=== PATIENT | female | born 1955 | race Caucasian/White ===

== ENCOUNTER → 2019-05-03 09:37 | Outpatient (CLI) | payer MEDICARE, OTHER, SELFPAY ==
[2019-05-02 09:56] VITALS: BMI 54.6
[2019-05-03 12:46] LABS: Absolute Lymphocyte Count 1.54 X10^3/uL (0.83-4.51); Absolute Neutrophil Count 3.5 X10^3/uL (2.0-7.7); Basophil# 0.07 X10^3/uL; Basophil% 1.2 % (0-1); Hematocrit 39.4 % (37-47); Hemoglobin 11.9 g/dL (12.0-15.0); Lymphocyte # 1.54 X10^3/ul (4.0); Lymphocyte % 25.8 % (19-41); Mean Corp Hgb Conc 30.2 g/dL (32-36); Mean Corpuscular Hgb 25.4 pg (27.0-32.0); Mean Platelet Vol. 11.8 fl (6.2-12.0); Monocyte# 0.52 X10^3/uL; Monocyte% 8.7 % (0-10); NRBC Flagged by Analyzer 0 % (0-5); Neutrophil # 3.53 X10^3/uL (2.7-7.7); Neutrophil % 59.1 % (47-70); Platelet Count 284 K/mm3 (150-450); RBC Distribution Width CV 16.2 % (11.6-14.6); RBC Distribution Width SD 49.1 fl (35.1-43.9); Red Blood Count 4.69 M/mm3 (4.2-5.4)
[2019-05-03 13:03] LABS: Vitamin B12 1932 pg/mL (211-911)
[2019-05-03 13:10] LABS: ALB/GLOB Ratio 0.8 RATIO (0.9-2.4); AST(SGOT) 12 U/L (15-37); Alanine Aminotransfer ALT/SGPT 21 U/L (13-56); Albumin, Serum 3.3 g/dL (3.2-5.0); Alkaline Phosphatase 153 U/L (45-117); Anion Gap 6 (5-15); BUN 9 mg/dL (7-18); BUN/Creat Ratio 14.2 RATIO (10-20); Calcium,Total 8.8 mg/dL (8.5-10.1); Chloride 107 mmol/L (98-107); Cholesterol 229 mg/dL (200); Creatinine, Serum 0.63 mg/dL (0.55-1.02); EST Glomerular Filtration Rate 100 mL/min (>60); Est Glom Filt Rate - Afr Amer 121 mL/min (>60); Glucose 90 mg/dL (74-106); High Density Lipoprotein 71 mg/dL; Potassium 3.8 mmol/L (3.5-5.1); Protein, Total 7.3 g/dL (6.4-8.2); Sodium Level 139 mmol/L (136-145); Thyroid Stim Hormone (TSH) 2.55 uIU/mL (0.358-3.74); Triglycerides 81 mg/dL; Very Low Density Lipoprotein 16 mg/dL (5-40)
== END ==
PROVIDERS: Family Provider Internal Medicine; PCP Internal Medicine; Visit Provider Internal Medicine
DX: I10 Essential (primary) hypertension (principal); E53.8 Deficiency of other specified B group vitamins
CPT/HCPCS: 36415; 80053; 80061; 82607; 84443; 85025

== ENCOUNTER → 2019-05-10 08:58 | Outpatient (CLI) | payer MEDICARE, OTHER, SELFPAY ==
[2019-05-02 09:56] VITALS: BMI 54.6
--- NOTE | 2019-05-10 09:00 | US_ITS ---
STUDY: ULTRASOUND BREAST - RIGHT REASON FOR EXAM: Female, 63 years old. Asymmetric density TECHNIQUE: Axial and longitudinal images of the RIGHT breast were performed with a high resolution ultrasound transducer. COMPARISON: None. FINDINGS: RIGHT Breast: Sonographic evaluation of the upper outer quadrant of left breast, in the area of concern shows only normal dense fibroglandular tissue. There is no suspicious solid or cystic mass, architectural distortion or shadowing calcification. US/Breast Limited Unilateral IMPRESSION: No suspicious sonographic findings ASSESSMENT CATEGORY: BIRADS Category 1: Negative. A letter regarding these results will be sent to the patient by the facility within 30 days. Electronically Signed: Be Philippe MD at 11:00 EDT , Service support ,
--- NOTE | 2019-05-10 09:11 | BI_ITS ---
MAMMOGRAPHY - UNILATERAL DIAGNOSTIC: RIGHT BREAST REASON FOR EXAM: Female, 63 years old. Right breast asymmetry, six-month follow-up PERTINENT HISTORY: Non-contributory. TECHNIQUE: Digital examination. Mediolateral oblique (MLO) and craniocaudad (CC) views of the breast were obtained, along with 3-D tomograms. CAD: CAD was performed on this study. COMPARISON: Outside film from 10/27/2018 FINDINGS: Breast Composition: There are scattered areas of fibroglandular density. There is a popcorn like calcification in the lateral superior right breast and a well-defined likely lymph node in the central inner right breast. No focal asymmetry or mass lesion noted. However, further evaluation with ultrasound is recommended for further evaluation and to compare with previous ultrasound. BI/DIAG MAMM W/CAD, UNILAT IMPRESSION: Further ultrasonographic evaluation recommended, as described above. Recall Side: Right Breast ASSESSMENT CATEGORY: BIRADS Category 0: Incomplete. Need additional imaging evaluation. A letter regarding these results will be sent to the patient by the facility within 30 days. FOLLOW-UP RECOMMENDATION: Ultrasound recommended. (I) Approximately 10% of breast cancers are not detected by mammography. A normal mammogram should not delay biopsy of a clinically suspicious abnormality. Electronically Signed: Be Philippe MD at 9:58 EDT , Service support ,
== END ==
PROVIDERS: Family Provider Internal Medicine; PCP Internal Medicine; Referring Provider Internal Medicine; Visit Provider Internal Medicine
DX: R92.8 Other abnormal and inconclusive findings on diagnostic imaging of breast (principal)
CPT/HCPCS: 76642; 77061; 77065; G0279

== ENCOUNTER → 2019-06-05 07:43 | Outpatient (CLI) | payer MEDICARE, OTHER, SELFPAY ==
[2019-05-26 11:13] VITALS: BMI 56.4
--- NOTE | 2019-06-05 07:49 | CT_ITS ---
STUDY: CTA CHEST REASON FOR EXAM: Female, 63 years old. Thoracic aortic aneurysm RADIATION DOSAGE (If Supplied By Facility): CTDIvol = ( 18.58 ) mGy, DLP = ( 680.37 ) mGycm TECHNIQUE: The examination was performed with the intravenous administration of 100mL IV Isovue 370. Post-processing of the angiographic images was performed, with multiplanar reformation and 3D reconstruction. Individualized dose optimization techniques were used for this CT. COMPARISON: None. FINDINGS: Normal enhancement of the main pulmonary artery and right and left pulmonary arteries. Normal enhancement of the bilateral peripheral pulmonary arteries. There is no demonstrated pulmonary embolism. Normal thoracic aorta and visualized great vessels. There is no demonstrated aortic dissection. Normal heart and pericardium. Small hiatal hernia. Normal mediastinum. Normal hilar regions. Normal visualized trachea and bronchi. The lungs are well expanded. Normal pulmonary parenchyma. Normal pleura. Normal chest wall structures. Normal osseous structures. Normal visualized upper abdomen. CT/CTA Chest W/WO Contrast IMPRESSION: Normal CTA chest examination, without a demonstrated pulmonary embolism or arterial dissection. No thoracic aortic aneurysm or significant stenosis of the great vessels. Electronically Signed: Seth Aquino MD at 9:09 EDT Tel , Service support ,
--- NOTE | 2019-06-05 08:22 | ECHOCS_ITS ---
Reason For Study: Murmur Procedure This was a 2D Doppler, Color Flow transthoracic echocardiogram. The study was technically difficult. Contrast injection was performed. Exam performed in department. Left Ventricle Normal LV size. Left ventricular systolic function is normal. The estimated ejection fraction is 65 %. No evidence for diastolic dysfunction. No regional wall motion abnormalities noted. Right Ventricle Normal RV size. Normal systolic function. Atria The left atrium is moderately enlarged. Normal right atrium. No doppler evidence for ASD. Mitral Valve There is no mitral annular calcification. Normal mitral valve. Mild (1+) mitral valve insufficiency. Tricuspid Valve Normal tricuspid valve. Mild tricuspid valve insufficiency. Right ventricular systolic pressure estimated to be 31 mmHg. Aortic Valve Trisinus/trileaflet aortic valve. Mild focal aortic valve calcification. Pulmonic Valve The pulmonic valve is not well visualized. Great Vessels Borderline to mildly enlarged ascending aorta. Pericardium/Pleural No pericardial effusion. Medication Diluted definity 2ml given slow IV push to enhance endocardial definition. MMode/2D Measurements & Calculations LVIDd: 5.8 cm IVSd: 1.1 cm Ao root diam: 3.6 cm LVIDs: 3.8 cm LVPWd: 1.1 cm RVDd: 3.7 cm FS: 34.3 % LAV(MOD-bp): 62.7 ml LVAd ap4: 33.6 cm2 SV(MOD-sp4): 75.8 ml LAV(MOD-bp) Indexed: 29.1 ml/m2 EDV(MOD-sp4): 120.1 ml LAV(MOD-sp2): 50.6 ml EDV(sp4-el): 122.8 ml LAV(MOD-sp4): 71.4 ml LVAs ap4: 18.6 cm2 ESV(MOD-sp4): 44.3 ml ESV(sp4-el): 45.5 ml EF(MOD-sp4): 63.1 % EF(sp4-el): 63.0 % SV(sp4-el): 77.3 ml LA A4 area: 22.7 cm2 LA dimension(2D): 4.5 cm RA A4 area: 13.7 cm2 Doppler Measurements & Calculations MV E max paramjit: 94.4 cm/sec Lat Peak E' Paramjit: 10.2 cm/sec Med Peak E' Paramjit: 7.0 cm/sec MV A max paramjit: 80.0 cm/sec E/E' lat: 9.3 E/E' med: 13.5 MV E/A: 1.2 Ao V2 max: 158.5 cm/sec LV V1 max: 112.5 cm/sec PA V2 max: 119.4 cm/sec Ao max P.1 mmHg LV V1 max P.1 mmHg Ao V2 mean: 121.5 cm/sec Ao mean P.3 mmHg Ao V2 VTI: 37.1 cm TR max paramjit: 266.3 cm/sec TR max P.4 mmHg Interpretation Summary The study was technically difficult. Contrast injection was performed. Left ventricular systolic function is normal. The estimated ejection fraction is 65 %. The left atrium is moderately enlarged. Mild (1+) mitral valve insufficiency. Mild tricuspid valve insufficiency. Mild focal aortic valve calcification. Borderline to mildly enlarged ascending aorta. Right ventricular systolic pressure estimated to be 31 mmHg. No evidence for diastolic dysfunction. Ordering Physician: Osiel Camp Referring Physician: Jennifer Vu Performed By: Flora Kellogg, KATYACS, RVT
== END ==
PROVIDERS: Family Provider Internal Medicine; PCP Internal Medicine; Referring Provider Internal Medicine Cardiovascular Disease; Visit Provider Internal Medicine Cardiovascular Disease
DX: I71.2 Thoracic aortic aneurysm, without rupture (principal); I34.0 Nonrheumatic mitral (valve) insufficiency; I10 Essential (primary) hypertension; E78.5 Hyperlipidemia, unspecified
CPT/HCPCS: 71275; 93306; Q9957; Q9967; A4216; C8929

== ENCOUNTER → 2019-06-14 20:15 | Outpatient (CLI) | payer MEDICARE, OTHER, SELFPAY ==
[2019-05-02 09:56] VITALS: BMI 54.6
== END ==
PROVIDERS: Family Provider Internal Medicine; PCP Internal Medicine; Referring Provider Internal Medicine; Visit Provider Internal Medicine
DX: G47.33 Obstructive sleep apnea (adult) (pediatric) (principal)
CPT/HCPCS: 95811

== ENCOUNTER → 2019-12-05 14:01 | Outpatient (CLI) | payer MEDICARE, OTHER, SELFPAY ==
[2019-12-05 13:23] VITALS: BMI 52.7
[2019-12-05 15:11] LABS: Absolute Lymphocyte Count 2.31 X10^3/uL (0.83-4.51); Absolute Neutrophil Count 4.2 X10^3/uL (2.0-7.7); Basophil# 0.07 X10^3/uL; Eosinophil# 0.21 X10^3/uL; Eosinophils% 2.9 % (0-5); Hemoglobin 12.9 g/dL (12.0-15.0); Lymphocyte # 2.31 X10^3/ul (4.0); Lymphocyte % 31.8 % (19-41); Mean Corp Hgb Conc 30.7 g/dL (32-36); Mean Corpuscular Hgb 26.2 pg (27.0-32.0); Mean Corpuscular Volume 85.4 fL (81-99); Mean Platelet Vol. 10.8 fl (6.2-12.0); Monocyte# 0.52 X10^3/uL; Monocyte% 7.2 % (0-10); NRBC Flagged by Analyzer 0 % (0-5); Neutrophil # 4.15 X10^3/uL (2.7-7.7); Platelet Count 300 K/mm3 (150-450); RBC Distribution Width CV 16.4 % (11.6-14.6); RBC Distribution Width SD 50.3 fl (35.1-43.9); Red Blood Count 4.92 M/mm3 (4.2-5.4); White Blood Count 7.3 K/mm3 (4.4-11.0)
[2019-12-05 15:33] LABS: Thyroid Stim Hormone (TSH) 1.75 uIU/mL (0.358-3.74)
[2019-12-05 15:42] LABS: Vitamin B12 467 pg/mL (211-911); Vitamin D,25 Hydroxy 24.2 ng/mL (29.95-100.01)
== END ==
PROVIDERS: PCP Internal Medicine; Referring Provider Internal Medicine; Visit Provider Internal Medicine
DX: E03.9 Hypothyroidism, unspecified (principal); E53.8 Deficiency of other specified B group vitamins; E55.9 Vitamin D deficiency, unspecified
CPT/HCPCS: 36415; 82306; 82607; 84443; 85025

== ENCOUNTER → 2020-04-16 10:46 | Outpatient (CLI) | payer MEDICARE, OTHER, SELFPAY ==
[2020-04-16 10:29] VITALS: BMI 35.2
[2020-04-16 12:12] LABS: Hematocrit 42.9 % (37-47); Hemoglobin 12.9 g/dL (12.0-15.0); Mean Corp Hgb Conc 30.1 g/dL (32-36); Mean Corpuscular Hgb 26.5 pg (27.0-32.0); Mean Corpuscular Volume 88.1 fL (81-99); Mean Platelet Vol. 11.5 fl (6.2-12.0); Platelet Count 315 K/mm3 (150-450); RBC Distribution Width CV 14.8 % (11.6-14.6); RBC Distribution Width SD 46.8 fl (35.1-43.9); Red Blood Count 4.87 M/mm3 (4.2-5.4); White Blood Count 8.4 K/mm3 (4.4-11.0)
[2020-04-16 12:39] LABS: Cholesterol 231 mg/dL (200); High Density Lipoprotein 62 mg/dL; Triglycerides 135 mg/dL; Very Low Density Lipoprotein 27 mg/dL (5-40)
[2020-04-16 12:42] LABS: ALB/GLOB Ratio 0.8 RATIO (0.9-2.4); AST(SGOT) 10 U/L (15-37); Alanine Aminotransfer ALT/SGPT 25 U/L (13-56); Albumin, Serum 3.3 g/dL (3.2-5.0); Alkaline Phosphatase 173 U/L (45-117); Anion Gap 6 (5-15); BUN 16 mg/dL (7-18); BUN/Creat Ratio 25.6 RATIO (10-20); Calcium,Total 8.8 mg/dL (8.5-10.1); Chloride 108 mmol/L (98-107); Creatinine, Serum 0.63 mg/dL (0.55-1.02); EST Glomerular Filtration Rate 101 mL/min (>60); Est Glom Filt Rate - Afr Amer 123 mL/min (>60); Globulin 4.4 g/dL (2.2-4.2); Glucose 99 mg/dL (74-106); Potassium 4.2 mmol/L (3.5-5.1); Protein, Total 7.7 g/dL (6.4-8.2); Sodium Level 140 mmol/L (136-145); Thyroid Stim Hormone (TSH) 2.84 uIU/mL (0.358-3.74)
[2020-04-16 13:26] LABS: Vitamin B12 386 pg/mL (211-911); Vitamin D,25 Hydroxy 31.8 ng/mL
== END ==
PROVIDERS: Internal Medicine Cardiovascular Disease; PCP Internal Medicine; Referring Provider Nurse Practitioner Family; Visit Provider Nurse Practitioner Family
DX: E66.9 Obesity, unspecified (principal); E55.9 Vitamin D deficiency, unspecified; E53.8 Deficiency of other specified B group vitamins; E78.00 Pure hypercholesterolemia, unspecified; I34.0 Nonrheumatic mitral (valve) insufficiency; E78.5 Hyperlipidemia, unspecified; I10 Essential (primary) hypertension; I71.2 Thoracic aortic aneurysm, without rupture; E03.9 Hypothyroidism, unspecified
CPT/HCPCS: 36415; 80053; 80061; 82306; 82607; 84443; 85027

== ENCOUNTER → 2020-05-17 09:19 | Outpatient (CLI) | payer MEDICARE, OTHER, SELFPAY ==
[2020-05-17 08:16] VITALS: BMI 35.2
[2020-05-17 10:14] LABS: Mucous, Urine 0 SEEN /hpf (<or=2+); Red Blood Cells-Urine 0 SEEN /hpf (0-5); White Blood Cells 0 SEEN /hpf (0-5)
[2020-05-17 12:33] LABS: Color, Urine Yellow (Yellow); Glucose, Dipstick Normal (Normal); Ketone-Dipstick Negative (Negative); Leukocyte Esterase-Dipstick Negative /ul (Negative); Nitrite-Dipstick Negative (Negative); Occult Blood-Urine Negative /ul (Negative); Protein-Dipstick Negative (Negative); Specific Gravity, Urine 1.015 (1.002-1.030); Urine Bilirubin Dipstick Negative (Negative); Urine Clarity Clear (Clear); Urine Urobilinogen Normal (Normal)
[2020-05-17 12:44] LABS: Squamous Epithelial Cells - UA 5-10 SEEN /hpf (5-10)
[2020-05-17 12:45] LABS: Bacteria RARE /hpf (None Seen)
== END ==
LOC: BIMLAB 09:20 → LABSPEC 09:21
PROVIDERS: PCP Internal Medicine; Referring Provider Nurse Practitioner Family; Visit Provider Nurse Practitioner Family
DX: N39.0 Urinary tract infection, site not specified (principal)
CPT/HCPCS: 81001; 87086; 87088

== ENCOUNTER → 2020-06-11 14:22 | Outpatient (CLI) | payer MEDICARE, OTHER, SELFPAY ==
[2020-06-11 13:36] VITALS: BMI 35.2
[2020-06-11 17:38] LABS: Absolute Lymphocyte Count 2.15 X10^3/uL (0.83-4.51); Absolute Neutrophil Count 4.5 X10^3/uL (2.0-7.7); Basophil# 0.06 X10^3/uL; Basophil% 0.8 % (0-1); Eosinophil# 0.28 X10^3/uL; Eosinophils% 3.7 % (0-5); Hematocrit 43.3 % (37-47); Hemoglobin 12.9 g/dL (12.0-15.0); Lymphocyte # 2.15 X10^3/ul (4.0); Lymphocyte % 28.4 % (19-41); Mean Corp Hgb Conc 29.8 g/dL (32-36); Mean Corpuscular Hgb 26.1 pg (27.0-32.0); Mean Corpuscular Volume 87.5 fL (81-99); Mean Platelet Vol. 11.7 fl (6.2-12.0); Monocyte# 0.58 X10^3/uL; Monocyte% 7.7 % (0-10); NRBC Flagged by Analyzer 0 % (0-5); Neutrophil # 4.48 X10^3/uL (2.7-7.7); Neutrophil % 59.1 % (47-70); Platelet Count 314 K/mm3 (150-450); RBC Distribution Width SD 53.4 fl (35.1-43.9); Red Blood Count 4.95 M/mm3 (4.2-5.4); White Blood Count 7.6 K/mm3 (4.4-11.0)
== END ==
PROVIDERS: PCP Internal Medicine; Referring Provider Internal Medicine; Visit Provider Internal Medicine
DX: E53.8 Deficiency of other specified B group vitamins (principal)
CPT/HCPCS: 36415; 85025

== ENCOUNTER → 2020-11-18 15:27 | Outpatient (CLI) | payer MEDICARE, OTHER, SELFPAY ==
[2020-11-18 17:42] LABS: Absolute Lymphocyte Count 1.79 X10^3/uL (0.83-4.51); Absolute Neutrophil Count 5.6 X10^3/uL (2.0-7.7); Basophil# 0.04 X10^3/uL; Basophil% 0.5 % (0-1); Eosinophil# 0.19 X10^3/uL; Eosinophils% 2.3 % (0-5); Hematocrit 39.7 % (37-47); Hemoglobin 13.2 g/dL (12.0-15.0); Lymphocyte # 1.79 X10^3/ul (4.0); Lymphocyte % 21.9 % (19-41); Mean Corp Hgb Conc 33.2 g/dL (32-36); Mean Corpuscular Hgb 29.7 pg (27.0-32.0); Mean Corpuscular Volume 89.2 fL (81-99); Mean Platelet Vol. 12.1 fl (6.2-12.0); Monocyte# 0.57 X10^3/uL; NRBC Flagged by Analyzer 0 % (0-5); Neutrophil # 5.57 X10^3/uL (2.7-7.7); Neutrophil % 68.1 % (47-70); Platelet Count 247 K/mm3 (150-450); RBC Distribution Width CV 17.9 % (11.6-14.6); RBC Distribution Width SD 50.4 fl (35.1-43.9); Red Blood Count 4.45 M/mm3 (4.2-5.4); White Blood Count 8.2 K/mm3 (4.4-11.0)
[2020-11-18 18:07] LABS: ALB/GLOB Ratio 0.8 RATIO (0.9-2.4); AST(SGOT) 13 U/L (15-37); Alanine Aminotransfer ALT/SGPT 23 U/L (13-56); Albumin, Serum 3.4 g/dL (3.2-5.0); Alkaline Phosphatase 148 U/L (45-117); Anion Gap 9 (5-15); BUN 18 mg/dL (7-18); BUN/Creat Ratio 23.3 RATIO (10-20); Calcium,Total 9.3 mg/dL (8.5-10.1); Chloride 105 mmol/L (98-107); Creatinine, Serum 0.77 mg/dL (0.55-1.02); EST Glomerular Filtration Rate 79 mL/min (>60); Est Glom Filt Rate - Afr Amer 96 mL/min (>60); Globulin 4.2 g/dL (2.2-4.2); Glucose 100 mg/dL (74-106); Potassium 3.9 mmol/L (3.5-5.1); Protein, Total 7.6 g/dL (6.4-8.2); Sodium Level 140 mmol/L (136-145)
[2020-11-18 18:16] LABS: Vitamin D,25 Hydroxy 65.8 ng/mL
[2020-11-18 18:20] LABS: Vitamin B12 > 2000 pg/mL (211-911)
== END ==
PROVIDERS: PCP Internal Medicine; Visit Provider Internal Medicine
DX: E53.8 Deficiency of other specified B group vitamins (principal); I10 Essential (primary) hypertension; K91.2 Postsurgical malabsorption, not elsewhere classified
CPT/HCPCS: 36415; 80053; 82306; 82607; 85025

== ENCOUNTER → 2021-08-27 09:48 | Outpatient (CLI) | payer MEDICARE, OTHER, SELFPAY ==
--- NOTE | 2021-08-27 10:00 | RAD_ITS ---
STUDY: X-RAY - PELVIS AND LEFT HIP REASON FOR EXAM: Left hip pain. TECHNIQUE: 2 views of the pelvis and hip. COMPARISON: None. FINDINGS: Normal visualized soft tissue structures. Normal bilateral iliac wings, sacroiliac joints and visualized sacrum. Normal bilateral superior and inferior pubic rami. There are mild degenerative changes of the pubic symphysis. Normal bilateral ischial tuberosities. Normal visualized femoral head. Normal acetabulum. There are small marginal osteophytes and moderate joint space narrowing of the hip joint. RAD/HIP, UNI W/ Pelvis 2-3 Views IMPRESSION: Left hip arthrosis. Electronically Signed: Edwin Ortega MD at 10:39 EST Tel , Service support ,
[2021-08-27 12:20] LABS: Absolute Lymphocyte Count 2.06 X10^3/uL (0.83-4.51); Absolute Neutrophil Count 3.6 X10^3/uL (2.0-7.7); Basophil# 0.06 X10^3/uL; Basophil% 0.9 % (0-1); Eosinophil# 0.23 X10^3/uL; Eosinophils% 3.5 % (0-5); Hematocrit 40.2 % (37-47); Hemoglobin 12.8 g/dL (12.0-15.0); Lymphocyte # 2.06 X10^3/ul (0.83-4.51); Lymphocyte % 31.8 % (19-41); Mean Corp Hgb Conc 31.8 g/dL (32-36); Mean Corpuscular Hgb 28.1 pg (27.0-32.0); Mean Corpuscular Volume 88.4 fL (81-99); Mean Platelet Vol. 11.4 fl (6.2-12.0); Monocyte# 0.49 X10^3/uL; Monocyte% 7.6 % (0-10); NRBC Flagged by Analyzer 0 % (0-5); Neutrophil # 3.62 X10^3/uL (2.7-7.7); Neutrophil % 55.9 % (47-70); Platelet Count 263 K/mm3 (150-450); RBC Distribution Width CV 15.7 % (11.6-14.6); Red Blood Count 4.55 M/mm3 (4.2-5.4); White Blood Count 6.5 K/mm3 (4.4-11.0)
[2021-08-27 13:13] LABS: ALB/GLOB Ratio 0.8 RATIO (0.9-2.4); AST(SGOT) 18 U/L (15-37); Alanine Aminotransfer ALT/SGPT 23 U/L (13-56); Albumin, Serum 3.3 g/dL (3.2-5.0); Alkaline Phosphatase 150 U/L (45-117); Anion Gap 8 (5-15); BUN 12 mg/dL (7-18); BUN/Creat Ratio 22.4 RATIO (10-20); Calcium,Total 9.2 mg/dL (8.5-10.1); Chloride 106 mmol/L (98-107); Cholesterol 207 mg/dL (200); Creatinine, Serum 0.54 mg/dL (0.55-1.02); EST Glomerular Filtration Rate 121 mL/min (>60); Est Glom Filt Rate - Afr Amer 147 mL/min (>60); Globulin 4.1 g/dL (2.2-4.2); Glucose 88 mg/dL (74-106); High Density Lipoprotein 58 mg/dL; Potassium 3.9 mmol/L (3.5-5.1); Protein, Total 7.4 g/dL (6.4-8.2); Sodium Level 140 mmol/L (136-145); Triglycerides 94 mg/dL; Very Low Density Lipoprotein 19 mg/dL (5-40)
== END ==
PROVIDERS: PCP Internal Medicine; Visit Provider Internal Medicine
DX: I10 Essential (primary) hypertension (principal); M25.552 Pain in left hip
CPT/HCPCS: 36415; 73502; 80053; 80061; 85025

== ENCOUNTER 2021-10-23 10:30 | Outpatient (RCR) | payer MEDICARE, OTHER, SELFPAY ==
--- NOTE | 2021-09-23 12:37 | HP.PTEVAL ---
Patient's Visit Information KAROLYN MOREL is a 65 year old F referred to Physical Therapy by Dr. Jennifer Vu MD with a diagnosis of Left Hip Pain. Date of Evaluation: 09/23/21 Physical Therapist: Shila Ashraf DPT - Visit Plan Frequency: 2x /Week Duration: 4 Weeks Plan: Focus on LE and core strength/stabilization and functional mobility. HEP Given IE: Std Marching, HR/TR, hip abd, hip extn - Subjective Patient reports that her left hip is really bothering her for about a year. When she broke her right ankle she walked funny for a year and it wore the left hip out. She has had x-rays which showed moderate OA. The hip was giving out on her so she is using a walker and now it doesn't do that. Worst: 06/27 Agg: movement Eases: heat, rest Best: 01/25. She does not want to have her hip replaced- and wants to stay as I as possible. Pain is located on the greater troch and radiates to the thigh. Feels that the knee is not correct either after the knee replacement. Describes the pain as achy and does not want to more- stiffness. Sleep: disturbed- keeps her from sleeping but does not wake her up. Work: not currently working- more sedentary- but does perform all ADL's, grocery shopping and cleaning. No loss or change in bowel or bladder. PMHx/Meds: see PCP note from 09/02/2021 - Objective Posture: FH, RS- does not correct given verbal or tactile cues. Gait: wide ROCK- decreased stance on the left LE with poor heel/toe pattern- Straight Cane. Stairs: asc/desc 8 non recip- bilateral HR for propulsion and decreased control with descent. HR/TR: able with UE A. SLS: weight shift but unable to SLS. ROM: WFL in all planes of lumbar and hip- pain with hip flexion. Strength: Ankle: 4+/5 Knee: 4/5, Hip: flexion: 4-/5, Extn: 4/5, Abd: 4/5, Add: 4+/5, IR/ER: not tested due to. Flex: HS: moderate Gastroc: moderate - Balance/Special Test Scores Lower Extremity Functional Score: 29 TUG Test Time Seconds: 17.67 30 Second Chair Rise Test Seconds: 16 - Goals Goal 1:: Patient will be I with HEP and progression Goal Time Frame: 4-6 Weeks Goal 2:: Patient will ambulate <300 feet with a normalized gait pattern and LRD Goal Time Frame: 4-6 Weeks Goal 3:: Patient will asc/desc 8 recip with 2 HR Goal Time Frame: 4-6 Weeks Goal 4:: Patient will report more than 50% improvement Goal Time Frame: 4-6 Weeks - Rehabilitation Potential Physical Therapy Diagnosis: Patient presents with hypomobility- she has decreased pain free ROM, LE and core strength/stabilization, flexibility and muscular endurance leading to abnormal gait and decreased ability to perform ADL's. Rehabilitation Potential: Fair - Anticipated Interventions Patient/Client Instruction: Educate patient on: Benefits of Fitness Program Therapeutic Exercise to Include: Strength training, Endurance training, Balance training, Agility training, Body mechanics, Postural training, Flexibilty training, Gait and locomotor training, Neuromotor development, Dynamic Lumbar Stabilization, Scapular Strength/Stabilization For the Purpose of:: To improve muscle performance and motor function Cryotherapy (ice pack, ice massage): Yes Thermo therapy (hot pack): Yes Thank you for the opportunity to evaluate your patient. For Medicare and Medicare HMO plans, please review the plan of care and approve it. It will need to be FAXED BACK to us at [phone] for Medicare purposes. For Medicare only, by signing this I certify the plan of care. Please let me know if there are questions or concerns regarding this plan of care. Physician Signature: Date:
--- NOTE | 2021-10-23 10:54 | HP.PTDCSUM_ITS ---
It has been my pleasure to treat KAROLYN MOREL referred by Dr. Jennifer Vu MD, with the diagnosis of Left Hip Pain for a total of 7 visit(s). Discharge Date: Please see the following information for a summary of their discharge status. Subjective: She reports that he is moving better- she doesn't have to use her cane or walker in the house. She is getting up/down easier with a better first step. L lateral hip Pain Intensity (Out of 10): 4 % Improvement: 40 Objective/Function: Posture: FH, RS- does correct given verbal or tactile cues. Gait: wide ROCK- decreased stance on the left LE with poor heel/toe pattern- Straight Cane. Stairs: asc/desc 8 recip- bilateral HR for propulsion and decreased control with descent. HR/TR: able with UE A. SLS: weight shift but unable to SLS. ROM: WFL in all planes of lumbar and hip- pain with hip flexion. Strength: Ankle: 4+/5 Knee: 4+/5, Hip: flexion: 4/5, Extn: 4/5, Abd: 4+/5, Add: 4+/5, Flex: HS: moderate Gastroc: moderate Goal 1:: Patient will be I with HEP and progression Goal Progress: Progressing Goal 2:: Patient will ambulate <300 feet with a normalized gait pattern and LRD Goal Progress: Progressing Goal 3:: Patient will asc/desc 8 recip with 2 HR Goal Progress: Progressing Goal 4:: Patient will report more than 50% improvement Goal Progress: Progressing Plan: Discharge to [facility] If there are questions or concerns regarding this patient's physical therapy, please feel free to call me at [phone]. Thank you for the referral of this patient. Sincerely, Shila Ashraf, DPT Balance/Gait/Functional tests - Balance/Special Test Scores Lower Extremity Functional Score: 37 TUG Test Time Seconds: 17.67 Tug Test: <20 sec.=mostly independent 30 Second Chair Rise Test Seconds: 16
== END 2021-10-23 19:00 | disposition home or self-care (01) ==
LOC: PT 10:30
PROVIDERS: PCP Internal Medicine; Referring Provider Internal Medicine; Visit Provider Internal Medicine
DX: M25.552 Pain in left hip (principal)
CPT/HCPCS: 97110; 97161; 97164

== ENCOUNTER → 2022-01-20 15:05 | Outpatient (CLI) | payer MEDICARE, OTHER, SELFPAY ==
--- NOTE | 2022-01-20 15:07 | BI_ITS ---
MAMMOGRAPHY - BILATERAL SCREENING REASON FOR EXAM: Female, 66 years old. Routine annual screening examination. PERTINENT HISTORY: Non-contributory. TECHNIQUE: Digital bilateral breast rich (3D mammographic acquisition) in the CC and MLO projections. 2-D mediolateral oblique (MLO) and craniocaudad (CC) views of both breasts were obtained. CAD: Full Field Digital Mammography with Computer Added Detection was performed. COMPARISON: Comparison is made with prior examination dated 10/27/2018. FINDINGS: Breast Composition: The breasts are heterogeneously dense, which may obscure small masses. There are no dominant masses or suspicious calcifications. There is a 6.1 mm well-defined nodule in the retroareolar region of the right breast. Ultrasound correlation is suggested. Stable partially calcified nodules in the left breast suggestive of calcifying fibroadenomas. No other significant abnormalities are identified. BI/SCRN MAMM (CAD)W/RICH BILAT IMPRESSION: 6.1 mm well-defined nodule in the retroareolar region of the right breast. Correlation with ultrasound is recommended. ASSESSMENT CATEGORY: BIRADS Category 0: Incomplete. Need additional imaging evaluation. A letter regarding these results will be sent to the patient by the facility within 30 days. Approximately 10% of breast cancers are not detected by mammography. A normal mammogram should not delay biopsy of a clinically suspicious abnormality. [id number] Electronically Signed: Rupesh Diaz MD at 15:56 EDT ,
== END ==
PROVIDERS: PCP Internal Medicine; Referring Provider Internal Medicine; Visit Provider Internal Medicine
DX: Z12.31 Encounter for screening mammogram for malignant neoplasm of breast (principal)
CPT/HCPCS: 77063; 77067

== ENCOUNTER 2022-01-22 10:57 | Outpatient (CLI) | payer MEDICARE, OTHER, SELFPAY ==
--- NOTE | 2022-01-22 10:58 | US_ITS ---
STUDY: ULTRASOUND BREAST - RIGHT REASON FOR EXAM: Female, 66 years old. Abnormal screening mammogram. TECHNIQUE: Axial and longitudinal images of the RIGHT breast were performed with a high resolution ultrasound transducer. # OF IMAGES: 8 COMPARISON: Comparison is made with prior mammogram dated 01/20/2022 and prior sonogram of the right breast dated 05/10/2019. FINDINGS: RIGHT Breast: The mammographic abnormality corresponds to a 8mm by 8mm by 6 mm well-defined hypoechoic nodule in the retroareolar region of the breast. Biopsy is recommended. US/Breast Limited Unilateral IMPRESSION: 8 mm x 8 mm x 6 mm hypoechoic nodule at the 8 o''clock position of the breast in the retroareolar region. Biopsy recommended. ASSESSMENT CATEGORY: BIRADS Category 4: Suspicious - Biopsy Should Be Considered. A letter regarding these results will be sent to the patient by the facility within 30 days. Electronically Signed: Rupesh Diaz MD at 14:03 EDT ,
== END 2022-01-22 23:59 | disposition home or self-care (01) ==
LOC: OPBI 10:58
PROVIDERS: PCP Internal Medicine; Visit Provider Internal Medicine
DX: R92.8 Other abnormal and inconclusive findings on diagnostic imaging of breast (principal)
CPT/HCPCS: 76642

== ENCOUNTER → 2022-02-05 | Outpatient (CLI) | payer MEDICARE, OTHER, SELFPAY ==
--- NOTE | 2022-02-05 | BRBX_PTH ---
PATIENT: KAROLYN MOREL LOC: [facility] U#:[id number] AGE/SX: 66/F ROOM: RE02/05/[address]: Dr. Shanon Rivera MD : 1955 BED: DIS: 02/05/2022 SPEC #: [id number] RECD: 02/05/22 16:24 STATUS: LILLI SUNNY #: [id number] PAULO: 02/05/22 00:[address]: Shanon Rivera DEPT: SURGICAL PATHOLOGY RECD BY: Taco Otto ENTERED: 02/06/22 10:57 SP TYPE: BREAST BX ANN MARIE DR: Dr. Jennifer Vu MD Tissues: Right breast, NOS Procedures: Surgery Specimen Level IV HEADER OPERATION: Ultrasound-guided right breast core biopsy PRE-OP DIAGNOSIS: Right breast mass 8 o?clock, 1 cm from nipple TISSUE SUBMITTED: Right breast FIXATION TIME: 75.5 hours MICROSCOPIC DIAGNOSIS Right breast mass, 8 o?clock, 1 cm from nipple, ultrasound-guided core biopsy: Hyalinized fibroadenoma. Negative for atypia or malignancy. See comment. CAMILA:richi 02/09/2022 COMMENT Correlation with clinical, radiologic findings and appropriate follow up are necessary. MICROSCOPIC DESCRIPTION Slides are reviewed. GROSS DESCRIPTION Received in fixative is one container labeled with the patient's name and designated right breast. The specimen consists of multiple elongated fragments of cash-yellow fibroadipose tissue that in aggregate measure 2 x 0.2 x 0.1 cm. The entire specimen is submitted in one cassette. / CAMILA:richi 02/06/2022 TC:1 CPT: 35860
--- NOTE | 2022-02-05 14:32 | US_ITS ---
STUDY: ULTRASOUND BREAST - RIGHT REASON FOR EXAM: Female, 66 years old. Right breast mass TECHNIQUE: Axial and longitudinal images of the RIGHT breast were performed with a high resolution ultrasound transducer. # OF IMAGES: 28 COMPARISON: None. FINDINGS: RIGHT Breast: Ultrasound-guided biopsy of 8 mm x 8 mm x 6 mm hypoechoic nodule at the 8 o''''clock position of the breast in the retroareolar region. Biopsy recommended. US/US Breast Biopsy 1st Lesion IMPRESSION: Successful ultrasound-guided biopsy of right breast mass at 8 o''clock position. ASSESSMENT CATEGORY: BIRADS Category 4: Suspicious. Pathology result is pending Electronically Signed: Salma Han MD at 3:02 EDT ,
--- NOTE | 2022-02-05 15:58 | PCM.OPRPT ---
Report of Operation Date of Procedure: 02/05/22 Pre-Operative Diagnosis: Right breast mass Post-Operative Diagnosis: Same Surgery/Procedure Performed:: Ultrasound-guided right breast biopsy Surgeon: Shanon Rivera Type of Anesthesia: Local Specimen's removed: Right breast mass 8:00 1 cm from the nipple Estimated Blood Loss (mL): Minimal Description of Procedure: Procedure: Right ultrasound-guided core biopsy Indications: 66year-old female with hypoechoic nodule at 8:00 in the right breast 1 centimeters from the nipple. Risk benefits were discussed the patient and she elected to proceed with ultrasound guided core biopsy with clip placement Description of procedure: Patient was brought into the ultrasound room in the right breast was marked. A timeout was completed verifying correct patient, procedure, site, specially, prior to beginning procedure. The right breast was prepped and draped in usual sterile fashion and using local anesthesia was obtained with 1% lidocaine with epi. The lesion was located with the ultrasound. Small incision was made with 11 blade to introduced the BARD MaxCore through the skin. Under ultrasound guidance multiple core samples were obtained using then 14-gauge BARD MaxCore and sent in formalin for pathology. The Bard dual ultraribbon clip was then deployed into the biopsy cavity under ultrasound guidance and a picture was taken. Upon completion procedure hemostasis was obtained and a Steri-Strip and OpSite were placed. Patient was then taken to the mammography suite for clip verification. The clip was verified. The patient tolerated the procedure well and was discharged from the breast imaging department good condition. Complications none
== END | disposition home or self-care (01) ==
LOC: BIRAD 14:31
PROVIDERS: PCP Internal Medicine; Visit Provider Surgery
DX: R92.8 Other abnormal and inconclusive findings on diagnostic imaging of breast (principal)
CPT/HCPCS: 19083; 88305

== ENCOUNTER → 2022-04-02 | Outpatient (CLI) | payer MEDICARE, OTHER, SELFPAY ==
[2022-04-02 10:42] LABS: Bacteria 0 SEEN /hpf (None Seen); Mucous, Urine 0 SEEN /hpf (<or=2+); Red Blood Cells-Urine 0 SEEN /hpf (0-5); White Blood Cells 0 SEEN /hpf (0-5)
[2022-04-02 12:03] LABS: Color, Urine Yellow (Yellow); Glucose, Dipstick Normal (Normal); Ketone-Dipstick Negative (Negative); Leukocyte Esterase-Dipstick Negative /ul (Negative); Nitrite-Dipstick Negative (Negative); Occult Blood-Urine Negative /ul (Negative); Protein-Dipstick Negative (Negative); Urine Bilirubin Dipstick Negative (Negative); Urine Clarity Clear (Clear); Urine Urobilinogen Normal (Normal); Urine pH 6.5 (5.0 - 8.0)
[2022-04-02 12:15] LABS: Squamous Epithelial Cells - UA 0-5 SEEN /hpf (5-10)
[2022-04-02 12:24] LABS: Absolute Lymphocyte Count 2.36 X10^3/uL (0.83-4.51); Absolute Neutrophil Count 5.6 X10^3/uL (2.0-7.7); Basophil# 0.04 X10^3/uL; Basophil% 0.5 % (0-1); Eosinophil# 0.09 X10^3/uL; Hematocrit 45.1 % (37-47); Hemoglobin 13.8 g/dL (12.0-15.0); Lymphocyte # 2.36 X10^3/ul (0.83-4.51); Lymphocyte % 26.8 % (19-41); Mean Corp Hgb Conc 30.6 g/dL (32-36); Mean Corpuscular Hgb 28.2 pg (27.0-32.0); Mean Corpuscular Volume 92.2 fL (81-99); Mean Platelet Vol. 11.8 fl (6.2-12.0); Monocyte# 0.66 X10^3/uL; Monocyte% 7.5 % (0-10); NRBC Flagged by Analyzer 0 % (0-5); Neutrophil # 5.63 X10^3/uL (2.7-7.7); Neutrophil % 63.7 % (47-70); Platelet Count 256 K/mm3 (150-450); RBC Distribution Width CV 14.5 % (11.6-14.6); RBC Distribution Width SD 49.5 fl (35.1-43.9); Red Blood Count 4.89 M/mm3 (4.2-5.4); White Blood Count 8.8 K/mm3 (4.4-11.0)
[2022-04-02 12:52] LABS: Vitamin B12 541 pg/mL (211-911); Vitamin D,25 Hydroxy 49.1 ng/mL
[2022-04-02 12:58] LABS: ALB/GLOB Ratio 0.9 RATIO (0.9-2.4); AST(SGOT) 12 U/L (15-37); Alanine Aminotransfer ALT/SGPT 27 U/L (13-56); Albumin, Serum 3.6 g/dL (3.2-5.0); Alkaline Phosphatase 157 U/L (45-117); Anion Gap 7 (5-15); BUN 13 mg/dL (7-18); BUN/Creat Ratio 20.4 RATIO (10-20); Chloride 107 mmol/L (98-107); Creatinine, Serum 0.64 mg/dL (0.55-1.02); EST Glomerular Filtration Rate 99 mL/min (>60); Est Glom Filt Rate - Afr Amer 119 mL/min (>60); Glucose 87 mg/dL (74-106); Potassium 4.5 mmol/L (3.5-5.1); Protein, Total 7.6 g/dL (6.4-8.2); Sodium Level 139 mmol/L (136-145); Thyroid Stim Hormone (TSH) 2.13 uIU/mL (0.358-3.74)
== END | disposition home or self-care (01) ==
LOC: BIMLAB 10:11
PROVIDERS: PCP Internal Medicine; Referring Provider Physician Assistant; Visit Provider Physician Assistant
DX: R01.1 Cardiac murmur, unspecified (principal); E53.8 Deficiency of other specified B group vitamins; E03.9 Hypothyroidism, unspecified; E55.9 Vitamin D deficiency, unspecified; R53.83 Other fatigue; I10 Essential (primary) hypertension
CPT/HCPCS: 36415; 80053; 81001; 82306; 82607; 84443; 85025

== ENCOUNTER → 2022-07-08 | Outpatient (CLI) | payer MEDICARE, OTHER, SELFPAY ==
--- NOTE | 2022-07-08 09:34 | RAD_ITS ---
STUDY: X-RAY CHEST REASON FOR EXAM: Female, 66 years old. Cough, Fatigue and malaise TECHNIQUE: Single frontal view of the chest. COMPARISON: CT dated 06/05/2022. FINDINGS: The lungs are clear and expanded. There is no demonstrated pleural abnormality. Normal size heart. Normal mediastinum and davidson. Normal visualized pulmonary arteries. Normal visualized aortic arch and descending thoracic aorta. There are diffuse degenerative changes of the visualized thoracic spine. There is a levoscoliosis of the lower thoracic spine. Normal visualized ribs, clavicles, and shoulders. There is no demonstrated abnormality of the visualized soft tissue structures of the upper abdomen. RAD/Chest 1 View IMPRESSION: No acute cardiopulmonary process. Electronically Signed: Misty Dietrich MD at 10:17 EDT ,
[2022-07-08 12:45] LABS: Absolute Lymphocyte Count 2.82 X10^3/uL (0.83-4.51); Absolute Neutrophil Count 3.9 X10^3/uL (2.0-7.7); Basophil# 0.07 X10^3/uL; Basophil% 0.9 % (0-1); Eosinophil# 0.33 X10^3/uL; Eosinophils% 4.2 % (0-5); Hematocrit 39.5 % (37-47); Hemoglobin 12.2 g/dL (12.0-15.0); Lymphocyte # 2.82 X10^3/ul (0.83-4.51); Lymphocyte % 35.7 % (19-41); Mean Corp Hgb Conc 30.9 g/dL (32-36); Mean Corpuscular Hgb 28.9 pg (27.0-32.0); Mean Corpuscular Volume 93.6 fL (81-99); Mean Platelet Vol. 11.5 fl (6.2-12.0); Monocyte# 0.72 X10^3/uL; Monocyte% 9.1 % (0-10); NRBC Flagged by Analyzer 0 % (0-5); Neutrophil # 3.93 X10^3/uL (2.7-7.7); Neutrophil % 49.7 % (47-70); Platelet Count 267 K/mm3 (150-450); RBC Distribution Width CV 14.6 % (11.6-14.6); RBC Distribution Width SD 49.8 fl (35.1-43.9); Red Blood Count 4.22 M/mm3 (4.2-5.4); White Blood Count 7.9 K/mm3 (4.4-11.0)
[2022-07-08 13:36] LABS: Anion Gap 7 (5-15); BUN 16 mg/dL (7-18); BUN/Creat Ratio 26.9 RATIO (10-20); Chloride 107 mmol/L (98-107); EST Glomerular Filtration Rate 107 mL/min (>60); Est Glom Filt Rate - Afr Amer 129 mL/min (>60); Glucose 83 mg/dL (74-106); Potassium 4.3 mmol/L (3.5-5.1); Sodium Level 140 mmol/L (136-145)
== END | disposition home or self-care (01) ==
PROVIDERS: PCP Internal Medicine; Referring Provider Internal Medicine; Visit Provider Internal Medicine
DX: R53.81 Other malaise (principal); R53.83 Other fatigue; R05.9 Cough, unspecified; J45.909 Unspecified asthma, uncomplicated
CPT/HCPCS: 36415; 71045; 80048; 85025; 87635; U0003; U0005

== ENCOUNTER → 2022-12-10 | Outpatient (CLI) | payer MEDICARE, OTHER, SELFPAY ==
[2022-12-10 15:20] LABS: Absolute Lymphocyte Count 1.95 X10^3/uL (0.83-4.51); Basophil# 0.04 X10^3/uL; Basophil% 0.5 % (0-1); Eosinophil# 0.19 X10^3/uL; Eosinophils% 2.4 % (0-5); Hematocrit 43.4 % (37-47); Hemoglobin 13.2 g/dL (12.0-15.0); Lymphocyte # 1.95 X10^3/ul (0.83-4.51); Mean Corp Hgb Conc 30.4 g/dL (32-36); Mean Corpuscular Hgb 27.6 pg (27.0-32.0); Mean Corpuscular Volume 90.6 fL (81-99); Mean Platelet Vol. 11.3 fl (6.2-12.0); Monocyte# 0.57 X10^3/uL; Monocyte% 7.3 % (0-10); NRBC Flagged by Analyzer 0 % (0-5); Neutrophil # 5.04 X10^3/uL (2.7-7.7); Neutrophil % 64.5 % (47-70); Platelet Count 275 K/mm3 (150-450); RBC Distribution Width CV 15.7 % (11.6-14.6); Red Blood Count 4.79 M/mm3 (4.2-5.4); White Blood Count 7.8 K/mm3 (4.4-11.0)
[2022-12-10 15:50] LABS: Hemoglobin A1c 5.4 % (3.8-5.6)
[2022-12-10 15:54] LABS: ALB/GLOB Ratio 0.9 RATIO (0.9-2.4); AST(SGOT) 10 U/L (15-37); Alanine Aminotransfer ALT/SGPT 21 U/L (13-56); Albumin, Serum 3.6 g/dL (3.2-5.0); Alkaline Phosphatase 134 U/L (45-117); Anion Gap 6 (5-15); BUN 8 mg/dL (7-18); BUN/Creat Ratio 12.9 RATIO (10-20); Calcium,Total 9.1 mg/dL (8.5-10.1); Chloride 109 mmol/L (98-107); Creatinine, Serum 0.62 mg/dL (0.55-1.02); EST Glomerular Filtration Rate 102 mL/min (>60); Est Glom Filt Rate - Afr Amer 123 mL/min (>60); Globulin 3.8 g/dL (2.2-4.2); Glucose 106 mg/dL (74-106); Potassium 3.9 mmol/L (3.5-5.1); Protein, Total 7.4 g/dL (6.4-8.2); Sodium Level 141 mmol/L (136-145)
== END | disposition home or self-care (01) ==
LOC: BIMLAB 13:31
PROVIDERS: PCP Internal Medicine; Referring Provider Internal Medicine; Visit Provider Internal Medicine
DX: R53.82 Chronic fatigue, unspecified (principal); K91.2 Postsurgical malabsorption, not elsewhere classified; E66.9 Obesity, unspecified; E03.9 Hypothyroidism, unspecified
CPT/HCPCS: 36415; 80053; 83036; 84443; 85025

== ENCOUNTER 2023-03-17 09:45 | Outpatient (RCR) | payer MEDICARE, OTHER, SELFPAY ==
[2023-02-17 08:59] VITALS: BP 155/96; PULSE 66; RESP 20; TEMP 36.4; BMI 53.6
--- NOTE | 2023-02-17 11:01 | PCM.WC.HP ---
History of Present Illness Date of Service: 02/17/23 Chief Complaint: Non healing ulcer left lateral leg History of Wound: 67 year old female presents for evaluation of her non healing left lateral leg ulcer. She bumped it on her walker in December. She states she often bumps her legs on her walker but they heal up, this one never has. She then had Covid in early January and the ulcer started to hurt and drain and did no improve. [facility] where she was placed on Clindamycin and referred to the wound center. She has been placing antibiotic ointment onto the ulcer. She has a history of chronic lymphedema, HTN, hypothyroidism, gastric bypass surgery 20 years ago, heart murmur and obstructive sleep apnea. She used to wear compression stockings for her edema/lymphedema but they became too tight and she stopped wearing them. She denies any fever, chills, nausea and vomiting. She comes in today for further evaluation and treatment. Progress of Wound: Left lateral leg ulcer with cash slough present. Bilateral leg lymphedema/+4 pitting edema present. [facility] Medical History (Updated 02/17/23 @ 15:49 by Jenae Welsh SOFTWARE CONSULTANT, SOFTWARE CONSULTANT-C) Abdominal wall pain in left flank Abnormal mammogram of right breast Acute bronchitis, unspecified Asthma Back pain Breast lump Breast mass, right Cataract Chest congestion Chronic bronchitis Chronic fatigue Contact with and (suspected) exposure to other viral communicable diseases COVID-19 COVID-19 vaccine series completed Difficulty balancing Essential hypertension Flu vaccine need Frequent headaches Glaucoma H/O emotional problems Health care maintenance Heart murmur History of sleep apnea Hypothyroidism Kidney stones Left hip pain Lymphedema Malaise and fatigue Neck pain Non-rheumatic mitral regurgitation RLS (restless legs syndrome) Seasonal allergies Skin tear of left lower leg without complication Thoracic aortic aneurysm without rupture Ulcer of left calf Ulcer of right lower extremity, limited to breakdown of skin Home Medications Bacillus coagulans 10 billion cell capsule,delayed release (Probiotic (B. coagulans)) cell PO 05/02/19 [History Last Taken Unknown] cholecalciferol (vitamin D3) 125 mcg (5,000 unit) capsule 5,000 unit PO DAILY 05/02/19 [History Last Taken Unknown] ferrous sulfate 325 mg (65 mg iron) tablet 325 mg PO BID 05/02/19 [History Last Taken Unknown] vit C 250 mg-vit E 90 mg-zinc 40 mg-copper 1 [id number] capsule (PreserVision AREDS-2) 1 tab PO BID 05/02/19 [History Last Taken Unknown] multivitamin 1 tab PO DAILY 05/25/19 [History Last Taken Unknown] mecobalamin (vitamin B12) 10,000 mcg solution for injection 1,000 mcg IM MONTHLY 3 months #1 ea 06/28/20 [Rx Last Taken Unknown] amlodipine 5 mg tablet 7.5 mg PO DAILY 3 months #135 tabs 03/18/21 [Rx Last Taken Unknown] fluticasone propionate 50 mcg/actuation nasal spray,suspension 2 spray intranasal DAILY #3 ea 01/05/22 [Rx Last Taken Unknown] albuterol sulfate 90 mcg/actuation aerosol inhaler 2 puff inhalation Q4H PRN shortness of breath or wheezing #18 grams 02/12/22 [Rx Last Taken Unknown] dorzolamide-timolol (PF) 2 %-0.5 % eye drops in a dropperette drp ophthalmic (eye) 07/08/22 [History Last Taken Unknown] fluorometholone 0.1 % eye drops,suspension drp ophthalmic (eye) 07/08/22 [History Last Taken Unknown] atenolol 25 mg tablet See Rx Instructions .Route .COMPLEX #90 tabs 08/06/22 [Rx Last Taken Unknown] levothyroxine 100 mcg tablet 100 mcg PO DAILY 90 days #90 tabs 08/07/22 [Rx Last Taken Unknown] Handicap Placard #1 ea 12/10/22 [Rx Last Taken Unknown] tramadol 50 mg tablet 50 mg PO BID PRN pain #30 tabs 12/10/22 [Rx Last Taken Unknown] fluticasone propionate 110 mcg/actuation HFA aerosol inhaler (Flovent HFA) 2 puff inhalation BID PRN asthma #1 ea 01/12/23 [Rx Last Taken Unknown] Allergy/AdvReac Type Severity Reaction Status Date / Time amoxicillin Allergy Severe rash Verified 01/31/23 12:43 Penicillins Allergy Mild itchy Verified 01/31/23 12:43 Sulfa (Sulfonamide Allergy Mild hives and Verified 01/31/23 12:43 Antibiotics) swelling Family History Mother Blood clot in vein Thyroid disorder Anxiety A-fib Father Kidney stone A-fib Brother Kidney stone Surgical History History of appendectomy History of cholecystectomy Hx of gastric bypass Social History Smoking Status: Never smoker alcohol intake: never substance use type: does not use caffeine: Yes Type: carbonated beverages Number of servings: 2 and coffee Number of servings: 2 what type of physical activity do you participate in: none ROS Constitutional Constitutional: Denies chills or fever(s) Eyes Eyes: Reports none ENT HEENT: Reports none Cardiovascular Cardiovascular: Reports as per HPI, edema and hypertension; Denies chest pain or dyspnea Respiratory/Chest Respiratory/Chest: Denies cough or dyspnea Gastrointestinal Gastrointestinal: Reports as per HPI; Denies nausea or vomiting Genitourinary Genitourinary: Reports none Musculoskeletal Musculoskeletal: Reports joint pain Integumentary Integumentary: Reports skin pain and skin ulcer Neurologic Neurologic: Denies confusion or dizziness Psychiatric Psychiatric: Denies abnormal sleep pattern Endocrine Endocrinology: Reports as per HPI Vital Signs Vital Signs Vital Signs: 02/17/23 08:59 Temperature 97.6 F L Temperature Source Temporal Pulse Rate 66 Respiratory Rate 20 H Blood Pressure 155/96 H Blood Pressure Mean 115 Weight Weight: 275 lb Body Mass Index (BMI) 53.6 Physical Exam Const alert, oriented x3 and no apparent distress General Appearance: cooperative HEENT normocephalic Eyes General Eye: normal appearance of both eyes Neck full ROM Lymph Lymphatic: lymphedema severe and pitting Resp normal respiratory effort, normal air movement and clear to auscultation bilaterally Effort and Inspection: able to speak in complete sentences Cardio regular rate and regular rhythm GI normal to inspection, nondistended, normoactive bowel sounds, soft to palpation and non-tender Back/Spine normal ROM Extremity full ROM and normal capillary refill General Extremity: edema bilateral lower extremity Details: severe Peripheral Pulses: Yes pulses 2+ throughout Skin Wound Narrative: Ulcer on left lateral leg with cash devitalized tissue present. Neuro oriented x3 and moves all extremities Sensorium / Orientation: awake, alert and oriented to person Psych mental status grossly normal, cooperative and affect normal Debridement Note Debridement Note Wound debrided: lateral leg ulcer Laterality: Left Type of Debridement: Excisional debridement Anesthesia Used: 5% Lidocaine Gel Depth: Down to and including healthy tissue and in the subcutaneous layer Percentage of wound debrided: 100 Instrument Used: 5mm curette Tissue Removed: Devitalized tissue and slough Severity: Fat Layer Exposed Amount of bleeding with debridement: Mild Bleeding Controlled with: Pressure and Compression and gauze Patient tolerated procedure: Patient tolerated procedure well Post-Debridement Measurements and Additional Note: Post-Debridement Measurements/Treatment - Nurse 1 - General Ulcer Assessment Start: 02/17/23 08:59 Freq: Status: Active Protocol: DARYN Activity Type Activity Date Activity User E-sign Co-sign Detail Recorded Client Recorded Date Recorded By Document 02/17/23 08:59 PL [id number] 02/17/23 09:14 PL 02/17/23 08:59 WC - Today's Visit Information Type of service Initial Visit Arrival Mode Ambulatory,Cane Transfer Assistance None Patient Identification Verified (Name & Yes ) Patient Requires Transmission-Based No Precautions Safety Precautions NA Height and Weight Height 5 ft Weight 275 lb Weight in Pounds 275.0 lbs Body Mass Index (BMI) 53.6 BMI Classification Obese BSA - Eliecer 2.14 Vital Signs Temperature (97.8 F-99.1 F) 97.6 F L Temperature Source Temporal Pulse Rate (60-100) 66 Respiratory Rate (12-18) 20 H Blood Pressure (90/60-120/80) 155/96 H Blood Pressure Mean 115 History Since Last Visit- (Skip if this is Patient's initial visit) Have you changed medications since your No last visit? Any new allergies or adverse reactions No Had a fall/change in ADL's that may No increase risk of falls Signs or symptoms of abuse and/or No neglect since last visit Have you been in the hospital since your No last visit? Has dressing in place as prescribed Yes Has compression in place as prescribed No Has offloadiing in place as prescribed No Experienced any changes in pain level or No management Pain Scale: 0-10 Numeric Is Patient Pain Free? Yes - Nurse 1 - General Ulcer Measurement Start: 02/17/23 08:59 Freq: Status: Active Protocol: Activity Type Activity Date Activity User E-sign Co-sign Detail Recorded Client Recorded Date Recorded By Document 02/17/23 08:59 PL [id number] 02/17/23 09:14 PL 02/17/23 08:59 Wound Center Nurse 1 #1 Left lat leg -Current Size (cm) - Length 1.5 -Current Size (cm) - Width 2.0 -Current Size (cm) - Depth 0.3 -Total Square Cm 3.00 -Epithelialization Medium 34-66% -Tunneling No -Undermining/Tunneling No -Circular Undermining No -Exudate Amt Medium -Exudate Type Serosanguineous -Granulation Amt Small (1-33%) -Granulation Quality [place] -Slough/Fibrin Yes -Necrosis Amt Large (67-100%) -Necrotic Tissue Type Adherent Slough -Texture (Lexi-wound Skin Appearance) Localized Edema -Moisture (Lexi-wound Skin Appearance) Weeping -Temperature (Lexi-wound Skin No Abnormality Appearance) (Pt Warm) -Tenderness on Palpation (Lexi-wound No Skin Appearance) -Ulcer Cleansing Soap and Water -Foul Odor after Cleansing No -Anesthetic Used 5% Lidocaine Gel Right Calf (cm) 59 Right Ankle (cm) 39 Left Calf (cm) 51.5 Left Ankle (cm) 38 WC - Nurse 2 - General Ulcer CM Notes Start: 02/17/23 08:59 Freq: Status: Active Protocol: Activity Type Activity Date Activity User E-sign Co-sign Detail Recorded Client Recorded Date Recorded By Document 02/17/23 09:59 [id number] 02/17/23 10:01 ZHANE 02/17/23 09:59 Wound Center Nurse 2 #1 Left lat leg -Time 10:00 -Correct Patient Yes -Correct Side, Site, Position Yes -Correct Procedure Yes -Procedure Performed Yes -Type of Procedure Debridement -Clinical Debridement Subcutaneous -Tissue Removed Subcutaneous -Post Debridement (cm) - Length 1.5 -Post Debridement (cm) - Width 2.0 -Post Debridement (cm) - Depth 0.3 -Total Square (Post) (cm) 3.00 -Area of Debridement (cm) - Length 1.5 -Area of Debridement (cm) - Width 2.0 -Total Square (Area) (cm) 3.00 -Tunneling No -Undermining/Tunneling No -Circular Undermining No -Wound/Ulcer Outcome Not Healed -Ulcer Cleansing Rinsed/ Irrigated with Saline -Foul Odor after Cleansing No -Bioengineered Tissue No -Bleeding Controlled with Pressure -Treatment Response Procedure Tolerated Well -Offloading No -Debridement - Subq, 1st 20sq cm Yes Pain Scale: 0-10 Numeric Is Patient Pain Free? Yes WC - Nurse 3 - General Ulcer D/C NN Start: 02/17/23 08:59 Freq: Status: Active Protocol: Activity Type Activity Date Activity User E-sign Co-sign Detail Recorded Client Recorded Date Recorded By Document 02/17/23 10:27 PL [id number] 02/17/23 10:28 PL 02/17/23 10:27 Wound Care Center Nurse 3 #1 Left lat leg -Ulcer Cleansing Soap and Water -Foul Odor after Cleansing No -Primary Dressing Applied Mepilex Border -Other Dressing Yolette -Mepilex Border 1 Bilateral -Tubular Bandage Single Layer -Size of Tubigrip Used Size F -Size F ($) 4 Pain Scale: 0-10 Numeric Is Patient Pain Free? Yes WC - Visit Discharge Discharge Condition Stable Ambulatory Status Cane Transportation Private Auto Charges/Coding Visit Charges Office Visits / Consults: 20807 OV L4 Est (25 modifier) Procedures Integumentary 111xxx-113xx: 14956 Geena subq tissue 20 sq cm/< Assessment/Plan Assessment/Plan (1) Chronic ulcer of left leg with fat layer exposed: CODE(S): L97.922 - Non-pressure chronic ulcer of unspecified part of left lower leg with fat layer exposed (2) Super obese: CODE(S): E66.9 - Obesity, unspecified (3) Lymphedema of both lower extremities: CODE(S): I89.0 - Lymphedema, not elsewhere classified (4) Edema of both lower extremities: CODE(S): R60.0 - Localized edema (5) Essential hypertension: CODE(S): I10 - Essential (primary) hypertension (6) Heart murmur: CODE(S): R01.1 - Cardiac murmur, unspecified (7) Vitamin B12 deficiency: CODE(S): E53.8 - Deficiency of other specified B group vitamins (8) Postoperative malabsorption: CODE(S): K91.2 - Postsurgical malabsorption, not elsewhere classified PLAN: Plan Patient evaluated at the wound healing center. Wound care will be Yolette covered by [facility] daily (she has Yolette at home). Compression - Single layer tubigrip. Will order venous and arterial studies for further evaluation before placing higher compression on her. A wound culture was obtained today.? A positive culture will necessitate antibiotic therapy. Encouraged increase protein intake to help with wound healing, due to increase in metabolic demand. She may try supplemental protein drinks to help with this. With her history of gastric bypass, this may impact her healing process. She will follow up one week.
--- NOTE | 2023-02-24 08:54 | WC ---
Called and left patient a voicemail letting her know that Jenae Welsh ORDER SCHEDULE CLERK called in an ATB Doxycycline to [facility] due to positive wound cultures. I asked patient to call back letting me know she received the voicemail.
[2023-03-03 11:32] VITALS: BP 140/82; PULSE 71; TEMP 36.3; BMI 53.6
--- NOTE | 2023-03-03 12:03 | PCM.WC.PN ---
History of Present Illness Date of Service: 03/03/23 Chief Complaint: Non healing ulcer left lateral leg History of Wound: 67 year old female presents for evaluation of her non healing left lateral leg ulcer. She bumped it on her walker in December. She states she often bumps her legs on her walker but they heal up, this one never has. She then had Covid in early January and the ulcer started to hurt and drain and did no improve. [facility] where she was placed on Clindamycin and referred to the wound center. She has been placing antibiotic ointment onto the ulcer. She has a history of chronic lymphedema, HTN, hypothyroidism, gastric bypass surgery 20 years ago, heart murmur and obstructive sleep apnea. She used to wear compression stockings for her edema/lymphedema but they became too tight and she stopped wearing them. Wound culture obtained 02/17/23 positive for MRSE and she was started on Doxycycline. She denies any fever, chills, nausea and vomiting. She comes in today for further evaluation and treatment. Progress of Wound: Left lateral leg ulcer with cash slough present. Bilateral leg lymphedema/+4 pitting edema present. Objective Data Objective Data Vital Signs: Vital Signs Temp Pulse Resp BP 97.3 F L 71 20 H 140/82 H 03/03/23 11:32 03/03/23 11:32 02/17/23 08:59 03/03/23 11:32 Weight: 275 lb Body Mass Index (BMI) 53.6 Lab / Micro Data Micro: Microbiology 02/17/23 Unknown Wound Abcess - Leg, Left Gram Stain - Final 02/17/23 Unknown Wound Abcess - Leg, Left Wound Culture - Final Staphylococcus epidermidis 02/17/23 Unknown Wound Abcess - Leg, Left Anaerobic Culture - Final No growth in 5 days. Charges/Coding Procedures Integumentary 111xxx-113xx: [id number] Geena subq tissue 20 sq cm/< Debridement Note Debridement Note Wound debrided: lateral leg ulcer Laterality: Left Type of Debridement: Excisional debridement Anesthesia Used: 5% Lidocaine Gel Depth: Down to and including healthy tissue and in the subcutaneous layer Percentage of wound debrided: 100 Instrument Used: 5mm curette Tissue Removed: Devitalized tissue and slough Severity: Fat Layer Exposed Amount of bleeding with debridement: Mild Bleeding Controlled with: Pressure and Compression and gauze Patient tolerated procedure: Patient tolerated procedure well Post-Debridement Measurements and Additional Note: Post-Debridement Measurements/Treatment BYRON - Nurse 1 - General Ulcer Assessment Start: 02/17/23 08:59 Freq: Status: Active Protocol: DARYN Activity Type Activity Date Activity User E-sign Co-sign Detail Recorded Client Recorded Date Recorded By Document 02/17/23 08:59 PL [id number] 02/17/23 09:14 PL Document 03/03/23 11:32 AK [id number] 03/03/23 11:34 AK 02/17/23 03/03/23 08:59 11:32 WC - Today's Visit Information Type of service Initial Visit Follow-up Visit (Physician/AIRPLANE FLIGHT ATTENDANT SUPERVISOR ) Arrival Mode Ambulatory,Cane Ambulatory Transfer Assistance None Patient Identification Verified (Name & Yes Yes ) Patient Requires Transmission-Based No No Precautions Safety Precautions NA Height and Weight Height 5 ft Weight 275 lb Weight in Pounds 275.0 lbs Body Mass Index (BMI) 53.6 53.6 BMI Classification Obese Obese BSA - Eliecer 2.14 Vital Signs Temperature (97.8 F-99.1 F) 97.6 F L 97.3 F L Temperature Source Temporal Temporal Pulse Rate (60-100) 66 71 Pulse Location Monitor Respiratory Rate (12-18) 20 H Blood Pressure (90/60-120/80) 155/96 H 140/82 H Blood Pressure Mean (mm Hg) 115 101 Source Monitor History Since Last Visit- (Skip if this is Patient's initial visit) Have you changed medications since your No No last visit? Any new allergies or adverse reactions No No Had a fall/change in ADL's that may No No increase risk of falls Signs or symptoms of abuse and/or No No neglect since last visit Have you been in the hospital since your No No last visit? Has dressing in place as prescribed Yes Yes Has compression in place as prescribed No Yes Has offloadiing in place as prescribed No N/A Experienced any changes in pain level or No No management Left Footwear Regular Shoe Right Footwear Regular Shoe Pain Scale: 0-10 Numeric Is Patient Pain Free? Yes Yes BYRON Cooper Nurse 1 - General Ulcer Measurement Start: 02/17/23 08:59 Freq: Status: Active Protocol: Activity Type Activity Date Activity User E-sign Co-sign Detail Recorded Client Recorded Date Recorded By Document 02/17/23 08:59 PL [id number] 02/17/23 09:14 PL Document 03/03/23 11:32 AK [id number] 03/03/23 11:34 AK 02/17/23 03/03/23 08:59 11:32 Wound Center Nurse 1 #1 Left lat leg -Combined with other wound No -Current Size (cm) - Length 1.5 1.5 -Current Size (cm) - Width 2.0 1.6 -Current Size (cm) - Depth 0.3 0.4 -Total Square Cm 3.00 2.40 -Photo Taken Yes -Epithelialization Medium 34-66% -Tunneling No No -Undermining/Tunneling No No -Circular Undermining No No -Change in Wound Grade/Stage No -Exudate Amt Medium Large -Exudate Type Serosanguineous Serosanguineous -Wound Margin Distinct, Outline Attached -Granulation Amt Small (1-33%) Medium (34-66%) -Granulation Quality [place] -Slough/Fibrin Yes Yes -Necrosis Amt Large (67-100%) Medium (34-66%) -Necrotic Tissue Type Adherent Slough Adherent Slough -Structure Exposed N/A -Texture (Lexi-wound Skin Appearance) Localized Edema No Abnormality, Assessed -Moisture (Lexi-wound Skin Appearance) Weeping No Abnormality, Assessed -Color (Lexi-wound Skin Appearance) No Abnormality, Assessed -Temperature (Lexi-wound Skin No Abnormality No Abnormality Appearance) (Pt Warm) (Pt Warm) -Tenderness on Palpation (Lexi-wound No No Skin Appearance) -Ulcer Cleansing Soap and Water Rinsed/ Irrigated with Saline -Foul Odor after Cleansing No No -Anesthetic Used 5% Lidocaine 5% Lidocaine Gel Gel Lower Limb Edema Present No Right Calf (cm) 59 Right Ankle (cm) 39 Left Calf (cm) 51.5 57 Left Ankle (cm) 38 37 WC - Nurse 2 - General Ulcer CM Notes Start: 02/17/23 08:59 Freq: Status: Active Protocol: Activity Type Activity Date Activity User E-sign Co-sign Detail Recorded Client Recorded Date Recorded By Document 02/17/23 09:59 [id number] 02/17/23 10:01 Document 03/03/23 11:45 [id number] 03/03/23 11:47 JF 02/17/23 03/03/23 09:59 11:45 Wound Center Nurse 2 #1 Left lat leg -Time 10:00 11:45 -Correct Patient Yes Yes -Correct Side, Site, Position Yes Yes -Correct Procedure Yes Yes -Procedure Performed Yes Yes -Type of Procedure Debridement Debridement -Clinical Debridement Subcutaneous Subcutaneous -Tissue Removed Subcutaneous Subcutaneous -Post Debridement (cm) - Length 1.5 1.5 -Post Debridement (cm) - Width 2.0 1.7 -Post Debridement (cm) - Depth 0.3 0.3 -Total Square (Post) (cm) 3.00 2.55 -Area of Debridement (cm) - Length 1.5 1.5 -Area of Debridement (cm) - Width 2.0 1.7 -Total Square (Area) (cm) 3.00 2.55 -Tunneling No No -Undermining/Tunneling No No -Circular Undermining No No -Wound/Ulcer Outcome Not Healed Not Healed -Ulcer Cleansing Rinsed/ Rinsed/ Irrigated with Irrigated with Saline Saline -Foul Odor after Cleansing No No -Bioengineered Tissue No No -Bleeding Controlled with Pressure Pressure -Treatment Response Procedure Procedure Tolerated Well Tolerated Well -Offloading No No -Debridement - Subq, 1st 20sq cm Yes Yes Pain Scale: 0-10 Numeric Is Patient Pain Free? Yes Yes - Nurse 3 - General Ulcer D/C NN Start: 02/17/23 08:59 Freq: Status: Active Protocol: Activity Type Activity Date Activity User E-sign Co-sign Detail Recorded Client Recorded Date Recorded By Document 02/17/23 10:27 ALBA [id number] 02/17/23 10:28 PL 02/17/23 10:27 Wound Care Center Nurse 3 #1 Left lat leg -Ulcer Cleansing Soap and Water -Foul Odor after Cleansing No -Primary Dressing Applied Mepilex Border -Other Dressing Yolette -Mepilex Border 1 Bilateral -Tubular Bandage Single Layer -Size of Tubigrip Used Size F -Size F ($) 4 Pain Scale: 0-10 Numeric Is Patient Pain Free? Yes WC - Visit Discharge Discharge Condition Stable Ambulatory Status Cane Transportation Private Auto Assessment/Plan Assessment/Plan (1) Chronic ulcer of left leg with fat layer exposed: CODE(S): L97.922 - Non-pressure chronic ulcer of unspecified part of left lower leg with fat layer exposed (2) Super obese: CODE(S): E66.9 - Obesity, unspecified (3) Lymphedema of both lower extremities: CODE(S): I89.0 - Lymphedema, not elsewhere classified (4) Edema of both lower extremities: CODE(S): R60.0 - Localized edema (5) Essential hypertension: CODE(S): I10 - Essential (primary) hypertension (6) Heart murmur: CODE(S): R01.1 - Cardiac murmur, unspecified (7) Vitamin B12 deficiency: CODE(S): E53.8 - Deficiency of other specified B group vitamins (8) Postoperative malabsorption: CODE(S): K91.2 - Postsurgical malabsorption, not elsewhere classified PLAN: Plan Patient evaluated at the wound healing center. Wound care will be Yolette covered by [place] [facility] daily. Compression - Single layer tubigrip. She is scheduled for venous and arterial studies later today. A wound culture was obtained 02/17/23 which was positive for MRSE. She was started on Doxycycline and she is tolerating it well. Encouraged increase protein intake to help with wound healing, due to increase in metabolic demand. She may try supplemental protein drinks to help with this. With her history of gastric bypass, this may impact her healing process. She will follow up one week.
--- NOTE | 2023-03-03 12:25 | VDLE_ITS ---
Reason For Study: Edema / LLE Wound RIGHT LEFT CFV is compressible, spontaneous, phasic, CFV is compressible, spontaneous, phasic, competent and demonstrates normal competent, and demonstrates normal augmentation. augmentation. FV is compressible, spontaneous, phasic, FV is compressible, spontaneous, phasic, competent and demonstrates normal competent and demonstrates normal augmentation. augmentation. POP V is compressible, spontaneous, phasic, POP V is compressible, spontaneous, phasic, competent and demonstrates normal competent and demonstrates normal augmentation. augmentation. T/P Trunk is compressible. T/P Trunk is compressible. PTV is compressible. PTV is compressible. RT PerV is compressible. LT PerV is compressible. Peroneal veins viewed in segments. Peroneal veins viewed in segments. SFJ is INCOMPETENT and measures 0.88 x 0.91 SFJ is competent and measures 0.83 x 0.74 cm. cm. GSV proximal thigh measures 0.70 x 0.74 cm. GSV proximal thigh measures 0.70 x 0.72 cm. GSV at knee measures 0.56 x 0.55 cm. GSV at knee measures 0.61 x 0.60 cm. GSV is competent throughout. GSV INCOMPETENT throughout for greater than ASV distal thigh is INCOMPETENT for greater 0.5 seconds. than 0.5 seconds and measures 0.24 x 0.25 cm. ASV proximal calf is INCOMPETENT for greater SSV proximal calf is competent and measures than 0.5 seconds and measures 0.36 x 0.28 cm. 0.37 x 0.40 cm. ASV mid calf is INCOMPETENT for greater than 0.5 seconds and measures 0.31 x 0.31 cm. SSV proximal calf is competent and measures 0.48 x 0.45 cm. Procedure Exam performed in department. The exam was diagnostic. The study was technically difficult due to patient body habitus. VL/Venous Duplex US - Ubaldo Extrem Interpretation Summary Deep veins of the lower extremities are bilaterally patent and compressible seg mentally. There is no evidence of deep vein thrombosis on either side. Valvular competence appears in tact within the proximal deep venous systems bilaterally. The great saphenous veins appear bila terally patent and compressible segmentally. The right sapheno-femoral junction is incompetent . T he left sapheno- femoral junction is competent . The right great saphenous vein appears segmenta lly incompetent. The left great saphenous vein appears segmentally competent. Small saphenous veins are patent and competent bilaterally. Accessory saphenous veins in the right proximal calf and mid-calf are incompetent. An accessory saphenous vein in the left distal thigh is incompeten t. Ordering Physician: Jenae Welsh Referring Physician: Jennifer Vu Performed By: Abdoulaye Chung RVT
--- NOTE | 2023-03-03 12:25 | ART_ITS ---
Reason For Study: Wound Procedure A bilateral lower extremity continuous wave Doppler with analog waveform analysis,segmental pressures,and ankle brachial indexes without exercise. Left Segmental Pressures Left brachial= 152mmHg. Left posterior tibial artery = 200mmHg. Left dorsalis pedis artery = 176mmHg. Left digit = 143 mmHg. The left posterior tibial artery waveforms are triphasic. The left dorsalis pedis waveforms are triphasic. Right Segmental Pressures Right brachial= 153mmHg. Right posterior tibial artery = 181mmHg. Right dorsalis pedis artery = 182mmHg. Right digit = 135 mmHg. The right posterior tibial artery waveforms are triphasic. The right dorsalis pedis waveforms are triphasic. Indices The right ankle brachial index by the posterior tibial artery is 1.18. The right ankle brachial index by the dorsalis pedis is 1.19. The right digital-brachial index is 0.88. The left ankle brachial index by the posterior tibial artery is 1.31. The left ankle brachial index by the dorsalis pedis is 1.15. The left digital-brachial index is 0.93. VL/Lower Ext Art Exam w/o Exercis Interpretation Summary Triphasic Doppler waveforms are noted at ankle level bilaterally. Pulse-volume recordings appear satisfactory at all levels bilaterally. Resting ankle-brachial indices are norm al bilaterally. Digital-brachial indices are normal bilaterally. There is no evidence of significant arterial occlusive disease in the lower ext remities bilaterally. Ordering Physician: Jenae Welsh Referring Physician: Jennifer Vu Performed By: Abdoulaye Chung RVT
[2023-03-10 09:43] VITALS: BP 140/82; PULSE 74; TEMP 36.2; BMI 53.6
--- NOTE | 2023-03-10 10:22 | PCM.WC.PN ---
History of Present Illness Date of Service: 03/10/23 Chief Complaint: Non healing ulcer left lateral leg History of Wound: 67 year old female presents for evaluation of her non healing left lateral leg ulcer. She bumped it on her walker in December. She states she often bumps her legs on her walker but they heal up, this one never has. She then had Covid in early January and the ulcer started to hurt and drain and did no improve. [facility] where she was placed on Clindamycin and referred to the wound center. She has been placing antibiotic ointment onto the ulcer. She has a history of chronic lymphedema, HTN, hypothyroidism, gastric bypass surgery 20 years ago, heart murmur and obstructive sleep apnea. She used to wear compression stockings for her edema/lymphedema but they became too tight and she stopped wearing them. Wound culture obtained 02/17/23 positive for MRSE and she was started on Doxycycline. Arterial studies completed on 03/03/23 which showed Triphasic Doppler waveforms at ankle level bilaterally. Right JOAQUÍN = 1.19, left OJAQUÍN = 1.31. No evidence of significant arterial occlusive disease in the lower extremities bilaterally. Venous studies completed 03/03/23 showed The right sapheno-femoral junction is incompetent. The right great saphenous vein appears segmentally incompetent. Accessory saphenous veins in the right proximal calf and mid-calf are incompetent. An accessory saphenous vein in the left distal thigh is incompetent. Wound care - Left lateral leg ulcer Yolette topped with [place] [facility]. She denies any fever, chills, nausea and vomiting. She comes in today for further evaluation and treatment. Progress of Wound: Left lateral leg ulcer with cash slough present. Bilateral leg lymphedema/+4 pitting edema present. Right leg is more edematous than the left leg. Objective Data Objective Data Vital Signs: Vital Signs Temp Pulse Resp BP 97.1 F L 74 20 H 140/82 H 03/10/23 09:43 03/10/23 09:43 02/17/23 08:59 03/10/23 09:43 Weight: 275 lb Body Mass Index (BMI) 53.6 Lab / Micro Data Micro: Microbiology 02/17/23 Unknown Wound Abcess - Leg, Left Gram Stain - Final 02/17/23 Unknown Wound Abcess - Leg, Left Wound Culture - Final Staphylococcus epidermidis 02/17/23 Unknown Wound Abcess - Leg, Left Anaerobic Culture - Final No growth in 5 days. Charges/Coding Procedures Integumentary [id number]: [id number] Geena subq tissue 20 sq cm/< Debridement Note Debridement Note Wound debrided: lateral leg ulcer Laterality: Left Type of Debridement: Excisional debridement Anesthesia Used: 5% Lidocaine Gel Depth: Down to and including healthy tissue and in the subcutaneous layer Percentage of wound debrided: 100 Instrument Used: 5mm curette Tissue Removed: Devitalized tissue and slough Severity: Fat Layer Exposed Amount of bleeding with debridement: Mild Bleeding Controlled with: Pressure and Compression and gauze Patient tolerated procedure: Patient tolerated procedure well Post-Debridement Measurements and Additional Note: Post-Debridement Measurements/Treatment - Nurse 1 - General Ulcer Assessment Start: 02/17/23 08:59 Freq: Status: Active Protocol: [email or web address] Activity Type Activity Date Activity User E-sign Co-sign Detail Recorded Client Recorded Date Recorded By Document 02/17/23 08:59 PL [id number] 02/17/23 09:14 PL Document 03/03/23 11:32 AK [id number] 03/03/23 11:34 AK Document 03/10/23 09:43 AK [id number] 03/10/23 09:45 AK 02/17/23 03/03/23 03/10/23 08:59 11:32 09:43 - Today's Visit Information Type of service Initial Visit Follow-up Visit Follow-up Visit (Physician/[employer] (Physician/[employer] ) ) Arrival Mode Ambulatory,Cane Ambulatory Ambulatory,Cane Transfer Assistance None Patient Identification Verified (Name & Yes Yes Yes ) Patient Requires Transmission-Based No No No Precautions Safety Precautions NA NA Height and Weight Height 5 ft Weight 275 lb Weight in Pounds 275.0 lbs Body Mass Index (BMI) 53.6 53.6 53.6 BMI Classification Obese Obese Obese BSA - Eliecer 2.14 Vital Signs Temperature (97.8 F-99.1 F) 97.6 F L 97.3 F L 97.1 F L Temperature Source Temporal Temporal Temporal Pulse Rate (60-100) 66 71 74 Pulse Location Monitor Monitor Respiratory Rate (12-18) 20 H Blood Pressure (90/60-120/80) 155/96 H 140/82 H 140/82 H Blood Pressure Mean (mm Hg) 115 101 101 Source Monitor Monitor History Since Last Visit- (Skip if this is Patient's initial visit) Have you changed medications since your No No No last visit? Any new allergies or adverse reactions No No No Had a fall/change in ADL's that may No No No increase risk of falls Signs or symptoms of abuse and/or No No No neglect since last visit Have you been in the hospital since your No No No last visit? Has dressing in place as prescribed Yes Yes Yes Has compression in place as prescribed No Yes Yes Has offloadiing in place as prescribed No N/A N/A Experienced any changes in pain level or No No No management Left Footwear Regular Shoe Regular Shoe Right Footwear Regular Shoe Regular Shoe Pain Scale: 0-10 Numeric Is Patient Pain Free? Yes Yes Yes WC - Nurse 1 - General Ulcer Measurement Start: 02/17/23 08:59 Freq: Status: Active Protocol: Activity Type Activity Date Activity User E-sign Co-sign Detail Recorded Client Recorded Date Recorded By Document 02/17/23 08:59 PL [id number] 02/17/23 09:14 PL Document 03/03/23 11:32 AK [id number] 03/03/23 11:34 AK Document 03/10/23 09:43 AK [id number] 03/10/23 09:45 AK 02/17/23 03/03/23 03/10/23 08:59 11:32 09:43 Wound Center Nurse 1 #1 Left lat leg -Combined with other wound No No -Current Size (cm) - Length 1.5 1.5 1.5 -Current Size (cm) - Width 2.0 1.6 1.5 -Current Size (cm) - Depth 0.3 0.4 0.3 -Total Square Cm 3.00 2.40 2.25 -Photo Taken Yes Yes -Epithelialization Medium 34-66% -Tunneling No No No -Undermining/Tunneling No No No -Circular Undermining No No No -Change in Wound Grade/Stage No No -Exudate Amt Medium Large Large -Exudate Type Serosanguineous Serosanguineous Serosanguineous -Wound Margin Distinct, Distinct, Outline Outline Attached Attached -Granulation Amt Small (1-33%) Medium (34-66%) Large (67-100%) -Granulation Quality Malabar Malabar Malabar -Slough/Fibrin Yes Yes Yes -Necrosis Amt Large (67-100%) Medium (34-66%) Small (1-33%) -Necrotic Tissue Type Adherent Slough Adherent Slough Adherent Slough -Structure Exposed N/A N/A -Texture (Lexi-wound Skin Appearance) Localized Edema No Abnormality, Assessed, Assessed Localized Edema -Moisture (Lexi-wound Skin Appearance) Weeping No Abnormality, No Abnormality, Assessed Assessed -Color (Lexi-wound Skin Appearance) No Abnormality, No Abnormality, Assessed Assessed -Temperature (Lexi-wound Skin No Abnormality No Abnormality No Abnormality Appearance) (Pt Warm) (Pt Warm) (Pt Warm) -Tenderness on Palpation (Lexi-wound No No No Skin Appearance) -Ulcer Cleansing Soap and Water Rinsed/ Rinsed/ Irrigated with Irrigated with Saline Saline -Foul Odor after Cleansing No No No -Anesthetic Used 5% Lidocaine 5% Lidocaine 5% Lidocaine Gel Gel Gel Lower Limb Edema Present No Right Calf (cm) 59 Right Ankle (cm) 39 Left Calf (cm) 51.5 57 56 Left Ankle (cm) 38 37 38 - Nurse 2 - General Ulcer CM Notes Start: 02/17/23 08:59 Freq: Status: Active Protocol: Activity Type Activity Date Activity User E-sign Co-sign Detail Recorded Client Recorded Date Recorded By Document 02/17/23 09:59 [id number] 02/17/23 10:01 Document 03/03/23 11:45 [id number] 03/03/23 11:47 Document 03/10/23 10:00 [id number] 03/10/23 10:07 02/17/23 03/03/23 03/10/23 09:59 11:45 10:00 Wound Center Nurse 2 #1 Left lat leg -Time 10:00 11:45 10:01 -Correct Patient Yes Yes Yes -Correct Side, Site, Position Yes Yes Yes -Correct Procedure Yes Yes Yes -Procedure Performed Yes Yes Yes -Type of Procedure Debridement Debridement Debridement -Clinical Debridement Subcutaneous Subcutaneous Subcutaneous -Tissue Removed Subcutaneous Subcutaneous Subcutaneous -Post Debridement (cm) - Length 1.5 1.5 1.4 -Post Debridement (cm) - Width 2.0 1.7 1.7 -Post Debridement (cm) - Depth 0.3 0.3 0.2 -Total Square (Post) (cm) 3.00 2.55 2.38 -Area of Debridement (cm) - Length 1.5 1.5 1.4 -Area of Debridement (cm) - Width 2.0 1.7 1.7 -Total Square (Area) (cm) 3.00 2.55 2.38 -Tunneling No No No -Undermining/Tunneling No No No -Circular Undermining No No No -Wound/Ulcer Outcome Not Healed Not Healed Not Healed -Ulcer Cleansing Rinsed/ Rinsed/ Rinsed/ Irrigated with Irrigated with Irrigated with Saline Saline Saline -Foul Odor after Cleansing No No No -Bioengineered Tissue No No No -Bleeding Controlled with Pressure Pressure Pressure -Treatment Response Procedure Procedure Procedure Tolerated Well Tolerated Well Tolerated Well -Offloading No No No -Debridement - Subq, 1st 20sq cm Yes Yes Yes Pain Scale: 0-10 Numeric Is Patient Pain Free? Yes Yes Yes - Nurse 3 - General Ulcer D/C NN Start: 02/17/23 08:59 Freq: Status: Active Protocol: Activity Type Activity Date Activity User E-sign Co-sign Detail Recorded Client Recorded Date Recorded By Document 02/17/23 10:27 ALBA [id number] 02/17/23 10:28 PL 02/17/23 10:27 Wound Care Center Nurse 3 #1 Left lat leg -Ulcer Cleansing Soap and Water -Foul Odor after Cleansing No -Primary Dressing Applied Mepilex Border -Other Dressing Yolette -Mepilex Border 1 Bilateral -Tubular Bandage Single Layer -Size of Tubigrip Used Size F -Size F ($) 4 Pain Scale: 0-10 Numeric Is Patient Pain Free? Yes - Visit Discharge Discharge Condition Stable Ambulatory Status Cane Transportation Private Auto Assessment/Plan Assessment/Plan (1) Chronic ulcer of left leg with fat layer exposed: CODE(S): L97.922 - Non-pressure chronic ulcer of unspecified part of left lower leg with fat layer exposed (2) Super obese: CODE(S): E66.9 - Obesity, unspecified (3) Lymphedema of both lower extremities: CODE(S): I89.0 - Lymphedema, not elsewhere classified (4) Edema of both lower extremities: CODE(S): R60.0 - Localized edema (5) Essential hypertension: CODE(S): I10 - Essential (primary) hypertension (6) Heart murmur: CODE(S): R01.1 - Cardiac murmur, unspecified (7) Vitamin B12 deficiency: CODE(S): E53.8 - Deficiency of other specified B group vitamins (8) Postoperative malabsorption: CODE(S): K91.2 - Postsurgical malabsorption, not elsewhere classified PLAN: Plan Patient evaluated at the wound healing center. Wound care will be Yo[place] covered by [employer] [facility] daily. Compression - Double layer tubigrip for this week due to the holiday. Next week will start her in 3M 2 layer wraps to help with compression of her severely edematous legs and feet. She will need to have these changed during a nurse's visit between her appointment with me. She would benefit from lymphedema pumps to help assist with getting better control of her lymphedema/edema. Discussed with her that this ulcer will not heal until the edema/lymphedema is under better control. Her vascular studies were completed. No arterial compromise, but she has several areas of venous incompetent veins. Good compression should help with some of this, but will refer her to Dr. Bravo, the vascular surgeon, for further evaluation. A wound culture was obtained 02/17/23 which was positive for MRSE. She was started on Doxycycline and she is tolerating it well. Encouraged increase protein intake to help with wound healing, due to increase in metabolic demand. She may try supplemental protein drinks to help with this. With her history of gastric bypass, this may impact her healing process. She will follow up one week.
[2023-03-17 09:39] VITALS: BP 137/63; PULSE 61; TEMP 36; BMI 53.6
--- NOTE | 2023-03-17 10:31 | PCM.WC.PN ---
History of Present Illness Date of Service: 03/17/23 Chief Complaint: Non healing ulcer left lateral leg History of Wound: 67 year old female presents for evaluation of her non healing left lateral leg ulcer. She bumped it on her walker in December. She states she often bumps her legs on her walker but they heal up, this one never has. She then had Covid in early January and the ulcer started to hurt and drain and did no improve. [facility] where she was placed on Clindamycin and referred to the wound center. She has been placing antibiotic ointment onto the ulcer. She has a history of chronic lymphedema, HTN, hypothyroidism, gastric bypass surgery 20 years ago, heart murmur and obstructive sleep apnea. She used to wear compression stockings for her edema/lymphedema but they became too tight and she stopped wearing them. Wound culture obtained 02/17/23 positive for MRSE and she was started on Doxycycline. Arterial studies completed on 03/03/23 which showed Triphasic Doppler waveforms at ankle level bilaterally. Right JOAQUÍN = 1.19, left JOAQUÍN = 1.31. No evidence of significant arterial occlusive disease in the lower extremities bilaterally. Venous studies completed 03/03/23 showed The right sapheno-femoral junction is incompetent. The right great saphenous vein appears segmentally incompetent. Accessory saphenous veins in the right proximal calf and mid-calf are incompetent. An accessory saphenous vein in the left distal thigh is incompetent. Wound care - Left lateral leg ulcer Yo[place] topped with [place] [facility]. She denies any fever, chills, nausea and vomiting. She comes in today for further evaluation and treatment. Progress of Wound: Left lateral leg ulcer with cash slough present. Bilateral leg lymphedema/+4 pitting edema present. Right leg is more edematous than the left leg. Objective Data Objective Data Vital Signs: Vital Signs Temp Pulse Resp BP 96.8 F L 61 20 H 137/63 H 03/17/23 09:39 03/17/23 09:39 02/17/23 08:59 03/17/23 09:39 Weight: 275 lb Body Mass Index (BMI) 53.6 Lab / Micro Data Micro: Microbiology 02/17/23 Unknown Wound Abcess - Leg, Left Gram Stain - Final 02/17/23 Unknown Wound Abcess - Leg, Left Wound Culture - Final Staphylococcus epidermidis 02/17/23 Unknown Wound Abcess - Leg, Left Anaerobic Culture - Final No growth in 5 days. Charges/Coding Procedures Integumentary [id number]: [id number] Geena subq tissue 20 sq cm/< Debridement Note Debridement Note Wound debrided: lateral leg ulcer Laterality: Left Type of Debridement: Excisional debridement Anesthesia Used: 5% Lidocaine Gel Depth: Down to and including healthy tissue and in the subcutaneous layer Percentage of wound debrided: 100 Instrument Used: 5mm curette Tissue Removed: Devitalized tissue and slough Severity: Fat Layer Exposed Amount of bleeding with debridement: Mild Bleeding Controlled with: Pressure and Compression and gauze Patient tolerated procedure: Patient tolerated procedure well Post-Debridement Measurements and Additional Note: Post-Debridement Measurements/Treatment WC - Nurse 1 - General Ulcer Assessment Start: 02/17/23 08:59 Freq: Status: Active Protocol: BYRON.[email or web address] Activity Type Activity Date Activity User E-sign Co-sign Detail Recorded Client Recorded Date Recorded By Document 02/17/23 08:59 PL [id number] 02/17/23 09:14 PL Document 03/03/23 11:32 AK [id number] 03/03/23 11:34 AK Document 03/10/23 09:43 AK [id number] 03/10/23 09:45 AK Document 03/17/23 09:39 AK [id number] 03/17/23 09:42 AK 02/17/23 03/03/23 03/10/23 08:59 11:32 09:43 - Today's Visit Information Type of service Initial Visit Follow-up Visit Follow-up Visit (Physician/PRESTRESSED CONCRETE LABORER (Physician/PRESTRESSED CONCRETE LABORER ) ) Arrival Mode Ambulatory,Cane Ambulatory Ambulatory,Cane Transfer Assistance None Patient Identification Verified (Name & Yes Yes Yes ) Patient Requires Transmission-Based No No No Precautions Safety Precautions NA NA Height and Weight Height 5 ft Weight 275 lb Weight in Pounds 275.0 lbs Body Mass Index (BMI) 53.6 53.6 53.6 BMI Classification Obese Obese Obese BSA - Eliecer 2.14 Vital Signs Temperature (97.8 F-99.1 F) 97.6 F L 97.3 F L 97.1 F L Temperature Source Temporal Temporal Temporal Pulse Rate (60-100) 66 71 74 Pulse Location Monitor Monitor Respiratory Rate (12-18) 20 H Blood Pressure (90/60-120/80) 155/96 H 140/82 H 140/82 H Blood Pressure Mean (mm Hg) 115 101 101 Source Monitor Monitor History Since Last Visit- (Skip if this is Patient's initial visit) Have you changed medications since your No No No last visit? Any new allergies or adverse reactions No No No Had a fall/change in ADL's that may No No No increase risk of falls Signs or symptoms of abuse and/or No No No neglect since last visit Have you been in the hospital since your No No No last visit? Has dressing in place as prescribed Yes Yes Yes Has compression in place as prescribed No Yes Yes Has offloadiing in place as prescribed No N/A N/A Experienced any changes in pain level or No No No management Left Footwear Regular Shoe Regular Shoe Right Footwear Regular Shoe Regular Shoe Pain Scale: 0-10 Numeric Is Patient Pain Free? Yes Yes Yes 03/17/23 09:39 WC - Today's Visit Information Type of service Follow-up Visit (Physician/[employer]CRETE [employer]ORER ) Arrival Mode Ambulatory Transfer Assistance Patient Identification Verified (Name & No ) Patient Requires Transmission-Based No Precautions Safety Precautions Height and Weight Height Weight Weight in Pounds Body Mass Index (BMI) 53.6 BMI Classification Obese [facility] - Eliecer Vital Signs Temperature (97.8 F-99.1 F) 96.8 F L Temperature Source Temporal Pulse Rate (60-100) 61 Pulse Location Monitor Respiratory Rate (12-18) Blood Pressure (90/60-120/80) 137/63 H Blood Pressure Mean (mm Hg) 87 Source Monitor History Since Last Visit- (Skip if this is Patient's initial visit) Have you changed medications since your No last visit? Any new allergies or adverse reactions No Had a fall/change in ADL's that may No increase risk of falls Signs or symptoms of abuse and/or No neglect since last visit Have you been in the hospital since your No last visit? Has dressing in place as prescribed Yes Has compression in place as prescribed Yes Has offloadiing in place as prescribed N/A Experienced any changes in pain level or No management Left Footwear Regular Shoe Right Footwear Regular Shoe Pain Scale: 0-10 Numeric Is Patient Pain Free? Yes - Nurse 1 - General Ulcer Measurement Start: 05/03/23 08:59 Freq: Status: Active Protocol: Activity Type Activity Date Activity User E-sign Co-sign Detail Recorded Client Recorded Date Recorded By Document 02/17/23 08:59 PL [id number] 02/17/23 09:14 PL Document 03/03/23 11:32 AK [id number] 03/03/23 11:34 AK Document 03/10/23 09:43 AK [id number] 03/10/23 09:45 AK Document 03/17/23 09:39 AK [id number] 03/17/23 09:42 AK 02/17/23 03/03/23 03/10/23 08:59 11:32 09:43 Wound Center Nurse 1 #1 Left lat leg -Combined with other wound No No -Current Size (cm) - Length 1.5 1.5 1.5 -Current Size (cm) - Width 2.0 1.6 1.5 -Current Size (cm) - Depth 0.3 0.4 0.3 -Total Square Cm 3.00 2.40 2.25 -Date of Last Picture (Recall this field) -Photo Taken Yes Yes -Epithelialization Medium 34-66% -Tunneling No No No -Undermining/Tunneling No No No -Circular Undermining No No No -Change in Wound Grade/Stage No No -Exudate Amt Medium Large Large -Exudate Type Serosanguineous Serosanguineous Serosanguineous -Wound Margin Distinct, Distinct, Outline Outline Attached Attached -Granulation Amt Small (1-33%) Medium (34-66%) Large (67-100%) -Granulation Quality [place] -Slough/Fibrin Yes Yes Yes -Necrosis Amt Large (67-100%) Medium (34-66%) Small (1-33%) -Necrotic Tissue Type Adherent Slough Adherent Slough Adherent Slough -Structure Exposed N/A N/A -Texture (Lexi-wound Skin Appearance) Localized Edema No Abnormality, Assessed, Assessed Localized Edema -Moisture (Lexi-wound Skin Appearance) Weeping No Abnormality, No Abnormality, Assessed Assessed -Color (Lexi-wound Skin Appearance) No Abnormality, No Abnormality, Assessed Assessed -Temperature (Lexi-wound Skin No Abnormality No Abnormality No Abnormality Appearance) (Pt Warm) (Pt Warm) (Pt Warm) -Tenderness on Palpation (Lexi-wound No No No Skin Appearance) -Ulcer Cleansing Soap and Water Rinsed/ Rinsed/ Irrigated with Irrigated with Saline Saline -Foul Odor after Cleansing No No No -Anesthetic Used 5% Lidocaine 5% Lidocaine 5% Lidocaine Gel Gel Gel Lower Limb Edema Present No Right Calf (cm) 59 Right Ankle (cm) 39 Left Calf (cm) 51.5 57 56 Left Ankle (cm) 38 37 38 03/17/23 09:39 Wound Center Nurse 1 #1 Left lat leg -Combined with other wound No -Current Size (cm) - Length 1 -Current Size (cm) - Width 0.5 -Current Size (cm) - Depth 0.3 -Total Square Cm 0.5 -Date of Last Picture (Recall this 03/17/23 field) -Photo Taken Yes -Epithelialization -Tunneling No -Undermining/Tunneling No -Circular Undermining No -Change in Wound Grade/Stage No -Exudate Amt Medium -Exudate Type Serosanguineous -Wound Margin Distinct, Outline Attached -Granulation Amt Medium (34-66%) -Granulation Quality [place] -Slough/Fibrin Yes -Necrosis Amt Medium (34-66%) -Necrotic Tissue Type Adherent Slough -Structure Exposed N/A -Texture (Lexi-wound Skin Appearance) No Abnormality, Assessed -Moisture (Lexi-wound Skin Appearance) No Abnormality, Assessed -Color (Lexi-wound Skin Appearance) No Abnormality, Assessed -Temperature (Lexi-wound Skin No Abnormality Appearance) (Pt Warm) -Tenderness on Palpation (Lexi-wound No Skin Appearance) -Ulcer Cleansing Soap and Water -Foul Odor after Cleansing No -Anesthetic Used 5% Lidocaine Gel Lower Limb Edema Present No Right Calf (cm) Right Ankle (cm) Left Calf (cm) 51 Left Ankle (cm) 36 - Nurse 2 - General Ulcer CM Notes Start: 02/17/23 08:59 Freq: Status: Active Protocol: Activity Type Activity Date Activity User E-sign Co-sign Detail Recorded Client Recorded Date Recorded By Document 02/17/23 09:59 ZHANE [id number] 02/17/23 10:01 Document 03/03/23 11:45 ZHANE [id number] 03/03/23 11:47 Document 03/10/23 10:00 ZHANE [id number] 03/10/23 10:07 Document 03/17/23 10:06 [id number] 03/17/23 10:09 JF 02/17/23 03/03/23 03/10/23 09:59 11:45 10:00 Wound Center Nurse 2 #1 Left lat leg -Time 10:00 11:45 10:01 -Correct Patient Yes Yes Yes -Correct Side, Site, Position Yes Yes Yes -Correct Procedure Yes Yes Yes -Procedure Performed Yes Yes Yes -Type of Procedure Debridement Debridement Debridement -Clinical Debridement Subcutaneous Subcutaneous Subcutaneous -Tissue Removed Subcutaneous Subcutaneous Subcutaneous -Post Debridement (cm) - Length 1.5 1.5 1.4 -Post Debridement (cm) - Width 2.0 1.7 1.7 -Post Debridement (cm) - Depth 0.3 0.3 0.2 -Total Square (Post) (cm) 3.00 2.55 2.38 -Area of Debridement (cm) - Length 1.5 1.5 1.4 -Area of Debridement (cm) - Width 2.0 1.7 1.7 -Total Square (Area) (cm) 3.00 2.55 2.38 -Tunneling No No No -Undermining/Tunneling No No No -Circular Undermining No No No -Wound/Ulcer Outcome Not Healed Not Healed Not Healed -Ulcer Cleansing Rinsed/ Rinsed/ Rinsed/ Irrigated with Irrigated with Irrigated with Saline Saline Saline -Foul Odor after Cleansing No No No -Bioengineered Tissue No No No -Bleeding Controlled with Pressure Pressure Pressure -Treatment Response Procedure Procedure Procedure Tolerated Well Tolerated Well Tolerated Well -Offloading No No No -Debridement - Subq, 1st 20sq cm Yes Yes Yes Pain Scale: 0-10 Numeric Is Patient Pain Free? Yes Yes Yes 03/17/23 10:06 Wound Center Nurse 2 #1 Left lat leg -Time 10:06 -Correct Patient Yes -Correct Side, Site, Position Yes -Correct Procedure Yes -Procedure Performed Yes -Type of Procedure Debridement -Clinical Debridement Subcutaneous -Tissue Removed Subcutaneous -Post Debridement (cm) - Length 1.3 -Post Debridement (cm) - Width 1.5 -Post Debridement (cm) - Depth 0.3 -Total Square (Post) (cm) 1.95 -Area of Debridement (cm) - Length 1.3 -Area of Debridement (cm) - Width 1.5 -Total Square (Area) (cm) 1.95 -Tunneling No -Undermining/Tunneling No -Circular Undermining No -Wound/Ulcer Outcome Not Healed -Ulcer Cleansing Rinsed/ Irrigated with Saline -Foul Odor after Cleansing No -Bioengineered Tissue No -Bleeding Controlled with Pressure -Treatment Response Procedure Tolerated Well -Offloading No -Debridement - Subq, 1st 20sq cm Yes Pain Scale: 0-10 Numeric Is Patient Pain Free? Yes WC - Nurse 3 - General Ulcer D/C NN Start: 02/17/23 08:59 Freq: Status: Active Protocol: Activity Type Activity Date Activity User E-sign Co-sign Detail Recorded Client Recorded Date Recorded By Document 02/17/23 10:27 PL [id number] 02/17/23 10:28 PL Document 03/10/23 10:23 AK [id number] 03/10/23 10:26 AK 02/17/23 03/10/23 10:27 10:23 Wound Care Center Nurse 3 #1 Left lat leg -Ulcer Cleansing Soap and Water Rinsed/ Irrigated with Saline -Foul Odor after Cleansing No No -Negative Pressure Wound Therapy N/A -Primary Dressing Applied Mepilex Border Mepilex Border, Promogran -Other Dressing Yolette -Mepilex Border 1 1 -Promogran 1 Bilateral -Lotion applied to leg before No compression wrap -Compression Wrap Surepress ($) -Tubular Bandage Single Layer -Size of Tubigrip Used Size F Size E -Size F ($) 4 Pain Scale: 0-10 Numeric Is Patient Pain Free? Yes Yes - Visit Discharge Discharge Condition Stable Ambulatory Status Cane Transportation Private Auto Assessment/Plan Assessment/Plan (1) Chronic ulcer of left leg with fat layer exposed: CODE(S): L97.922 - Non-pressure chronic ulcer of unspecified part of left lower leg with fat layer exposed (2) Super obese: CODE(S): E66.9 - Obesity, unspecified (3) Lymphedema of both lower extremities: CODE(S): I89.0 - Lymphedema, not elsewhere classified (4) Edema of both lower extremities: CODE(S): R60.0 - Localized edema (5) Essential hypertension: CODE(S): I10 - Essential (primary) hypertension (6) Heart murmur: CODE(S): R01.1 - Cardiac murmur, unspecified (7) Vitamin B12 deficiency: CODE(S): E53.8 - Deficiency of other specified B group vitamins (8) Postoperative malabsorption: CODE(S): K91.2 - Postsurgical malabsorption, not elsewhere classified PLAN: Plan Patient evaluated at the wound healing center. Wound care will be [place] covered by [place] [facility]. Compression - Will start her in 3M 2 layer wraps bilaterally, this week. She will have a nurse's visit on Wednesday to have the wraps and her dressing changed to make sure she is tolerating the wraps well. She would benefit from lymphedema pumps to help assist with getting better control of her lymphedema/edema. Discussed with her that this ulcer will not heal until the edema/lymphedema is under better control. Her vascular studies were completed. No arterial compromise, but she has several areas of venous incompetent veins. Good compression should help with some of this, but will refer her to Dr. Bravo, the vascular surgeon, for further evaluation. A wound culture was obtained 02/17/23 which was positive for MRSE. She was started on Doxycycline and she is tolerating it well. Encouraged increase protein intake to help with wound healing, due to increase in metabolic demand. She may try supplemental protein drinks to help with this. With her history of gastric bypass, this may impact her healing process. She will follow up one week.
== END 2023-03-17 23:59 | disposition home or self-care (01) ==
LOC: WC 09:45
PROVIDERS: PCP Internal Medicine; Referring Provider Nurse Practitioner Family; Visit Provider Nurse Practitioner Family
DX: L97.922 Non-pressure chronic ulcer of unspecified part of left lower leg with fat layer exposed (principal); I10 Essential (primary) hypertension; R60.0 Localized edema; K91.2 Postsurgical malabsorption, not elsewhere classified; R01.1 Cardiac murmur, unspecified; E66.9 Obesity, unspecified; E53.8 Deficiency of other specified B group vitamins; I89.0 Lymphedema, not elsewhere classified; G47.33 Obstructive sleep apnea (adult) (pediatric); Z98.84 Bariatric surgery status
CPT/HCPCS: 11042; 29581; 87070; 87075; 87186; 87205; 93923; 93970; 99214; G0463

== ENCOUNTER 2023-04-14 09:45 | Outpatient (RCR) | payer MEDICARE, OTHER, SELFPAY ==
[2023-03-18 00:11] VITALS: BP 137/63; PULSE 61; RESP 20; TEMP 36; BMI 53.6
[2023-03-19 13:38] VITALS: BP 137/64; PULSE 61; RESP 18; TEMP 36.2; BMI 53.6
[2023-03-24 09:34] VITALS: BP 140/74; PULSE 68; RESP 20; TEMP 36.4; BMI 53.6
--- NOTE | 2023-03-24 12:18 | PCM.WC.PN ---
History of Present Illness Date of Service: 03/24/23 Chief Complaint: Non healing ulcer left lateral leg History of Wound: 67 year old female presents for evaluation of her non healing left lateral leg ulcer. She bumped it on her walker in December. She states she often bumps her legs on her walker but they heal up, this one never has. She then had Covid in early January and the ulcer started to hurt and drain and did no improve. [facility] where she was placed on Clindamycin and referred to the wound center. She has been placing antibiotic ointment onto the ulcer. She has a history of chronic lymphedema, HTN, hypothyroidism, gastric bypass surgery 20 years ago, heart murmur and obstructive sleep apnea. She used to wear compression stockings for her edema/lymphedema but they became too tight and she stopped wearing them. Wound culture obtained 02/17/23 positive for MRSE and she was started on Doxycycline. Arterial studies completed on 03/03/23 which showed Triphasic Doppler waveforms at ankle level bilaterally. Right JOAQUÍN = 1.19, left JOAQUÍN = 1.31. No evidence of significant arterial occlusive disease in the lower extremities bilaterally. Venous studies completed 03/03/23 showed The right sapheno-femoral junction is incompetent. The right great saphenous vein appears segmentally incompetent. Accessory saphenous veins in the right proximal calf and mid-calf are incompetent. An accessory saphenous vein in the left distal thigh is incompetent. Wound care - Left lateral leg ulcer Aquacel-Ag covered with gauze. She denies any fever, chills, nausea and vomiting. She comes in today for further evaluation and treatment. Progress of Wound: Left lateral leg ulcer has beefy pink base. Edges are curling in. Edema/lymphedema continues to be +3-+4 but has improved over the past week with the use of the 3M 2 layer wraps. Right leg is more edematous than the left leg. Objective Data Objective Data Vital Signs: Vital Signs Temp Pulse Resp BP 97.6 F L 68 20 H 140/74 H 03/24/23 09:34 03/24/23 09:34 03/24/23 09:34 03/24/23 09:34 Weight: 275 lb Body Mass Index (BMI) 53.6 Charges/Coding Procedures Integumentary 111xxx-113xx: 41429 Geena subq tissue 20 sq cm/< Debridement Note Debridement Note Wound debrided: lateral leg ulcer Laterality: Left Wound Grade/Stage: Stage III Type of Debridement: Excisional debridement Anesthesia Used: 5% Lidocaine Gel Depth: Down to and including healthy tissue and in the subcutaneous layer Percentage of wound debrided: 100 Instrument Used: 5mm curette Tissue Removed: Devitalized tissue and slough Severity: Fat Layer Exposed Amount of bleeding with debridement: Mild Bleeding Controlled with: Pressure and Compression and gauze Patient tolerated procedure: Patient tolerated procedure well Post-Debridement Measurements and Additional Note: Post-Debridement Measurements/Treatment - Nurse 1 - General Ulcer Assessment Start: 03/19/23 13:38 Freq: Status: Active Protocol: DARYN Activity Type Activity Date Activity User E-sign Co-sign Detail Recorded Client Recorded Date Recorded By Document 03/19/23 13:38 RB [id number] 03/19/23 13:42 RB Document 03/24/23 09:34 DL [id number] 03/24/23 09:39 DL 03/19/23 03/24/23 13:38 09:34 - Today's Visit Information Type of service Follow-up Visit Follow-up Visit (Physician/MERCURY CELL CLEANER (Physician/MERCURY CELL CLEANER ) ) Arrival Mode Ambulatory Ambulatory Transfer Assistance None None Patient Identification Verified (Name & Yes Yes ) Patient Requires Transmission-Based No No Precautions Height and Weight Body Mass Index (BMI) 53.6 53.6 BMI Classification Obese Obese Vital Signs Temperature (97.8 F-99.1 F) 97.2 F L 97.6 F L Temperature Source Temporal Temporal Pulse Rate (60-100) 61 68 Pulse Location Monitor Monitor Respiratory Rate (12-18) 18 20 H Respiratory rate source Observation Observation Blood Pressure (90/60-120/80) 137/64 H 140/74 H Blood Pressure Mean (mm Hg) 88 96 Source Monitor Monitor Position Sitting Blood Pressure Location Left Arm History Since Last Visit- (Skip if this is Patient's initial visit) Have you changed medications since your No No last visit? Any new allergies or adverse reactions No No Had a fall/change in ADL's that may No No increase risk of falls Signs or symptoms of abuse and/or No No neglect since last visit Have you been in the hospital since your No No last visit? Has dressing in place as prescribed Yes Yes Has compression in place as prescribed Yes Yes Has offloadiing in place as prescribed No N/A Experienced any changes in pain level or No No management Pain Scale: 0-10 Numeric Is Patient Pain Free? Yes Yes WC - Nurse 1 - General Ulcer Measurement Start: 03/19/23 13:38 Freq: Status: Active Protocol: Activity Type Activity Date Activity User E-sign Co-sign Detail Recorded Client Recorded Date Recorded By Document 03/19/23 13:38 RB [id number] 03/19/23 13:42 RB Document 03/24/23 09:34 DL [id number] 03/24/23 09:39 DL Edit Result 03/24/23 09:34 DL (1) [id number] 03/24/23 09:51 JF (1) Left Calf (cm) 38 => 48.3 03/19/23 03/24/23 13:38 09:34 Wound Center Nurse 1 #1 Left lat leg -Current Size (cm) - Length 1.1 -Current Size (cm) - Width 1.1 -Current Size (cm) - Depth 0.2 -Total Square Cm 1.21 -Photo Taken No -Exudate Amt Medium -Exudate Type Serosanguineous -Wound Margin Distinct, Outline Attached -Granulation Amt Large (67-100%) -Granulation Quality [place],Red -Necrosis Amt None Present (0 %) -Texture (Lexi-wound Skin Appearance) Scarring -Moisture (Lexi-wound Skin Appearance) No Abnormality -Color (Lexi-wound Skin Appearance) Hemosiderin Staining -Temperature (Lexi-wound Skin No Abnormality Appearance) (Pt Warm) -Tenderness on Palpation (Lexi-wound No Skin Appearance) -Ulcer Cleansing Rinsed/ Irrigated with Saline -Foul Odor after Cleansing No -Anesthetic Used 5% Lidocaine Gel Lower Limb Edema Present Yes Right Calf (cm) 51.8 52.5 Right Ankle (cm) 37.2 35 Left Calf (cm) 50.2 48.3 Left Ankle (cm) 36.2 34.5 WC - Nurse 2 - General Ulcer CM Notes Start: 03/19/23 13:38 Freq: Status: Active Protocol: Activity Type Activity Date Activity User E-sign Co-sign Detail Recorded Client Recorded Date Recorded By Document 03/24/23 09:51 [id number] 03/24/23 09:54 JF 03/24/23 09:51 Wound Center Nurse 2 #1 Left lat leg -Time 09:52 -Correct Patient Yes -Correct Side, Site, Position Yes -Correct Procedure Yes -Procedure Performed Yes -Type of Procedure Debridement -Clinical Debridement Subcutaneous -Tissue Removed Subcutaneous -Post Debridement (cm) - Length 1.5 -Post Debridement (cm) - Width 1.7 -Post Debridement (cm) - Depth 0.2 -Total Square (Post) (cm) 2.55 -Area of Debridement (cm) - Length 1.5 -Area of Debridement (cm) - Width 1.7 -Total Square (Area) (cm) 2.55 -Tunneling No -Undermining/Tunneling No -Circular Undermining No -Wound/Ulcer Outcome Not Healed -Ulcer Cleansing Rinsed/ Irrigated with Saline -Foul Odor after Cleansing No -Bioengineered Tissue No -Bleeding Controlled with Pressure -Treatment Response Procedure Tolerated Well -Offloading No -Debridement - Subq, 1st 20sq cm Yes Pain Scale: 0-10 Numeric Is Patient Pain Free? Yes - Nurse 3 - General Ulcer D/C NN Start: 03/19/23 13:38 Freq: Status: Active Protocol: Activity Type Activity Date Activity User E-sign Co-sign Detail Recorded Client Recorded Date Recorded By Document 03/19/23 13:38 RB [id number] 03/19/23 13:42 RB Document 03/24/23 10:14 DL [id number] 03/24/23 10:15 DL 03/19/23 03/24/23 13:38 10:14 Vital Signs Temperature (97.8 F-99.1 F) 97.2 F L Temperature Source Temporal Pulse Rate (60-100) 61 Pulse Location Monitor Respiratory Rate (12-18) 18 Respiratory rate source Observation Blood Pressure (90/60-120/80) 137/64 H Blood Pressure Mean (mm Hg) 88 Source Monitor Position Sitting Blood Pressure Location Left Arm Pain Scale: 0-10 Numeric Is Patient Pain Free? Yes Yes Wound Care Center Nurse 3 #1 Left lat leg -Ulcer Cleansing Rinsed/ Rinsed/ Irrigated with Irrigated with Saline Saline -Foul Odor after Cleansing No -Primary Dressing Applied Aquacel AG 2x2 -Other Dressing cornelius -Primary Dressing Covered/Secured with Dry Gauze Dry Gauze -Aquacel AG 2x2 1 bilateral LE -Multi-Layered Wrap Application Multi-Layer Multi-Layer Comp - Bilat ($ Comp - Bilat ($ ) ) Treatment Response Procedure Tolerated Well WC - Visit Discharge Discharge Condition Stable Stable Ambulatory Status Ambulatory Ambulatory,Cane Transportation Private Auto Private Auto Medication Reconcilliation completed & No provided to patient/care provider Clinical Summary of Care Provided Yes Facility Type Home Health Orders Sent Yes Assessment/Plan Assessment/Plan (1) Chronic ulcer of left leg with fat layer exposed: CODE(S): L97.922 - Non-pressure chronic ulcer of unspecified part of left lower leg with fat layer exposed (2) Lymphedema of both lower extremities: CODE(S): I89.0 - Lymphedema, not elsewhere classified (3) Edema of both lower extremities: CODE(S): R60.0 - Localized edema (4) Super obese: CODE(S): E66.9 - Obesity, unspecified (5) Essential hypertension: CODE(S): I10 - Essential (primary) hypertension (6) Postoperative malabsorption: CODE(S): K91.2 - Postsurgical malabsorption, not elsewhere classified PLAN: Plan Patient evaluated at the wound healing center. Wound care - Aquacel-Ag covered with gauze/ABD. Compression - Continue 3M 2 layer wraps bilaterally, this week. She has tolerated the wraps, so she can go one week with them in place. She would benefit from lymphedema pumps to help assist with getting better control of her lymphedema/edema. She states that they are coming out to her house to fit her for them later this week. Discussed with her that this ulcer will not heal until the edema/lymphedema is under better control. Her vascular studies were completed. No arterial compromise, but she has several areas of venous incompetent veins. Good compression should help with some of this, but will refer her to Dr. Bravo, the vascular surgeon, for further evaluation. A wound culture was obtained 02/17/23 which was positive for MRSE. She has completed the Doxycycline. Encouraged increase protein intake to help with wound healing, due to increase in metabolic demand. She may try supplemental protein drinks to help with this. With her history of gastric bypass, this may impact her healing process. She will follow up one week.
--- NOTE | 2023-03-31 12:35 | PCM.WC.PN ---
History of Present Illness Date of Service: 03/31/23 Chief Complaint: Non healing ulcer left lateral leg History of Wound: 67 year old female presents for evaluation of her non healing left lateral leg ulcer. She bumped it on her walker in December. She states she often bumps her legs on her walker but they heal up, this one never has. She then had Covid in early January and the ulcer started to hurt and drain and did no improve. [facility] where she was placed on Clindamycin and referred to the wound center. She has been placing antibiotic ointment onto the ulcer. She has a history of chronic lymphedema, HTN, hypothyroidism, gastric bypass surgery 20 years ago, heart murmur and obstructive sleep apnea. She used to wear compression stockings for her edema/lymphedema but they became too tight and she stopped wearing them. Wound culture obtained 02/17/23 positive for MRSE and she was started on Doxycycline. Arterial studies completed on 03/03/23 which showed Triphasic Doppler waveforms at ankle level bilaterally. Right JOAQUÍN = 1.19, left JOAQUÍN = 1.31. No evidence of significant arterial occlusive disease in the lower extremities bilaterally. Venous studies completed 03/03/23 showed The right sapheno-femoral junction is incompetent. The right great saphenous vein appears segmentally incompetent. Accessory saphenous veins in the right proximal calf and mid-calf are incompetent. An accessory saphenous vein in the left distal thigh is incompetent. Wound care - Left lateral leg ulcer Epifix #1 applied today. She denies any fever, chills, nausea and vomiting. She comes in today for further evaluation and treatment. Progress of Wound: Left lateral leg ulcer has beefy pink base. Edema/lymphedema continues to be +3-+4 but is improving with the use of the 3M 2 layer wraps. She was approved for Epifix and the first application was applied today. She states she has been approved for her compression pumps and is waiting for them to be delivered. Objective Data Objective Data Vital Signs: Vital Signs Temp Pulse Resp BP 97.6 F L 68 20 H 140/74 H 03/24/23 09:34 03/24/23 09:34 03/24/23 09:34 03/24/23 09:34 Weight: 275 lb Body Mass Index (BMI) 53.6 Charges/Coding Procedures Integumentary 150xxx-152xx: [id number] Skin sub graft trnk/arm/leg Debridement Note Debridement Note Wound debrided: lateral leg ulcer Laterality: Left Wound Grade/Stage: Stage III Type of Debridement: Excisional debridement Anesthesia Used: 5% Lidocaine Gel Depth: Down to and including healthy tissue and in the subcutaneous layer Percentage of wound debrided: 100 Instrument Used: 5mm curette Tissue Removed: Devitalized tissue and slough Severity: Fat Layer Exposed Amount of bleeding with debridement: Mild Bleeding Controlled with: Pressure and Compression and gauze Patient tolerated procedure: Patient tolerated procedure well Post-Debridement Measurements and Additional Note: Post-Debridement Measurements/Treatment - Nurse 1 - General Ulcer Assessment Start: 03/19/23 13:38 Freq: Status: Active Protocol: DARYN Activity Type Activity Date Activity User E-sign Co-sign Detail Recorded Client Recorded Date Recorded By Document 03/19/23 13:38 RB [id number] 03/19/23 13:42 RB Document 03/24/23 09:34 DL [id number] 03/24/23 09:39 DL 03/19/23 03/24/23 13:38 09:34 - Today's Visit Information Type of service Follow-up Visit Follow-up Visit (Physician/STRAIGHT EDGER (Physician/STRAIGHT EDGER ) ) Arrival Mode Ambulatory Ambulatory Transfer Assistance None None Patient Identification Verified (Name & Yes Yes ) Patient Requires Transmission-Based No No Precautions Height and Weight Body Mass Index (BMI) 53.6 53.6 BMI Classification Obese Obese Vital Signs Temperature (97.8 F-99.1 F) 97.2 F L 97.6 F L Temperature Source Temporal Temporal Pulse Rate (60-100) 61 68 Pulse Location Monitor Monitor Respiratory Rate (12-18) 18 20 H Respiratory rate source Observation Observation Blood Pressure (90/60-120/80) 137/64 H 140/74 H Blood Pressure Mean (mm Hg) 88 96 Source Monitor Monitor Position Sitting Blood Pressure Location Left Arm History Since Last Visit- (Skip if this is Patient's initial visit) Have you changed medications since your No No last visit? Any new allergies or adverse reactions No No Had a fall/change in ADL's that may No No increase risk of falls Signs or symptoms of abuse and/or No No neglect since last visit Have you been in the hospital since your No No last visit? Has dressing in place as prescribed Yes Yes Has compression in place as prescribed Yes Yes Has offloadiing in place as prescribed No N/A Experienced any changes in pain level or No No management Pain Scale: 0-10 Numeric Is Patient Pain Free? Yes Yes WC - Nurse 1 - General Ulcer Measurement Start: 03/19/23 13:38 Freq: Status: Active Protocol: Activity Type Activity Date Activity User E-sign Co-sign Detail Recorded Client Recorded Date Recorded By Document 03/19/23 13:38 RB [id number] 03/19/23 13:42 RB Document 03/24/23 09:34 DL [id number] 03/24/23 09:39 DL Edit Result 03/24/23 09:34 DL (1) [id number] 03/24/23 09:51 JF (1) Left Calf (cm) 38 => 48.3 03/19/23 03/24/23 13:38 09:34 Wound Center Nurse 1 #1 Left lat leg -Current Size (cm) - Length 1.1 -Current Size (cm) - Width 1.1 -Current Size (cm) - Depth 0.2 -Total Square Cm 1.21 -Photo Taken No -Exudate Amt Medium -Exudate Type Serosanguineous -Wound Margin Distinct, Outline Attached -Granulation Amt Large (67-100%) -Granulation Quality [place],Red -Necrosis Amt None Present (0 %) -Texture (Lexi-wound Skin Appearance) Scarring -Moisture (Lexi-wound Skin Appearance) No Abnormality -Color (Lexi-wound Skin Appearance) Hemosiderin Staining -Temperature (Lexi-wound Skin No Abnormality Appearance) (Pt Warm) -Tenderness on Palpation (Lexi-wound No Skin Appearance) -Ulcer Cleansing Rinsed/ Irrigated with Saline -Foul Odor after Cleansing No -Anesthetic Used 5% Lidocaine Gel Lower Limb Edema Present Yes Right Calf (cm) 51.8 52.5 Right Ankle (cm) 37.2 35 Left Calf (cm) 50.2 48.3 Left Ankle (cm) 36.2 34.5 WC - Nurse 2 - General Ulcer CM Notes Start: 03/19/23 13:38 Freq: Status: Active Protocol: Activity Type Activity Date Activity User E-sign Co-sign Detail Recorded Client Recorded Date Recorded By Document 03/24/23 09:51 [id number] 03/24/23 09:54 Document 03/31/23 10:07 [id number] 03/31/23 10:15 03/24/23 03/31/23 09:51 10:07 Wound Center Nurse 2 #1 Left lat leg -Time 09:52 10:07 -Correct Patient Yes Yes -Correct Side, Site, Position Yes Yes -Correct Procedure Yes Yes -Procedure Performed Yes Yes -Type of Procedure Debridement Debridement -Clinical Debridement Subcutaneous Subcutaneous -Tissue Removed Subcutaneous Subcutaneous -Post Debridement (cm) - Length 1.5 1.2 -Post Debridement (cm) - Width 1.7 1.4 -Post Debridement (cm) - Depth 0.2 0.2 -Total Square (Post) (cm) 2.55 1.68 -Area of Debridement (cm) - Length 1.5 1.2 -Area of Debridement (cm) - Width 1.7 1.4 -Total Square (Area) (cm) 2.55 1.68 -Tunneling No No -Undermining/Tunneling No No -Circular Undermining No No -Wound/Ulcer Outcome Not Healed Not Healed -Ulcer Cleansing Rinsed/ Rinsed/ Irrigated with Irrigated with Saline Saline -Foul Odor after Cleansing No No -Bioengineered Tissue No Yes -Type of Bioengineered Tissue Epifix 18mm Disc -Expiration Date 01/17/28 -Product Lot Number [id number] -Percent Used 100 -Lot number of Saline Used [id number] -Bleeding Controlled with Pressure Pressure -Treatment Response Procedure Procedure Tolerated Well Tolerated Well -Offloading No No -Debridement - Subq, 1st 20sq cm Yes No -Apply Skin Sub - 1st 25 sq cm - Legs 1 -Epifix 18mm Disc 3 Pain Scale: 0-10 Numeric Is Patient Pain Free? Yes Yes - Nurse 3 - General Ulcer D/C NN Start: 03/19/23 13:38 Freq: Status: Active Protocol: Activity Type Activity Date Activity User E-sign Co-sign Detail Recorded Client Recorded Date Recorded By Document 03/19/23 13:38 RB [id number] 03/19/23 13:42 RB Document 03/24/23 10:14 DL [id number] 03/24/23 10:15 DL 03/19/23 03/24/23 13:38 10:14 Vital Signs Temperature (97.8 F-99.1 F) 97.2 F L Temperature Source Temporal Pulse Rate (60-100) 61 Pulse Location Monitor Respiratory Rate (12-18) 18 Respiratory rate source Observation Blood Pressure (90/60-120/80) 137/64 H Blood Pressure Mean (mm Hg) 88 Source Monitor Position Sitting Blood Pressure Location Left Arm Pain Scale: 0-10 Numeric Is Patient Pain Free? Yes Yes Wound Care Center Nurse 3 #1 Left lat leg -Ulcer Cleansing Rinsed/ Rinsed/ Irrigated with Irrigated with Saline Saline -Foul Odor after Cleansing No -Primary Dressing Applied Aquacel AG 2x2 -Other Dressing cornelius -Primary Dressing Covered/Secured with Dry Gauze Dry Gauze -Aquacel AG 2x2 1 bilateral LE -Multi-Layered Wrap Application Multi-Layer Multi-Layer Comp - Bilat ($ Comp - Bilat ($ ) ) Treatment Response Procedure Tolerated Well WC - Visit Discharge Discharge Condition Stable Stable Ambulatory Status Ambulatory Ambulatory,Cane Transportation Private Auto Private Auto Medication Reconcilliation completed & No provided to patient/care provider Clinical Summary of Care Provided Yes Facility Type Home Health Orders Sent Yes Assessment/Plan Assessment/Plan (1) Chronic ulcer of left leg with fat layer exposed: CODE(S): L97.922 - Non-pressure chronic ulcer of unspecified part of left lower leg with fat layer exposed (2) Lymphedema of both lower extremities: CODE(S): I89.0 - Lymphedema, not elsewhere classified (3) Edema of both lower extremities: CODE(S): R60.0 - Localized edema (4) Super obese: CODE(S): E66.9 - Obesity, unspecified (5) Essential hypertension: CODE(S): I10 - Essential (primary) hypertension (6) Postoperative malabsorption: CODE(S): K91.2 - Postsurgical malabsorption, not elsewhere classified PLAN: Plan Patient evaluated at the wound healing center. Wound care - Epifix #1 applied today. 100% of the product was used. It was covered with a wound veil that was secured with steri strips and covered with ABD. She was instructed not to get the ulcer wet while the Epifix is in place. Compression - Continue 3M 2 layer wraps bilaterally, this week. She has been approved for lymphedema pumps to help assist with getting better control of her lymphedema/edema. She is waiting for them to be delivered. Discussed with her that this ulcer will not heal until the edema/lymphedema is under better control. Her vascular studies were completed. No arterial compromise, but she has several areas of venous incompetent veins. Good compression should help with some of this, but will refer her to Dr. Bravo, the vascular surgeon, for further evaluation. A wound culture was obtained 02/17/23 which was positive for ISIAH. She has completed the Doxycycline. Encouraged increase protein intake to help with wound healing, due to increase in metabolic demand. She may try supplemental protein drinks to help with this. With her history of gastric bypass, this may impact her healing process. She will follow up one week.
[2023-03-31 13:10] VITALS: BP 122/70; PULSE 59; TEMP 35.9; BMI 53.6
[2023-04-07 09:47] VITALS: BP 143/74; PULSE 63; RESP 22; TEMP 36.4; BMI 53.6
--- NOTE | 2023-04-07 11:24 | PN.PCM_ITS ---
History of Present Illness Date of Service: 04/07/23 Chief Complaint: Non healing ulcer left lateral leg History of Wound: 67 year old female presents for evaluation of her non healing left lateral leg ulcer. She bumped it on her walker in December. She states she often bumps her legs on her walker but they heal up, this one never has. She then had Covid in early January and the ulcer started to hurt and drain and did no improve. [facility] where she was placed on Clindamy yves and referred to the wound center. She has been placing antibiotic ointment onto the ulcer. She has a history of chronic lymphedema, HTN, hypothyroidism, gastric bypass surgery 20 years ago, heart murmur and obstructive sleep apnea. She used to wear compression stockings for her edema/lymphedema but they became too tight and she stopped wearing them. Wound culture obtained 02/17/23 positive for MRSE and she was started on Doxycycline. Arterial studies completed on 03/03/23 which showed Triphasic Doppler waveforms at ankle level bilaterally. Right JOAQUÍN = 1.19, left JOAQUÍN = 1.31. No evidence of significant arterial occlusive disease in the lower extremities bilaterally. Venous studies completed 03/03/23 showed The right sapheno-femoral junction is incompetent. The right great saphenous vein appears segmentally incompetent. Accessory saphenous veins in the right proximal calf and mid-calf are incompetent. An accessory saphenous vein in the left distal thigh is incompetent. Wound care - Left lateral leg ulcer Epifix #1 applied today. She denies any fever, chills, nausea and vomiting. She comes in today for further evaluation and treatment. Progress of Wound: Left lateral leg ulcer has beefy pink base and is smaller in size this week. Edema/lymphedema continues to be +3-+4 but is improving with the use of the 3M 2 layer wraps. She was approved for Epifix and the second application was applied today. She states she has been approved for her compression pumps and is waiting for them to be delivered. Objective Data Objective Data Vital Signs: Vital Signs Temp Pulse Resp BP 97.5 F L 63 22 H 143/74 H 04/07/23 09:47 04/07/23 09:47 04/07/23 09:47 04/07/23 09:47 Weight: 275 lb Body Mass Index (BMI) 53.6 Charges/Coding Procedures Integumentary 150xxx-152xx: 88907 Skin sub graft trnk/arm/leg Debridement Note Debridement Note Wound debrided: lateral leg ulcer Laterality: Left Wound Grade/Stage: Stage III Type of Debridement: Excisional debridement Anesthesia Used: 5% Lidocaine Gel Depth: Down to and including healthy tissue and in the subcutaneous layer Percentage of wound debrided: 100 Instrument Used: 3mm curette Tissue Removed: Devitalized tissue and slough Severity: Fat Layer Exposed Amount of bleeding with debridement: Mild Bleeding Controlled with: Pressure and Compression and gauze Patient tolerated procedure: Patient tolerated procedure well Post-Debridement Measurements and Additional Note: Post-Debridement Measurements/Treatment - Nurse 1 - General Ulcer Assessment Start: 03/19/23 13:38 Freq: Status: Active Protocol: DARYN Activity Type Activity Date Activity User E-sign Co-sign Detail Recorded Client Recorded Date Recorded By Document 03/19/23 13:38 RB [id number] 03/19/23 13:42 RB Document 03/24/23 09:34 DL [id number] 03/24/23 09:39 DL Document 03/31/23 13:10 AK [id number] 03/31/23 13:12 AK Document 04/07/23 09:47 DL [id number] 04/07/23 09:52 DL 03/19/23 03/24/23 03/31/23 13:38 09:34 13:10 - Today's Visit Information Type of service Follow-up Visit Follow-up Visit Follow-up Visit (Physician/PUBLIC DEFENDER (Physician/PUBLIC DEFENDER (Physician/PUBLIC DEFENDER ) ) ) Arrival Mode Ambulatory Ambulatory Ambulatory Transfer Assistance None None Patient Identification Verified (Name & Yes Yes Yes ) Patient Requires Transmission-Based No No No Precautions Safety Precautions NA Height and Weight Body Mass Index (BMI) 53.6 53.6 53.6 BMI Classification Obese Obese Obese Vital Signs Temperature (97.8 F-99.1 F) 97.2 F L 97.6 F L 96.7 F L Temperature Source Temporal Temporal Temporal Pulse Rate (60-100) 61 68 59 L Pulse Location Monitor Monitor Monitor Respiratory Rate (12-18) 18 20 H Respiratory rate source Observation Observation Blood Pressure (90/60-120/80) 137/64 H 140/74 H 122/70 H Blood Pressure Mean (mm Hg) 88 96 87 Source Monitor Monitor Monitor Position Sitting Blood Pressure Location Left Arm History Since Last Visit- (Skip if this is Patient's initial visit) Have you changed medications since your No No No last visit? Any new allergies or adverse reactions No No No Had a fall/change in ADL's that may No No No increase risk of falls Signs or symptoms of abuse and/or No No No neglect since last visit Have you been in the hospital since your No No No last visit? Has dressing in place as prescribed Yes Yes Yes Has compression in place as prescribed Yes Yes Yes Has offloadiing in place as prescribed No N/A N/A Experienced any changes in pain level or No No No management Left Footwear Regular Shoe Right Footwear Regular Shoe Pain Scale: 0-10 Numeric Is Patient Pain Free? Yes Yes No 04/07/23 09:47 WC - Today's Visit Information Type of service Follow-up Visit (Physician/PUBLIC DEFENDER ) Arrival Mode Ambulatory,Cane Transfer Assistance None Patient Identification Verified (Name & Yes ) Patient Requires Transmission-Based No Precautions Safety Precautions Height and Weight Body Mass Index (BMI) 53.6 BMI Classification Obese Vital Signs Temperature (97.8 F-99.1 F) 97.5 F L Temperature Source Temporal Pulse Rate (60-100) 63 Pulse Location Monitor Respiratory Rate (12-18) 22 H Respiratory rate source Observation Blood Pressure (90/60-120/80) 143/74 H Blood Pressure Mean (mm Hg) 97 Source Monitor Position Blood Pressure Location History Since Last Visit- (Skip if this is Patient's initial visit) Have you changed medications since your No last visit? Any new allergies or adverse reactions No Had a fall/change in ADL's that may No increase risk of falls Signs or symptoms of abuse and/or No neglect since last visit Have you been in the hospital since your No last visit? Has dressing in place as prescribed Yes Has compression in place as prescribed Yes Has offloadiing in place as prescribed N/A Experienced any changes in pain level or Yes management Left Footwear Right Footwear Pain Scale: 0-10 Numeric Is Patient Pain Free? Yes - Nurse 1 - General Ulcer Measurement Start: 03/19/23 13:38 Freq: Status: Active Protocol: Activity Type Activity Date Activity User E-sign Co-sign Detail Recorded Client Recorded Date Recorded By Document 03/19/23 13:38 RB [id number] 03/19/23 13:42 RB Document 03/24/23 09:34 DL [id number] 03/24/23 09:39 DL Edit Result 03/24/23 09:34 DL (1) [id number] 03/24/23 09:51 JF Document 03/31/23 13:12 AK [id number] 03/31/23 13:13 AK Document 04/07/23 09:47 DL [id number] 04/07/23 09:52 DL (1) Left Calf (cm) 38 => 48.3 03/19/23 03/24/23 03/31/23 13:38 09:34 13:12 Wound Center Nurse 1 #1 Left lat leg -Current Size (cm) - Length 1.1 -Current Size (cm) - Width 1.1 -Current Size (cm) - Depth 0.2 -Total Square Cm 1.21 -Photo Taken No -Tunneling No -Undermining/Tunneling No -Circular Undermining No -Change in Wound Grade/Stage No -Exudate Amt Medium Small -Exudate Type Serosanguineous Serosanguineous -Wound Margin Distinct, Distinct, Outline Outline Attached Attached -Granulation Amt Large (67-100%) Large (67-100%) -Granulation Quality [place],Red Red -Slough/Fibrin Yes -Necrosis Amt None Present (0 Small (1-33%) %) -Necrotic Tissue Type Adherent Slough -Structure Exposed N/A -Texture (Lexi-wound Skin Appearance) Scarring Assessed, Scarring -Moisture (Lexi-wound Skin Appearance) No Abnormality No Abnormality, Assessed -Color (Lexi-wound Skin Appearance) Hemosiderin No Abnormality, Staining Assessed -Temperature (Lexi-wound Skin No Abnormality No Abnormality Appearance) (Pt Warm) (Pt Warm) -Tenderness on Palpation (Lexi-wound No No Skin Appearance) -Ulcer Cleansing Rinsed/ Rinsed/ Irrigated with Irrigated with Saline Saline -Foul Odor after Cleansing No No -Anesthetic Used 5% Lidocaine 5% Lidocaine Gel Gel Lower Limb Edema Present Yes Right Calf (cm) 51.8 52.5 50 Right Ankle (cm) 37.2 35 35 Left Calf (cm) 50.2 48.3 53 Left Ankle (cm) 36.2 34.5 36 04/07/23 09:47 Wound Center Nurse 1 #1 Left lat leg -Current Size (cm) - Length 0.7 -Current Size (cm) - Width 0.8 -Current Size (cm) - Depth 0.1 -Total Square Cm 0.56 -Photo Taken -Tunneling -Undermining/Tunneling -Circular Undermining -Change in Wound Grade/Stage -Exudate Amt Small -Exudate Type -Wound Margin Distinct, Outline Attached -Granulation Amt Small (1-33%) -Granulation Quality [place] -Slough/Fibrin -Necrosis Amt Large (67-100%) -Necrotic Tissue Type Adherent Slough -Structure Exposed N/A -Texture (Lexi-wound Skin Appearance) Scarring -Moisture (Lexi-wound Skin Appearance) No Abnormality -Color (Lexi-wound Skin Appearance) Hemosiderin Staining -Temperature (Lexi-wound Skin No Abnormality Appearance) (Pt Warm) -Tenderness on Palpation (Lexi-wound No Skin Appearance) -Ulcer Cleansing Soap and Water -Foul Odor after Cleansing No -Anesthetic Used 5% Lidocaine Gel Lower Limb Edema Present Right Calf (cm) Right Ankle (cm) Left Calf (cm) 46.2 Left Ankle (cm) 34 - Nurse 2 - General Ulcer CM Notes Start: 03/19/23 13:38 Freq: Status: Active Protocol: Activity Type Activity Date Activity User E-sign Co-sign Detail Recorded Client Recorded Date Recorded By Document 03/24/23 09:51 [id number] 03/24/23 09:54 Document 03/31/23 10:07 [id number] 03/31/23 10:15 03/24/23 03/31/23 09:51 10:07 Wound Center Nurse 2 #1 Left lat leg -Time 09:52 10:07 -Correct Patient Yes Yes -Correct Side, Site, Position Yes Yes -Correct Procedure Yes Yes -Procedure Performed Yes Yes -Type of Procedure Debridement Debridement -Clinical Debridement Subcutaneous Subcutaneous -Tissue Removed Subcutaneous Subcutaneous -Post Debridement (cm) - Length 1.5 1.2 -Post Debridement (cm) - Width 1.7 1.4 -Post Debridement (cm) - Depth 0.2 0.2 -Total Square (Post) (cm) 2.55 1.68 -Area of Debridement (cm) - Length 1.5 1.2 -Area of Debridement (cm) - Width 1.7 1.4 -Total Square (Area) (cm) 2.55 1.68 -Tunneling No No -Undermining/Tunneling No No -Circular Undermining No No -Wound/Ulcer Outcome Not Healed Not Healed -Ulcer Cleansing Rinsed/ Rinsed/ Irrigated with Irrigated with Saline Saline -Foul Odor after Cleansing No No -Bioengineered Tissue No Yes -Type of Bioengineered Tissue Epifix 18mm Disc -Expiration Date 01/17/28 -Product Lot Number [id number] -Percent Used 100 -Lot number of Saline Used [id number] -Bleeding Controlled with Pressure Pressure -Treatment Response Procedure Procedure Tolerated Well Tolerated Well -Offloading No No -Debridement - Subq, 1st 20sq cm Yes No -Apply Skin Sub - 1st 25 sq cm - Legs 1 -Epifix 18mm Disc 3 Pain Scale: 0-10 Numeric Is Patient Pain Free? Yes Yes WC - Nurse 3 - General Ulcer D/C NN Start: 03/19/23 13:38 Freq: Status: Active Protocol: Activity Type Activity Date Activity User E-sign Co-sign Detail Recorded Client Recorded Date Recorded By Document 03/19/23 13:38 RB [id number] 03/19/23 13:42 RB Document 03/24/23 10:14 DL [id number] 03/24/23 10:15 DL Document 03/31/23 13:10 AK [id number] 03/31/23 13:12 AK Document 04/07/23 10:54 DL [id number] 04/07/23 10:55 DL 03/19/23 03/24/23 03/31/23 13:38 10:14 13:10 Vital Signs Temperature (97.8 F-99.1 F) 97.2 F L 96.7 F L Temperature Source Temporal Temporal Pulse Rate (60-100) 61 59 L Pulse Location Monitor Monitor Respiratory Rate (12-18) 18 Respiratory rate source Observation Blood Pressure (90/60-120/80) 137/64 H 122/70 H Blood Pressure Mean (mm Hg) 88 87 Source Monitor Monitor Position Sitting Blood Pressure Location Left Arm Pain Scale: 0-10 Numeric Is Patient Pain Free? Yes Yes No Wound Care Center Nurse 3 #1 Left lat leg -Ulcer Cleansing Rinsed/ Rinsed/ Rinsed/ Irrigated with Irrigated with Irrigated with Saline Saline Saline -Foul Odor after Cleansing No No -Negative Pressure Wound Therapy N/A -Primary Dressing Applied Aquacel AG 2x2 -Other Dressing cornelius own silver ABD -Primary Dressing Covered/Secured with Dry Gauze Dry Gauze Dry Gauze & Roll Gauze, Secured with Tape -Aquacel AG 2x2 1 -Mepilex Border bilateral LE -Multi-Layered Wrap Application Multi-Layer Multi-Layer Multi-Layer Comp - Bilat ($ Comp - Bilat ($ Comp - Bilat ($ ) ) ) Treatment Response Procedure Tolerated Well WC - Visit Discharge Discharge Condition Stable Stable Stable Ambulatory Status Ambulatory Ambulatory,Cane Ambulatory Transportation Private Auto Private Auto Private Auto Medication Reconcilliation completed & No Yes provided to patient/care provider Clinical Summary of Care Provided Yes Yes Facility Type Home Health Orders Sent Yes 04/07/23 10:54 Vital Signs Temperature (97.8 F-99.1 F) Temperature Source Pulse Rate (60-100) Pulse Location Respiratory Rate (12-18) Respiratory rate source Blood Pressure (90/60-120/80) Blood Pressure Mean (mm Hg) Source Position Blood Pressure Location Pain Scale: 0-10 Numeric Is Patient Pain Free? Yes Wound Care Center Nurse 3 #1 Left lat leg -Ulcer Cleansing Not Cleansed -Foul Odor after Cleansing -Negative Pressure Wound Therapy -Primary Dressing Applied Mepilex Border -Other Dressing Epifix -Primary Dressing Covered/Secured with -Aquacel AG 2x2 -Mepilex Border 1 bilateral LE -Multi-Layered Wrap Application Multi-Layer Comp - Bilat ($ ) Treatment Response Procedure Tolerated Well WC - Visit Discharge Discharge Condition Stable Ambulatory Status Ambulatory,Cane Transportation Private Auto Medication Reconcilliation completed & provided to patient/care provider Clinical Summary of Care Provided Facility Type Home Health Orders Sent Yes Assessment/Plan Assessment/Plan (1) Chronic ulcer of left leg with fat layer exposed: CODE(S): L97.922 - Non-pressure chronic ulcer of unspecified part of left lower leg with fat layer exposed (2) Lymphedema of both lower extremities: CODE(S): I89.0 - Lymphedema, not elsewhere classified (3) Edema of both lower extremities: CODE(S): R60.0 - Localized edema (4) Super obese: CODE(S): E66.9 - Obesity, unspecified (5) Essential hypertension: CODE(S): I10 - Essential (primary) hypertension (6) Postoperative malabsorption: CODE(S): K91.2 - Postsurgical malabsorption, not elsewhere classified PLAN: Plan Patient evaluated at the wound healing center. Wound care - Epifix #2 applied today. 100% of the product was used. It was covered with adaptic that was secured with steri strips and covered with [place] SAP. She was instructed not to get the ulcer wet while the Epifix is in place. Compression - Continue 3M 2 layer wraps bilaterally, this week. She has been approved for lymphedema pumps to help assist with getting better control of her lymphedema/edema. She is waiting for them to be delivered. Discussed with her that this ulcer will not heal until the edema/lymphedema is under better control. Her vascular studies were completed. No arterial compromise, but she has several areas of venous incompetent veins. Good compression should help with some of this, but will refer her to Dr. Bravo, the vascular surgeon, for further evaluation. A wound culture was obtained 02/17/23 which was positive for MRSE. She has completed the Doxycycline. Encouraged increase protein intake to help with wound healing, due to increase in metabolic demand. She may try supplemental protein drinks to help with this. With her history of gastric bypass, this may impact her healing process. She will follow up one week.
[2023-04-14 09:50] VITALS: BP 148/90; PULSE 64; RESP 18; TEMP 36.1; BMI 53.6
--- NOTE | 2023-04-14 15:24 | PN.PCM_ITS ---
History of Present Illness Date of Service: 04/14/23 Chief Complaint: Non healing ulcer left lateral leg History of Wound: 67 year old female presents for evaluation of her non healing left lateral leg ulcer. She bumped it on her walker in December. She states she often bumps her legs on her walker but they heal up, this one never has. She then had Covid in early January and the ulcer started to hurt and drain and did no improve. [facility] where she was placed on Clindamy yves and referred to the wound center. She has been placing antibiotic ointment onto the ulcer. She has a history of chronic lymphedema, HTN, hypothyroidism, gastric bypass surgery 20 years ago, heart murmur and obstructive sleep apnea. She used to wear compression stockings for her edema/lymphedema but they became too tight and she stopped wearing them. Wound culture obtained 02/17/23 positive for MRSE and she was started on Doxycycline. Arterial studies completed on 03/03/23 which showed Triphasic Doppler waveforms at ankle level bilaterally. Right JOAQUÍN = 1.19, left JOAQUÍN = 1.31. No evidence of significant arterial occlusive disease in the lower extremities bilaterally. Venous studies completed 03/03/23 showed The right sapheno-femoral junction is incompetent. The right great saphenous vein appears segmentally incompetent. Accessory saphenous veins in the right proximal calf and mid-calf are incompetent. An accessory saphenous vein in the left distal thigh is incompetent. Wound care - She has had 2 applications of Epifix. She denies any fever, chills, nausea and vomiting. She comes in today for further evaluation and treatment. Progress of Wound: Left lateral leg ulcer is healed today. Edema/lymphedema continues to be +3 but is improving with the use of the 3M 2 layer wraps. She is waiting for approved for Lymphedema pumps. Objective Data Objective Data Vital Signs: Vital Signs Temp Pulse Resp BP 97 F L 64 18 148/90 H 04/14/23 09:50 04/14/23 09:50 04/14/23 09:50 04/14/23 09:50 Weight: 275 lb Body Mass Index (BMI) 53.6 Charges/Coding Procedures Integumentary 111xxx-113xx: [id number] Global Visit Physical Exam Const alert, oriented x3 and no apparent distress General Appearance: cooperative HEENT normocephalic Eyes General Eye: normal appearance of both eyes Neck full ROM Lymph Lymphatic: lymphedema severe and pitting Resp normal respiratory effort, normal air movement and clear to auscultation bilaterally Effort and Inspection: able to speak in complete sentences Cardio regular rate and regular rhythm GI normal to inspection, nondistended, normoactive bowel sounds, soft to palpation and non-tender Back/Spine normal ROM Extremity full ROM and normal capillary refill General Extremity: edema bilateral lower extremity Details: severe Peripheral Pulses: Yes pulses 2+ throughout Skin Wound Narrative: Ulcer on left lateral leg with cash devitalized tissue present. Neuro oriented x3 and moves all extremities Sensorium / Orientation: awake, alert and oriented to person Psych mental status grossly normal, cooperative and affect normal Debridement Note Debridement Note No debridement was completed: No debridement was completed today Post-Debridement Measurements and Additional Note: Post-Debridement Measurements/Treatment - Nurse 1 - General Ulcer Assessment Start: 03/19/23 13:38 Freq: Status: Active Protocol: DARYN Activity Type Activity Date Activity User E-sign Co-sign Detail Recorded Client Recorded Date Recorded By Document 03/19/23 13:38 RB [id number] 03/19/23 13:42 RB Document 03/24/23 09:34 DL [id number] 03/24/23 09:39 DL Document 03/31/23 13:10 AK [id number] 03/31/23 13:12 AK Document 04/07/23 09:47 DL [id number] 04/07/23 09:52 DL Document 04/14/23 09:50 DL [id number] 04/14/23 09:53 DL 03/19/23 03/24/23 03/31/23 13:38 09:34 13:10 - Today's Visit Information Type of service Follow-up Visit Follow-up Visit Follow-up Visit (Physician/EMBOSSING UNIT OPERATOR (Physician/EMBOSSING UNIT OPERATOR (Physician/EMBOSSING UNIT OPERATOR ) ) ) Arrival Mode Ambulatory Ambulatory Ambulatory Transfer Assistance None None Patient Identification Verified (Name & Yes Yes Yes ) Patient Requires Transmission-Based No No No Precautions Safety Precautions NA Height and Weight Body Mass Index (BMI) 53.6 53.6 53.6 BMI Classification Obese Obese Obese Vital Signs Temperature (97.8 F-99.1 F) 97.2 F L 97.6 F L 96.7 F L Temperature Source Temporal Temporal Temporal Pulse Rate (60-100) 61 68 59 L Pulse Location Monitor Monitor Monitor Respiratory Rate (12-18) 18 20 H Respiratory rate source Observation Observation Blood Pressure (90/60-120/80) 137/64 H 140/74 H 122/70 H Blood Pressure Mean (mm Hg) 88 96 87 Source Monitor Monitor Monitor Position Sitting Blood Pressure Location Left Arm History Since Last Visit- (Skip if this is Patient's initial visit) Have you changed medications since your No No No last visit? Any new allergies or adverse reactions No No No Had a fall/change in ADL's that may No No No increase risk of falls Signs or symptoms of abuse and/or No No No neglect since last visit Have you been in the hospital since your No No No last visit? Has dressing in place as prescribed Yes Yes Yes Has compression in place as prescribed Yes Yes Yes Has offloadiing in place as prescribed No N/A N/A Experienced any changes in pain level or No No No management Left Footwear Regular Shoe Right Footwear Regular Shoe Pain Scale: 0-10 Numeric Is Patient Pain Free? Yes Yes No 04/07/23 04/14/23 09:47 09:50 WC - Today's Visit Information Type of service Follow-up Visit Follow-up Visit (Physician/EMBOSSING UNIT OPERATOR (Physician/EMBOSSING UNIT OPERATOR ) ) Arrival Mode Ambulatory,Cane Ambulatory,Cane Transfer Assistance None Transfer Board Patient Identification Verified (Name & Yes Yes ) Patient Requires Transmission-Based No No Precautions Safety Precautions Height and Weight Body Mass Index (BMI) 53.6 53.6 BMI Classification Obese Obese Vital Signs Temperature (97.8 F-99.1 F) 97.5 F L 97 F L Temperature Source Temporal Temporal Pulse Rate (60-100) 63 64 Pulse Location Monitor Monitor Respiratory Rate (12-18) 22 H 18 Respiratory rate source Observation Observation Blood Pressure (90/60-120/80) 143/74 H 148/90 H Blood Pressure Mean (mm Hg) 97 109 Source Monitor Monitor Position Semi-Fowlers Blood Pressure Location Left Arm History Since Last Visit- (Skip if this is Patient's initial visit) Have you changed medications since your No No last visit? Any new allergies or adverse reactions No No Had a fall/change in ADL's that may No No increase risk of falls Signs or symptoms of abuse and/or No No neglect since last visit Have you been in the hospital since your No No last visit? Has dressing in place as prescribed Yes Yes Has compression in place as prescribed Yes Yes Has offloadiing in place as prescribed N/A No Experienced any changes in pain level or Yes No management Left Footwear Right Footwear Pain Scale: 0-10 Numeric Is Patient Pain Free? Yes Yes WC - Nurse 1 - General Ulcer Measurement Start: 03/19/23 13:38 Freq: Status: Active Protocol: Activity Type Activity Date Activity User E-sign Co-sign Detail Recorded Client Recorded Date Recorded By Document 03/19/23 13:38 RB [id number] 03/19/23 13:42 RB Document 03/24/23 09:34 DL [id number] 03/24/23 09:39 DL Edit Result 03/24/23 09:34 DL (1) [id number] 03/24/23 09:51 JF Document 03/31/23 13:12 AK [id number] 03/31/23 13:13 AK Document 04/07/23 09:47 DL [id number] 04/07/23 09:52 DL Document 04/14/23 09:50 DL [id number] 04/14/23 09:53 DL (1) Left Calf (cm) 38 => 48.3 03/19/23 03/24/23 03/31/23 13:38 09:34 13:12 Wound Center Nurse 1 #1 Left lat leg -Combined with other wound -Current Size (cm) - Length 1.1 -Current Size (cm) - Width 1.1 -Current Size (cm) - Depth 0.2 -Total Square Cm 1.21 -Photo Taken No -Tunneling No -Undermining/Tunneling No -Circular Undermining No -Change in Wound Grade/Stage No -Exudate Amt Medium Small -Exudate Type Serosanguineous Serosanguineous -Wound Margin Distinct, Distinct, Outline Outline Attached Attached -Granulation Amt Large (67-100%) Large (67-100%) -Granulation Quality [place],Red Red -Slough/Fibrin Yes -Necrosis Amt None Present (0 Small (1-33%) %) -Necrotic Tissue Type Adherent Slough -Structure Exposed N/A -Texture (Lexi-wound Skin Appearance) Scarring Assessed, Scarring -Moisture (Lexi-wound Skin Appearance) No Abnormality No Abnormality, Assessed -Color (Lexi-wound Skin Appearance) Hemosiderin No Abnormality, Staining Assessed -Temperature (Lexi-wound Skin No Abnormality No Abnormality Appearance) (Pt Warm) (Pt Warm) -Tenderness on Palpation (Lexi-wound No No Skin Appearance) -Ulcer Cleansing Rinsed/ Rinsed/ Irrigated with Irrigated with Saline Saline -Foul Odor after Cleansing No No -Anesthetic Used 5% Lidocaine 5% Lidocaine Gel Gel Lower Limb Edema Present Yes Right Calf (cm) 51.8 52.5 50 Right Ankle (cm) 37.2 35 35 Left Calf (cm) 50.2 48.3 53 Left Ankle (cm) 36.2 34.5 36 04/07/23 04/14/23 09:47 09:50 Wound Center Nurse 1 #1 Left lat leg -Combined with other wound No -Current Size (cm) - Length 0.7 0.7 -Current Size (cm) - Width 0.8 0.4 -Current Size (cm) - Depth 0.1 0.1 -Total Square Cm 0.56 0.28 -Photo Taken -Tunneling No -Undermining/Tunneling No -Circular Undermining No -Change in Wound Grade/Stage -Exudate Amt Small Medium -Exudate Type Serosanguineous -Wound Margin Distinct, Distinct, Outline Outline Attached Attached -Granulation Amt Small (1-33%) Medium (34-66%) -Granulation Quality [place],Red -Slough/Fibrin Yes -Necrosis Amt Large (67-100%) Small (1-33%) -Necrotic Tissue Type Adherent Slough Adherent Slough -Structure Exposed N/A N/A -Texture (Lexi-wound Skin Appearance) Scarring Assessed, Localized Edema -Moisture (Lexi-wound Skin Appearance) No Abnormality Assessed -Color (Lexi-wound Skin Appearance) Hemosiderin Assessed Staining -Temperature (Lexi-wound Skin No Abnormality No Abnormality Appearance) (Pt Warm) (Pt Warm) -Tenderness on Palpation (Lexi-wound No No Skin Appearance) -Ulcer Cleansing Soap and Water Wound Cleanser -Foul Odor after Cleansing No No -Anesthetic Used 5% Lidocaine 5% Lidocaine Gel Gel Lower Limb Edema Present Yes Right Calf (cm) 50.5 Right Ankle (cm) 36 Left Calf (cm) 46.2 46.5 Left Ankle (cm) 34 34.6 WC - Nurse 2 - General Ulcer CM Notes Start: 03/19/23 13:38 Freq: Status: Active Protocol: Activity Type Activity Date Activity User E-sign Co-sign Detail Recorded Client Recorded Date Recorded By Document 03/24/23 09:51 [id number] 03/24/23 09:54 Document 03/31/23 10:07 [id number] 03/31/23 10:15 Document 04/07/23 14:21 PL [id number] 04/07/23 14:23 PL Document 04/14/23 10:04 [id number] 04/14/23 10:05 03/24/23 03/31/23 04/07/23 09:51 10:07 14:21 Wound Center Nurse 2 #1 Left lat leg -Time 09:52 10:07 10:29 -Correct Patient Yes Yes Yes -Correct Side, Site, Position Yes Yes Yes -Correct Procedure Yes Yes Yes -Procedure Performed Yes Yes Yes -Type of Procedure Debridement Debridement Debridement -Clinical Debridement Subcutaneous Subcutaneous Subcutaneous -Tissue Removed Subcutaneous Subcutaneous Subcutaneous -Post Debridement (cm) - Length 1.5 1.2 0.8 -Post Debridement (cm) - Width 1.7 1.4 0.5 -Post Debridement (cm) - Depth 0.2 0.2 0.2 -Total Square (Post) (cm) 2.55 1.68 0.40 -Area of Debridement (cm) - Length 1.5 1.2 0.8 -Area of Debridement (cm) - Width 1.7 1.4 5 -Total Square (Area) (cm) 2.55 1.68 4.0 -Tunneling No No No -Undermining/Tunneling No No No -Circular Undermining No No No -Wound/Ulcer Outcome Not Healed Not Healed Not Healed -Ulcer Cleansing Rinsed/ Rinsed/ Rinsed/ Irrigated with Irrigated with Irrigated with Saline Saline Saline -Foul Odor after Cleansing No No No -Bioengineered Tissue No Yes Yes -Type of Bioengineered Tissue Epifix 18mm Epifix 18mm Disc Disc -Expiration Date 01/17/28 01/17/28 -Product Lot Number [id number] -Percent Used 100 100 -Lot number of Saline Used [id number] -Bleeding Controlled with Pressure Pressure Pressure -Treatment Response Procedure Procedure Procedure Tolerated Well Tolerated Well Tolerated Well -Offloading No No -Debridement - Subq, 1st 20sq cm Yes No No -Apply Skin Sub - 1st 25 sq cm - Legs 1 1 -Epifix 18mm Disc 3 3 Pain Scale: 0-10 Numeric Is Patient Pain Free? Yes Yes Yes 04/14/23 10:04 Wound Center Nurse 2 #1 Left lat leg -Time -Correct Patient No -Correct Side, Site, Position No -Correct Procedure No -Procedure Performed No -Type of Procedure -Clinical Debridement -Tissue Removed -Post Debridement (cm) - Length 0 -Post Debridement (cm) - Width 0 -Post Debridement (cm) - Depth 0 -Total Square (Post) (cm) 0 -Area of Debridement (cm) - Length 0 -Area of Debridement (cm) - Width 0 -Total Square (Area) (cm) 0 -Tunneling -Undermining/Tunneling -Circular Undermining -Wound/Ulcer Outcome Healed- Epithelialized -Ulcer Cleansing -Foul Odor after Cleansing -Bioengineered Tissue -Type of Bioengineered Tissue -Expiration Date -Product Lot Number -Percent Used -Lot number of Saline Used -Bleeding Controlled with -Treatment Response -Offloading -Debridement - Subq, 1st 20sq cm -Apply Skin Sub - 1st 25 sq cm - Legs -Epifix 18mm Disc Pain Scale: 0-10 Numeric Is Patient Pain Free? Yes WC - Nurse 3 - General Ulcer D/C NN Start: 03/19/23 13:38 Freq: Status: Active Protocol: Activity Type Activity Date Activity User E-sign Co-sign Detail Recorded Client Recorded Date Recorded By Document 03/19/23 13:38 RB [id number] 03/19/23 13:42 RB Document 03/24/23 10:14 DL [id number] 03/24/23 10:15 DL Document 03/31/23 13:10 AK [id number] 03/31/23 13:12 AK Document 04/07/23 10:54 DL [id number] 04/07/23 10:55 DL Document 04/14/23 10:28 RB [id number] 04/14/23 10:29 RB 03/19/23 03/24/23 03/31/23 13:38 10:14 13:10 Vital Signs Temperature (97.8 F-99.1 F) 97.2 F L 96.7 F L Temperature Source Temporal Temporal Pulse Rate (60-100) 61 59 L Pulse Location Monitor Monitor Respiratory Rate (12-18) 18 Respiratory rate source Observation Blood Pressure (90/60-120/80) 137/64 H 122/70 H Blood Pressure Mean (mm Hg) 88 87 Source Monitor Monitor Position Sitting Blood Pressure Location Left Arm Pain Scale: 0-10 Numeric Is Patient Pain Free? Yes Yes No Wound Care Center Nurse 3 #1 Left lat leg -Ulcer Cleansing Rinsed/ Rinsed/ Rinsed/ Irrigated with Irrigated with Irrigated with Saline Saline Saline -Foul Odor after Cleansing No No -Negative Pressure Wound Therapy N/A -Primary Dressing Applied Aquacel AG 2x2 -Other Dressing cornelius own silver ABD -Primary Dressing Covered/Secured with Dry Gauze Dry Gauze Dry Gauze & Roll Gauze, Secured with Tape -Aquacel AG 2x2 1 -Mepilex Border bilateral LE -Lotion applied to leg before compression wrap -Multi-Layered Wrap Application Multi-Layer Multi-Layer Multi-Layer Comp - Bilat ($ Comp - Bilat ($ Comp - Bilat ($ ) ) ) Treatment Response Procedure Tolerated Well WC - Visit Discharge Discharge Condition Stable Stable Stable Ambulatory Status Ambulatory Ambulatory,Cane Ambulatory Transportation Private Auto Private Auto Private Auto Medication Reconcilliation completed & No Yes provided to patient/care provider Clinical Summary of Care Provided Yes Yes Facility Type Home Health Orders Sent Yes 04/07/23 04/14/23 10:54 10:28 Vital Signs Temperature (97.8 F-99.1 F) Temperature Source Pulse Rate (60-100) Pulse Location Respiratory Rate (12-18) Respiratory rate source Blood Pressure (90/60-120/80) Blood Pressure Mean (mm Hg) Source Position Blood Pressure Location Pain Scale: 0-10 Numeric Is Patient Pain Free? Yes Yes Wound Care Center Nurse 3 #1 Left lat leg -Ulcer Cleansing Not Cleansed -Foul Odor after Cleansing -Negative Pressure Wound Therapy -Primary Dressing Applied Mepilex Border -Other Dressing Epifix -Primary Dressing Covered/Secured with -Aquacel AG 2x2 -Mepilex Border 1 bilateral LE -Lotion applied to leg before Yes compression wrap -Multi-Layered Wrap Application Multi-Layer Multi-Layer Comp - Bilat ($ Comp - Bilat ($ ) ) Treatment Response Procedure Procedure Tolerated Well Tolerated Well WC - Visit Discharge Discharge Condition Stable Stable Ambulatory Status Ambulatory,Cane Ambulatory,Cane Transportation Private Auto Private Auto Medication Reconcilliation completed & No provided to patient/care provider Clinical Summary of Care Provided Yes Facility Type Home Health Orders Sent Yes Assessment/Plan Assessment/Plan (1) Chronic ulcer of left leg with fat layer exposed: CODE(S): L97.922 - Non-pressure chronic ulcer of unspecified part of left lower leg with fat layer exposed (2) Lymphedema of both lower extremities: CODE(S): I89.0 - Lymphedema, not elsewhere classified (3) Edema of both lower extremities: CODE(S): R60.0 - Localized edema (4) Super obese: CODE(S): E66.9 - Obesity, unspecified (5) Essential hypertension: CODE(S): I10 - Essential (primary) hypertension (6) Postoperative malabsorption: CODE(S): K91.2 - Postsurgical malabsorption, not elsewhere classified PLAN: Plan Patient evaluated at the wound healing center. She is healed today. Compression - Continue 3M 2 layer wraps bilaterally, this week. Will order Circaids for compression. She has been approved for lymphedema pumps to help assist with getting better control of her lymphedema/edema. She is waiting for them to be delivered. Her vascular studies were completed. No arterial compromise, but she has several areas of venous incompetent veins. Good compression should help with some of this, but will refer her to Dr. Bravo, the vascular surgeon, for f sam evaluation. A wound culture was obtained 02/17/23 which was positive for MRSE. She has completed the Doxycycline. Encouraged increase protein intake to help with wound healing, due to increase in metabolic demand. She may try supplemental protein drinks to help with this. With her history of gastric bypass, this may impact her healing process. She will follow up one week.
== END 2023-04-16 23:59 | disposition home or self-care (01) ==
LOC: WC 09:45
PROVIDERS: PCP Internal Medicine; Referring Provider Nurse Practitioner Family; Visit Provider Nurse Practitioner Family
DX: L97.822 Non-pressure chronic ulcer of other part of left lower leg with fat layer exposed (principal); Z68.43 Body mass index [BMI] 50.0-59.9, adult; R60.0 Localized edema; I10 Essential (primary) hypertension; I89.0 Lymphedema, not elsewhere classified; Z86.16 Personal history of COVID-19; Z98.84 Bariatric surgery status; G47.33 Obstructive sleep apnea (adult) (pediatric); K91.2 Postsurgical malabsorption, not elsewhere classified; E66.9 Obesity, unspecified
CPT/HCPCS: 11042; 15271; 29581; 99213; Q4186; G0463

== ENCOUNTER 2023-04-21 09:27 | Outpatient (RCR) | payer MEDICARE, OTHER, SELFPAY ==
[2023-04-17 00:29] VITALS: BP 148/90; PULSE 64; RESP 18; TEMP 36.1; BMI 53.6
[2023-04-21 09:33] VITALS: BP 119/77; PULSE 56; RESP 16; TEMP 35.8; BMI 53.6
--- NOTE | 2023-04-21 11:04 | PN.PCM_ITS ---
History of Present Illness Date of Service: 04/21/23 Chief Complaint: Non healing ulcer left lateral leg History of Wound: 67 year old female presents for evaluation of her non healing left lateral leg ulcer. She bumped it on her walker in December. She states she often bumps her legs on her walker but they heal up, this one never has. She then had Covid in early January and the ulcer started to hurt and drain and did no improve. [facility] where she was placed on Clindamy yves and referred to the wound center. She has been placing antibiotic ointment onto the ulcer. She has a history of chronic lymphedema, HTN, hypothyroidism, gastric bypass surgery 20 years ago, heart murmur and obstructive sleep apnea. She used to wear compression stockings for her edema/lymphedema but they became too tight and she stopped wearing them. Wound culture obtained 02/17/23 positive for MRSE and she was started on Doxycycline. Arterial studies completed on 03/03/23 which showed Triphasic Doppler waveforms at ankle level bilaterally. Right JOAQUÍN = 1.19, left JOAQUÍN = 1.31. No evidence of significant arterial occlusive disease in the lower extremities bilaterally. Venous studies completed 03/03/23 showed The right sapheno-femoral junction is incompetent. The right great saphenous vein appears segmentally incompetent. Accessory saphenous veins in the right proximal calf and mid-calf are incompetent. An accessory saphenous vein in the left distal thigh is incompetent. Wound care - She has had 2 applications of Epifix. She denies any fever, chills, nausea and vomiting. She comes in today for further evaluation and treatment. Progress of Wound: Left lateral leg ulcer remains healed. She continues to have edema/lymphedema but is improving with the use of the 3M 2 layer wraps. She brought her Circaid compression stockings today. She still has not received her lymphedema compression pumps. Objective Data Objective Data Vital Signs: Vital Signs Temp Pulse Resp BP O2 Del Method 96.5 F L 56 L 16 119/77 Room Air 04/21/23 09:33 04/21/23 09:33 04/21/23 09:33 04/21/23 09:33 04/21/23 09:33 Oxygen Delivery Method Room Air Weight: 275 lb Body Mass Index (BMI) 53.6 Charges/Coding Visit Charges Office Visits / Consults: 56379 OV L3 Est Physical Exam Const alert, oriented x3 and no apparent distress General Appearance: cooperative HEENT normocephalic Eyes General Eye: normal appearance of both eyes Neck full ROM Lymph Lymphatic: lymphedema severe and pitting Resp normal respiratory effort, normal air movement and clear to auscultation eliana aterally Effort and Inspection: able to speak in complete sentences Cardio regular rate and regular rhythm GI normal to inspection, nondistended, normoactive bowel sounds, soft to palpation and non-tender Back/Spine normal ROM Extremity full ROM and normal capillary refill General Extremity: edema bilateral lower extremity Details: severe Peripheral Pulses: Yes pulses 2+ throughout Skin Wound Narrative: Ulcer on left lateral leg with cash devitalized tissue present. Neuro oriented x3 and moves all extremities Sensorium / Orientation: awake, alert and oriented to person Psych mental status grossly normal, cooperative and affect normal Debridement Note Debridement Note No debridement was completed: No debridement was completed today Post-Debridement Measurements and Additional Note: Post-Debridement Measurements/Treatment - Nurse 1 - General Ulcer Assessment Start: 04/21/23 09:33 Freq: Status: Active Protocol: WC.LOWEXT Activity Type Activity Date Activity User E-sign Co-sign Detail Recorded Client Recorded Date Recorded By Document 04/21/23 09:33 [id number] 04/21/23 09:39 04/21/23 09:33 - Today's Visit Information Type of service Follow-up Visit (Physician/CRITICAL CARE NURSE PRACTITIONER ) Arrival Mode Ambulatory,Cane Patient Identification Verified (Name & Yes ) Height and Weight Body Mass Index (BMI) 53.6 BMI Classification Obese Vital Signs Temperature (97.8 F-99.1 F) 96.5 F L Temperature Source Temporal Pulse Rate (60-100) 56 L Pulse Location Monitor Respiratory Rate (12-18) 16 Respiratory rate source Observation Oxygen Delivery Method Room Air Blood Pressure (90/60-120/80) 119/77 Blood Pressure Mean (mm Hg) 91 Source Monitor Position Semi-Fowlers Blood Pressure Location Left Forearm History Since Last Visit- (Skip if this is Patient's initial visit) Have you changed medications since your No last visit? Any new allergies or adverse reactions No Had a fall/change in ADL's that may No increase risk of falls Signs or symptoms of abuse and/or No neglect since last visit Have you been in the hospital since your No last visit? Has dressing in place as prescribed Yes Has compression in place as prescribed Yes Has offloadiing in place as prescribed N/A Experienced any changes in pain level or No management Left Footwear Regular Shoe Right Footwear Regular Shoe Pain Scale: 0-10 Numeric Is Patient Pain Free? Yes - Nurse 1 - General Ulcer Measurement Start: 04/21/23 09:33 Freq: Status: Active Protocol: Activity Type Activity Date Activity User E-sign Co-sign Detail Recorded Client Recorded Date Recorded By Document 04/21/23 09:33 [id number] 04/21/23 09:39 04/21/23 09:33 Wound Center Nurse 1 Lower Limb Edema Present Yes Right Calf (cm) 50.1 Right Ankle (cm) 36.0 Left Calf (cm) 47.0 Left Ankle (cm) 36.1 - Nurse 2 - General Ulcer CM Notes Start: 04/21/23 09:33 Freq: Status: Active Protocol: Activity Type Activity Date Activity User E-sign Co-sign Detail Recorded Client Recorded Date Recorded By Document 04/21/23 09:59 [id number] 04/21/23 10:00 04/21/23 09:59 Pain Scale: 0-10 Numeric Is Patient Pain Free? Yes - Nurse 3 - General Ulcer D/C NN Start: 04/21/23 09:33 Freq: Status: Active Protocol: Activity Type Activity Date Activity User E-sign Co-sign Detail Recorded Client Recorded Date Recorded By Document 04/21/23 10:00 [id number] 04/21/23 10:00 04/21/23 10:00 Wound Care Center Nurse 3 Bilateral legs -Stockings Yes: Circaids Pain Scale: 0-10 Numeric Is Patient Pain Free? Yes - Visit Discharge Discharge Condition Stable Ambulatory Status Ambulatory Transportation Private Auto Medication Reconcilliation completed & Yes provided to patient/care provider Clinical Summary of Care Provided Yes Assessment/Plan Assessment/Plan (1) Chronic ulcer of left leg with fat layer exposed: CODE(S): L97.922 - Non-pressure chronic ulcer of unspecified part of left lower leg with fat layer exposed (2) Lymphedema of both lower extremities: CODE(S): I89.0 - Lymphedema, not elsewhere classified (3) Edema of both lower extremities: CODE(S): R60.0 - Localized edema (4) Super obese: CODE(S): E66.9 - Obesity, unspecified (5) Essential hypertension: CODE(S): I10 - Essential (primary) hypertension (6) Postoperative malabsorption: CODE(S): K91.2 - Postsurgical malabsorption, not elsewhere classified PLAN: Plan Patient evaluated at the wound healing center. She remains healed today. Compression - Circaids for compression. She was instructed how to place and care for them. She has been approved for lymphedema pumps to help assist with getting better control of her lymphedema/edema. She is waiting for them to be delivered. Instructed her to contact us if she does not receive her lymphedema compression pumps within the next few weeks. Her vascular studies were completed. No arterial compromise, but she has several areas of venous incompetent veins. Good compression should help with some of this, but will refer her to Dr. Bravo, the vascular surgeon, for further evaluation. A wound culture was obtained 02/17/23 which was positive for MRSE. She has completed the Doxycycline. Encouraged increase protein intake to help with wound healing, due to increase in metabolic demand. She may try supplemental protein drinks to help with this. With her history of gastric bypass, this may impact her healing process. She will follow up as needed.
== END 2023-04-21 16:29 | disposition home or self-care (01) ==
LOC: WC 09:27
PROVIDERS: PCP Internal Medicine; Referring Provider Nurse Practitioner Family; Visit Provider Nurse Practitioner Family
DX: Z09 Encounter for follow-up examination after completed treatment for conditions other than malignant neoplasm (principal); Z68.43 Body mass index [BMI] 50.0-59.9, adult; I89.0 Lymphedema, not elsewhere classified; I10 Essential (primary) hypertension; R60.0 Localized edema; E66.9 Obesity, unspecified; K91.2 Postsurgical malabsorption, not elsewhere classified; Z98.84 Bariatric surgery status
CPT/HCPCS: 99213; G0463

== ENCOUNTER → 2023-06-10 | Outpatient (CLI) | payer MEDICARE, OTHER, SELFPAY ==
[2023-06-10 15:26] LABS: Absolute Lymphocyte Count 2.18 X10^3/uL (0.83-4.51); Absolute Neutrophil Count 4.4 X10^3/uL (2.0-7.7); Basophil# 0.06 X10^3/uL; Basophil% 0.8 % (0-1); Eosinophil# 0.21 X10^3/uL; Eosinophils% 2.8 % (0-5); Hematocrit 43.7 % (37-47); Hemoglobin 13.4 g/dL (12.0-15.0); Lymphocyte # 2.18 X10^3/ul (0.83-4.51); Lymphocyte % 29.4 % (19-41); Mean Corp Hgb Conc 30.7 g/dL (32-36); Mean Corpuscular Hgb 28.3 pg (27.0-32.0); Mean Corpuscular Volume 92.4 fL (81-99); Monocyte# 0.52 X10^3/uL; NRBC Flagged by Analyzer 0 % (0-5); Neutrophil # 4.41 X10^3/uL (2.7-7.7); Neutrophil % 59.6 % (47-70); POSITIVE COUNT YES; Platelet Count 173 K/mm3 (150-450); RBC Distribution Width CV 14.6 % (11.6-14.6); RBC Distribution Width SD 50.1 fl (35.1-43.9); Red Blood Count 4.73 M/mm3 (4.2-5.4); White Blood Count 7.4 K/mm3 (4.4-11.0)
[2023-06-10 15:43] LABS: Differential Indicated SCAN CRITERIA MET
[2023-06-10 15:57] LABS: Vitamin B12 > 2000 pg/mL (211-911)
[2023-06-10 16:09] LABS: Anisocytosis RARE; Macrocytosis RARE; Platelet Estimate ADEQUATE (ADEQ); Platelet Morphology LARGE; Red Cell Morphology N CHROM NORMAL (NORM C&C)
[2023-06-10 16:11] LABS: ALB/GLOB Ratio 0.8 RATIO (0.9-2.4); AST(SGOT) 17 U/L (15-37); Alanine Aminotransfer ALT/SGPT 22 U/L (13-56); Albumin, Serum 3.3 g/dL (3.2-5.0); Alkaline Phosphatase 126 U/L (45-117); Anion Gap 8 (5-15); BUN 11 mg/dL (7-18); BUN/Creat Ratio 19.2 RATIO (10-20); Calcium,Total 8.7 mg/dL (8.5-10.1); Chloride 113 mmol/L (98-107); Creatinine, Serum 0.57 mg/dL (0.55-1.02); EST Glomerular Filtration Rate 112 mL/min (>60); Est Glom Filt Rate - Afr Amer 135 mL/min (>60); Glucose 100 mg/dL (74-106); Potassium 4.3 mmol/L (3.5-5.1); Protein, Total 7.3 g/dL (6.4-8.2); Sodium Level 142 mmol/L (136-145); Thyroid Stim Hormone (TSH) 1.96 uIU/mL (0.358-3.74)
== END | disposition home or self-care (01) ==
LOC: BIMLAB 13:47
PROVIDERS: PCP Internal Medicine; Referring Provider Internal Medicine; Visit Provider Internal Medicine
DX: E03.9 Hypothyroidism, unspecified (principal); I10 Essential (primary) hypertension
CPT/HCPCS: 36415; 80053; 82607; 84443; 85025

== ENCOUNTER → 2023-06-11 | Outpatient (CLI) | payer MEDICARE, OTHER, SELFPAY ==
--- NOTE | 2023-06-11 10:42 | RAD_ITS ---
STUDY: X-RAY CHEST REASON FOR EXAM: Female, 67 years old. Chronic cough. TECHNIQUE: Frontal and lateral views of the chest. COMPARISON: Chest dated June 2022. FINDINGS: Cardiomegaly, aortic tortuosity with calcification, mild hyperinflation and diffuse thoracic spondylosis with thoracolumbar scoliosis, unchanged. No new or acute finding. No abnormality of the visualized soft tissue structures of the upper abdomen. RAD/Chest PA and Lateral IMPRESSION: Stable chest with no acute or active cardiopulmonary disease. Electronically Signed: Reinaldo Contreras MD at 13:58 EDT ,
== END | disposition home or self-care (01) ==
LOC: MTRAD 10:41
PROVIDERS: PCP Internal Medicine; Referring Provider Internal Medicine; Visit Provider Internal Medicine
DX: R05.3 Chronic cough (principal)
CPT/HCPCS: 71046

== ENCOUNTER → 2023-06-30 | Outpatient (CLI) | payer MEDICARE, OTHER, SELFPAY ==
--- NOTE | 2023-06-30 09:58 | BI_ITS ---
MAMMOGRAPHY - BILATERAL SCREENING REASON FOR EXAM: Female, 67 years old. Routine annual screening examination. PERTINENT HISTORY: Non-contributory. Prior right ultrasound-guided breast biopsy. TECHNIQUE: Digital bilateral breast rich (3D mammographic acquisition) in the CC and MLO projections. 2-D mediolateral oblique (MLO) and craniocaudad (CC) views of both breasts were obtained. CAD: Full Field Digital Mammography with Computer Added Detection was performed. COMPARISON: Comparison is made with prior study dated January 20, 2022. FINDINGS: Breast Composition: There are scattered areas of fibroglandular density. Stable 6.2 mm well-defined nodule in the retroareolar region of the right breast posterior to the nodular density. Stable partially calcified nodules in both breasts. No other significant abnormalities are identified. There has been no significant change since the prior study. BI/SCRN MAMM (CAD)W/RICH BILAT IMPRESSION: Stable bilateral screening mammogram. Yearly follow-up mammogram recommended. (A) ASSESSMENT CATEGORY: BIRADS Category 2: Benign. A letter regarding these results will be sent to the patient by the facility within 30 days. Approximately 10% of breast cancers are not detected by mammography. A normal mammogram should not delay biopsy of a clinically suspicious abnormality. [id number] Electronically Signed: Rupesh Diaz MD at 11:23 EDT ,
--- NOTE | 2023-06-30 10:01 | BD_ITS ---
STUDY: DUAL ENERGY X-RAY ABSORPTIOMETRY / DXA REASON FOR EXAM: Female, 67 years old. Post - Menopausal TECHNIQUE: Bone Mineral Density (BMD) measurements of both forearms were obtained. COMPARISON: None. FINDINGS: Right Forearm: g/cm2 (0.424) / T-score (-2.9) / Z-score (-1.0) Left Forearm: g/cm2 (0.445) / T-score (-2.5) / Z-score (-0.6) BD/Dexa Bone Density/Append Skel IMPRESSION: The patient is considered osteoporotic as outlined below according to World [place] Organization (WHO) criteria with a high fracture risk. Reference Information: The T-score is the number of standard deviations above or below the standard which is normal for young adults at their peak bone mineral density. The World Health Organization (WHO) interprets the T-scores as follows: Above -1 Normal bone density Between -1 and -2.5 Osteopenia Equal to / or below -2.5 Osteoporosis As a practical clinical guideline, osteopenia may be graded as follows: Mild -1 through -1.5 Moderate -1.6 through -2.0 Severe -2.1 through -2.4 The Z-score is the number of standard deviations above or below age-matched controls. A Z-score of less than -1.5 would be considered abnormal. References: 1. NIH Osteoporosis and Related Bone Diseases www osteo.org 2. International Society for Clinical Densitometry www iscd.org 3. National Osteoporosis Foundation www nof.org Electronically Signed: Rupesh Diaz MD at 13:39 EDT ,
== END | disposition home or self-care (01) ==
LOC: OPBD 09:56
PROVIDERS: PCP Internal Medicine; Referring Provider Internal Medicine; Visit Provider Internal Medicine
DX: Z78.0 Asymptomatic menopausal state (principal); Z12.31 Encounter for screening mammogram for malignant neoplasm of breast
CPT/HCPCS: 77063; 77067; 77081

== ENCOUNTER → 2023-12-06 | Outpatient (CLI) | payer MEDICARE, OTHER, SELFPAY ==
[2023-12-06 17:04] LABS: Vitamin B12 452 pg/mL (211-911); Vitamin D,25 Hydroxy 42.9 ng/mL
[2023-12-06 17:15] LABS: ALB/GLOB Ratio 0.9 RATIO (0.9-2.4); AST(SGOT) 16 U/L (15-37); Alanine Aminotransfer ALT/SGPT 21 U/L (13-56); Albumin, Serum 3.6 g/dL (3.2-5.0); Alkaline Phosphatase 131 U/L (45-117); Anion Gap 4 (5-15); BUN 16 mg/dL (7-18); BUN/Creat Ratio 26.7 RATIO (10-20); Chloride 110 mmol/L (98-107); Cholesterol 235 mg/dL (200); EST Glomerular Filtration Rate 106 mL/min (>60); Est Glom Filt Rate - Afr Amer 128 mL/min (>60); Globulin 3.9 g/dL (2.2-4.2); Glucose 99 mg/dL (74-106); High Density Lipoprotein 71 mg/dL; Potassium 4.2 mmol/L (3.5-5.1); Protein, Total 7.5 g/dL (6.4-8.2); Sodium Level 141 mmol/L (136-145); Thyroid Stim Hormone (TSH) 2.71 uIU/mL (0.358-3.74); Triglycerides 93 mg/dL; Very Low Density Lipoprotein 19 mg/dL (5-40)
== END | disposition home or self-care (01) ==
LOC: BIMLAB 15:37
PROVIDERS: PCP Internal Medicine; Referring Provider Internal Medicine; Visit Provider Internal Medicine
DX: K91.2 Postsurgical malabsorption, not elsewhere classified (principal); E03.9 Hypothyroidism, unspecified; I10 Essential (primary) hypertension
CPT/HCPCS: 36415; 80053; 80061; 82306; 82607; 84443

== ENCOUNTER → 2024-01-19 | Outpatient (CLI) | payer MEDICARE, OTHER, SELFPAY ==
--- NOTE | 2024-01-19 13:56 | RAD_ITS ---
STUDY: X-RAY CHEST REASON FOR EXAM: Female, 68 years old. Cough. TECHNIQUE: Frontal and lateral views of the chest. COMPARISON: None. FINDINGS: Mild hyperinflation with diffuse interstitial pattern. Patchy opacity in the anterior segment of the right upper lobe compatible with early/developing pneumonia or atelectasis. Thickening of the horizontal fissure of the right lung. Cardiomegaly. Normal mediastinum and davidson. Normal visualized pulmonary arteries. Marked aortic tortuosity with calcification. Thoracic spondylosis. Normal visualized ribs, clavicles, and shoulders. No abnormality of the visualized soft tissue structures of the upper abdomen. RAD/Chest PA and Lateral IMPRESSION: Cardiomegaly, hyperinflation, mild interstitial pattern and patchy opacity in the anterior segment of the right upper lobe compatible with early/developing pneumonia or atelectasis. Follow-up chest imaging to resolution recommended. Electronically Signed: Reinaldo Contreras MD at 14:55 EDT ,
[2024-01-19 15:20] LABS: Absolute Lymphocyte Count 2.04 X10^3/uL (0.83-4.51); Absolute Neutrophil Count 5.4 X10^3/uL (2.0-7.7); Basophil# 0.04 X10^3/uL; Basophil% 0.5 % (0-1); Eosinophil# 0.33 X10^3/uL; Eosinophils% 3.9 % (0-5); Hematocrit 41.6 % (37-47); Hemoglobin 13.3 g/dL (12.0-15.0); Lymphocyte # 2.04 X10^3/ul (0.83-4.51); Lymphocyte % 23.8 % (19-41); Mean Corpuscular Hgb 28.6 pg (27.0-32.0); Mean Corpuscular Volume 89.5 fL (81-99); Mean Platelet Vol. 11.1 fl (6.2-12.0); Monocyte# 0.71 X10^3/uL; Monocyte% 8.3 % (0-10); NRBC Flagged by Analyzer 0 % (0-5); Neutrophil # 5.36 X10^3/uL (2.7-7.7); Neutrophil % 62.4 % (47-70); Platelet Count 335 K/mm3 (150-450); RBC Distribution Width CV 14.2 % (11.6-14.6); RBC Distribution Width SD 46.6 fl (35.1-43.9); Red Blood Count 4.65 M/mm3 (4.2-5.4); White Blood Count 8.6 K/mm3 (4.4-11.0)
[2024-01-19 15:39] LABS: BNP,B-Type NATRIURETIC PEPTIDE 40.2 pg/mL (0-100)
== END | disposition home or self-care (01) ==
PROVIDERS: PCP Internal Medicine; Referring Provider Physician Assistant; Visit Provider Physician Assistant
DX: J40 Bronchitis, not specified as acute or chronic (principal); R06.02 Shortness of breath
CPT/HCPCS: 36415; 71046; 83880; 85025

== ENCOUNTER → 2024-01-24 | Outpatient (CLI) | payer MEDICARE, OTHER, SELFPAY ==
[2024-01-24 12:11] LABS: Absolute Lymphocyte Count 2.45 X10^3/uL (0.83-4.51); Absolute Neutrophil Count 4.8 X10^3/uL (2.0-7.7); Basophil# 0.07 X10^3/uL; Basophil% 0.8 % (0-1); Eosinophil# 0.34 X10^3/uL; Eosinophils% 4.1 % (0-5); Hematocrit 42.2 % (37-47); Hemoglobin 12.8 g/dL (12.0-15.0); Lymphocyte # 2.45 X10^3/ul (0.83-4.51); Lymphocyte % 29.6 % (19-41); Mean Corp Hgb Conc 30.3 g/dL (32-36); Mean Corpuscular Hgb 27.7 pg (27.0-32.0); Mean Corpuscular Volume 91.3 fL (81-99); Mean Platelet Vol. 10.8 fl (6.2-12.0); Monocyte# 0.53 X10^3/uL; Monocyte% 6.4 % (0-10); NRBC Flagged by Analyzer 0 % (0-5); Neutrophil # 4.78 X10^3/uL (2.7-7.7); Neutrophil % 57.8 % (47-70); Platelet Count 448 K/mm3 (150-450); RBC Distribution Width CV 14.4 % (11.6-14.6); RBC Distribution Width SD 47.8 fl (35.1-43.9); Red Blood Count 4.62 M/mm3 (4.2-5.4); White Blood Count 8.3 K/mm3 (4.4-11.0)
[2024-01-24 13:11] LABS: ALB/GLOB Ratio 0.7 RATIO (0.9-2.4); AST(SGOT) 18 U/L (15-37); Alanine Aminotransfer ALT/SGPT 22 U/L (13-56); Albumin, Serum 3.1 g/dL (3.2-5.0); Alkaline Phosphatase 99 U/L (45-117); Anion Gap 5 (5-15); BUN 12 mg/dL (7-18); BUN/Creat Ratio 20.3 RATIO (10-20); Calcium,Total 9.1 mg/dL (8.5-10.1); Chloride 109 mmol/L (98-107); Creatinine, Serum 0.59 mg/dL (0.55-1.02); EST Glomerular Filtration Rate 107 mL/min (>60); Est Glom Filt Rate - Afr Amer 129 mL/min (>60); Globulin 4.3 g/dL (2.2-4.2); Glucose 97 mg/dL (74-106); Protein, Total 7.4 g/dL (6.4-8.2); Sodium Level 140 mmol/L (136-145)
== END | disposition home or self-care (01) ==
LOC: BIMLAB 08:56
PROVIDERS: PCP Internal Medicine; Referring Provider Internal Medicine; Visit Provider Internal Medicine
DX: J18.9 Pneumonia, unspecified organism (principal)
CPT/HCPCS: 36415; 80053; 85025

== ENCOUNTER → 2024-03-08 | Outpatient (CLI) | payer MEDICARE, OTHER, SELFPAY ==
--- NOTE | 2024-03-08 10:16 | RAD_ITS ---
STUDY: X-RAY - PELVIS AND LEFT HIP REASON FOR EXAM: Female, 68 years old. Left Hip Pain TECHNIQUE: 3 views of the pelvis and left hip. COMPARISON: None. FINDINGS: There is a non-specific bowel gas pattern. Normal visualized soft tissue structures. Normal bilateral iliac wings, sacroiliac joints and visualized sacrum. Normal bilateral superior and inferior pubic rami. Normal pubic symphysis. Normal bilateral ischial tuberosities. There are osteoarthritic changes of the left femoral head with marginal osteophyte formation. There is osteoarthritic spur formation of the left acetabular rim. There is moderate articular joint space narrowing of the left hip. There is no demonstrated acute fracture. RAD/Hip Min 2 Views (Portable) IMPRESSION: Moderate degenerative arthrosis of the left hip joint. No demonstrated acute fracture. Electronically Signed: Bhargav Sullivan MD at 10:31 EDT ,
== END | disposition home or self-care (01) ==
PROVIDERS: PCP Internal Medicine; Referring Provider Internal Medicine; Visit Provider Internal Medicine
DX: M25.552 Pain in left hip (principal)
CPT/HCPCS: 73502

== ENCOUNTER 2024-05-23 13:30 | Outpatient (RCR) | payer MEDICARE, OTHER, SELFPAY ==
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
--- NOTE | 2024-05-23 14:24 | HP.PTDCSUM ---
Discharge Summary D/C summary: It has been my pleasure to treat KAROLYN MOREL referred by Dr. Jennifer Vu MD, with the diagnosis of L HIP PAIN for a total of 16 visit(s). Discharge Date: 05/23/24 Please see the following information for a summary of their discharge status. Subjective Subjective: I HAD DAYS BEFORE THAT I DIDN'T WANT TO GET UP AND DO ANYTHING BECAUSE I WAS HURTING SO BAD AND NOW I'M NOT. SHE REPORTS HER HIP ISN'T CATCHING ANYMORE. WALKING WITH THE CANE AND SOMETIMES NOTHING NOW FOR BALANCE. USES THE WALKER WHEN SHE NEEDS IT TO CARRY SOMETHING AND SOMETIMES TO HELP TRANSITION FROM CARPET TO TILE IF HER LEGS ARE REALLY TIRED FROM WALKING A LOT OR HAS A FRIAS. STATES SHE IS FEELING A LOT STRONGER. REPORTS THE EX'S HAVE HELPED A LOT AND SHE FEELS READY TO CONTNUE EXERCISING ON HER OWN NOW. PATIENT STATES SHE FEELS SAFE NOW. SHE STATES SHE DIDN'T TRUST HERSELF WHEN SHE FIRST CAME. Pain L hip: Pain Intensity (Out of 10): 0 Overall Improvement % Improvement: 100 Objective Objective/Function: ALL PT GOALS HAVE BEEN MET AND PATIENT IS APPROPRIATE FOR AND AGREABLE TO DISCHARGE. SHE AMBULATES INDEP'LY INTO PT TODAY X APPROX 300 FEET WITH STRAIGHT CANE WITHOUT LOB OR STOPPING TO REST AND EVEN ABLE TO CARRY CONVERSATION. UPON EXAM: TUG - 14.[address] CANE INDEP'LY. STS 30 SEC TEST: 16 - without UE assist. Goals Goal 1:: PATIENT WILL REPORT AT LEAST 50% LESS PAIN AND AT LEAST 50% LESS EPISODES OF CATCHING IN THE L HIP Goal Progress: Goal Met Goal 2:: PATIENT WILL COMPLETE 8 STANDS IN 30 SECS TO DEMONSTRATE IMPROVED FUNCTIONAL LE STRENGTH Goal Progress: Goal Met Goal 3:: PATIENT WILL COMPLETE TUG IN < 15 SECS WITH CANE TO DEMONSTRATE IMPROVED GAIT STABILITY Goal Progress: Goal Met Goal 4:: PATIENT WILL BE ABLE TO STAND AND WALK FOR AT LEAST 10 MINUTES WITH CANE AND WITHOUT AGGREVATION OF SYMPTOMS IN ORDER TO PERFORM ADL'S AND IADL'S. Goal Progress: Goal Met Goal 5:: PATIENT WILL BE INDEP WITH A HEP FOR CONTINUED IMPROVEMENT ONCE FORMAL PHYSICAL THERAPY CONCLUDES. Goal Progress: Goal Met Plan Plan: D/C D/C Information d/c sentence: If there are questions or concerns regarding this patient's physical therapy, please feel free to call me at [phone]. Thank you for the referral of this patient. Sincerely, Leatha Dawson, PT, Cert MDT Balance/Gait/Functional tests Balance/Special Test Scores Lower Extremity Functional Score: 42 Improvement % Improvement: 100
== END 2024-05-23 19:00 | disposition home or self-care (01) ==
LOC: PT 13:30
PROVIDERS: PCP Internal Medicine; Referring Provider Internal Medicine; Visit Provider Internal Medicine
DX: M25.552 Pain in left hip (principal)
CPT/HCPCS: 97110; 97140; 97162; 97530

== ENCOUNTER → 2024-06-09 | Outpatient (CLI) | payer MEDICARE, OTHER, SELFPAY ==
[2024-06-09 15:12] LABS: Absolute Lymphocyte Count 2.06 X10^3/uL (0.83-4.51); Absolute Neutrophil Count 3.6 X10^3/uL (2.0-7.7); Basophil# 0.06 X10^3/uL; Basophil% 0.9 % (0-1); Eosinophil# 0.28 X10^3/uL; Eosinophils% 4.3 % (0-5); Hematocrit 43.8 % (37-47); Hemoglobin 13.3 g/dL (12.0-15.0); Lymphocyte # 2.06 X10^3/ul (0.83-4.51); Lymphocyte % 31.5 % (19-41); Mean Corp Hgb Conc 30.4 g/dL (32-36); Mean Corpuscular Hgb 27.9 pg (27.0-32.0); Mean Corpuscular Volume 91.8 fL (81-99); Monocyte# 0.54 X10^3/uL; Monocyte% 8.3 % (0-10); NRBC Flagged by Analyzer 0 % (0-5); Neutrophil # 3.58 X10^3/uL (2.7-7.7); Neutrophil % 54.8 % (47-70); Platelet Count 244 K/mm3 (150-450); RBC Distribution Width CV 14.3 % (11.6-14.6); RBC Distribution Width SD 48.9 fl (35.1-43.9); Red Blood Count 4.77 M/mm3 (4.2-5.4); White Blood Count 6.5 K/mm3 (4.4-11.0)
[2024-06-09 15:55] LABS: Anion Gap 8 (5-15); BUN 13 mg/dL (7-18); BUN/Creat Ratio 20.3 RATIO (10-20); Calcium,Total 9.4 mg/dL (8.5-10.1); Chloride 106 mmol/L (98-107); Creatinine, Serum 0.64 mg/dL (0.55-1.02); EST Glomerular Filtration Rate 98 mL/min (>60); Est Glom Filt Rate - Afr Amer 118 mL/min (>60); Glucose 94 mg/dL (74-106); Potassium 4.1 mmol/L (3.5-5.1); Sodium Level 139 mmol/L (136-145)
== END | disposition home or self-care (01) ==
LOC: BIMLAB 11:33
PROVIDERS: PCP Internal Medicine; Referring Provider Internal Medicine; Visit Provider Internal Medicine
DX: E03.9 Hypothyroidism, unspecified (principal); I10 Essential (primary) hypertension
CPT/HCPCS: 36415; 80048; 84443; 85025

== ENCOUNTER → 2024-10-06 | Outpatient (CLI) | payer MEDICARE, OTHER, SELFPAY ==
[2024-10-06 15:09] LABS: Absolute Lymphocyte Count 1.52 X10^3/uL (0.83-4.51); Absolute Neutrophil Count 3.3 X10^3/uL (2.0-7.7); Basophil# 0.07 X10^3/uL; Basophil% 1.2 % (0-1); Eosinophil# 0.24 X10^3/uL; Eosinophils% 4.2 % (0-5); Hematocrit 44.8 % (37-47); Hemoglobin 13.6 g/dL (12.0-15.0); Lymphocyte # 1.52 X10^3/ul (0.83-4.51); Lymphocyte % 26.5 % (19-41); Mean Corp Hgb Conc 30.4 g/dL (32-36); Mean Corpuscular Hgb 27.9 pg (27.0-32.0); Mean Corpuscular Volume 91.8 fL (81-99); Mean Platelet Vol. 11.7 fl (6.2-12.0); Monocyte# 0.56 X10^3/uL; Monocyte% 9.8 % (0-10); NRBC Flagged by Analyzer 0 % (0-5); Neutrophil # 3.33 X10^3/uL (2.7-7.7); Platelet Count 256 K/mm3 (150-450); RBC Distribution Width CV 14.7 % (11.6-14.6); RBC Distribution Width SD 49.1 fl (35.1-43.9); Red Blood Count 4.88 M/mm3 (4.2-5.4); White Blood Count 5.7 K/mm3 (4.4-11.0)
[2024-10-06 16:12] LABS: ALB/GLOB Ratio 0.9 RATIO (0.9-2.4); AST(SGOT) 15 U/L (15-37); Alanine Aminotransfer ALT/SGPT 23 U/L (13-56); Albumin, Serum 3.8 g/dL (3.2-5.0); Alkaline Phosphatase 134 U/L (45-117); Anion Gap 5 (5-15); BUN 13 mg/dL (7-18); BUN/Creat Ratio 20.9 RATIO (10-20); Calcium,Total 9.4 mg/dL (8.5-10.1); Chloride 106 mmol/L (98-107); Creatinine, Serum 0.62 mg/dL (0.55-1.02); EST Glomerular Filtration Rate 101 mL/min (>60); Est Glom Filt Rate - Afr Amer 122 mL/min (>60); Ferritin 29 ng/mL (8-252); Globulin 4.1 g/dL (2.2-4.2); Glucose 98 mg/dL (74-106); Iron 99 ug/dL (50-170); Iron Binding Capacity,Total 473 ug/dL (250-450); Potassium 4.3 mmol/L (3.5-5.1); Protein, Total 7.9 g/dL (6.4-8.2); Sodium Level 138 mmol/L (136-145)
[2024-10-06 16:15] LABS: Vitamin B12 1190 pg/mL (211-911); Vitamin D,25 Hydroxy 67.8 ng/mL
== END | disposition home or self-care (01) ==
LOC: BIMLAB 11:20
PROVIDERS: PCP Internal Medicine; Referring Provider Internal Medicine; Visit Provider Internal Medicine
DX: K91.2 Postsurgical malabsorption, not elsewhere classified (principal); I10 Essential (primary) hypertension
CPT/HCPCS: 36415; 80053; 82306; 82607; 82728; 83540; 83550; 84443; 85025

== ENCOUNTER → 2024-10-31 | Outpatient (CLI) | payer MEDICARE, OTHER, SELFPAY ==
--- NOTE | 2024-10-31 12:27 | BI_ITS ---
MAMMOGRAPHY - BILATERAL SCREENING REASON FOR EXAM: Female, 68 years old. Routine annual screening examination. PERTINENT HISTORY: Non-contributory. TECHNIQUE: Digital bilateral breast rich (3D mammographic acquisition) in the CC and MLO projections. 2-D mediolateral oblique (MLO) and craniocaudad (CC) views of both breasts were obtained. CAD: Full Field Digital Mammography with Computer Added Detection was performed. COMPARISON: Comparison is made with prior study dated June 30, 2023 and January 20, 2022. FINDINGS: Breast Composition: There are scattered areas of fibroglandular density. There are no dominant masses or suspicious calcifications. Stable 6.2 mm well-defined partially calcified nodule in the anterior inferior medial aspect of the left breast. Stable 6 mm nodule in the retroareolar region of the right breast. A tissue clip marker is again seen deep to the right retroareolar region. No other significant abnormalities are identified. There has been no significant change since the prior study. BI/SCRN MAMM (CAD)W/RICH BILAT IMPRESSION: Stable bilateral screening mammogram. Yearly follow-up mammogram recommended. (A) ASSESSMENT CATEGORY: BIRADS Category 2: Benign. A letter regarding these results will be sent to the patient by the facility within 30 days. Approximately 10% of breast cancers are not detected by mammography. A normal mammogram should not delay biopsy of a clinically suspicious abnormality. [id number] Electronically Signed: Rupesh Diaz MD at 14:02 EST ,
== END | disposition home or self-care (01) ==
LOC: OPBI 12:26
PROVIDERS: PCP Internal Medicine; Referring Provider Internal Medicine; Visit Provider Internal Medicine
DX: Z12.31 Encounter for screening mammogram for malignant neoplasm of breast (principal)
CPT/HCPCS: 77063; 77067

== ENCOUNTER → 2025-02-21 | Outpatient (CLI) | payer MEDICARE, OTHER, SELFPAY | END | disposition home or self-care (01) | LOC: LABSPEC 09:18 | PROVIDERS: PCP Internal Medicine; Referring Provider Nurse Practitioner Acute Care; Visit Provider Nurse Practitioner Acute Care | DX: J18.9 Pneumonia, unspecified organism (principal) | CPT/HCPCS: 87070; 87077; 87205 ==

== ENCOUNTER → 2025-04-18 | Outpatient (CLI) | payer MEDICARE, OTHER, SELFPAY ==
[2025-04-18 17:43] LABS: Hematocrit 40.0 % (37-47); Hemoglobin 12.5 g/dL (12.0-15.0); Immature Granulocytes Count 0.020 X10^3/uL (0.0-0.0); Mean Corp Hgb Conc 31.3 g/dL (32-36); Mean Corpuscular Volume 89.9 fL (81-99); Mean Platelet Vol. 11.6 fl (6.2-12.0); NRBC Flagged by Analyzer 0 % (0-5); Platelet Count 206 K/mm3 (150-450); RBC Distribution Width CV 15.0 % (11.6-14.6); RBC Distribution Width SD 49.3 fl (35.1-43.9); Red Blood Count 4.45 M/mm3 (4.2-5.4); White Blood Count 7.4 K/mm3 (4.4-11.0)
[2025-04-18 19:07] LABS: AST(SGOT) 16 U/L (<=31); Alanine Aminotransfer ALT/SGPT 15 U/L (<=34); Albumin, Serum 4.1 g/dL (3.4-4.8); Alkaline Phosphatase 124 U/L (35-104); Anion Gap 11 (5-15); BUN 12 mg/dL (4-19); BUN/Creat Ratio 19.9 RATIO (10-20); Calcium,Total 9.2 mg/dL (7.6-11.0); Carbon Dioxide 22.8 mmol/L (21.0-32.0); Chloride 106 mmol/L (98-108); Globulin 3.0 g/dL (2.2-4.2); Glucose 107 mg/dL (70-99); Potassium 3.9 mmol/L (3.3-5.1); Vitamin B12 863 pg/mL (180-914); Vitamin D,25 Hydroxy 72.5 ng/mL (30-100)
--- OUTSIDE RECORDS SUMMARY | 2025-04-18 22:45 | XMS RPT_ITS | CCD ---
Author Organization [facility] Care Team Providers Care Senior Software Qa Engineer Name Role Phone Dr. Jennifer Vu Primary Care Provider [phone] Dr. Jennifer Vu Referring Provider [phone] Dr. Shanon Rivera Attending Provider Dr. Shanon Rivera Other Provider Dr. Sergio Chang Attending Provider MIGUEL Ivy Attending Provider [facility] Dr. Jennifer Hawley Primary Care Provider [phone] Dr. Jennifer Vu Referring Provider [phone] MIGUEL Cortes Attending Provider Dr. Jennifer Vu Attending Provider [phone] Dr. Jennifer Vu Primary Care Provider [phone] Dr. Jennifer Vu Referring Provider [phone] MIGUEL Cortes Attending Provider Dr. Jennifer Vu Attending Provider [phone] Roof AGRICULTURAL [employer] FARM MANAGER, AGRICULTURAL CROP FARM MANAGER-C Sonu H Attending Provider MIGUEL De Luna Attending Provider Blaise AGRICULTURAL CROP FARM MANAGER, AGRICULTURAL CROP FARM MANAGER-C Jenae Sanabria Attending Provider Blaise AGRICULTURAL CROP FARM MANAGER, AGRICULTURAL CROP FARM MANAGER-C Jenae E Referring Provider [phone] Blaise AGRICULTURAL CROP FARM MANAGER, AGRICULTURAL CROP FARM MANAGER-C Jenae E Other Provider MIGUEL De Luna Other Provider [phone] Marley AGRICULTURAL CROP FARM MANAGER, AGRICULTURAL CROP FARM MANAGER-C Karime Attending Provider [phone] Dr. Jennifer Vu Primary Care Provider [phone] Dr. Jennifer Vu Referring Provider [phone] Dr. Jennifer Vu Attending Provider [phone] MIGUEL Mendez Attending Provider Dr. Jennifer Vu Primary Care Provider [phone] Dr. Jennifer Vu Referring Provider [phone] MIGUEL Barreto Attending Provider Dr. Jennifer Vu Primary Care Provider [phone] Blaise AGRICULTURAL [employer]OP FARM MANAGER, AGRICULTURAL CROP FARM MANAGER-C Jenae E Attending Provider Blaise AGRICULTURAL CROP FARM MANAGER, AGRICULTURAL CROP FARM MANAGER-C Jenae E Referring Provider Blasie AGRICULTURAL CROP FARM MANAGER, AGRICULTURAL CROP FARM MANAGER-C Jenae E Other Provider MIGUEL De Luna Other Provider [phone] MIGUEL Negro Attending Provider Dr. Jennifer Vu Primary Care Provider [phone] Dr. Jennifer Vu Attending Provider [phone] Dr. Jennifer Vu Referring Provider [phone] Dr. Jennifer Vu Primary Care Provider [phone] Dr. Jennifer Vu Attending Provider [phone] Dr. Jennifer Vu Referring Provider [phone] MIGUEL Barreto Attending Provider MIGUEL Stevenson Attending Provider [phone] Dr. Jennifer Vu MD Primary Care Provider Dr. Jennifer Vu MD Attending Provider [phone] Mirella GALLEGO, Dr. Rodriguez Referring Provider [phone] Jojo Miranda Attending Provider Marley AGRICULTURAL CROP FARM MANAGER-C, Karime Attending Provider Marley AGRICULTURAL CROP FARM MANAGER-C, Karime Referring Provider Mirella GALLEGO, Dr. Rodriguez Primary Care Provider Mirella GALLEGO, Dr. Rodriguez Referring Provider [phone] Mirella GALLEGO, Dr. Rodriguez Attending Provider [phone] Oleghe, Efewongbe Attending Unavailable Oleghe, Efewongbe Referring Unavailable Oleghe, Efewongbe Primary Care Unavailable Karime Roach NP Referring Unavailable Karime Roach NP Attending Unavailable Oleghe, Efewongbe Primary Care Unavailable Oleghe, Efewongbe Attending Unavailable Oleghe, Efewongbe Referring Unavailable Oleghe, Efewongbe Primary Care Unavailable Oleghe, Efewongbe Referring Unavailable Oleghe, Efewongbe Primary Care Unavailable Oleghe, Efewongbe Attending Unavailable Oleghe, Efewongbe Attending Unavailable Oleghe, Efewongbe Primary Care Unavailable Oleghe, Efewongbe Referring Unavailable Jojo Negro Attending Unavailable Aristeo Negroison Referring Unavailable Oleghe, Efewongbe Primary Care Unavailable Karime Roach NP Attending Unavailable Oleghe, Efewongbe Referring Unavailable Oleghe, Efewongbe Primary Care Unavailable Jojo Negro Attending Unavailable Oleghe, Efewongbe Referring Unavailable Oleghe, Efewongbe Primary Care Unavailable Oleghe, Efewongbe Referring Unavailable Oleghe, Efewongbe Primary Care Unavailable Oleghe, Efewongbe Attending Unavailable Marley AGRICULTURAL CROP FARM MANAGERKarime Attending Unavailable Oleghe, Efewongbe Primary Care Unavailable Oleghe, Efewongbe Attending Unavailable Oleghe, Efewongbe Primary Care Unavailable Oleghe, Efewongbe Referring Unavailable NegroJojo Attending Unavailable Oleghe, Efewongbe Referring Unavailable Oleghe, Efewongbe Primary Care Unavailable Oleghe, Efewongbe Attending Unavailable Oleghe, Efewongbe Referring Unavailable Oleghe, Efewongbe Primary Care Unavailable Mirella GALLEGO, Dr. Rodriguez Primary Care Provider Mirella GALLEGO, Dr. Rodriguez Referring Provider [phone] Jojo Miranda Attending Provider [phone] Allergies Allergy Classification Reported Allergen(s) Allergy Type Date of Onset Reaction(s) Facility (15 sources) Amoxicillin Drug Allergy 2 [facility] (16 sources) Penicillins; Translations: [Penicillins] Allergy to substance 2 itchy, [facility] (16 sources) Sulfonamides (Antibiotic); Translations: [Sulfa (Sulfonamide Antibiotics)] Allergy to substance 2 hives and swelling [facility] (3 sources) eye drop preservatives Allergy to substance 3 Other, [facility] (3 sources) levoFLOXacin Drug Allergy 5 [facility] (1 source) Amoxicillin Drug Allergy 5 [facility] (1 source) levoFLOXacin Drug Allergy 5 [facility] Medications Current Medications Medication Drug Class(es) Dates Sig (Normalized) Sig (Original) [id number] 200 actuat albuterol 0.09 mg/actuat metered dose inhaler (20 sources) beta2-Adrenergic Agonist Start: 01-19-2024 take 2.5 mg by inhalation every four hours Albuterol Sulfate Active 2.5 MG INHALATION Q4H January 19, 2024 12:00am Start: 02-12-2022 End: 02-02-2024 Albuterol Sulfate 90 mcg/act uation HFA aerosol inhaler Discontinued 2 NMA INHALATION Q4H as needed for shortness of breath or wheezing 3 March 10, 2023 9:15am February 02, 2024 10:41am Start: 02-12-2022 End: 03-10-2023 take 1 puff(s) by inhalation every four hours Albuterol Sulfate Active 2 PUFF INHALATION Q4H March 10, 2023 9:15am Start: 02-12-2022 take 1 puff(s) by in halation every four hours Albuterol Sulfate Active 2 PUFF INHALATION Q4H 18 Britany 28th, 2022 10:15am Start: 05-02-2019 End: 02-12-2022 Albuterol Sulfate 90 mcg/act uation HFA aerosol inhaler Discontinued 2 NMA INHALATION EVERY 6 HOURS 04 04February 16, 2020 1:42pm February 12, 2022 10:15am Start: 05-02-2019 End: 02-12-2022 take 1 puff(s) by inhalation every six hours Albuterol Sulfate Discontinued 2 PUFF INHALATION EVERY 6 HOURS February 16, 2020 1:42pm February 12, 2022 10:15am Albuterol Sulfate 2.5 mg /3 mL (0.083 %) solution for nebulization (3 sources) Start: 01-19-2024 take 2.5 mg by inhalation every four hours as needed for wheezing Albuterol Sulfate 2.5 mg /3 mL (0.083 %) solution for nebulization Active 2.5 mg INHALATION Q4H as needed for shortness of breath or wheezing January 19, 2024 12:00am Start: 01-19-2024 take 2.5 mg by inhal ation every four hours as needed for wheezing Albuterol Sulfate 2.5 mg /3 mL (0.083 %) solution for nebulization Active 2.5 mg INHALATION Q4H as needed for shortness of breath or wheezing January 19, 2024 12:00am Bacillus Coagulans (Probioti c (B. Coagulans)) 10 billion cell capsule,delayed release(DR/EC) (15 sources) Start: 05-02-2019 Bacillus Coagu lans (Probiotic (B. Coagulans)) 10 billion cell capsule,delayed release(DR/EC) Active CELL PO May 02, 2019 9:47am Start: 05-02-2019 Bacillus Coagu lans (Probiotic (B. Coagulans)) 10 billion cell capsule,delayed release(DR/EC) Active NMA PO 0 May 02, 2019 12:00am Start: 05-02-2019 Bacillus Coagu lans (Probiotic (B. Coagulans)) 10 billion cell capsule,delayed release(DR/EC) Active NMA PO May 02, 2019 12:00am Start: 05-02-2019 Bacillus Coagu lans (Probiotic (B. Coagulans)) 10 billion cell capsule,delayed release(DR/EC) Active CELL PO May 01, 2019 11:00pm Start: 05-02-2019 Bacillus Coagu lans (Probiotic (B. Coagulans)) 10 billion cell capsule,delayed release(DR/EC) Active CELL PO May 02, 2019 12:00am cholecalciferol 0.125 mg oral capsule (15 sources) Vitamin D Start: 05-02-2019 take 1 capsule by mouth once daily Cholecalciferol (Vitamin D3) 5,000 unit capsule Active 5000 U PO DAILY May 02, 2019 12:00am preservative-free dorzolamide 20 mg/ml / timolol 5 mg/ml ophthalmic solution (13 sources) Carbonic Anhydrase Inhibitor, beta-Adrenergic Disha Start: 01-08-2025 Dorzolamide-Timolol (Pf) 2-0.5 % dropperette Active NMA OPHTHALMIC January 08, 2025 1:14pm RIGHT EYE Start: 07-08-2022 Dorzolamide-Ti molol (Pf) Active DRP OPHTHALMIC July 07, 2022 11:00pm Start: 07-08-2022 Dorzolamide-Ti molol (Pf) Active DRP OPHTHALMIC July 08, 2022 12:00am ferrous sulfate 325 mg oral tablet (15 sources) Start: 05-02-2019 take 1 tablet by mouth twice daily Ferrous Sulfate 325 mg (65 mg iron) tablet Active 325 mg PO TWICE A DAY May 02, 2019 12:00am fluorometholone 1 mg/ml ophthalmic suspension (16 sources) Corticosteroid Start: 01-08-2025 Fluorometholone 0.1 % drops,suspension Active NMA OPHTHALMIC January 08, 2025 1:14pm RIGHT EYE Start: 07-08-2022 End: 01-08-2025 Fluorometholone 0.1 % drops, suspension Discontinued NMA OPHTHALMIC July 08, 2022 12:00am January 08, 2025 1:15pm Start: 07-08-2022 Fluorometholon e Active DRP OPHTHALMIC July 08, 2022 12:00am Fluticasone Propionate (Flov ent Hfa) 110 mcg/actuation HFA aerosol inhaler (2 sources) Start: 02-02-2024 Fluticasone Pr opionate (Flovent Hfa) 110 mcg/actuation HFA aerosol inhaler Active 2 NMA INHALATION TWICE A DAY 3 February 02, 2024 10:40am Fluticasone Propionate 110 mcg/actuation HFA aerosol inhaler (2 sources) Start: 04-03-2025 Fluticasone Pr opionate 110 mcg/actuation HFA aerosol inhaler Active 2 NMA INHALATION TWICE A DAY 3 3 April 03, 2025 8:50am Asthma Moderate persistent asthma, uncomplicated asthma Start: 02-02-2024 End: 04-03-2025 Fluticasone Propionate 110 m cg/actuation HFA aerosol inhaler Discontinued 2 NMA INHALATION TWICE A DAY 3 3 February 02, 2024 10:40am April 03, 2025 8:50am Asthma Moderate persistent asthma, uncomplicated asthma Handicap Placard (20 sources) Start: 12-06-[address] Active 0 .ROUTE .MEDSUPPLY 1 0 December 06, 2023 1:00am Other reduced mobility As directed, length of time 3 years Start: 12-06-[address] Active 0 .ROUTE .MEDSUPPLY 1 December 06, 2023 1:00am As directed, length of time 3 years Start: 12-06-[address] Active 0 .ROUTE .MEDSUPPLY 1 December 06, 2023 12:00am As directed, length of time 3 years Start: 12-10-[address] Active 0 .ROUTE .MEDSUPPLY 1 0 December 10, 2022 2:24pm Other reduced mobility As directed, length of time 3 years Start: 12-10-[address] Active 0 .ROUTE .MEDSUPPLY 1 December 10, 2022 1:24pm As directed, length of time 3 years Start: 12-10-[address] Active 0 .ROUTE .MEDSUPPLY 1 December 10, 2022 2:24pm As directed, length of time 3 years Start: 12-05-[address] Active 0 .ROUTE .MEDSUPPLY 1 December 05, 2019 2:49pm As directed, length of time 3 years Start: 12-05-2019 End: 12-10-2022 Handicap Placard Discontinue d 0 .ROUTE .MEDSUPPLY 1 0 December 05, 2019 1:00am December 10, 2022 2:24pm Other reduced mobility As directed, length of time 3 years Start: 12-05-2019 End: 12-10-2022 Handicap Placard Discontinue d 0 .ROUTE .MEDSUPPLY 1 December 05, 2019 12:00am December 10, 2022 1:24pm As directed, length of time 3 years Start: 12-05-2019 End: 12-10-2022 Handicap Placard Discontinue d 0 .ROUTE .MEDSUPPLY 1 December 05, 2019 1:00am December 10, 2022 2:24pm As directed, length of time 3 years Start: 12-05-[address] Active 0 .ROUTE .MEDSUPPLY 1 December 05, 2019 1:00am As directed, length of time 3 years mecobalamin 1 mg chewable tablet (20 sources) Start: 03-30-2023 take 1 tablet by mouth once daily Mecobalamin (Vitamin B12) 1,000 mcg tablet,chewable Active 1000 ug PO DAILY March 30, 2023 12:00am Start: 06-28-2020 End: 03-30-2023 inject 1000 ug by intramuscular injection every month Mecobalamin (Vitamin B12) Discontinued 1000 MCG IM MONTHLY June 28, 2020 8:17am March 30, 2023 8:44am Start: 06-28-2020 End: 03-30-2023 inject 1000 ug by intramuscular injection every month Mecobalamin (Vitamin B12) Discontinued 1000 MCG IM MONTHLY June 28, 2020 9:17am March 30, 2023 9:44am Start: 06-28-2020 inject 1000 ug by in tramuscular injection every month Mecobalamin (Vitamin B12) Active 1000 MCG IM MONTHLY June 28, 2020 9:17am Start: 06-17-2020 End: 06-28-2020 inject 1000 ug by intramuscular injection every month Mecobalamin (Vitamin B12) Discontinued 1000 MCG IM MONTHLY June 17, 2020 1:30pm June 28, 2020 8:17am Start: 06-17-2020 End: 06-28-2020 inject 1000 ug by intramuscular injection every month Mecobalamin (Vitamin B12) Discontinued 1000 MCG IM MONTHLY June 17, 2020 2:30June 28, 2020 9:17am mecobalamin (vitamin B12) 10,000 mcg solution for injection (14 sources) Start: 06-28-2020 inject 1000 ug by intramuscular injection every month mecobalamin (vitamin B12) 10,000 mcg solution for injection Active 1000 MCG IM MONTHLY June 28, 2020 9:17am Start: 06-17-2020 End: 06-28-2020 inject 1000 ug by intramuscular injection every month mecobalamin (vitamin B12) 10,000 mcg solution for injection Discontinued 1000 MCG IM MONTHLY June 17, 2020 2:30pm June 28, 2020 9:17am Start: 03-05-2020 End: 06-17-2020 inject 1000 ug by intramuscular injection every month mecobalamin (vitamin B12) 10,000 mcg solution for injection Discontinued 1000 MCG IM MONTHLY March 05, 2020 2:14pm June 17, 2020 2:30pm Start: 03-05-2020 End: 06-17-2020 inject 1000 ug by intramuscular injection every month mecobalamin (vitamin B12) 10,000 mcg solution for injection Discontinued 1000 MCG IM MONTHLY March 04, 2020 11:00pm June 17, 2020 1:30pm Start: 03-05-2020 End: 06-17-2020 inject 1000 ug by intramuscular injection every month mecobalamin (vitamin B12) 10,000 mcg solution for injection Discontinued 1000 MCG IM MONTHLY March 05, 2020 12:00am June 17, 2020 2:30pm Multivitamin preparation (12 sources) Start: 05-25-2019 take 1 tablet by mouth once daily Multivitamin Active 1 TABLET PO DAILY May 25, 2019 6:02pm Start: 05-25-2019 take 1 tablet by alma th once daily Multivitamin Active 1 TABLET PO DAILY May 24, 2019 11:00pm Start: 05-25-2019 take 1 tablet by alma th once daily Multivitamin Active 1 TABLET PO DAILY May 25, 2019 12:00am Multivitamin tablet (3 sources) Start: 05-25-2019 Multivitamin t ablet Active 1 {tbl} PO DAILY May 25, 2019 12:00am Nebulizer Accessories (2 sources) Start: 01-24-2024 Nebulizer Acce ssories Active 0 .Route 1 January 24, 2024 12:00am As directed Nebulizer Accessories misc (3 sources) Start: 01-24-2024 Nebulizer Acce ssories misc Active 0 .Route 1 0 January 24, 2024 12:00am Pneumonia Bronchitis Pneumonia, unspecified organism Bronchitis, not specified as acute or chronic As directed Start: 01-24-2024 Nebulizer Acce ssories misc Active 0 .Route 1 January 24, 2024 12:00am As directed Vit C,G-Vq-Jxsts-Lutein-Zeax an (Preservision Areds-2) [phone] nd-pdpc-vm-mg capsule (15 sources) Start: 05-02-2019 take 1 tablet by mouth twice daily Vit C,X-Dj-Rqkiq-Lutein-Zeaxan (Preservision Areds-2) [phone] tw-tzfm-rl-mg capsule Active 1 TABLET PO TWICE A DAY May 02, 2019 9:47am Start: 05-02-2019 take 1 capsule by mo [facility] twice daily Vit C,R-Qm-Upnqi-Lutein-Zeaxan (Preservision Areds-2) [phone] ln-gkyk-pd-mg capsule Active 1 {tbl} PO TWICE A DAY May 02, 2019 12:00am Start: 05-02-2019 take 1 tablet by alma th twice daily Vit C,G-Ad-Kvflf-Lutein-Zeaxan (Preservision Areds-2) [phone] ul-lffc-wp-mg capsule Active 1 TABLET PO TWICE A DAY May 01, 2019 11:00pm Start: 05-02-2019 take 1 tablet by alma th twice daily Vit C,L-Rk-Cgmcr-Lutein-Zeaxan (Preservision Areds-2) [phone] fv-wzkx-du-mg capsule Active 1 TABLET PO TWICE A DAY May 02, 2019 12:00am Completed/Discontinued Medications Medication Drug Class(es) Dates Sig (Normalized) Sig (Original) amLODIPine 5 mg oral tablet (20 sources) Dihydropyridine Calcium Channel Disha Start: 06-27-2019 End: 02-19-2025 take 7.5 mg by mouth once daily Amlodipine 5 mg tablet Discontinued 7.5 mg PO DAILY 135 90 3 February 18, 2024 1:04pm February 19, 2025 12:02pm Start: 06-27-2019 End: 03-08-2023 take 7.5 mg by mouth once daily Amlodipine Discontinue d 7.5 MG PO DAILY 135 90 March 18, 2021 9:51am March 08, 2023 2:15pm Start: 05-02-2019 End: 06-27-2019 take 1 tablet by mouth once daily Amlodipine 5 mg tablet Discontinued 5 mg PO DAILY 30 1 May 02, 2019 12:00am June 27, 2019 11:27am amoxicillin 500 mg / clavulanate 125 mg oral tablet (15 sources) Penicillin-class Antibacterial Start: 05-17-2020 End: 11-18-2020 Amoxicillin-Pot Clavulanate (Augmentin) 500-125 mg tablet Discontinued 1 {tbl} PO Q12H 10 0 May 17, 2020 12:00am November 18, 2020 3:48pm atenolol 25 mg oral tablet (20 sources) beta-Adrenergic Disha Start: 03-18-2019 End: 01-09-2025 Atenolol 25 mg tablet Discontinued 0 .ROUTE .COMPLEX 90 3 September 06, 2023 5:24pm January 09, 2025 1:54pm TAKE 1 TABLET DAILY Start: 03-18-2019 End: 05-25-2019 Atenolol 25 mg tablet Discon tinued PO 90 90 0 March 18, 2019 12:00am May 25, 2019 6:03pm atorvastatin 40 mg oral tablet (20 sources) HMG-CoA Reductase Inhibitor Start: 04-17-2020 End: 06-11-2020 take 1 tablet by mouth at bedtime Atorvastatin 40 mg tablet Discontinued 40 mg PO AT BEDTIME 90 4 April 17, 2020 5:29pm June 11, 2020 1:32pm Start: 05-26-2019 End: 04-17-2020 take 1 tablet by mouth once daily in the evening Atorvastatin 20 mg tablet Discontinued 20 mg PO EVERY EVENING 30 3 May 26, 2019 12:00am April 17, 2020 5:27pm azithromycin 250 mg oral tablet (20 sources) Macrolide Antimicrobial Start: 06-04-2023 End: 06-10-2023 take 2-5 tablets by mouth once daily Azithromycin 250 mg tablet Discontinued 0 PO .COMPLEX 6 0 June 04, 2023 12:00am June 10, 2023 1:10pm take 500 mg today (day 1), then 250 mg for 4 days (days 2-5) PO Start: 12-07-2022 End: 01-16-2023 Azithromycin 250 mg tablet D iscontinued 250 mg PO daily 6 0 December 07, 2022 1:00am January 16, 2023 12:20pm 2 tablets today, then 1 tablet daily on days 2 through 5 Start: 07-09-2022 End: 08-03-2022 Azithromycin 250 mg tablet D iscontinued 0 PO .COMPLEX 6 0 July 09, 2022 12:00am August 03, 2022 1:11pm For 250 mg dose pack: take 500 mg today (day 1), then 250 mg for 4 days (days 2-5) PO Start: 07-09-2022 End: 08-03-2022 Azithromycin Discontinued 0 PO .COMPLEX 6 July 09, 2022 12:00am August 03, 2022 1:11pm For 250 mg dose pack: take 500 mg today (day 1), then 250 mg for 4 days (days 2-5) PO benzonatate 200 mg oral capsule (20 sources) Non-narcotic Antitussive Start: 02-02-2024 End: 03-06-2024 take 1 capsule by mouth three times daily as needed for cough Benzonatate 200 mg capsule Discontinued 200 mg PO THREE TIMES A DAY as needed for cough 90 0 February 02, 2024 12:00am March 06, 2024 9:34am Asthma Moderate persistent asthma, uncomplicated Start: 05-02-2019 End: 01-16-2023 take 1 capsule by mouth three times daily as needed for cough Benzonatate 200 mg capsule Discontinued 200 mg PO THREE TIMES A DAY as needed for cough 14 0 December 07, 2022 1:00am January 16, 2023 12:20pm Start: 03-18-2019 End: 04-02-2019 take 1 capsule by mouth three times daily as needed for cough Benzonatate 200 mg capsule Discontinued 200 mg PO THREE TIMES A DAY as needed for cough 30 0 March 18, 2019 12:00am April 02, 2019 11:31am brimonidine tartrate 2 mg/ml ophthalmic solution (15 sources) alpha-Adrenergic Agonist Start: 04-16-2020 End: 12-10-2022 Brimonidine 0.2 % drops Discontinued OPHTHALMIC April 16, 2020 12:00am December 10, 2022 2:00pm Start: 04-16-2020 End: 12-10-2022 Brimonidine Discontinued OPH THALMIC April 16, 2020 12:00am December 10, 2022 2:00pm brimonidine tartrate 2 mg/ml / timolol 5 mg/ml ophthalmic solution (15 sources) alpha-Adrenergic Agonist, beta-Adrenergic Disha Start: 02-13-2021 End: 07-08-2022 take 0.2-0.5 drop(s) into the eye(s) twice daily Brimonidine-Timolol (Combigan) 0.2-0.5 % drops Discontinued 1 NMA OPHTHALMIC TWICE A DAY February 13, 2021 12:00am July 08, 2022 8:41am Start: 02-13-2021 End: 07-08-2022 take 0.2-0.5 drop(s) into the eye(s) twice daily Brimonidine-Timolol (Combigan) 0.2-0.5 % drops Discontinued 1 DRP OPHTHALMIC TWICE A DAY February 13, 2021 12:00am July 08, 2022 8:41am clindamycin 300 mg oral capsule (20 sources) Lincosamide Antibacterial Start: 03-10-2023 End: 03-30-2023 Clindamycin Hcl 300 mg capsule Discontinued NMA PO March 10, 2023 12:00am March 30, 2023 9:43am Start: 03-10-2023 End: 03-30-2023 Clindamycin Hcl Discontinued CAP PO March 10, 2023 12:00am March 30, 2023 9:43am Start: 01-31-2023 End: 02-10-2023 take 1 capsule by mouth three times daily Clindamycin Hcl 300 mg capsule Discontinued 300 mg PO THREE TIMES A DAY 30 10 0 January 31, 2023 12:00am February 09, 2023 12:00am February 10, 2023 12:04am Start: 11-16-2019 End: 12-05-2019 take 1 capsule by mouth three times daily Clindamycin Hcl 150 mg capsule Discontinued 150 mg PO THREE TIMES A DAY 21 0 November 16, 2019 1:00am December 05, 2019 2:19pm clonazePAM 0.5 mg oral tablet (20 sources) Benzodiazepine Start: 05-02-2019 End: 07-16-2020 take 1 tablet by mouth at bedtime as needed Clonazepam 0.5 mg tablet Discontinued 0.5 mg PO AT BEDTIME as needed for insomnia 90 90 0 March 05, 2020 2:11pm July 16, 2020 11:19am Insomnia, unspecified Start: 03-18-2019 End: 05-02-2019 Clonazepam 0.5 mg tablet Dis continued PO 90 90 0 March 18, 2019 12:00am May 02, 2019 9:49am Start: 03-18-2019 End: 05-02-2019 Clonazepam Discontinued PO 9 0 90 March 18, 2019 12:00am May 02, 2019 9:49am cyclobenzaprine hydrochloride 10 mg oral tablet (15 sources) Muscle Relaxant Start: 09-05-2019 End: 11-16-2019 take 5 mg by mouth three times daily as needed for muscle spasms Cyclobenzaprine 10 mg tablet Discontinued 5 mg PO THREE TIMES A DAY as needed for muscle spasm 30 0 September 05, 2019 1:00am November 16, 2019 11:55am Start: 09-05-2019 End: 11-16-2019 take 5 mg by mouth three times daily Cyclobenzaprine Discontinued 5 MG PO THREE TIMES A DAY September 05, 2019 1:00am November 16, 2019 11:55am 1 ml denosumab 60 mg/ml prefilled syringe (6 sources) RANK Ligand Inhibitor Start: 12-06-2023 End: 02-02-2024 Denosumab (Prolia) 60 mg/mL syringe Discontinued 60 mg SC every 6 months 1 2 December 06, 2023 1:00am February 02, 2024 10:07am difluprednate 0.5 mg/ml ophthalmic suspension (15 sources) Start: 04-16-2020 End: 07-08-2022 Difluprednate 0.05 % drops Discontinued 1 NMA OPHTHALMIC THREE TIMES A DAY April 16, 2020 12:00am July 08, 2022 8:41am start on Day 15 of therapy Dorzolamide-Timolol (Pf) 2-0.5 % dropperette (3 sources) Start: 07-08-2022 End: 01-08-2025 Dorzolamide-Timolol (Pf) 2-0.5 % dropperette Discontinued NMA OPHTHALMIC July 08, 2022 12:00am January 08, 2025 1:15pm doxycycline hyclate 100 mg oral tablet (20 sources) Tetracycline-cla ss Drug Start: 01-24-2024 End: 02-02-2024 take 1 tablet by mouth twice daily Doxycycline Hyclate 100 mg tablet Discontinued 100 mg PO TWICE A DAY January 24, 2024 12:00am February 02, 2024 10:07am Start: 01-19-2024 End: 01-19-2024 take 1 tablet by mouth twice daily Doxycycline Hyclate 100 mg tablet Discontinued 100 mg PO TWICE A DAY 20 0 January 19, 2024 12:00am January 19, 2024 3:44pm Start: 02-24-2023 End: 06-04-2023 take 1 capsule by mouth twice daily Doxycycline Hyclate 100 mg capsule Discontinued 100 mg PO TWICE A DAY 28 14 February 24, 2023 12:00am June 04, 2023 10:32am erythromycin 0.005 mg/mg ophthalmic ointment (15 sources) Macrolide, Macrolide Antimicrobial Start: 11-16-2019 End: 11-23-2019 Erythromycin 5 mg/gram (0.5 %) ointment Discontinued 0.5 [in_us] OPHTHALMIC EVERY 6 HOURS 3.5 7 0 November 16, 2019 1:00am November 22, 2019 1:00am November 23, 2019 1:08am Start: 11-16-2019 End: 11-23-2019 Erythromycin Discontinued 0. 5 INCH OPHTHALMIC EVERY 6 HOURS 3.5 7 November 16, 2019 1:00am November 23, 2019 1:08am fluticasone propionate 0.05 mg/actuat metered dose nasal spray (20 sources) Corticosteroid Start: 02-02-2024 End: 06-09-2024 Fluticasone Propionate 50 mcg/actuation spray,suspension Discontinued 2 NMA INTRANASAL DAILY 16 3 February 02, 2024 12:00am June 09, 2024 11:12am Asthma Moderate persistent asthma, uncomplicated Start: 02-16-2020 End: 06-10-2023 Fluticasone Propionate 50 mcg/actuation spray,suspension Discontinued 2 NMA INTRANASAL DAILY 3 3 January 05, 2022 10:45am March 10, 2023 9:16am Start: 02-16-2020 End: 06-10-2023 Fluticasone Propionate Disco ntinued 2 SPRAY INTRANASAL DAILY January 052 10:45am March 10, 2023 9:16am Start: 04-07-2019 End: 02-02-2024 Fluticasone Propionate (Flov ent Hfa) 110 mcg/actuation HFA aerosol inhaler Discontinued 2 NMA INHALATION TWICE A DAY 3 3 March 22, 2023 3:13pm February 02, 2024 10:41am asthma Start: 04-07-2019 End: 03-22-2023 take 1 puff(s) by inhalation twice daily Fluticasone Propionate (Flovent Hfa) 110 mcg/actuation HFA aerosol inhaler Discontinued 2 PUFF INHALATION TWICE A DAY 1 January 12, 2023 10:42am March 10, 2023 9:16am Start: 04-05-2019 End: 09-05-2019 take 50 ug nasal route once daily Fluticasone Propionate (Flonase Allergy Relief) 50 mcg/actuation spray,suspension Discontinued 2 NMA INTRANASAL daily 1 3 July 04, 2019 2:24pm September 05, 2019 2:35pm administer into each nostril Start: 04-05-2019 End: 09-05-2019 take 1 spray(s) nasal route once daily Fluticasone Propionate (Flonase Allergy Relief) 50 mcg/actuation spray,suspension Discontinued 2 SPRAY INTRANASAL daily 1 July 04, 2019 2:24pm September 05, 2019 2:35pm administer into each nostril gabapentin 100 mg oral capsule (20 sources) Anti-epileptic Agent Start: 05-02-2019 End: 12-10-2022 Gabapentin 100 mg capsule Discontinued 0 .ROUTE .COMPLEX 90 11 November 26, 2020 9:42am December 10, 2022 2:01pm TAKE 1 CAPSULE THREE TIMES A DAY NEEDED FOR SHINGLES PAIN Start: 03-18-2019 End: 05-02-2019 Gabapentin 300 mg capsule Di scontinued PO 90 90 0 March 18, 2019 12:00am May 02, 2019 9:44am Start: 03-18-2019 End: 05-02-2019 Gabapentin Discontinued PO 9 0 90 March 18, 2019 12:00am May 02, 2019 9:44am L. Gasseri-B. Bifidum-B Long um ([place]) 1.5 billion cell capsule (15 sources) Start: 05-02-2019 End: 05-26-2019 L. Gasseri-B. Bifidum-B Long um ([place]) 1.5 billion cell capsule Discontinued CAP PO DAILY May 02, 2019 9:46am May 26, 2019 11:15am Start: 05-02-2019 End: 05-26-2019 take 1.5 capsules by mouth once daily L. Gasseri-B. Bifidum-B Longum ([place]) 1.5 billion cell capsule Discontinued NMA PO DAILY 0 May 02, 2019 12:00am May 26, 2019 11:15am Start: 05-02-2019 End: 05-26-2019 take 1.5 capsules by mouth once daily L. Gasseri-B. Bifidum-B Longum ([place]) 1.5 billion cell capsule Discontinued NMA PO DAILY May 02, 2019 12:00am May 26, 2019 11:15am Start: 05-02-2019 End: 05-26-2019 L. Gasseri-B. Bifidum-B Long um ([place]) 1.5 billion cell capsule Discontinued CAP PO DAILY May 01, 2019 11:00pm May 26, 2019 10:15am Start: 05-02-2019 End: 05-26-2019 L. Gasseri-B. Bifidum-B Long um ([place]) 1.5 billion cell capsule Discontinued CAP PO DAILY May 02, 2019 12:00am May 26, 2019 11:15am latanoprost 0.05 mg/ml ophthalmic solution (15 sources) Prostaglandin Analog Start: 02-13-2021 End: 07-08-2022 Latanoprost 0.005 % drops Discontinued 1 NMA OPHTHALMIC DAILY February 13, 2021 12:00am July 08, 2022 8:42am levoFLOXacin 750 mg oral tablet (5 sources) Quinolone Antimicrobial Start: 01-19-2024 End: 01-24-2024 take 1 tablet by mouth once daily Levofloxacin 750 mg tablet Discontinued 750 mg PO DAILY 7 0 January 19, 2024 12:00am January 24, 2024 8:32am levothyroxine sodium 0.1 mg oral tablet (20 sources) l-Thyroxine Start: 03-18-2019 End: 12-28-2024 take 1 tablet by mouth once daily Levothyroxine 100 mcg tablet Discontinued 100 ug PO DAILY 90 90 3 April 03, 2024 8:50am December 28, 2024 1:33pm Start: 03-18-2019 End: 05-25-2019 Levothyroxine 100 mcg tablet Discontinued PO 90 90 0 March 18, 2019 12:00am May 25, 2019 6:03pm Mecobalamin (Vitamin B12) 10,000 mcg recon soln (9 sources) Start: 06-28-2020 End: 03-30-2023 inject 1000 ug by intramuscular injection every month Mecobalamin (Vitamin B12) 10,000 mcg recon soln Discontinued 1000 ug IM MONTHLY 1 90 3 June 28, 2020 9:17am March 30, 2023 9:44am Start: 06-28-2020 End: 03-30-2023 inject 1000 ug by intramuscular injection every month Mecobalamin (Vitamin B12) 10,000 mcg recon soln Discontinued 1000 ug IM MONTHLY 1 90 June 28, 2020 9:17am March 30, 2023 9:44am Start: 06-17-2020 End: 06-28-2020 inject 1000 ug by intramuscular injection every month Mecobalamin (Vitamin B12) 10,000 mcg recon soln Discontinued 1000 ug IM MONTHLY 1 90 3 June 17, 2020 2:30pm June 28, 2020 9:17am Start: 06-17-2020 End: 06-28-2020 inject 1000 ug by intramuscular injection every month Mecobalamin (Vitamin B12) 10,000 mcg recon soln Discontinued 1000 ug IM MONTHLY 1 90 June 17, 2020 2:30pm June 28, 2020 9:17am Start: 03-05-2020 End: 06-17-2020 inject 1000 ug by intramuscular injection every month Mecobalamin (Vitamin B12) 10,000 mcg recon soln Discontinued 1000 ug IM MONTHLY 1 0 March 05, 2020 12:00am June 17, 2020 2:30pm Start: 03-05-2020 End: 06-17-2020 inject 1000 ug by intramuscular injection every month Mecobalamin (Vitamin B12) 10,000 mcg recon soln Discontinued 1000 ug IM MONTHLY March 05, 2020 12:00am June 17, 2020 2:30pm methylPREDNISolone 4 mg oral tablet (15 sources) Corticosteroid Start: 09-05-2019 End: 11-16-2019 take 1 tablet by mouth once Methylprednisolone (Medrol (Jake)) 4 mg tablets,dose pack Discontinued 0 PO per package directions 21 0 September 05, 2019 1:00am November 16, 2019 11:56am PO PER PKG DIR 120 actuat mometasone furoate 0.2 mg/actuat metered dose inhaler (20 sources) Corticosteroid Start: 05-02-2019 End: 07-04-2019 Mometasone (Asmanex Hfa) 200 mcg/actuation HFA aerosol inhaler Discontinued 2 NMA INHALATION TWICE A DAY May 02, 2019 12:00am July 04, 2019 2:04pm Start: 05-02-2019 End: 07-04-2019 take 1 puff(s) by inhalation twice daily Mometasone (Asmanex Hfa) 200 mcg/actuation HFA aerosol inhaler Discontinued 2 PUFF INHALATION TWICE A DAY May 02, 2019 12:00am July 04, 2019 2:04pm Start: 04-05-2019 End: 04-07-2019 Mometasone (Asmanex Hfa) 200 mcg/actuation HFA aerosol inhaler Discontinued 2 NMA INHALATION TWICE A DAY 13 April 05, 2019 12:00am April 07, 2019 3:25pm On Hold: Order Changed Start: 04-05-2019 End: 04-07-2019 take 1 puff(s) by inhalation twice daily Mometasone (Asmanex Hfa) 200 mcg/actuation HFA aerosol inhaler Discontinued 2 PUFF INHALATION TWICE A DAY 13 April 05, 2019 12:00am April 07, 2019 3:25pm On Hold: Order Changed Nirmatrelvir-Ritonavir (12 sources) Start: 01-16-2023 End: 01-31-2023 Nirmatrelvir-Ritonavir (Paxl ovid (Eua)) 300 mg (150 mg x 2)-100 mg tablets,dose pack Discontinued 0 PO .COMPLEX 30 0 January 16, 2023 12:00am January 31, 2023 12:44pm take TWO 150 mg tablets of nirmatrelvir with ONE 100 mg tablet of ritonavir twice daily for 5 days PO Start: 01-16-2023 End: 01-31-2023 Nirmatrelvir-Ritonavir (Paxl ovid (Eua)) 300 mg (150 mg x 2)-100 mg tablets,dose pack Discontinued 0 PO .COMPLEX January 15, 2023 11:00pm January 31, 2023 11:44am take TWO 150 mg tablets of nirmatrelvir with ONE 100 mg tablet of ritonavir twice daily for 5 days PO Start: 01-16-2023 End: 01-31-2023 Nirmatrelvir-Ritonavir (Paxl ovid (Eua)) 300 mg (150 mg x 2)-100 mg tablets,dose pack Discontinued 0 PO .COMPLEX January 16, 2023 12:00am January 31, 2023 12:44pm take TWO 150 mg tablets of nirmatrelvir with ONE 100 mg tablet of ritonavir twice daily for 5 days PO oseltamivir 75 mg oral capsule (12 sources) Neuraminidase Inhibitor Start: 09-25-2022 End: 09-30-2022 take 1 capsule by mouth every twelve hours Oseltamivir (Tamiflu) 75 mg capsule Discontinued 75 mg PO Q12H 10 5 0 September 25, 2022 1:00am September 29, 2022 1:00am September 30, 2022 1:03am prednisoLONE acetate 10 mg/ml ophthalmic suspension (20 sources) Corticosteroid Start: 02-13-2021 End: 07-08-2022 Prednisolone Acetate 1 % drops,suspension Discontinued 2 NMA OPHTHALMIC TWICE A DAY February 13, 2021 12:00am July 08, 2022 8:42am Start: 11-18-2020 Prednisolone A cetate (Pf) Active 1 DRP OPHTHALMIC DAILY November 18, 2020 3:49pm Start: 11-18-2020 End: 07-08-2022 Prednisolone Acetate (Pf) Di scontinued 1 DRP OPHTHALMIC DAILY November 18, 2020 12:00am July 08, 2022 7:42am Start: 11-18-2020 End: 07-08-2022 Prednisolone Acetate (Pf) Di scontinued 1 DRP OPHTHALMIC DAILY November 18, 2020 1:00am July 08, 2022 8:42am Start: 11-18-2020 Prednisolone A cetate (Pf) Active 1 DRP OPHTHALMIC DAILY November 18, 2020 1:00am Prednisolone Acetate (Pf) 1 % drops,suspension (3 sources) Start: 11-18-2020 End: 07-08-2022 Prednisolone Acetate (Pf) 1 % drops,suspension Discontinued 1 NMA OPHTHALMIC DAILY November 18, 2020 1:00am July 08, 2022 8:42am predniSONE 20 mg oral tablet (20 sources) Start: 07-09-2022 End: 08-03-2022 take 2 tablets by mouth once daily Prednisone 20 mg tablet Discontinued 40 mg PO DAILY 10 July 09, 2022 12:00am August 03, 2022 1:12pm Start: 07-09-2022 End: 08-03-2022 take 40 mg by mouth once daily Prednisone Discontinued 40 MG PO DAILY July 09, 2022 12:00am August 03, 2022 1:12pm Start: 03-18-2019 End: 04-02-2019 take 2 tablets by mouth once daily, then take 1 tablet by mouth once daily, then take 0.5 tablet by mouth once daily Prednisone 20 mg tablet Discontinued 20 mg PO DAILY 12 March 18, 2019 12:00am April 02, 2019 11:31am 2 pills daily x 3 days, then 1 pill daily x 4 days, then 1/2 pill daily x 4 days. sertraline 50 mg oral tablet (20 sources) Serotonin Reuptake Inhibitor Start: 05-26-2019 End: 04-02-2022 Sertraline 50 mg tablet Discontinued 75 mg PO DAILY 135 90 0 May 26, 2019 11:16am April 02, 2022 9:50am Start: 03-18-2019 End: 05-26-2019 take 1 tablet by mouth once daily Sertraline 50 mg tablet Discontinued 50 mg PO DAILY 90 90 0 May 25, 2019 6:00pm May 26, 2019 11:16am Start: 03-18-2019 End: 05-25-2019 Sertraline 50 mg tablet Disc ontinued PO 135 90 0 March 18, 2019 12:00am May 25, 2019 6:03pm Start: 03-18-2019 End: 04-02-2022 take 75 mg by mouth once daily Sertraline Discontinued 75 MG PO DAILY 135 90 May 26, 2019 11:16am April 02, 2022 9:50am tobramycin 3 mg/ml ophthalmic solution (15 sources) Aminoglycoside Antibacterial Start: 02-16-2020 End: 12-10-2022 take 0.3 drop(s) into the eye(s) twice daily Tobramycin 0.3 % drops Discontinued 1 NMA OPHTHALMIC TWICE A DAY February 16, 2020 12:00am December 10, 2022 2:01pm traMADol hydrochloride 50 mg oral tablet (20 sources) Opioid Agonist Start: 05-25-2019 End: 11-14-2024 take 1 tablet by mouth twice daily as needed for pain Tramadol 50 mg tablet Discontinued 50 mg PO TWICE A DAY as needed for pain 30 0 June 10, 2022 3:15pm December 10, 2022 5:18pm Pain of left hip Pain in left hip Start: 05-02-2019 End: 05-25-2019 take 1 tablet by mouth once daily Tramadol 50 mg tablet Discontinued 50 mg PO DAILY May 02, 2019 12:00am May 25, 2019 6:03pm travoprost 0.04 mg/ml ophthalmic solution (15 sources) Prostaglandin Analog Start: 11-18-2020 End: 07-08-2022 take 0.004 drop(s) into the eye(s) once daily in the evening Travoprost (Travatan Z) 0.004 % drops Discontinued 1 NMA OPHTHALMIC EVERY EVENING November 18, 2020 1:00am July 08, 2022 8:42am Start: 11-18-2020 End: 07-08-2022 take 0.004 drop(s) into the eye(s) once daily in the evening Travoprost (Travatan Z) 0.004 % drops Discontinued 1 DRP OPHTHALMIC EVERY EVENING November 18, 2020 1:00am July 08, 2022 8:42am triamcinolone acetonide 1 mg/ml topical cream (5 sources) Corticosteroid Start: 01-24-2024 End: 06-09-2024 Triamcinolone Acetonide 0.1 % cream Discontinued 1 NMA TOPICAL TWICE A DAY as needed for rash 453.6 1 January 24, 2024 12:00am June 09, 2024 11:12am valACYclovir 1000 mg oral tablet (15 sources) Herpesvirus Nucleoside Analog DNA Polymerase Inhibitor, Herpes Simplex Virus Nucleoside Analog DNA Polymerase Inhibitor, Herpes Zoster Virus Nucleoside Analog DNA Polymerase Inhibitor Start: 04-16-2020 End: 02-13-2021 Valacyclovir 1 gram tablet Discontinued {tbl} PO April 16, 2020 12:00am February 13, 2021 10:42am Start: 04-16-2020 End: 02-13-2021 Valacyclovir Discontinued TA BLET PO April 16, 2020 12:00am February 13, 2021 10:42am vitamin b12 1 mg/ml injectable solution (8 sources) Vitamin B12 Start: 09-02-2021 End: 09-02-2021 inject 1000 ug by intramuscular injection once cyanocobalamin (vitamin B-12) 1,000 mcg/mL injection solution Discontinued 1000 MCG IM ONCE September 02, 2021 1:46pm September 02, 2021 2:59pm Start: 02-17-2021 End: 02-17-2021 inject 100 ug by intramuscular injection once cyanocobalamin (vitamin B-12) 1,000 mcg/mL injection solution Discontinued 100 MCG IM ONCE February 17, 2021 10:09am February 17, 2021 10:57am Start: 11-18-2020 End: 11-18-2020 inject 100 ug by intramuscular injection once cyanocobalamin (vitamin B-12) 1,000 mcg/mL injection solution Discontinued 100 MCG IM ONCE November 18, 2020 3:32pm November 18, 2020 5:30pm Start: 06-28-2020 End: 06-28-2020 inject 100 ug by intramuscular injection once cyanocobalamin (vitamin B-12) 1,000 mcg/mL injection solution Discontinued 100 MCG IM ONCE June 28, 2020 2:53pm June 28, 2020 3:09pm Start: 12-08-2019 End: 12-08-2019 inject 100 ug by intramuscular injection once cyanocobalamin (vitamin B-12) 1,000 mcg/mL injection solution Discontinued 100 MCG IM ONCE December 08, 2019 10:45am December 08, 2019 10:46am Start: 09-05-2019 End: 09-05-2019 inject 100 ug by intramuscular injection once cyanocobalamin (vitamin B-12) 1,000 mcg/mL injection solution Discontinued 100 MCG IM ONCE September 05, 2019 2:15pm September 05, 2019 3:21pm Start: 06-05-2019 End: 06-05-2019 inject 100 ug by intramuscular injection once cyanocobalamin (vitamin B-12) 1,000 mcg/mL injection solution Discontinued 100 MCG IM ONCE June 05, 2019 1:10pm June 05, 2019 2:30pm Start: 05-02-2019 End: 05-02-2019 inject 100 ug by intramuscular injection once cyanocobalamin (vitamin B-12) 1,000 mcg/mL injection solution Discontinued 100 MCG IM ONCE 1 May 02, 2019 9:21am May 02, 2019 10:43am Problems Active Problems Problem Classification Problem Date Documented Date Episodic/Chronic Abdominal pain (12 sources) Left flank pain; Translations: [Unspecified abdominal pain] 08-03-2022 Episodic Acute bronchitis (13 sources) Acute bronchitis; Translations: [Acute bronchitis, unspecified] 12-07-2022 Episodic Allergic reactions (11 sources) Inflammatory dermatosis; Translations: [Dermatitis, unspecified] Onset: 10-06-2024 01-24-2024 Episodic Aortic; peripheral; and visceral artery aneurysms (15 sources) Thoracic aortic aneurysm without rupture; Translations: [Thoracic aortic aneurysm, without rupture] 05-25-2019 Chronic Asthma (20 sources) Asthma; Translations: [Unspecified asthma, uncomplicated] Onset: 02-21-2025 Chronic Bacterial infection; unspecified site (3 sources) Haemophilus influenzae infection; Translations: [Hemophilus influenzae infection, unspecified site] 02-23-2025 Episodic Cataract (15 sources) Cataract; Translations: [Unspecified cataract] 06-03-2021 Chronic Chronic obstructive pulmonary disease and bronchiectasis (5 sources) Bronchitis; Translations: [Bronchitis, not specified as acute or chronic] 01-19-2024 Episodic Chronic ulcer of skin (20 sources) Superficial skin ulcer of lower limb; Translations: [Non-pressure chronic ulcer of unspecified part of right lower leg limited to breakdown of skin] 02-17-2021 Chronic Complications of surgical procedures or medical care (20 sources) Post-surgical malabsorption; Translations: [Postsurgical malabsorption, not elsewhere classified] Onset: 11-01-2024 11-18-2020 Chronic Comment on above: history of gastric b ypass Essential hypertension (20 sources) Essential hypertension; Translations: [Essential (primary) hypertension] Onset: 10-06-2024 Chronic Heart valve disorders (15 sources) Non-rheumatic mitral regurgitation ; Translations: [Nonrheumatic mitral (valve) insufficiency] 05-25-2019 Chronic Heart valve disorders (20 sources) Heart murmur; Translations: [Cardiac murmur, unspecified] 05-02-2019 Episodic Immunizations and screening for infectious disease (20 sources) Needs influenza immunization; Translations: [Encounter for immunization] 08-04-2022 Episodic Influenza (12 sources) Influenza due to Influenza A virus; Translations: [Influenza due to other identified influenza virus with other respiratory manifestations] 09-25-2022 Episodic Malaise and fatigue (13 sources) Fatigue; Translations: [Chronic fatigue, unspecified] 12-10-2022 Chronic Malaise and fatigue (16 sources) Other fatigue; Translations: [Other malaise and fatigue] Episodic Nonmalignant breast conditions (17 sources) Breast lump; Translations: [Unspecified lump in the right breast, unspecified quadrant] Episodic Nutritional deficiencies (2 sources) Vitamin D deficiency, unspecified; Translations: [Unspecified vitamin D deficiency] Chronic Nutritional deficiencies (20 sources) Cobalamin deficiency; Translations: [Deficiency of other specified B group vitamins] Episodic Open wounds of extremities (14 sources) Tear of skin; Translations: [Laceration without foreign body, left lower leg, initial encounter] Episodic Osteoporosis (12 sources) Osteoporosis; Translations: [Age-related osteoporosis without current pathological fracture] 12-06-2023 Chronic Other circulatory disease (13 sources) Pulmonary congestion ; Translations: [Other specified symptoms and signs involving the circulatory and respiratory systems] 07-08-2022 Episodic Other circulatory disease (1 source) Other specified symptoms and signs involving the circulatory and respiratory systems; Translations: [Other symptoms involving respiratory system and chest] Episodic Other diseases of veins and lymphatics (15 sources) Lymphedema of bilateral lower limbs; Translations: [Lymphedema, not elsewhere classified] 02-17-2023 Chronic Other diseases of veins and lymphatics (14 sources) Lymphedema, not elsewhere classified; Translations: [Other lymphedema] 03-17-2023 Chronic Other diseases of veins and lymphatics (14 sources) Venous insufficiency of leg; Translations: [Venous insufficiency (chronic) (peripheral)] 03-30-2023 Episodic Other lower respiratory disease (20 sources) Cough; Translations: [Cough] Episodic Other lower respiratory disease (15 sources) Chronic cough; Translations: [Chronic cough] 06-04-2023 Episodic Other non-traumatic joint disorders (15 sources) Hip pain; Translations: [Pain in left hip] 06-03-2021 Episodic Other nutritional; endocrine; and metabolic disorders (18 sources) Morbid obesity; Translations: [Obesity, unspecified] 07-04-2019 Chronic Other nutritional; endocrine; and metabolic disorders (20 sources) Obesity, unspecified; Translations: [Obesity, unspecified] 12-10-2022 Chronic Other screening for suspected conditions (not mental disorders or infectious disease) (16 sources) Mammography abnormal; Translations: [Other abnormal and inconclusive findings on diagnostic imaging of breast] Onset: 11-20-2024 01-20-2022 Episodic Other upper respiratory infections (20 sources) Posterior rhinorrhea; Translations: [Postnasal drip] 04-05-2019 Episodic Pneumonia (except that caused by tuberculosis or sexually transmitted disease) (10 sources) Pneumonia; Translations: [Pneumonia, unspecified organism] Onset: 02-26-2025 01-19-2024 Episodic Rehabilitation care; fitting of prostheses; and adjustment of devices (3 sources) Follow-up status; Translations: [Encounter for fitting and adjustment of other specified devices] 11-14-2024 Chronic Residual codes; unclassified (18 sources) Obstructive sleep apnea syndrome; Translations: [Obstructive sleep apnea (adult) (pediatric)] 12-10-2022 Chronic Residual codes; unclassified (15 sources) Obstructive sleep apnea (adult) (pediatric); Translations: [Obstructive sleep apnea (adult)(pediatric)] Chronic Residual codes; unclassified (15 sources) History of vaccination; Translations: [Personal history of other drug therapy] 06-03-2021 Episodic Residual codes; unclassified (12 sources) Bilateral lower limb edema; Translations: [Localized edema] 02-17-2023 Episodic Thyroid disorders (20 sources) Hypothyroidism; Translations: [Hypothyroidism, unspecified] Onset: 10-06-2024 Chronic Unclassified (3 sources) Z88.1 - Allergy status to other antibiotic agents,A49.2 - Hemophilus influenzae infection, unspecified site Unclassified (1 source) Allergy to multiple antibiotics Unclassified (1 source) Infection due to Haemophilus influenzae Viral infection (12 sources) Disease caused by 2019-nCoV; Translations: [COVID-19] 02-17-2023 Episodic Past or Other Problems Problem Classification Problem Date Documented Date Episodic/Chronic Other diseases of veins and lymphatics (13 sources) Venous insufficiency (chronic) (peripheral); Translations: [Venous (peripheral) insufficiency, unspecified] Onset: 10-06-2024 03-30-2023 Episodic Other non-traumatic joint disorders (1 source) Pain in left hip; Translations: [Pain in left hip] Onset: 05-24-2024 Episodic Residual codes; unclassified (20 sources) Localized edema; Translations: [Edema] Onset: 12-04-2024 03-17-2023 Episodic Results Test Name Value Interpretation Reference Range Facility MR/[email or web address] 03-13-2025 MR[facility] [address] [place] [address] OFFICE VISIT Date of Service: 03/13/25 MR#: [id number] Acct: [id number] Name: KAROLYN MOREL Rep #: [id number] : 1955 Provider: MIGUEL Lyles Age/Sex: 69/F Location: [facility] Status: Signed Intake Vital Signs 02/02/24 07:48 02/21/25 08:02 03/13/25 12:59 Height 5 ft 5 ft BP 130/82 H 143/86 H Blood Pressure Location Lt radial Lt radial Position Sitting Sitting Respiration 20 H 16 Pulse 60 89 Pulse Source Monitor Monitor Temp 97.4 F L 98.2 F Temp Source Temporal Pulse Oximetry (%) 97 97 Oxygen Delivery Method room air room air Comment patient refused weight Intake Visit Reasons: 4-6 M FU Is patient in pain?: No Allergies amoxicillin Allergy (Severe, Verified 03/13/25 13:01) rash levofloxacin Allergy (Intermediate, Verified 03/13/25 13:01) Rash Penicillins Allergy (Intermediate, Verified 03/13/25 13:01) Rash Sulfa (Sulfonamide Antibiotics) Allergy (Mild, Verified 03/13/25 13:01) hives and swelling Medications ???Medication ???Instructions ???Recorded ???Confirmed ???Type Bacillus coagulans 10 billion cell cell PO 05/02/19 03/13/25 Histor y capsule,delayed release (Probiotic (B. coagulans)) cholecalciferol (vitamin D3) 125 5,000 unit PO DAILY 05/02/1903/13 History mcg (5,000 unit) capsule ferrous sulfate 325 mg (65 mg 325 mg PO BID 05/02/19 03/13/25 Hi story iron) tablet vit C 250 mg-vit E 90 mg-zinc 40 1 tab PO BID 05/02/19 03/13/25 His tory mg-copper 1 [id number] capsule (PreserVision AREDS-2) multivitamin 1 tab PO DAILY 05/25/19 03/13/25 H istory Handicap Placard #1 ea 12/10/22 03/13/25 Rx mecobalamin (vitamin B12) 1,000 1,000 mcg PO DAILY 03/30/23 History mcg chewable tablet Handicap Placard #1 ea 12/06/23 03/13/25 Rx albuterol sulfate 2.5 mg/3 mL 2.5 mg (3 mL) inhalation Q4H PRN 0 01/19/24 03/13/25 Rx (0.083 %) solution for nebulization shortness of breath or wheezing #90 mL nebulizer accessories #1 ea 01/24/24 03/13/25 Rx albuterol sulfate 90 mcg/actuation 2 puff inhalation Q4H PRN 03/13/25 Rx aerosol inhaler shortness of breath or wheezing #3 ea fluticasone propionate 110 2 puff inhalation BID asthma #3 ea 02/02/24 03/13/25 Rx mcg/actuation HFA aerosol inhaler levothyroxine 100 mcg tablet 100 mcg PO DAILY 90 days #90 tabs 12/28/24 03/13/25 Rx dorzolamide-timolol (PF) 2 %-0.5 % drp ophthalmic (eye) 01/08/25 History eye drops in a dropperette fluorometholone 0.1 % eye drp ophthalmic (eye) 01/08/2502/16 History drops,suspension atenolol 25 mg tablet See Rx Instructions .Route 5 03/13/25 Rx .COMPLEX #90 tabs amlodipine 5 mg tablet 7.5 mg (1.5 x 5 mg) PO DAILY 3 03/1103/13/25 Rx months #135 tabs Is last menstrual period known: No Post menopausal: Yes Patient : No Have you fallen in the past year?: No PFSH Medical History Dermatitis Osteoporosis Ulcer of left calf Lymphedema COVID-19 Chronic fatigue Contact with and (suspected) exposure to other viral communicable diseases Acute bronchitis, unspecified Flu vaccine need Abdominal wall pain in left flank Chest congestion Malaise and fatigue Skin tear of left lower leg without complication Breast mass, right Abnormal mammogram of right breast Health care maintenance Glaucoma COVID-19 vaccine series completed Cataract Left hip pain Ulcer of right lower extremity, limited to breakdown of skin Thoracic aortic aneurysm without rupture Non-rheumatic mitral regurgitation Essential hypertension RLS (restless legs syndrome) History of sleep apnea Neck pain Back pain Hypothyroidism Heart murmur Frequent headaches H/O emotional problems Chronic bronchitis Breast lump Seasonal allergies Difficulty balancing Asthma Kidney stones Surgical History History of appendectomy History of cholecystectomy Hx of gastric bypass Family History Mother Blood clot in vein Thyroid disorder Anxiety A-fib Father Kidney stone A-fib Brother Kidney stone Social History Smoking Status: Never smoker alcohol intake: never substance use type: does not use caffeine: Yes Type: carbonated beverages Number of servings: 2 and coffee Number of servings: 2 what type of physical activity do you participate in: none HPI HPI HPI: KAROLYN MOREL, is a 69 F who presents to the office today for follow-up of BLE edema. At last OV, ordered updated (more content not included)... Normal [facility] Respiratory Cultureon 2024 RESPC Ampicillin can be used for Beta-Lactamase negative isolates. Microorganism Spec Cult Trimeth/Sulfa, Chloramphenicol, Cefotaxime, Ciprofloxacin, Amoxicillin/Clavulan ic Acid, and Oral 2nd/3rd Generation Cephalosporins are effective against both Beta-Lactamase positive and Beta-Lactamase negative isolates. Haemophilus influenzae Amount Growth 3+ Beta Lactamase-Reportable Negative Normal [facility] Comment on above: Performed By: #### M 100.2000, M100.2400 #### [facility] [place], [address] Gram Stainon 02-21-2025 GS Acceptable Specimen? Yes (<25 Epithelial cells per/lpf) Gram Stain 3+ Gram positive cocci 4+ Gram negative cocco bacillus 1+ Gram positive rods 2+ White Blood Cells Rare Epithelial cells Normal [facility] Comment on above: Performed By: #### M 100.2000, M100.2400 #### [facility] [address] [place], [address] Gram stainOrdered By: Alonso Roach on 02-21-2025 Microscopic observation Gram stain Nom (Unsp spec) [facility] Microbial respiratory cultur eOrdered By: Karime Roach on 02-21-2025 Microorganism identified Cx Nom (Unsp spec) Haemophilus influenzae Abnormal [facility] Pulmonary Visit Reporton Pulmonary Visit Report [facility] [address] [place] [address] OFFICE VISIT Date of Service: 02/21/25 MR#: [id number] Acct: [id number] Name: KAROLYN MOREL Rep #: [id number] : 1955 Provider: TOMASA Roach Age/Sex: 69/F [place] [facility] Status: Signed Assessment and Plan Assessment and Plan (1) Asthma: Status: Chronic Qualifiers: Asthma severity: moderate Asthma persistence: persistent Asthma complication type: uncomplicated Qualified Code(s): J45.40 - Moderate persistent asthma, uncomplicated Plan: NIOX procedure performed in the office today. It returned within normal limits, this indicates that the patient does not require additional corticosteroids. Sputum sample obtained in the office today will be evaluated for culture and sensitivity. We will contact the patient with results once available. Given that her underlying asthma is mild and she is only requiring an inhaled corticosteroid, I believe it is appropriate for her to follow-up with her PCP. The patient states that is good, other than checking me out, I do not feel like you guys do much for me. I did suggest an jigi-ldv-orwougd guaifenesin the phlegm is thick. The patient was under the impression that Mucinex would cause her blood pressure to go up, I clarified that that would only be if she was using guaifenesin with dextromethorphan. She conveys understanding. (2) PADILLA (obstructive sleep apnea): Status: Chronic Plan: Noncompliant. (3) Super obese: Status: Chronic Plan: Refused to wait today. Complicates exam, plan, care and prognosis. Encourage weight loss. Orders: Orders NIOX Today J45.40 - Moderate persistent asthma, uncomplicated Culture, Sputum Today J18.9 - Pneumonia, unspecified organism Plan Details Additional Comments: This note was generated with [employer] dictation software. It may contain incorrect words, spelling, and punctuation that were not noted in checking the note before signing. HPI 1 Y FU Chief Complaint: Routine checkup HPI Comments Details: This patient presents to the office today for annual follow-up of her obstructive sleep apnea and asthma. She is ambulatory with the use of a cane and currently on room air. She has not recently been seen in the ED or urgent care for any respiratory illness. She has not required any antibiotics or prednisone for any breathing problems. She is compliant with Flovent twice daily. She does report rinsing her mouth out after each use. She denies any medication side effects such as sore throat or thrush. She is currently using albuterol once day. She does have shortness of breath on exertion. She has a cough that is occasionally productive of pale green-colored sputum. Most recently this occurred 2 days ago. She has some wheezing but denies any chest tightness, chest pain or palpitations. She also denies any fever, chills or body aches. Compliance report not available as the patient has not been compliant with PAP therapy. Intake Vital Signs 02/02/24 07:48 02/21/25 08:02 Height 5 ft 5 ft BP 130/82 H Blood Pressure Location Lt radial Position Sitting Respiration 20 H Pulse 60 Pulse Source Monitor Temp 97.4 F L Temperature Source Temporal Artery Pulse Oximetry (%) 97 Oxygen Delivery Method room air Comment patient refused weight Intake Visit Reasons: 1 Y FU Chief Complaint: 3 M FU [employer]ising [employer] Required: No Accompanied by: Self Allergies amoxicillin Allergy (Severe, Verified 02/21/25 08:19) rash levofloxacin Allergy (Intermediate, Verified 02/21/25 08:19) Rash Penicillins Allergy (Intermediate, Verified 02/21/25 08:19) Rash Sulfa (Sulfonamide Antibiotics) Allergy (Mild, Verified 02/21/25 08:19) hives and swelling Medications ???Medication ???Instructions ???Recorded ???Confirmed ???Type Bacillus coagulans 10 billion cell cell PO 05/02/19 02/21/25 Histor y capsule,delayed release (Probiotic (B. coagulans)) cholecalciferol (vitamin D3) 125 5,000 unit PO DAILY 05/02/1902/21 History mcg (5,000 unit) capsule ferrous sulfate 325 mg (65 mg 325 mg PO BID 05/02/19 02/21/25 Hi story iron) tablet vit C 250 mg-vit E 90 mg-zinc 40 1 tab PO BID 05/02/19 02/21/25 His tory mg-copper 1 [id number]-kdgeji capsule (PreserVision AREDS-2) multivitamin 1 tab PO DAILY 05/25/19 02/21/25 H istory Handicap Placard #1 ea 12/10/22 02/21/25 Rx mecobalamin (vitamin B12) 1,000 1,000 mcg PO DAILY 03/30/23 History mcg chewable tablet Handicap Placard #1 ea 12/06/23 02/21/25 Rx albuterol sulfate 2.5 mg/3 mL 2.5 mg (3 mL) inhalation Q4H PRN 0 01/19/24 02/21/25 Rx (0.083 %) solution for nebulization shortness of breath or wheezing #90 mL nebulizer accessories #1 ea 01/24/24 02/21/25 (more content not included)... Normal [facility] Internal Medicine Office Vis iton 01-08-2025 Internal Medicine Office Visit [facility] [address] [place] [address] [address] [place] [address] OFFICE VISIT Date of Service: 01/08/25 MR#: [id number] Acct: [id number] Name: KAROLYN MOREL Rep #: [id number] : 1955 Provider: Dr. Jennifer iniguez MD Age/Sex: 69/F [place] [facility] Status: Signed Intake Vital Signs 02/02/24 07:48 01/08/25 13:15 Height 5 ft BP 128/86 H Blood Pressure Location Lt brachial Position Sitting Respiration 18 Pulse 73 Pulse Source Monitor Temp 97.2 F L Temp Source Temporal Pulse Oximetry (%) 98 Oxygen Delivery Method room air Intake Visit Reasons: 3 M FU Chief Complaint: 3 M FU Is patient in pain?: No Allergies amoxicillin Allergy (Severe, Verified 01/08/25 13:13) rash levofloxacin Allergy (Intermediate, Verified 01/08/25 13:13) Rash Penicillins Allergy (Intermediate, Verified 01/08/25 13:13) Rash Sulfa (Sulfonamide Antibiotics) Allergy (Mild, Verified 01/08/25 13:13) hives and swelling Medications ???Medication ???Instructions ???Recorded ???Confirmed ???Type Bacillus coagulans 10 billion cell cell PO 05/02/19 01/08/25 Histor y capsule,delayed release (Probiotic (B. coagulans)) cholecalciferol (vitamin D3) 125 5,000 unit PO DAILY 05/02/1901/08 History mcg (5,000 unit) capsule ferrous sulfate 325 mg (65 mg 325 mg PO BID 05/02/19 01/08/25 Hi story iron) tablet vit C 250 mg-vit E 90 mg-zinc 40 1 tab PO BID 05/02/19 01/08/25 His tory mg-copper 1 [id number]-rjewoh capsule (PreserVision AREDS-2) multivitamin 1 tab PO DAILY 05/25/19 01/08/25 H istory Handicap Placard #1 ea 12/10/22 01/08/25 Rx mecobalamin (vitamin B12) 1,000 1,000 mcg PO DAILY 03/30/23 History mcg chewable tablet atenolol 25 mg tablet See Rx Instructions .Route 3 01/08/25 Rx .COMPLEX #90 tabs Handicap Placard #1 ea 12/06/23 01/08/25 Rx albuterol sulfate 2.5 mg/3 mL 2.5 mg (3 mL) inhalation Q4H PRN 0 01/19/24 01/08/25 Rx (0.083 %) solution for nebulization shortness of breath or wheezing #90 mL nebulizer accessories #1 ea 01/24/24 01/08/25 Rx albuterol sulfate 90 mcg/actuation 2 puff inhalation Q4H PRN 01/08/25 Rx aerosol inhaler shortness of breath or wheezing #3 ea fluticasone propionate 110 2 puff inhalation BID asthma #3 ea 02/02/24 01/08/25 Rx mcg/actuation HFA aerosol inhaler amlodipine 5 mg tablet 7.5 mg (1.5 x 5 mg) PO DAILY 3 01/0801/08/25 Rx months #135 tabs levothyroxine 100 mcg tablet 100 mcg PO DAILY 90 days #90 tabs 12/28/24 01/08/25 Rx dorzolamide-timolol (PF) 2 %-0.5 % drp ophthalmic (eye) 01/08/25 History eye drops in a dropperette fluorometholone 0.1 % eye drp ophthalmic (eye) 01/08/2512/17 History drops,suspension Have you fallen in the past year?: No PFSH Medical History Dermatitis Osteoporosis Ulcer of left calf Lymphedema COVID-19 Chronic fatigue Contact with and (suspected) exposure to other viral communicable diseases Acute bronchitis, unspecified Flu vaccine need Abdominal wall pain in left flank Chest congestion Malaise and fatigue Skin tear of left lower leg without complication Breast mass, right Abnormal mammogram of right breast Health care maintenance Glaucoma COVID-19 vaccine series completed Cataract Left hip pain Ulcer of right lower extremity, limited to breakdown of skin Thoracic aortic aneurysm without rupture Non-rheumatic mitral regurgitation Essential hypertension RLS (restless legs syndrome) History of sleep apnea Neck pain Back pain Hypothyroidism Heart murmur Frequent headaches H/O emotional problems Chronic bronchitis Breast lump Seasonal allergies Difficulty balancing Asthma Kidney stones Surgical History History of appendectomy History of cholecystectomy Hx of gastric bypass Family History Mother Blood clot in vein Thyroid disorder Anxiety A-fib Father Kidney stone A-fib Brother Kidney stone Social History Smoking Status: Never smoker alcohol intake: never substance use type: does not use caffeine: Yes Type: carbonated beverages Number of servings: 2 and coffee Number of servings: 2 what type of physical activity do you participate in: none HPI HPI Chief Complaint: 3 M FU Details: KAROLYN MOREL, is a 69 F who presents to the office today for follow-up of her chronic conditions. No acute concerns at this time. History of hypertension, blood pressure today at 128/86 mmHg. She states that she is taking her medication as prescribed. No chest pain, (more content not included)... Normal [facility] MR/BMS.BVSon 11-14-2024 MR/BMS.BVS [facility] [address] [place] [address] OFFICE VISIT Date of Service: 11/14/24 MR#: [id number] Acct: [id number] Name: KAROLYN MOREL Rep #: [id number] : 1955 Provider: MIGUEL Lyles Age/Sex: 69/F Location: [facility] Status: Signed Intake Vital Signs 02/02/24 07:48 11/14/24 13:07 Height 5 ft BP 138/81 H Blood Pressure Location Lt radial Position Sitting Respiration 16 Pulse 62 Pulse Source Monitor Temp 98.2 F Temp Source Temporal Pulse Oximetry (%) 96 Oxygen Delivery Method room air Intake Visit Reasons: VENOUS INSUFFICIENCY Is patient in pain?: Yes Allergies amoxicillin Allergy (Severe, Verified 11/14/24 13:08) rash levofloxacin Allergy (Intermediate, Verified 11/14/24 13:08) Rash Penicillins Allergy (Intermediate, Verified 11/14/24 13:08) Rash Sulfa (Sulfonamide Antibiotics) Allergy (Mild, Verified 11/14/24 13:08) hives and swelling Medications ???Medication ???Instructions ???Recorded ???Confirmed ???Type Bacillus coagulans 10 billion cell cell PO 05/02/19 10/06/24 History capsule,delayed release (Probiotic (B. coagulans)) cholecalciferol (vitamin D3) 125 5,000 unit PO DAILY 05/02/19 10/06/24 History mcg (5,000 unit) capsule ferrous sulfate 325 mg (65 mg 325 mg PO BID 05/02/19 10/06/24 History iron) tablet vit C 250 mg-vit E 90 mg-zinc 40 1 tab PO BID 05/02/19 10/06/24 History mg-copper 1 uw-txggem-hytpsi capsule (PreserVision AREDS-2) multivitamin 1 tab PO DAILY 05/25/19 10/06/24 History dorzolamide-timolol (PF) 2 %-0.5 % drp ophthalmic (eye) 07/08/22 10/06/24 History eye drops in a dropperette fluorometholone 0.1 % eye drp ophthalmic (eye) 07/08/22 10/06/24 History drops,suspension Handicap Placard #1 ea 12/10/22 10/06/24 Rx mecobalamin (vitamin B12) 1,000 1,000 mcg PO DAILY 03/30/23 10/06/24 History mcg chewable tablet atenolol 25 mg tablet See Rx Instructions .Route 09/06/23 10/06/24 Rx .COMPLEX #90 tabs Handicap Placard #1 ea 12/06/23 10/06/24 Rx albuterol sulfate 2.5 mg/3 mL 2.5 mg (3 mL) inhalation Q4H PRN 01/19/24 10/06/24 Rx (0.083 %) solution for nebulization shortness of breath or wheezing #90 mL nebulizer accessories #1 ea 01/24/24 10/06/24 Rx albuterol sulfate 90 mcg/actuation 2 puff inhalation Q4H PRN 02/02/24 10/06/24 Rx aerosol inhaler shortness of breath or wheezing #3 ea fluticasone propionate 110 2 puff inhalation BID asthma #3 ea 02/02/24 10/06/24 Rx mcg/actuation HFA aerosol inhaler amlodipine 5 mg tablet 7.5 mg (1.5 x 5 mg) PO DAILY 3 02/18/24 10/06/24 Rx months #135 tabs levothyroxine 100 mcg tablet 100 mcg PO DAILY 90 days #90 tabs 04/03/24 10/06/24 Rx Is last menstrual period known: No Post menopausal: Yes Patient : No Have you fallen in the past year?: No PFSH Medical History (Updated 11/15/24 @ 08:31 by MIGUEL Lyles) Dermatitis Osteoporosis Ulcer of left calf Lymphedema COVID-19 Chronic fatigue Contact with and (suspected) exposure to other viral communicable diseases Acute bronchitis, unspecified Flu vaccine need Abdominal wall pain in left flank Chest congestion Malaise and fatigue Skin tear of left lower leg without complication Breast mass, right Abnormal mammogram of right breast Health care maintenance Glaucoma COVID-19 vaccine series completed Cataract Left hip pain Ulcer of right lower extremity, limited to breakdown of skin Thoracic aortic aneurysm without rupture Non-rheumatic mitral regurgitation Essential hypertension RLS (restless legs syndrome) History of sleep apnea Neck pain Back pain Hypothyroidism Heart murmur Frequent headaches H/O emotional problems Chronic bronchitis Breast lump Seasonal allergies Difficulty balancing Asthma Kidney stones Surgical History History of appendectomy History of cholecystectomy Hx of gastric bypass Family History Mother Blood clot in vein Thyroid disorder Anxiety A-fib Father Kidney stone A-fib Brother Kidney stone Social History Smoking Status: Never smoker alcohol intake: never substance use type: does not use caffeine: Yes Type: carbonated beverages Number of servings: 2 and coffee Number of servings: 2 what type of physical activity do you participate in: none HPI HPI HPI: KAROLYN MOREL, is a 69 F who presents to the office today for evaluation of RLE edema and pain as referred from her PCP. She reports chronic BLE edema with RLE > LLE and she feels it has been progressively worse over the last 6 months. She describes it as a slow p (more content not included)... Normal [facility] SCRN MAMM (CAD)W/RICH BILATo n 10-31-2024 SCRN MAMM (CAD)W/RICH BILAT [facility] [address] [place] [address] SCRN MAMM (CAD)W/RICH BILAT MR#: [id number] Acct: [id number] Name: KAROLYN MOREL Rep #: [id number] : 1955 F 68 From: Rupesh constantino MD PCP: Dr. Jennifer Vu MD Status: REG CLI Study: SCRN MAMM (CAD)W/RICH BILAT Date of Exam: 10/18 02/09 Exam# [id number] Ordering Dr: Jennifer Vu MD [id number] MAMMOGRAPHY - BILATERAL SCREENING REASON FOR EXAM: Female, 68 years old. Routine annual screening examination. PERTINENT HISTORY: Non-contributory. TECHNIQUE: Digital bilateral breast rich (3D mammographic acquisition) in the CC and MLO projections. 2-D mediolateral oblique (MLO) and craniocaudad (CC) views of both breasts were obtained. CAD: Full Field Digital Mammography with Computer Added Detection was performed. COMPARISON: Comparison is made with prior study dated June 30, 2023 and January 20, 2022. FINDINGS: Breast Composition: There are scattered areas of fibroglandular density. There are no dominant masses or suspicious calcifications. Stable 6.2 mm well-defined partially calcified nodule in the anterior inferior medial aspect of the left breast. Stable 6 mm nodule in the retroareolar region of the right breast. A tissue clip marker is again seen deep to the right retroareolar region. No other significant abnormalities are identified. There has been no significant change since the prior study. BI/SCRN MAMM (CAD)W/RICH BILAT IMPRESSION: Stable bilateral screening mammogram. Yearly follow-up mammogram recommended. (A) ASSESSMENT CATEGORY: BIRADS Category 2: Benign. A letter regarding these results will be sent to the patient by the facility within 30 days. Approximately 10% of breast cancers are not detected by mammography. A normal mammogram should not delay biopsy of a clinically suspicious abnormality. [id number] Electronically Signed: Rupesh Diaz MD at 14:02 EST , CC: Dr. Jennifer Vu MD Personal Companion: Signed Normal [facility] CBC W/Diff, Automatedon 12-2 0-2023 Absolute Lymph 1.52 X10 3/uL Normal 0.83-4.51 [facility] Comment on above: Performed By: #### L 503.6150, L503.6550, L503.0105, L506.1000, L100.0100, L500.4050, L501.9520, L503.6075 #### [facility] [address] [place], [address] Absolute Neut 3.3 X10 3/uL Normal 2.0-7.7 [facility] Comment on above: Performed By: #### L 503.6150, L503.6550, L503.0105, L506.1000, L100.0100, L500.4050, L501.9520, L503.6075 #### [facility] [address] [place], [address] Basophils/100 WBC (Bld) 1.2 % High 0-1 [facility] Comment on above: Performed By: #### L 503.6150, L503.6550, L503.0105, L506.1000, L100.0100, L500.4050, L501.9520, L503.6075 #### [facility] [address] [place], [address] Eosinophils/100 WBC (Bld) 4.2 % Normal 0-5 [facility] Comment on above: Performed By: #### L 503.6150, L503.6550, L503.0105, L506.1000, L100.0100, L500.4050, L501.9520, L503.6075 #### [facility] [address] [place], [address] Erythrocyte distribution width (RBC) [Ratio] 14.7 % High 11.6-14.6 [facility] Comment on above: Performed By: #### L 503.6150, L503.6550, L503.0105, L506.1000, L100.0100, L500.4050, L501.9520, L503.6075 #### [facility] [address] [place], [address] Hematocrit (Bld) [Volume fraction] 44.8 % Normal 37-47 [facility] Comment on above: Performed By: #### L 503.6150, L503.6550, L503.0105, L506.1000, L100.0100, L500.4050, L501.9520, L503.6075 #### [facility] [address] [place], [address] Hemoglobin (Bld) [Mass/Vol] 13.6 g/dL Normal 12.0-15.0 [facility] Comment on above: Performed By: #### L 503.6150, L503.6550, L503.0105, L506.1000, L100.0100, L500.4050, L501.9520, L503.6075 #### [facility] [address] [place], [address] IG% 0.300 Normal 0.0-0.9 [facility] Comment on above: Result Comment: IG% - Immature Granulocytes (promyelocytes, myelocytes and metamyelocytes) > 1% indicates that a LEFT SHIFT is Present. Performed By: #### L 503.6150, L503.6550, L503.0105, L506.1000, L100.0100, L500.4050, L501.9520, L503.6075 #### [facility] [address] [place], [address] Lymphocytes/100 WBC (Bld) 26.5 % Normal 19-41 [facility] Comment on above: Performed By: #### L 503.6150, L503.6550, L503.0105, L506.1000, L100.0100, L500.4050, L501.9520, L503.6075 #### [facility] [address] [place], [address] MCH (RBC) [Entitic mass] 27.9 pg Normal 27.0-32.0 [facility] Comment on above: Performed By: #### L 503.6150, L503.6550, L503.0105, L506.1000, L100.0100, L500.4050, L501.9520, L503.6075 #### [facility] [address] [place], [address] MCHC (RBC) [Mass/Vol] 30.4 g/dL Low 32-36 [facility] Comment on above: Performed By: #### L 503.6150, L503.6550, L503.0105, L506.1000, L100.0100, L500.4050, L501.9520, L503.6075 #### [facility] [address] [place], [address] MCV (RBC) [Entitic vol] 91.8 fL Normal 81-99 [facility] Comment on above: Performed By: #### L 503.6150, L503.6550, L503.0105, L506.1000, L100.0100, L500.4050, L501.9520, L503.6075 #### [facility] [address] [place], [address] Monocytes/100 WBC (Bld) 9.8 % Normal 0-10 [facility] Comment on above: Performed By: #### L 503.6150, L503.6550, L503.0105, L506.1000, L100.0100, L500.4050, L501.9520, L503.6075 #### [facility] [address] [place], [address] Neutrophils/100 WBC (Bld) 58.0 % Normal 47-70 [facility] Comment on above: Performed By: #### L 503.6150, L503.6550, L503.0105, L506.1000, L100.0100, L500.4050, L501.9520, L503.6075 #### [facility] [address] [place], [address] Nucleated RBC (Bld) [#/Vol] 0 10*3/uL Normal 0-5 [facility] Comment on above: Performed By: #### L 503.6150, L503.6550, L503.0105, L506.1000, L100.0100, L500.4050, L501.9520, L503.6075 #### [facility] [address] [place], [address] Platelet mean volume (Bld) [Entitic vol] 11.7 fL Normal 6.2-12.0 [facility] Comment on above: Performed By: #### L 503.6150, L503.6550, L503.0105, L506.1000, L100.0100, L500.4050, L501.9520, L503.6075 #### [facility] [address] [place], [address] Platelets (Bld) [#/Vol] 256 10*3/uL Normal 150-450 [facility] Comment on above: Performed By: #### L 503.6150, L503.6550, L503.0105, L506.1000, L100.0100, L500.4050, L501.9520, L503.6075 #### [facility] [address] [place], [address] RBC (Bld) [#/Vol] 4.88 10*6/uL Normal 4.2-5.4 [facility] Comment on above: Performed By: #### L 503.6150, L503.6550, L503.0105, L506.1000, L100.0100, L500.4050, L501.9520, L503.6075 #### [facility] [address] [place], [address] RDW SD 49.1 fl High 35.1-43.9 [facility] Comment on above: Performed By: #### L 503.6150, L503.6550, L503.0105, L506.1000, L100.0100, L500.4050, L501.9520, L503.6075 #### [facility] [address] [facility] [place], [address] WBC (Bld) [#/Vol] 5.7 10*3/uL Normal 4.4-11.0 [facility] Comment on above: Performed By: #### L 503.6150, L503.6550, L503.0105, L506.1000, L100.0100, L500.4050, L501.9520, L503.6075 #### [facility] [address] [place], [address] Comprehensive Metabolic Prof [facility] 10-06-2024 Albumin [Mass/Vol] 3.8 g/dL Normal 3.2-5.0 [facility] Comment on above: Performed By: #### L 503.6150, L503.6550, L503.0105, L506.1000, L100.0100, L500.4050, L501.9520, L503.6075 #### [facility] [address] [place], [address] Albumin/Globulin [Mass ratio] 0.9 {ratio} Normal 0.9-2.4 [facility] Comment on above: Performed By: #### L 503.6150, L503.6550, L503.0105, L506.1000, L100.0100, L500.4050, L501.9520, L503.6075 #### [facility] [address] [place], [address] ALK P 134 U/L High 45-117 [facility] Comment on above: Performed By: #### L 503.6150, L503.6550, L503.0105, L506.1000, L100.0100, L500.4050, L501.9520, L503.6075 #### [facility] [address] [place], [address] ALT [Catalytic activity/Vol] 23 U/L Normal 13-56 [facility] Comment on above: Performed By: #### L 503.6150, L503.6550, L503.0105, L506.1000, L100.0100, L500.4050, L501.9520, L503.6075 #### [facility] [address] [place], [address] AST [Catalytic activity/Vol] 15 U/L Normal 15-37 [facility] Comment on above: Performed By: #### L 503.6150, L503.6550, L503.0105, L506.1000, L100.0100, L500.4050, L501.9520, L503.6075 #### [facility] [address] [place], [address] Bilirubin [Mass/Vol] 0.50 mg/dL Normal 0.20-1.00 [facility] Comment on above: Result Comment: For patients on eltrombopag therapy, use of Dimension [place] TBIL is not recommended. Performed By: #### L 503.6150, L503.6550, L503.0105, L506.1000, L100.0100, L500.4050, L501.9520, L503.6075 #### [facility] [address] [place], [address] BUN/CRE 20.9 RATIO High 10-20 [facility] Comment on above: Performed By: #### L 503.6150, L503.6550, L503.0105, L506.1000, L100.0100, L500.4050, L501.9520, L503.6075 #### [facility] [address] [place], [address] CA,Total 9.4 mg/dL Normal 8.5-10.1 [facility] Comment on above: Performed By: #### L 503.6150, L503.6550, L503.0105, L506.1000, L100.0100, L500.4050, L501.9520, L503.6075 #### [facility] [address] [place], [address] Chloride [Moles/Vol] 106 mmol/L Normal 98-107 [facility] Comment on above: Performed By: #### L 503.6150, L503.6550, L503.0105, L506.1000, L100.0100, L500.4050, L501.9520, L503.6075 #### [facility] [address] [place], [address] CO2 [Moles/Vol] 27.0 mmol/L Normal 21.0-32.0 [facility] Comment on above: Performed By: #### L 503.6150, L503.6550, L503.0105, L506.1000, L100.0100, L500.4050, L501.9520, L503.6075 #### [facility] [address] [place], [address] Creatinine [Mass/Vol] 0.62 mg/dL Normal 0.55-1.02 [facility] Comment on above: Result Comment: The validity of the calculated GFR GFRAA in patients over 70 years has not been determined. Clinical correlation is essential. Performed By: #### L 503.6150, L503.6550, L503.0105, L506.1000, L100.0100, L500.4050, L501.9520, L503.6075 #### [facility] [address] [place], [address] EST GFR - AA 122 mL/min Normal >60 [facility] Comment on above: Result Comment: Afri can Egyptian GFR Calc Performed By: #### L 503.6150, L503.6550, L503.0105, L506.1000, L100.0100, L500.4050, L501.9520, L503.6075 #### [facility] [address] [place], [address] GAP 5 Normal 5-15 [facility] Comment on above: Performed By: #### L 503.6150, L503.6550, L503.0105, L506.1000, L100.0100, L500.4050, L501.9520, L503.6075 #### [facility] [address] [place], [place], [id number] (511) GFR/1.73 sq M.predicted among non-blacks MDRD (S/P/Bld) [Vol rate/Area] 101 mL/min/{1.73_m2} Normal >60 [facility] Comment on above: Result Comment: Non- GFR Calc Performed By: #### L 503.6150, L503.6550, L503.0105, L506.1000, L100.0100, L500.4050, L501.9520, L503.6075 #### [facility] [address] [place], [address] Globulin (S) [Mass/Vol] 4.1 g/dL Normal 2.2-4.2 [facility] Comment on above: Performed By: #### L 503.6150, L503.6550, L503.0105, L506.1000, L100.0100, L500.4050, L501.9520, L503.6075 #### [facility] [address] [place], [address] Glucose [Mass/Vol] 98 mg/dL Normal 74-106 [facility] Comment on above: Performed By: #### L 503.6150, L503.6550, L503.0105, L506.1000, L100.0100, L500.4050, L501.9520, L503.6075 #### [facility] [address] [place], [address] Potassium [Moles/Vol] 4.3 mmol/L Normal 3.5-5.1 [facility] Comment on above: Performed By: #### L 503.6150, L503.6550, L503.0105, L506.1000, L100.0100, L500.4050, L501.9520, L503.6075 #### [facility] [address] [place], [address] Sodium [Moles/Vol] 138 mmol/L Normal 136-145 [facility] Comment on above: Performed By: #### L 503.6150, L503.6550, L503.0105, L506.1000, L100.0100, L500.4050, L501.9520, L503.6075 #### [facility] [address] [place], [address] T PROT 7.9 g/dL Normal 6.4-8.2 [facility] Comment on above: Performed By: #### L 503.6150, L503.6550, L503.0105, L506.1000, L100.0100, L500.4050, L501.9520, L503.6075 #### [facility] [address] [place], [address] Urea nitrogen [Mass/Vol] 13 mg/dL Normal 7-18 [facility] Comment on above: Performed By: #### L 503.6150, L503.6550, L503.0105, L506.1000, L100.0100, L500.4050, L501.9520, L503.6075 #### [facility] [address] [place], [place], [address] Ferritinon 10-06-2024 Ferritin [Mass/Vol] 29 ng/mL Normal 8-252 [facility] Comment on above: Performed By: #### L 503.6150, L503.6550, L503.0105, L506.1000, L100.0100, L500.4050, L501.9520, L503.6075 ####[facility] [address] [place], [place], [address] Internal Medicine Office Vis iton 10-06-2024 Internal Medicine Office Visit [facility] [address] [place] [address] [place] [address] OFFICE VISIT Date of Service: 10/06/24 MR#: [id number] Acct: [id number] Name: KAROLYN MOREL Rep #: [id number] : 1955 Provider: Dr. 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 coagulans)) cholecalciferol (vitamin D3) 125 5,000 unit PO DAILY 05/02/19 10/06/24 History mcg (5,000 unit) capsule ferrous sulfate 325 mg (65 mg 325 mg PO BID 05/02/19 10/06/24 History iron) tablet vit C 250 mg-vit E 90 mg-zinc 40 1 tab PO BID 05/02/19 10/06/24 History mg-copper 1 [id number]-stsjed capsule (PreserVision AREDS-2) multivitamin 1 tab PO DAILY 05/25/19 10/06/24 History dorzolamide-timolol (PF) 2 %-0.5 % drp ophthalmic (eye) 07/08/22 10/06/24 History eye drops in a dropperette fluorometholone 0.1 % eye drp ophthalmic (eye) 07/08/22 10/06/24 History drops,suspension Handicap Placard #1 ea 12/10/22 10/06/24 Rx mecobalamin (vitamin B12) 1,000 1,000 mcg PO DAILY 03/30/23 10/06/24 History mcg chewable tablet atenolol 25 mg tablet See Rx Instructions .Route 09/06/23 10/06/24 Rx .COMPLEX #90 tabs Handicap Placard #1 ea 12/06/23 10/06/24 Rx tramadol 50 mg tablet 50 mg PO BID PRN pain #30 tabs 12/06/23 10/06/24 Rx albuterol sulfate 2.5 mg/3 mL 2.5 mg (3 mL) inhalation Q4H PRN 01/19/24 10/06/24 Rx (0.083 %) solution for nebulization shortness of breath or wheezing #90 mL nebulizer accessories #1 ea 01/24/24 10/06/24 Rx albuterol sulfate 90 mcg/actuation 2 puff inhalation Q4H PRN 02/02/24 10/06/24 Rx aerosol inhaler shortness of breath or wheezing #3 ea fluticasone propionate 110 2 puff inhalation BID asthma #3 ea 02/02/24 10/06/24 Rx mcg/actuation HFA aerosol inhaler amlodipine 5 mg tablet 7.5 mg (1.5 x 5 mg) PO DAILY 3 02/18/24 10/06/24 Rx months #135 tabs levothyroxine 100 mcg tablet 100 mcg PO DAILY 90 days #90 tabs 04/03/24 10/06/24 Rx Have you fallen in the past year?: No PFSH Medical History Dermatitis Osteoporosis Ulcer of left calf Lymphedema COVID-19 Chronic fatigue Contact with and (suspected) exposure to other viral communicable diseases Acute bronchitis, unspecified Flu vaccine need Abdominal wall pain in left flank Chest congestion Malaise and fatigue Skin tear of left lower leg without complication Breast mass, right Abnormal mammogram of right breast Health care maintenance Glaucoma COVID-19 vaccine series completed Cataract Left hip pain Ulcer of right lower extremity, limited to breakdown of skin Thoracic aortic aneurysm without rupture Non-rheumatic mitral regurgitation Essential hypertension RLS (restless legs syndrome) History of sleep apnea Neck pain Back pain Hypothyroidism Heart murmur Frequent headaches H/O emotional problems Chronic bronchitis Breast lump Seasonal allergies Difficulty balancing Asthma Kidney stones Surgical History History of appendectomy History of cholecystectomy Hx of gastric bypass Family History Mother Blood clot in vein Thyroid disorder Anxiety A-fib Father Kidney stone A-fib Brother Kidney stone Social History Smoking Status: Never smoker alcohol intake: never substance use type: does not use caffeine: Yes Type: carbonated beverages Number of servings: 2 and coffee Number of servings: 2 what type of physical activity do you participate in: none HPI HPI Chief Complaint: 4M FU Details: KAROLYN MOREL, is a 68 F who presents to the office today for follow-up of her chronic conditions. Also has some concerns. She reports fatigue. This has been progressively worse (more content not included)... Normal [facility] Ironon 10-06-2024 Iron [Mass/Vol] 99 ug/dL Normal 50-170 [facility] Comment on above: Performed By: #### L 503.6150, L503.6550, L503.0105, L506.1000, L100.0100, L500.4050, L501.9520, L503.6075 ####[facility] [address] [place], [address] Iron Binding Capacity,Totalo n 10-06-2024 TIBC 473 ug/dL High 250-450 [facility] Comment on above: Performed By: #### L 503.6150, L503.6550, L503.0105, L506.1000, L100.0100, L500.4050, L501.9520, L503.6075 ####[facility] [address] [place], [address] Thyroid Stim Hormone (TSH)on 10-06-2024 TSH 3.390 uIU/mL Normal 0.358-3.740 [facility] Comment on above: Performed By: #### L 503.6150, L503.6550, L503.0105, L506.1000, L100.0100, L500.4050, L501.9520, L503.6075 ####[facility] [address] [place], [address] Vitamin B12on 10-06-2024 Cobalamin (Vitamin B12) [Mass/Vol] 1190 pg/mL High 211-911 [facility] Comment on above: Performed By: #### L 503.6150, L503.6550, L503.0105, L506.1000, L100.0100, L500.4050, L501.9520, L503.6075 ####[facility] [address] [place], [address] Vitamin D,25 Hydroxyon 10-06 Vitamin D 25-OH 67.8 ng/mL Normal [facility] Comment on above: Result Comment: Chel min D 25(OH) Status Range Deficiency <20 ng/mL (50nmol/L) Insufficiency 20 - 30 ng/mL (50 - 75 nmol/L) Sufficiency 30 - 100 ng/mL (75 - 250 nmol/L) Toxicity >100 ng/mL (>250 nmol/L) Performed By: #### L 503.6150, L503.6550, L503.0105, L506.1000, L100.0100, L500.4050, L501.9520, L503.6075 ####[facility] [address] [place], [address] Basic Metabolic Profile (BMP )on 06-09-2024 BUN/CRE 20.3 RATIO High 10-20 [facility] Comment on above: Performed By: #### L 100.0100, L500.2500, L501.9520 #### [facility] [address] [place], [address] CA,Total 9.4 mg/dL Normal 8.5-10.1 [facility] Comment on above: Performed By: #### L 100.0100, L500.2500, L501.9520 #### [facility] [address] [place], [address] Chloride [Moles/Vol] 106 mmol/L Normal 98-107 [facility] Comment on above: Performed By: #### L 100.0100, L500.2500, L501.9520 #### [facility] [address] [place], [address] CO2 [Moles/Vol] 25.0 mmol/L Normal 21.0-32.0 [facility] Comment on above: Performed By: #### L 100.0100, L500.2500, L501.9520 #### [facility] [address] [place], [address] Creatinine [Mass/Vol] 0.64 mg/dL Normal 0.55-1.02 [facility] Comment on above: Result Comment: The validity of the calculated GFR GFRAA in patients over 70 years has not been determined. Clinical correlation is essential. Performed By: #### L 100.0100, L500.2500, L501.9520 #### [facility] [address] [place], [address] EST GFR - AA 118 mL/min Normal >60 [facility] Comment on above: Result Comment: Afri can Egyptian GFR Calc Performed By: #### L 100.0100, L500.2500, L501.9520 #### [facility] [address] [place], [address] GAP 8 Normal 5-15 [facility] Comment on above: Performed By: #### L 100.0100, L500.2500, L501.9520 #### [facility] [address] [place], [address] GFR/1.73 sq M.predicted among non-blacks MDRD (S/P/Bld) [Vol rate/Area] 98 mL/min/{1.73_m2} Normal >60 [facility] Comment on above: Result Comment: Non- GFR Calc Performed By: #### L 100.0100, L500.2500, L501.9520 #### [facility] [address] [place], [address] Glucose [Mass/Vol] 94 mg/dL Normal 74-106 [facility] Comment on above: Performed By: #### L 100.0100, L500.2500, L501.9520 #### [facility] [address] [place], [address] Potassium [Moles/Vol] 4.1 mmol/L Normal 3.5-5.1 [facility] Comment on above: Performed By: #### L 100.0100, L500.2500, L501.9520 #### [facility] [address] [place], [address] Sodium [Moles/Vol] 139 mmol/L Normal 136-145 [facility] Comment on above: Performed By: #### L 100.0100, L500.2500, L501.9520 #### [facility] [address] [place], [address] Urea nitrogen [Mass/Vol] 13 mg/dL Normal 7-18 [facility] Comment on above: Performed By: #### L 100.0100, L500.2500, L501.9520 #### [facility] [address] [place], [address] CBC W/Diff, Automatedon 05-19-2023 Absolute Lymph 2.06 X10 3/uL Normal 0.83-4.51 [facility] Comment on above: Performed By: #### L 100.0100, L500.2500, L501.9520 #### [facility] [address] [place], [address] Absolute Neut 3.6 X10 3/uL Normal 2.0-7.7 [facility] Comment on above: Performed By: #### L 100.0100, L500.2500, L501.9520 #### [facility] [address] [place], [address] Basophils/100 WBC (Bld) 0.9 % Normal 0-1 [facility] Comment on above: Performed By: #### L 100.0100, L500.2500, L501.9520 #### [facility] [address] [place], [address] Eosinophils/100 WBC (Bld) 4.3 % Normal 0-5 [facility] Comment on above: Performed By: #### L 100.0100, L500.2500, L501.9520 #### [facility] [address] [place], [address] Erythrocyte distribution width (RBC) [Ratio] 14.3 % Normal 11.6-14.6 [facility] Comment on above: Performed By: #### L 100.0100, L500.2500, L501.9520 #### [facility] [address] [place], [address] Hematocrit (Bld) [Volume fraction] 43.8 % Normal 37-47 [facility] Comment on above: Performed By: #### L 100.0100, L500.2500, L501.9520 #### [facility] [address] [place], [address] Hemoglobin (Bld) [Mass/Vol] 13.3 g/dL Normal 12.0-15.0 [facility] Comment on above: Performed By: #### L 100.0100, L500.2500, L501.9520 #### [facility] [address] [place], [address] IG% 0.200 Normal 0.0-0.9 [facility] Comment on above: Result Comment: IG% - Immature Granulocytes (promyelocytes, myelocytes and metamyelocytes) > 1% indicates that a LEFT SHIFT is Present. Performed By: #### L 100.0100, L500.2500, L501.9520 #### [facility] [address] [place], [address] Lymphocytes/100 WBC (Bld) 31.5 % Normal 19-41 [facility] Comment on above: Performed By: #### L 100.0100, L500.2500, L501.9520 #### [facility] [address] [place], [address] MCH (RBC) [Entitic mass] 27.9 pg Normal 27.0-32.0 [facility] Comment on above: Performed By: #### L 100.0100, L500.2500, L501.9520 #### [facility] [address] [place], [address] MCHC (RBC) [Mass/Vol] 30.4 g/dL Low 32-36 [facility] Comment on above: Performed By: #### L 100.0100, L500.2500, L501.9520 #### [facility] [address] [place], [address] MCV (RBC) [Entitic vol] 91.8 fL Normal 81-99 [facility] Comment on above: Performed By: #### L 100.0100, L500.2500, L501.9520 #### [facility] [address] [place], [address] Monocytes/100 WBC (Bld) 8.3 % Normal 0-10 [facility] Comment on above: Performed By: #### L 100.0100, L500.2500, L501.9520 #### [facility] [address] [place], [address] Neutrophils/100 WBC (Bld) 54.8 % Normal 47-70 [facility] Comment on above: Performed By: #### L 100.0100, L500.2500, L501.9520 #### [facility] [address] [place], [address] Nucleated RBC (Bld) [#/Vol] 0 10*3/uL Normal 0-5 [facility] Comment on above: Performed By: #### L 100.0100, L500.2500, L501.9520 #### [facility] [address] [place], [address] Platelet mean volume (Bld) [Entitic vol] 12.0 fL Normal 6.2-12.0 [facility] Comment on above: Performed By: #### L 100.0100, L500.2500, L501.9520 #### [facility] [address] [place], [address] Platelets (Bld) [#/Vol] 244 10*3/uL Normal 150-450 [facility] Comment on above: Performed By: #### L 100.0100, L500.2500, L501.9520 #### [facility] [address] [place], [address] RBC (Bld) [#/Vol] 4.77 10*6/uL Normal 4.2-5.4 [facility] [place] [facility] Comment on above: Performed By: #### L 100.0100, L500.2500, L501.9520 #### [facility] [address] [place], [address] RDW SD 48.9 fl High 35.1-43.9 [facility] Comment on above: Performed By: #### L 100.0100, L500.2500, L501.9520 #### [facility] [address] [place], [address] WBC (Bld) [#/Vol] 6.5 10*3/uL Normal 4.4-11.0 [facility] Comment on above: Performed By: #### L 100.0100, L500.2500, L501.9520 #### [facility] [address] [place], [address] Internal Medicine Office Vis ruba 06-09-2024 Internal Medicine Office Visit [facility] [place] [address] [place] [address] OFFICE VISIT Date of Service: 06/09/24 MR#: [id number] Acct: [id number] Name: KAROLYN MOREL Rep #: [id number] : 1955 Provider: Dr. Jennifer iniguez MD Age/Sex: 68/F [place] [facility] Status: Signed Intake Vital Signs 02/02/24 07:48 06/09/24 11:10 Height 5 ft BP 122/80 H Blood Pressure Location Lt brachial Position Sitting Respiration 17 Pulse 69 Pulse Source Monitor Temp 98.0 F Temp Source Temporal Pulse Oximetry (%) 96 Oxygen Delivery Method room air Comment pt declined weight and height today Intake Visit Reasons: 3 M FU Chief Complaint: 3 M FU Is patient in pain?: No Allergies amoxicillin Allergy (Severe, Verified 06/09/24 11:11) rash levofloxacin Allergy (Intermediate, Verified 06/09/24 11:11) Rash Penicillins Allergy (Intermediate, Verified 06/09/24 11:11) Rash Sulfa (Sulfonamide Antibiotics) Allergy (Mild, Verified 06/09/24 11:11) hives and swelling Medications ???Medication ???Instructions ???Recorded ???Confirmed ???Type Bacillus coagulans 10 billion cell cell PO 05/02/19 06/09/24 History capsule,delayed release (Probiotic (B. coagulans)) cholecalciferol (vitamin D3) 125 5,000 unit PO DAILY 05/02/19 06/09/24 History mcg (5,000 unit) capsule ferrous sulfate 325 mg (65 mg 325 mg PO BID 05/02/19 06/09/24 History iron) tablet vit C 250 mg-vit E 90 mg-zinc 40 1 tab PO BID 05/02/19 06/09/24 History mg-copper 1 ks-ywegas-emgvuw capsule (PreserVision AREDS-2) multivitamin 1 tab PO DAILY 05/25/19 06/09/24 History dorzolamide-timolol (PF) 2 %-0.5 % drp ophthalmic (eye) 07/08/22 06/09/24 History eye drops in a dropperette fluorometholone 0.1 % eye drp ophthalmic (eye) 07/08/22 06/09/24 History drops,suspension Handicap Placard #1 ea 12/10/22 06/09/24 Rx mecobalamin (vitamin B12) 1,000 1,000 mcg PO DAILY 03/30/23 06/09/24 History mcg chewable tablet atenolol 25 mg tablet See Rx Instructions .Route 09/06/23 06/09/24 Rx .COMPLEX #90 tabs Handicap Placard #1 ea 12/06/23 06/09/24 Rx tramadol 50 mg tablet 50 mg PO BID PRN pain #30 tabs 12/06/23 06/09/24 Rx albuterol sulfate 2.5 mg/3 mL 2.5 mg (3 mL) inhalation Q4H PRN 01/19/24 06/09/24 Rx (0.083 %) solution for nebulization shortness of breath or wheezing #90 mL nebulizer accessories #1 ea 01/24/24 06/09/24 Rx albuterol sulfate 90 mcg/actuation 2 puff inhalation Q4H PRN 02/02/24 06/09/24 Rx aerosol inhaler shortness of breath or wheezing #3 ea fluticasone propionate 110 2 puff inhalation BID asthma #3 ea 02/02/24 06/09/24 Rx mcg/actuation HFA aerosol inhaler amlodipine 5 mg tablet 7.5 mg (1.5 x 5 mg) PO DAILY 3 02/18/24 06/09/24 Rx months #135 tabs levothyroxine 100 mcg tablet 100 mcg PO DAILY 90 days #90 tabs 04/03/24 06/09/24 Rx Have you fallen in the past year?: No PFSH Medical History Dermatitis Osteoporosis Ulcer of left calf Lymphedema COVID-19 Chronic fatigue Contact with and (suspected) exposure to other viral communicable diseases Acute bronchitis, unspecified Flu vaccine need Abdominal wall pain in left flank Chest congestion Malaise and fatigue Skin tear of left lower leg without complication Breast mass, right Abnormal mammogram of right breast Health care maintenance Glaucoma COVID-19 vaccine series completed Cataract Left hip pain Ulcer of right lower extremity, limited to breakdown of skin Thoracic aortic aneurysm without rupture Non-rheumatic mitral regurgitation Essential hypertension RLS (restless legs syndrome) History of sleep apnea Neck pain Back pain Hypothyroidism Heart murmur Frequent headaches H/O emotional problems Chronic bronchitis Breast lump Seasonal allergies Difficulty balancing Asthma Kidney stones Surgical History History of appendectomy History of cholecystectomy Hx of gastric bypass Family History Mother Blood clot in vein Thyroid disorder Anxiety A-fib Father Kidney stone A-fib Brother Kidney stone Social History Smoking Status: Never smoker alcohol intake: never substance use type: does not use caffeine: Yes Type: carbonated beverages Number of servings: 2 and coffee Number of servings: 2 what type of physical activity do you participate in: none HPI HPI Chief Complaint: 3 M FU Details: KAROLYN MOREL, is a 68 F who presents to the office today for follow-up of her chronic medical conditions. No acute concerns at this time. Chronic history of osteoarthritis/hip pain. She sta (more content not included)... Normal [facility] Thyroid Stim Hormone (TSH)on 06-09-2024 TSH 3.250 uIU/mL Normal 0.358-3.740 [facility] Comment on above: Performed By: #### L 100.0100, L500.2500, L501.9520 #### [facility] [address] [place], [address] PT D/C Summary (1)on 024 PT D/C Summary (1) [facility] [address] [place] [address]. [address] [place] [address] / REHABILITATION SERVICES DISCHARGE SUMMARY MR#: [id number] Acct: [id number] Name: KAROLYN MOREL Rep #: [id number] : 1955 68 From: Leatha Dawson PT, Cert. MDT Referring Dr.: Dr. Jennifer Vu MD Status: REG RCR Insurance: MEDICARE PART A B WPS FOR LIFE Discharge Summary D/C summary: It has been my pleasure to treat KAROLYN MOREL referred by Dr. Jennifer Vu MD, with the diagnosis of L HIP PAIN for a total of 16 visit(s). Discharge Date: 05/23/24 Please see the following information for a summary of their discharge status. Subjective Subjective: I HAD DAYS BEFORE THAT I DIDN'T WANT TO GET UP AND DO ANYTHING BECAUSE I WAS HURTING SO BAD AND NOW I'M NOT. SHE REPORTS HER HIP ISN'T CATCHING ANYMORE. WALKING WITH THE CANE AND SOMETIMES NOTHING NOW FOR BALANCE. USES THE WALKER WHEN SHE NEEDS IT TO CARRY SOMETHING AND SOMETIMES TO HELP TRANSITION FROM CARPET TO TILE IF HER LEGS ARE REALLY TIRED FROM WALKING A LOT OR HAS A FRIAS. STATES SHE IS FEELING A LOT STRONGER. REPORTS THE EX'S HAVE HELPED A LOT AND SHE FEELS READY TO CONTNUE EXERCISING ON HER OWN NOW. PATIENT STATES SHE FEELS SAFE NOW. SHE STATES SHE DIDN'T TRUST HERSELF WHEN SHE FIRST CAME. Pain L hip: Pain Intensity (Out of 10): 0 Overall Improvement % Improvement: 100 Objective Objective/Function: ALL PT GOALS HAVE BEEN MET AND PATIENT IS APPROPRIATE FOR AND AGREABLE TO DISCHARGE. SHE AMBULATES INDEP'LY INTO PT TODAY X APPROX 300 FEET WITH STRAIGHT CANE WITHOUT LOB OR STOPPING TO REST AND EVEN ABLE TO CARRY CONVERSATION. UPON EXAM: TUG - 14.[address] CANE INDEP'LY. STS 30 SEC TEST: 16 - without UE assist. Goals Goal 1:: PATIENT WILL REPORT AT LEAST 50% LESS PAIN AND AT LEAST 50% LESS EPISODES OF CATCHING IN THE L HIP Goal Progress: Goal Met Goal 2:: PATIENT WILL COMPLETE 8 STANDS IN 30 SECS TO DEMONSTRATE IMPROVED FUNCTIONAL LE STRENGTH Goal Progress: Goal Met Goal 3:: PATIENT WILL COMPLETE TUG IN < 15 SECS WITH CANE TO DEMONSTRATE IMPROVED GAIT STABILITY Goal Progress: Goal Met Goal 4:: PATIENT WILL BE ABLE TO STAND AND WALK FOR AT LEAST 10 MINUTES WITH CANE AND WITHOUT AGGREVATION OF SYMPTOMS IN ORDER TO PERFORM ADL'S AND IADL'S. Goal Progress: Goal Met Goal 5:: PATIENT WILL BE INDEP WITH A HEP FOR CONTINUED IMPROVEMENT ONCE FORMAL PHYSICAL THERAPY CONCLUDES. Goal Progress: Goal Met Plan Plan: D/C D/C Information d/c sentence: If there are questions or concerns regarding this patient's physical therapy, please feel free to call me at [phone]. Thank you for the referral of this patient. Sincerely, Leatha Dawson, PT, Cert MDT Balance/Gait/Functio nal tests Balance/Special Test Scores Lower Extremity Functional Score: 42 Improvement % Improvement: 100 05/23/24 1424 CC: Dr. Jennifer Vu MD KADEN Signed Normal [facility] Re-Evaluation - PT (1)on Re-Evaluation - PT (1) [facility] [address] [place] [address] [address] [place] [address] / REEVALUATION / MEDICARE RECERTIFICATION PHYSICAL THERAPY MR#: [id number] Acct: [id number] Name: KAROLYN MOREL Rep #: [id number] : 1955 68 From: Leatha Dawson PT, Cert. MDT Referring Dr.: Dr. Jennifer Vu MD Status:REG RC R Insurance: MEDICARE PART A B WPS FOR LIFE Re-Evaluation Intro: Dr. Jennifer Vu MD, It has been my pleasure to treat KAROLYN MOREL over the last 8 visits for L HIP PAIN. Please see the progress note below for an update on the physical therapy plan of care! Subjective Subjective: I CAN TAKE SOME STEPS WITHOUT MY WALKER NOW AND THAT'S WHAT I WANTED. PATIENT REPORTS SHE IS FEELING STRONGER AND HER HIP ISN'T CATCHING LIKE IT WAS AND SHE ISN'T AFRAID OF FALLING LIKE SHE WAS. SHE REPORTS SHE HAS BEEN DEALING WITH RESPIRATORY ILLNESS THEREFORE HAD TO MISS SOME MALCOM'TS. Objective Objective/Function: THIS PATIENT AMBULATES INDEP'LY INTO PT X APPROX 300 FEET WITH FWW WITHOUT LOB OR STOPPING SHE DID AT INITIAL EVAL. SHE DID HOWEVER HAVE ONE EPISODE OF L HIP CATCHING DURING TUG TESTING TODAY. TUG - 18.06 sec with FWW. STS 30 SEC TEST: 12 - without UE assist. SHE IS MAKING GOOD PROGRESS WITH PT AND IS A GOOD CANDIDATE TO CONTINUE PT AND WOULD LIKE TO DO SO. Plan Plan Plan: CONTINUE PT 2X'S A WK X 10 VISITS FOR: MODALITIES NEEDED FOR PAIN. L LE STRENGTHENING AND GENTLE ROM. CORE STRENGTHENING DAILY HEP INSTRUCTION WITH PICTURES. GAIT TRAINING FOR SAFETY. Balance/Gait/Functio nal tests Balance/Special Test Scores Lower Extremity Functional Score: 32 Goals Goals Goal 1:: PATIENT WILL REPORT AT LEAST 50% LESS PAIN AND AT LEAST 50% LESS EPISODES OF CATCHING IN THE L HIP Goal Time Frame: 4-6 Weeks Goal Progress: Goal Met Goal 2:: PATIENT WILL COMPLETE 8 STANDS IN 30 SECS TO DEMONSTRATE IMPROVED FUNCTIONAL LE STRENGTH Goal Time Frame: 4-6 Weeks Goal Progress: Goal Met Goal 3:: PATIENT WILL COMPLETE TUG IN < 15 SECS WITH CANE TO DEMONSTRATE IMPROVED GAIT STABILITY Goal Time Frame: 4-6 Weeks Goal Progress: Progressing Goal 4:: PATIENT WILL BE ABLE TO STAND AND WALK FOR AT LEAST 10 MINUTES WITH CANE AND WITHOUT AGGREVATION OF SYMPTOMS IN ORDER TO PERFORM ADL'S AND IADL'S. Goal Time Frame: 4-6 Weeks Goal Progress: Progressing Goal 5:: PATIENT WILL BE INDEP WITH A HEP FOR CONTINUED IMPROVEMENT ONCE FORMAL PHYSICAL THERAPY CONCLUDES. Goal Time Frame: 4-6 Weeks Goal Progress: Progressing Anticipated Interventions Anticipated Interventions Patient/Client Instruction: Educate patient on: Condition, Plan of Care and Risk Factors For the Purpose of:: To improve self management Therapeutic Exercise to Include: Strength training, Body mechanics, Postural training, Flexibilty training, Gait and locomotor training, Neuromotor development and Dynamic Lumbar Stabilization For the Purpose of:: To decrease pain, To improve muscle performance and motor function, To increase tolerance to activity/condition/p osition, To improve ability of physical actions for home/community/work/ leisure, To improve gait and locomotor functions and To increase flexibility/ROM Cryotherapy (ice pack, ice massage): Yes Thermo therapy (hot pack): Yes Ultrasound (thermal/non thermal): Yes For the Purpose of:: To decrease pain, To decrease swelling/inflammatio n and To improve nutrient delivery to tissue Re-Evaluation Ending Re-evaluation ending: Please do not hesitate to contact me at [phone] by phone or if you have questions or concerns regarding this new plan of care! Sincerely, Leatha Dawson, PT, Cert MDT 04/14/24 1561 CC: Dr. Jennifer Vu MD KADEN Signed For Medicare only, by signing this I certify the plan of care. Physicians Signature Date Normal [facility] Absolute lymphocyte countOrd ered By: Jennifer Vu on 01-24-2024 Lymphocytes Auto (Unsp spec) [#/Vol] 2.45 10*3/uL 0.83-4.51 [facility] Automated lymphocyte count a s percentage of total leukocytesOrdered By: Jennifer Vu on 01-24-2024 Lymphocytes/100 WBC Auto (Unsp spec) 29.6 % 19-41 [facility] Basophil percentageOrdered B y: Jennifer Vu on 01-24-2024 Basophils/100 WBC (Bld) 0.8 % 0-1 [facility] Bilirubin [Mass/Vol] 0.30 mg/dL 0.20-1.00 [facility] Comment on above: For patients on eltr ombopag therapy, use of Dimension [place] TBIL is not recommended. Chloride [Moles/Vol] 109 mmol/L 98-107 [facility] Eosinophils/100 WBC (Bld) 4.1 % 0-5 [facility] Glucose [Mass/Vol] 97 mg/dL 74-106 [facility] Hemoglobin (Bld) [Mass/Vol] 12.8 g/dL 12.0-15.0 [facility] Monocytes/100 WBC (Bld) 6.4 % 0-10 [facility] Neutrophils (Bld) [#/Vol] 4.8 10*3/uL 2.0-7.7 [facility] Neutrophils/100 WBC (Bld) 57.8 % 47-70 [facility] Potassium [Moles/Vol] 4.0 mmol/L 3.5-5.1 [facility] Protein [Mass/Vol] 7.4 g/dL 6.4-8.2 [facility] Sodium [Moles/Vol] 140 mmol/L 136-145 [facility] WBC (Bld) [#/Vol] 8.3 10*3/uL 4.4-11.0 [facility] Determination of erythrocyte mean corpuscular volume (MCV)Ordered By: Jennifer Vu on 01-24-2024 MCV (RBC) [Entitic vol] 91.3 fL 81-99 [facility] Erythrocyte distribution wid th ratioOrdered By: Jennifer Benitominaelly on 01-24-2024 Erythrocyte distribution width (RBC) [Ratio] 14.4 % 11.6-14.6 [facility] Erythrocyte distribution wid th standard deviationOrdered By: orlycatawbaloyda Vu on 01-24-2024 Erythrocyte distribution width (RBC) [Entitic vol] 47.8 fL 35.1-43.9 [facility] Hematocrit Auto (Bld) [Volum e fraction]Ordered By: Jennifer Vu on 01-24-2024 Hematocrit (Bld) [Volume fraction] 42.2 % 37-47 [facility] Immature granulocytes/100 WB C Auto (Bld)Ordered By: Jennifer Vu on 01-24-2024 Immature granulocytes/100 WBC (Bld) 1.300 % 0.0-0.9 [facility] Comment on above: IG% - Immature Granu locytes (promyelocytes, myelocytes and metamyelocytes) > 1% indicates that a LEFT SHIFT is Present. Laboratory - Chemistry and C hemistry - challengeOrdered By: Jennifer Vu on 01-24-2024 Albumin/Globulin [Mass ratio] 0.7 {ratio} 0.9-2.4 [facility] ALP [Catalytic activity/Vol] 99 U/L 45-117 [facility] ALT [Catalytic activity/Vol] 22 U/L 13-56 [facility] CO2 [Moles/Vol] 26.0 mmol/L 21.0-32.0 [facility] Globulin (S) [Mass/Vol] 4.3 g/dL 2.2-4.2 [facility] Urea nitrogen/Creatinine [Mass ratio] 20.3 mg/mg 10-20 [facility] - Hematology and Cell countsOrdered By: Jennifer Vu on 01-24-2024 MCH (RBC) [Entitic mass] 27.7 pg 27.0-32.0 [facility] MCHC (RBC) [Mass/Vol] 30.3 g/dL 32-36 [facility] Comment on above: Delta: 32.0 on 01/18-1327 Nucleated RBC/100 WBC (Bld) [Ratio] 0 % 0-5 [facility] Platelet mean volume (Bld) [Entitic vol] 10.8 fL 6.2-12.0 [facility] Platelets (Bld) [#/Vol] 448 10*3/uL 150-450 [facility] No Panel InformationOrdered By: Jennifer Vu on 01-24-2024 Estimated GFR (MDRD) Amer 129 mL/min >60 [facility] Comment on above: GFR Calc Estimated GFR (MDRD) Non-Af Amer 107 mL/min >60 [facility] Comment on above: Non- GFR Calc RBC Auto (Bld) [#/Vol]Ordere d By: Jennifer Vu on 01-24-2024 RBC (Bld) [#/Vol] 4.62 10*6/uL 4.2-5.4 [facility] Serum or plasma calcium sindy urement (mass/volume)Ordered By: Jennifer Vu on 01-24-2024 Calcium [Mass/Vol] 9.1 mg/dL 8.5-10.1 [facility] Serum or plasma creatinine m easurement (mass/volume)Ordered By: Jennifer Vu on 01-24-2024 Creatinine [Mass/Vol] 0.59 mg/dL 0.55-1.02 [facility] Comment on above: The validity of the calculated GFR & GFRAA in patients over 70 years has not been determined. Clinical correlation is essential. Serum or plasma urea nitroge n measurement (mass/volume)Ordered By: Jennifer Vu on 01-24-2024 Urea nitrogen [Mass/Vol] 12 mg/dL 7-18 [facility] Thin prep Papanicolaou smear with manual screeningOrdered By: Jennifer Vu on 01-24-2024 Thin prep Papanicolaou smear with manual screening 3.1 g/dL 3.2-5.0 [facility] Thin prep Papanicolaou smear with manual screening 18 U/L 15-37 [facility] Thin prep Papanicolaou smear with manual screening 5 5-15 [facility] Absolute lymphocyte countOrd ered By: Gabriel Tran on 01-19-2024 Lymphocytes Auto (Unsp spec) [#/Vol] 2.04 10*3/uL 0.83-4.51 [facility] Automated lymphocyte count a s percentage of total leukocytesOrdered By: Gabriel Tran on 01-19-2024 Lymphocytes/100 WBC Auto (Unsp spec) 23.8 % 19-41 [facility] Basophil percentageOrdered B y: Gabriel Tran on 01-19-2024 Basophils/100 WBC (Bld) 0.5 % 0-1 [facility] Eosinophils/100 WBC (Bld) 3.9 % 0-5 [facility] Hemoglobin (Bld) [Mass/Vol] 13.3 g/dL 12.0-15.0 [facility] Monocytes/100 WBC (Bld) 8.3 % 0-10 [facility] Neutrophils (Bld) [#/Vol] 5.4 10*3/uL 2.0-7.7 [facility] Neutrophils/100 WBC (Bld) 62.4 % 47-70 [facility] WBC (Bld) [#/Vol] 8.6 10*3/uL 4.4-11.0 [facility] Determination of erythrocyte mean corpuscular volume (MCV)Ordered By: Gabriel Tran on 01-19-2024 MCV (RBC) [Entitic vol] 89.5 fL 81-99 [facility] Erythrocyte distribution wid th ratioOrdered By: Gabriel Tran on 01-19-2024 Erythrocyte distribution width (RBC) [Ratio] 14.2 % 11.6-14.6 [facility] Erythrocyte distribution wid th standard deviationOrdered By: Gabriel Tran on 01-19-2024 Erythrocyte distribution width (RBC) [Entitic vol] 46.6 fL 35.1-43.9 [facility] Hematocrit Auto (Bld) [Volum e fraction]Ordered By: Gabriel Tran on 01-19-2024 Hematocrit (Bld) [Volume fraction] 41.6 % 37-47 [facility] Immature granulocytes/100 WB C Auto (Bld)Ordered By: Gabriel Tran on 01-19-2024 Immature granulocytes/100 WBC (Bld) 1.100 % 0.0-0.9 [facility] Comment on above: IG% - Immature Granu locytes (promyelocytes, myelocytes and metamyelocytes) > 1% indicates that a LEFT SHIFT is Present. Laboratory - Chemistry and C hemistry - challengeOrdered By: Gabriel Tran on 01-19-2024 Natriuretic peptide B (Bld) [Mass/Vol] 40.2 pg/mL 0-100 [facility] - Hematology and Cell countsOrdered By: Gabriel Tran on 01-19-2024 MCH (RBC) [Entitic mass] 28.6 pg 27.0-32.0 [facility] MCHC (RBC) [Mass/Vol] 32.0 g/dL 32-36 [facility] Nucleated RBC/100 WBC (Bld) [Ratio] 0 % 0-5 [facility] Platelet mean volume (Bld) [Entitic vol] 11.1 fL 6.2-12.0 [facility] Platelets (Bld) [#/Vol] 335 10*3/uL 150-450 [facility] RBC Auto (Bld) [#/Vol]Ordere d By: Gabriel Tran on 01-19-2024 RBC (Bld) [#/Vol] 4.65 10*6/uL 4.2-5.4 [facility] Basophil percentageOrdered B y: Jennifer Vu on 12-06-2023 Bilirubin [Mass/Vol] 0.30 mg/dL 0.20-1.00 [facility] Comment on above: For patients on eltr ombopag therapy, use of Dimension [place] TBIL is not recommended. Chloride [Moles/Vol] 110 mmol/L 98-107 [facility] Cholesterol [Mass/Vol] 235 mg/dL <200 [facility] Comment on above: <200 mg/dL Desirable 200-240 mg/dL Borderline >240 mg/dL High Risk Glucose [Mass/Vol] 99 mg/dL 74-106 [facility] Potassium [Moles/Vol] 4.2 mmol/L 3.5-5.1 [facility] Protein [Mass/Vol] 7.5 g/dL 6.4-8.2 [facility] Sodium [Moles/Vol] 141 mmol/L 136-145 [facility] Triglyceride [Mass/Vol] 93 mg/dL <199 [facility] Comment on above: The drugs N-Acetylcy steine and Metamizole may falsely depress this assay.Serum Triglycerides Reference Interval Normal <150 mg/dL Borderline high 150 - 199 mg/dL High 200 - 499 mg/dL Very High > or = 500 mg/dL Laboratory - Chemistry and C hemistry - challengeOrdered By: Jennifer Vu on 12-06-2023 Albumin/Globulin [Mass ratio] 0.9 {ratio} 0.9-2.4 [facility] ALP [Catalytic activity/Vol] 131 U/L 45-117 [facility] ALT [Catalytic activity/Vol] 21 U/L 13-56 [facility] Cholesterol in HDL [Mass/Vol] 71 mg/dL >40 [facility] Comment on above: The drugs N-Acetylcy steine and Metamizole may falsely depress this assay. Reference Range HDL <40 mg/dL Low HDL Cholesterol HDL >or= 60 mg/dL High HDL Cholesterol Cholesterol in LDL [Mass/Vol] 145 mg/dL 0-130 [facility] CO2 [Moles/Vol] 27.0 mmol/L 21.0-32.0 [facility] Cobalamin (Vitamin B12) [Mass/Vol] 452 pg/mL 211-911 [facility] Globulin (S) [Mass/Vol] 3.9 g/dL 2.2-4.2 [facility] Urea nitrogen/Creatinine [Mass ratio] 26.7 mg/mg 10-20 [facility] No Panel InformationOrdered By: Jennifer Vu on 12-06-2023 Estimated GFR (MDRD) Amer 128 mL/min >60 [facility] Comment on above: GFR Calc Estimated GFR (MDRD) Non-Af Amer 106 mL/min >60 [facility] Comment on above: Non- GFR Calc Vitamin D 25-Hydroxy 42.9 ng/mL [facility] Comment on above: Vitamin D 25(OH) Sta tus Range Deficiency <20 ng/mL (50nmol/L) Insufficiency 20 - 30 ng/mL (50 - 75 nmol/L) Sufficiency 30 - 100 ng/mL (75 - 250 nmol/L) Toxicity >100 ng/mL (>250 nmol/L) VLDL Cholesterol 19 mg/dL 5-40 [facility] Serum or plasma calcium sindy urement (mass/volume)Ordered By: Jennifer Vu on 12-06-2023 Calcium [Mass/Vol] 9.0 mg/dL 8.5-10.1 [facility] Serum or plasma creatinine m easurement (mass/volume)Ordered By: Jennifer Vu on 02-19-2024 Creatinine [Mass/Vol] 0.60 mg/dL 0.55-1.02 [facility] Comment on above: The validity of the calculated GFR & GFRAA in patients over 70 years has not been determined. Clinical correlation is essential. Serum or plasma thyroid stim ulating hormone (TSH) measurement (units/volume)Ordered By: orlycatawbaloyda Vu on 12-06-2023 TSH Qn 2.71 uIU/mL 0.358-3.74 [facility] Serum or plasma urea nitroge n measurement (mass/volume)Ordered By: orlycatawbaloyda Vu on 12-06-2023 Urea nitrogen [Mass/Vol] 16 mg/dL 7-18 [facility] Thin prep Papanicolaou smear with manual screeningOrdered By: [facility] Benito[facility] on 12-06-2023 Thin prep Papanicolaou smear with manual screening 3.6 g/dL 3.2-5.0 [facility] Thin prep Papanicolaou smear with manual screening 16 U/L 15-37 [facility] Thin prep Papanicolaou smear with manual screening 4 5-15 [facility] Absolute lymphocyte countOrd ered By: orlycatawbaloyda Vu on 06-10-2023 Lymphocytes Auto (Unsp spec) [#/Vol] 2.18 10*3/uL 0.83-4.51 [facility] Basophil percentageOrdered B y: Moeloyda Vu on 06-10-2023 Basophils/100 WBC (Bld) 0.8 % 0-1 [facility] Bilirubin [Mass/Vol] 0.50 mg/dL 0.20-1.00 [facility] Comment on above: For patients on eltr ombopag therapy, use of Dimension [place] TBIL is not recommended. Chloride [Moles/Vol] 113 mmol/L 98-107 [facility] Eosinophils/100 WBC (Bld) 2.8 % 0-5 [facility] Glucose [Mass/Vol] 100 mg/dL 74-106 [facility] Comment on above: Fasting Glucose resu lt from 100 to 125 mg/dL suggests IMPAIRED HOMEOSTASIS per A.D.A. criteria. Neutrophils (Bld) [#/Vol] 4.4 10*3/uL 2.0-7.7 [facility] Neutrophils/100 WBC (Bld) 59.6 % 47-70 [facility] Potassium [Moles/Vol] 4.3 mmol/L 3.5-5.1 [facility] Protein [Mass/Vol] 7.3 g/dL 6.4-8.2 [facility] Sodium [Moles/Vol] 142 mmol/L 136-145 [facility] WBC (Bld) [#/Vol] 7.4 10*3/uL 4.4-11.0 [facility] Blood erythrocytes count (nu mber/volume)Ordered By: Jennifer Vu on 06-10-2023 RBC (Bld) [#/Vol] 4.73 10*6/uL 4.2-5.4 [facility] Blood hemoglobin measurement (mass/volume)Ordered By: Jennifer Vu on 06-10-2023 Hemoglobin (Bld) [Mass/Vol] 13.4 g/dL 12.0-15.0 [facility] Blood lymphocytes/100 leukoc ytesOrdered By: Jennifer Vu on 06-10-2023 Lymphocytes/100 WBC (Bld) 29.4 % 19-41 [facility] Blood monocytes/100 leukocyt esOrdered By: Jennifer Vu on 06-10-2023 Monocytes/100 WBC (Bld) 7.0 % 0-10 [facility] Blood platelet adequacy dete ction by light microscopyOrdered By: Jennifer Vu on 06-10-2023 Platelets LM Ql (Bld) ADEQUATE ADEQ [facility] Blood platelet mean volumeOr dered By: Jennifer Vu on 06-10-2023 Platelet mean volume (Bld) [Entitic vol] 12.0 fL 6.2-12.0 [facility] Blood platelet morphology de termination (nominal result)Ordered By: Jennifer Vu on 06-10-2023 Platelet morphology finding Nom (Bld) LARGE [facility] Determination of erythrocyte mean corpuscular volume (MCV)Ordered By: Jennifer Vu on 06-10-2023 MCV (RBC) [Entitic vol] 92.4 fL 81-99 [facility] Hematocrit Auto (Bld) [Volum e fraction]Ordered By: Jennifer Vu on 06-10-2023 Hematocrit (Bld) [Volume fraction] 43.7 % 37-47 [facility] - Chemistry and C hemistry - challengeOrdered By: Jennifer Vu on 06-10-2023 ALP [Catalytic activity/Vol] 126 U/L 45-117 [facility] ALT [Catalytic activity/Vol] 22 U/L 13-56 [facility] CO2 [Moles/Vol] 21.0 mmol/L 21.0-32.0 [facility] Globulin (S) [Mass/Vol] 4.0 g/dL 2.2-4.2 [facility] Urea nitrogen/Creatinine [Mass ratio] 19.2 mg/mg 10-20 [facility] - Hematology and Cell countsOrdered By: Jennifer Vu on 06-10-2023 Anisocytosis Ql (Bld) RARE [facility] Erythrocyte distribution width (RBC) [Entitic vol] 50.1 fL 35.1-43.9 [facility] Erythrocyte distribution width (RBC) [Ratio] 14.6 % 11.6-14.6 [facility] Immature granulocytes/100 WBC (Bld) 0.400 % 0.0-0.9 [facility] Comment on above: IG% - Immature Granu locytes (promyelocytes, myelocytes and metamyelocytes) > 1% indicates that a LEFT SHIFT is Present. MCH (RBC) [Entitic mass] 28.3 pg 27.0-32.0 [facility] Nucleated RBC/100 WBC (Bld) [Ratio] 0 % 0-5 [facility] MCHC Auto (RBC) [Mass/Vol]Or dered By: Jennifer Vu on 06-10-2023 MCHC (RBC) [Mass/Vol] 30.7 g/dL 32-36 [facility] Macrocytes detectionOrdered By: Jennifer Vu on 06-10-2023 Macrocytes Ql (Bld) RARE [facility] No Panel InformationOrdered By: Jennifer Vu on 06-10-2023 Estimated GFR (MDRD) Amer 135 mL/min >60 [facility] Comment on above: GFR Calc Estimated GFR (MDRD) Non-Af Amer 112 mL/min >60 [facility] Comment on above: Non- GFR Calc Thyroid Stimulating Hormone (TSH) 1.96 uIU/mL 0.358-3.74 [facility] Vitamin B12 Level > 2000 pg/mL 211-911 [facility] Platelets bldOrdered By: Lawrenceelly reza Mirella on 06-10-2023 Platelets (Bld) [#/Vol] 173 10*3/uL 150-450 [facility] RBC morphologyOrdered By: Diana orlybhupendra Vu on 06-10-2023 RBC morphology finding Nom (Bld) N CHROM NORMAL NORM C&C [facility] Serum or plasma albumin sindy urement (mass/volume)Ordered By: Jennifer Vu on 06-10-2023 Albumin [Mass/Vol] 3.3 g/dL 3.2-5.0 [facility] [facility] Serum or plasma albumin/glob ulin mass ratioOrdered By: Jennifer Vu on 06-10-2023 Albumin/Globulin [Mass ratio] 0.8 {ratio} 0.9-2.4 [facility] Serum or plasma calcium sindy urement (mass/volume)Ordered By: Jennifer Vu on 06-10-2023 Calcium [Mass/Vol] 8.7 mg/dL 8.5-10.1 [facility] Serum or plasma creatinine m easurement (mass/volume)Ordered By: Jennifer Vu on 06-10-2023 Creatinine [Mass/Vol] 0.57 mg/dL 0.55-1.02 [facility] Comment on above: The validity of the calculated GFR & GFRAA in patients over 70 years has not been determined. Clinical correlation is essential. Serum or plasma urea nitroge n measurement (mass/volume)Ordered By: Jennifer Vu on 06-10-2023 Urea nitrogen [Mass/Vol] 11 mg/dL 7-18 [facility] Thin prep Papanicolaou smear with manual screeningOrdered By: Jennifer Vu on 06-10-2023 Thin prep Papanicolaou smear with manual screening 17 U/L 15-37 [facility] Thin prep Papanicolaou smear with manual screening 8 5-15 [facility] Anaerobic cultureOrdered By: Jenae Welsh on 02-22-2023 Bacteria identified Anaer cx Nom (Unsp spec) No growth in 5 days. [facility] Bacteria identified Cx Nom ( Wound)Ordered By: Jenae Blaise on 02-20-2023 Wound Culture Staphylococcus epidermidis [facility] Gram stain for investigation of transfusion reactionOrdered By: Jenaeluz Haleyell on 02-18-2023 Microscopic observation Gram stain Nom (Unsp spec) [facility] Anaerobic cultureOrdered By: Jenae Blaise on 02-17-2023 Bacteria identified Anaer cx Nom (Unsp spec) No growth in 5 days. [facility] Bacteria identified Cx Nom ( Wound)Ordered By: Jenae Blaise on 02-17-2023 Wound Culture Staphylococcus epidermidis [facility] Gram stain for investigation of transfusion reactionOrdered By: Jenaeluz Haleyell on 02-17-2023 Microscopic observation Gram stain Nom (Unsp spec) [facility] Absolute lymphocyte countOrd ered By: Dr. Vu on 12-10-2022 Lymphocytes Auto (Unsp spec) [#/Vol] 1.95 10*3/uL 0.83-4.51 [facility] Basophil percentageOrdered B y: Dr. Vu on 12-10-2022 Basophils/100 WBC (Bld) 0.5 % 0-1 [facility] Bilirubin [Mass/Vol] 0.50 mg/dL 0.20-1.00 [facility] Comment on above: For patients on eltr ombopag therapy, use of Dimension [place] TBIL is not recommended. Chloride [Moles/Vol] 109 mmol/L 98-107 [facility] Eosinophils/100 WBC (Bld) 2.4 % 0-5 [facility] Glucose [Mass/Vol] 106 mg/dL 74-106 [facility] Comment on above: Fasting Glucose resu lt from 100 to 125 mg/dL suggests IMPAIRED HOMEOSTASIS per A.D.A. criteria. Neutrophils (Bld) [#/Vol] 5.0 10*3/uL 2.0-7.7 [facility] Neutrophils/100 WBC (Bld) 64.5 % 47-70 [facility] Potassium [Moles/Vol] 3.9 mmol/L 3.5-5.1 [facility] Protein [Mass/Vol] 7.4 g/dL 6.4-8.2 [facility] Sodium [Moles/Vol] 141 mmol/L 136-145 [facility] WBC (Bld) [#/Vol] 7.8 10*3/uL 4.4-11.0 [facility] Blood erythrocytes count (nu mber/volume)Ordered By: Dr. Vu on 12-10-2022 RBC (Bld) [#/Vol] 4.79 10*6/uL 4.2-5.4 [facility] Blood hemoglobin measurement (mass/volume)Ordered By: Dr. Vu on 12-10-2022 Hemoglobin (Bld) [Mass/Vol] 13.2 g/dL 12.0-15.0 [facility] Blood lymphocytes/100 leukoc ytesOrdered By: Dr. Vu on 12-10-2022 Lymphocytes/100 WBC (Bld) 25.0 % 19-41 [facility] Blood monocytes/100 leukocyt esOrdered By: Dr. Vu on 12-10-2022 Monocytes/100 WBC (Bld) 7.3 % 0-10 [facility] Blood platelet mean volumeOr dered By: Dr. Vu on 12-10-2022 Platelet mean volume (Bld) [Entitic vol] 11.3 fL 6.2-12.0 [facility] Determination of erythrocyte mean corpuscular volume (MCV)Ordered By: Dr. Vu on 12-10-2022 MCV (RBC) [Entitic vol] 90.6 fL 81-99 [facility] Hematocrit Auto (Bld) [Volum e fraction]Ordered By: Dr. Vu on 12-10-2022 Hematocrit (Bld) [Volume fraction] 43.4 % 37-47 [facility] Laboratory - Chemistry and C hemistry - challengeOrdered By: Dr. Vu on 12-10-2022 ALP [Catalytic activity/Vol] 134 U/L 45-117 [facility] ALT [Catalytic activity/Vol] 21 U/L 13-56 [facility] CO2 [Moles/Vol] 26.0 mmol/L 21.0-32.0 [facility] Globulin (S) [Mass/Vol] 3.8 g/dL 2.2-4.2 [facility] Urea nitrogen/Creatinine [Mass ratio] 12.9 mg/mg 10-20 [facility] Laboratory - Hematology and Cell countsOrdered By: Dr. Vu on 12-10-2022 Erythrocyte distribution width (RBC) [Entitic vol] 52.0 fL 35.1-43.9 [facility] Erythrocyte distribution width (RBC) [Ratio] 15.7 % 11.6-14.6 [facility] Immature granulocytes/100 WBC (Bld) 0.300 % 0.0-0.9 [facility] Comment on above: IG% - Immature Granu locytes (promyelocytes, myelocytes and metamyelocytes) > 1% indicates that a LEFT SHIFT is Present. MCH (RBC) [Entitic mass] 27.6 pg 27.0-32.0 [facility] Nucleated RBC/100 WBC (Bld) [Ratio] 0 % 0-5 [facility] MCHC Auto (RBC) [Mass/Vol]Or dered By: Dr. Vu on 12-10-2022 MCHC (RBC) [Mass/Vol] 30.4 g/dL 32-36 [facility] No Panel InformationOrdered By: Dr. Vu on 12-10-2022 Estimated GFR (MDRD) Amer 123 mL/min >60 [facility] Comment on above: GFR Calc Estimated GFR (MDRD) Non-Af Amer 102 mL/min >60 [facility] Comment on above: Non- GFR Calc Thyroid Stimulating Hormone (TSH) 2.10 uIU/mL 0.358-3.74 [facility] Platelets bldOrdered By: Dr. Vu on 12-10-2022 Platelets (Bld) [#/Vol] 275 10*3/uL 150-450 [facility] Serum or plasma albumin sindy urement (mass/volume)Ordered By: Dr. Vu on 12-10-2022 Albumin [Mass/Vol] 3.6 g/dL 3.2-5.0 [facility] Serum or plasma albumin/glob ulin mass ratioOrdered By: Dr. Vu on 12-10-2022 Albumin/Globulin [Mass ratio] 0.9 {ratio} 0.9-2.4 [facility] Serum or plasma calcium sindy urement (mass/volume)Ordered By: Dr. Vu on 12-10-2022 Calcium [Mass/Vol] 9.1 mg/dL 8.5-10.1 [facility] Serum or plasma creatinine m easurement (mass/volume)Ordered By: Dr. Vu on 12-10-2022 Creatinine [Mass/Vol] 0.62 mg/dL 0.55-1.02 [facility] Comment on above: The validity of the calculated GFR & GFRAA in patients over 70 years has not been determined. Clinical correlation is essential. Serum or plasma urea nitroge n measurement (mass/volume)Ordered By: Dr. Vu on 12-10-2022 Urea nitrogen [Mass/Vol] 8 mg/dL 7-18 [facility] Thin prep Papanicolaou smear with manual screeningOrdered By: Dr. Vu on 12-10-2022 Thin prep Papanicolaou smear with manual screening 10 U/L 15-37 [facility] Thin prep Papanicolaou smear with manual screening 6 5-15 [facility] Whole blood hemoglobin A1c/t otal hemoglobin ratio (mass fraction)Ordered By: Dr. Vu on 12-10-2022 HbA1c (Bld) [Mass fraction] 5.4 % 3.8-5.6 [facility] Comment on above: Normal < 5.7 % Predi abetic 5.7 - 6.4 % Diabetic >or= 6.5 % Please note range changes. No Panel Informationon 12-07 POC SARS CoV-2 Antigen Negative [facility] Absolute lymphocyte counton 07-08-2022 Lymphocytes Auto (Unsp spec) [#/Vol] 2.82 10*3/uL 0.83-4.51 [facility] Work Phone: Basophil percentageon 2021 Basophils/100 WBC (Bld) 0.9 % 0-1 [facility] Work Phone: Chloride [Moles/Vol] 107 mmol/L 98-107 [facility] Work Phone: Eosinophils/100 WBC (Bld) 4.2 % 0-5 [facility] Work Phone: Glucose [Mass/Vol] 83 mg/dL 74-106 [facility] Work Phone: [phone] Neutrophils (Bld) [#/Vol] 3.9 10*3/uL 2.0-7.7 [facility] Work Phone: [phone] Neutrophils/100 WBC (Bld) 49.7 % 47-70 [facility] Work Phone: [phone] Potassium [Moles/Vol] 4.3 mmol/L 3.5-5.1 [facility] Work Phone: [phone] Sodium [Moles/Vol] 140 mmol/L 136-145 [facility] Work Phone: [phone] WBC (Bld) [#/Vol] 7.9 10*3/uL 4.4-11.0 [facility] Work Phone: Blood erythrocytes count (nu mber/volume)on 07-08-2022 RBC (Bld) [#/Vol] 4.22 10*6/uL 4.2-5.4 [facility] Work Phone: Blood hemoglobin measurement (mass/volume)on 07-08-2022 Hemoglobin (Bld) [Mass/Vol] 12.2 g/dL 12.0-15.0 [facility] Work Phone: Blood lymphocytes/100 leukoc yteson 07-08-2022 Lymphocytes/100 WBC (Bld) 35.7 % 19-41 [facility] Work Phone: Blood monocytes/100 leukocyt eson 07-08-2022 Monocytes/100 WBC (Bld) 9.1 % 0-10 [facility] Work Phone: Blood platelet mean volumeon 07-08-2022 Platelet mean volume (Bld) [Entitic vol] 11.5 fL 6.2-12.0 [facility] Work Phone: Determination of erythrocyte mean corpuscular volume (MCV)on 07-08-2022 MCV (RBC) [Entitic vol] 93.6 fL 81-99 [facility] Work Phone: Hematocrit Auto (Bld) [Volum e fraction]on 07-08-2022 Hematocrit (Bld) [Volume fraction] 39.5 % 37-47 [facility] Work Phone: Laboratory - Chemistry and C hemistry - challengeon 07-08-2022 CO2 [Moles/Vol] 26.0 mmol/L 21.0-32.0 [facility] Work Phone: Urea nitrogen/Creatinine [Mass ratio] 26.9 mg/mg 10-20 [facility] Work Phone: Laboratory - Hematology and Cell countson 07-08-2022 Erythrocyte distribution width (RBC) [Entitic vol] 49.8 fL 35.1-43.9 [facility] Work Phone: Erythrocyte distribution width (RBC) [Ratio] 14.6 % 11.6-14.6 [facility] Work Phone: Immature granulocytes/100 WBC (Bld) 0.400 % 0.0-0.9 [facility] Work Phone: Comment on above: IG% - Immature Granu locytes (promyelocytes, myelocytes and metamyelocytes) > 1% indicates that a LEFT SHIFT is Present. MCH (RBC) [Entitic mass] 28.9 pg 27.0-32.0 [facility] Work Phone: Nucleated RBC/100 WBC (Bld) [Ratio] 0 % 0-5 [facility] Work Phone: Laboratory - Microbiology an d Antimicrobial susceptibilityon 07-08-2022 SARS-CoV-2 (COVID-19) RNA XI+probe Ql (Unsp spec) Not detected Not Detect [facility] Work Phone: Comment on above: Normal Reference Ran ge: Not DetectedMethod:(RT-PCR) real-time reverse transcriptase PCRLuminex DIMITRY Instrument*The Food and Drug Administration (FDA) has issued an Emergency Use Authorization (EAU) for the DIMITRY SARS-CoV-2 Assay for the rapid detection of the virus that causes COVID-19. This test has been validated, but the FDAs independent review of this validation is pending.*Negative results do not preclude infection and should not be used as the sole basis for treatment or patient management. Optimum specimen types and timing for peak viral levels during infections caused by SARS-CoV-2 have not been determined. Collection of multiple specimens from the same patient may be necessary to detect the virus. The possibility of a false negative result should be considered if the patient has clinical presentation or has had recent exposure. MCHC Auto (RBC) [Mass/Vol]on 07-08-2022 MCHC (RBC) [Mass/Vol] 30.9 g/dL 32-36 [facility] Work Phone: No Panel Informationon 07-08 Influenza Types A,B Rapid (Clinic) Negative [facility] Work Phone: Estimated GFR (MDRD) Amer 129 mL/min >60 [facility] Work Phone: Comment on above: GFR Calc Estimated GFR (MDRD) Non-Af Amer 107 mL/min >60 [facility] Work Phone: Comment on above: Non- GFR Calc Platelets bldon 07-08-2022 Platelets (Bld) [#/Vol] 267 10*3/uL 150-450 [facility] Work Phone: Serum or plasma calcium sindy urement (mass/volume)on 07-08-2022 Calcium [Mass/Vol] 9.0 mg/dL 8.5-10.1 [facility] Work Phone: Serum or plasma creatinine m easurement (mass/volume)on 07-08-2022 Creatinine [Mass/Vol] 0.60 mg/dL 0.55-1.02 [facility] Work Phone: Comment on above: The validity of the calculated GFR & GFRAA in patients over 70 years has not been determined. Clinical correlation is essential. Serum or plasma urea nitroge n measurement (mass/volume)on 07-08-2022 Urea nitrogen [Mass/Vol] 16 mg/dL 7-18 [facility] Work Phone: Thin prep Papanicolaou smear with manual screeningon 07-08-2022 Thin prep Papanicolaou smear with manual screening 7 5-15 [facility] Work Phone: Absolute lymphocyte counton 04-02-2022 Lymphocytes Auto (Unsp spec) [#/Vol] 2.36 10*3/uL 0.83-4.51 [facility] Work Phone: Basophil percentageon 2021 Basophils/100 WBC (Bld) 0.5 % 0-1 [facility] Work Phone: Bilirubin [Mass/Vol] 0.40 mg/dL 0.20-1.00 [facility] Work Phone: [phone] Comment on above: For patients on eltr ombopag therapy, use of Dimension [place] TBIL is not recommended. Chloride [Moles/Vol] 107 mmol/L 98-107 [facility] Work Phone: [phone] Eosinophils/100 WBC (Bld) 1.0 % 0-5 [facility] Work Phone: Glucose [Mass/Vol] 87 mg/dL 74-106 [facility] Work Phone: [phone] Neutrophils (Bld) [#/Vol] 5.6 10*3/uL 2.0-7.7 [facility] Work Phone: Neutrophils/100 WBC (Bld) 63.7 % 47-70 [facility] Work Phone: [phone] Potassium [Moles/Vol] 4.5 mmol/L 3.5-5.1 [facility] Work Phone: [phone] Comment on above: Slight Hemolysis, Re sult may be falsely increased. Protein [Mass/Vol] 7.6 g/dL 6.4-8.2 [facility]: Sodium [Moles/Vol] 139 mmol/L 136-145 [facility] Work Phone: WBC (Bld) [#/Vol] 8.8 10*3/uL 4.4-11.0 [facility] Work Phone: Basophil percentage 0 SEEN /hpf 0-5 [facility] Work Phone: Bilirubin Test strip Ql (U)o n 04-02-2022 Bilirubin Ql (U) Negative Negative [facility] Work Phone: Blood erythrocytes count (nu mber/volume)on 04-02-2022 RBC (Bld) [#/Vol] 4.89 10*6/uL 4.2-5.4 [facility]: Blood hemoglobin measurement (mass/volume)on 04-02-2022 Hemoglobin (Bld) [Mass/Vol] 13.8 g/dL 12.0-15.0 [facility] Work Phone: Blood lymphocytes/100 leukoc yteson 04-02-2022 Lymphocytes/100 WBC (Bld) 26.8 % 19-41 [facility] Work Phone: Blood monocytes/100 leukocyt eson 04-02-2022 Monocytes/100 WBC (Bld) 7.5 % 0-10 [facility] Work Phone: Blood platelet mean volumeon 04-02-2022 Platelet mean volume (Bld) [Entitic vol] 11.8 fL 6.2-12.0 [facility] Work Phone: Determination of erythrocyte mean corpuscular volume (MCV)on 04-02-2022 MCV (RBC) [Entitic vol] 92.2 fL 81-99 [facility] Work Phone: Hematocrit Auto (Bld) [Volum e fraction]on 04-02-2022 Hematocrit (Bld) [Volume fraction] 45.1 % 37-47 [facility] Work Phone: Ketones Test strip Ql (U)on 04-02-2022 Ketones Ql (U) Negative Negative [facility] Work Phone: Laboratory - Chemistry and C hemistry - challengeon 04-02-2022 ALP [Catalytic activity/Vol] 157 U/L 45-117 [facility] Work Phone: [phone] ALT [Catalytic activity/Vol] 27 U/L 13-56 [facility] Work Phone: [phone] CO2 [Moles/Vol] 25.0 mmol/L 21.0-32.0 [facility] Work Phone: Cobalamin (Vitamin B12) [Mass/Vol] 541 pg/mL 211-911 [facility] Work Phone: [phone] Globulin (S) [Mass/Vol] 4.0 g/dL 2.2-4.2 [facility] Work Phone: Urea nitrogen/Creatinine [Mass ratio] 20.4 mg/mg 10-20 [facility] Work Phone: [phone] Laboratory - Hematology and Cell countson 04-02-2022 Erythrocyte distribution width (RBC) [Entitic vol] 49.5 fL 35.1-43.9 [facility] Work Phone: Erythrocyte distribution width (RBC) [Ratio] 14.5 % 11.6-14.6 [facility] Work Phone: Immature granulocytes/100 WBC (Bld) 0.500 % 0.0-0.9 [facility] Work Phone: Comment on above: IG% - Immature Granu locytes (promyelocytes, myelocytes and metamyelocytes) > 1% indicates that a LEFT SHIFT is Present. MCH (RBC) [Entitic mass] 28.2 pg 27.0-32.0 [facility] Work Phone: Nucleated RBC/100 WBC (Bld) [Ratio] 0 % 0-5 [facility] Work Phone: MCHC Auto (RBC) [Mass/Vol]on 04-02-2022 MCHC (RBC) [Mass/Vol] 30.6 g/dL 32-36 [facility] Work Phone: Mucus LM Ql (Urine sed)on Mucus Ql (Urine sed) 0 SEEN /hpf [facility] Work Phone: Nitrite Test strip Ql (U)on 04-02-2022 Nitrite Ql (U) Negative Negative [facility] Work Phone: No Panel Informationon 04-02 Estimated GFR (MDRD) Amer 119 mL/min >60 [facility] Work Phone: Comment on above: GFR Calc Estimated GFR (MDRD) Non-Af Amer 99 mL/min >60 [facility] Work Phone: Comment on above: Non- GFR Calc Thyroid Stimulating Hormone (TSH) 2.13 uIU/mL 0.358-3.74 [facility] Work Phone: Vitamin D 25-Hydroxy 49.1 ng/mL [facility] Work Phone: Comment on above: Vitamin D 25(OH) Sta tus Range Deficiency <20 ng/mL (50nmol/L) Insufficiency 20 - 30 ng/mL (50 - 75 nmol/L) Sufficiency 30 - 100 ng/mL (75 - 250 nmol/L) Toxicity >100 ng/mL (>250 nmol/L) Platelets bldon 04-02-2022 Platelets (Bld) [#/Vol] 256 10*3/uL 150-450 [facility] Work Phone: Protein Test strip Ql (U)on 04-02-2022 Protein Ql (U) Negative Negative [facility] Work Phone: Serum or plasma albumin sindy urement (mass/volume)on 04-02-2022 Albumin [Mass/Vol] 3.6 g/dL 3.2-5.0 [facility] Work Phone: Serum or plasma albumin/glob ulin mass ratioon 04-02-2022 Albumin/Globulin [Mass ratio] 0.9 {ratio} 0.9-2.4 [facility] Work Phone: Serum or plasma calcium sindy urement (mass/volume)on 04-02-2022 Calcium [Mass/Vol] 9.0 mg/dL 8.5-10.1 [facility] Work Phone: Serum or plasma creatinine m easurement (mass/volume)on 04-02-2022 Creatinine [Mass/Vol] 0.64 mg/dL 0.55-1.02 [facility] Work Phone: Comment on above: The validity of the calculated GFR & GFRAA in patients over 70 years has not been determined. Clinical correlation is essential. Serum or plasma urea nitroge n measurement (mass/volume)on 04-02-2022 Urea nitrogen [Mass/Vol] 13 mg/dL 7-18 [facility] Work Phone: Squamous epithelial cells de tection in urine sediment by light microscopyon 04-02-2022 Epithelial cells.squamous LM Ql (Urine sed) 0-5 SEEN /hpf 5-10 [facility] Work Phone: Thin prep Papanicolaou smear with manual screeningon 04-02-2022 Thin prep Papanicolaou smear with manual screening 12 U/L 15-37 [facility] Work Phone: Comment on above: Slight Hemolysis, Re sult may be falsely increased. Thin prep Papanicolaou smear with manual screening 7 5-15 [facility] Work Phone: Urine blood detectionon 03-18 RBC Ql (U) Negative Negative [facility] Work Phone: RBC Ql (U) 0 SEEN /hpf 0-5 [facility] Work Phone: Urine clarityon 04-02-2022 Clarity (U) Clear Clear [facility] Work Phone: Urine color determinationon 06-16-2022 Color (U) Yellow Yellow [facility] Work Phone: Urine glucose detectionon Glucose Ql (U) Normal mg/dl Normal [facility] Work Phone: Urine leukocyte esterase det ection by dipstickon 04-02-2022 Leukocyte esterase Test strip Ql (U) Negative Negative [facility] Work Phone: Urine pHon 04-02-2022 pH (U) 6.5 [pH] 5.0 - 8.0 [facility] Work Phone: Urine sediment bacteria coun t by microscopy (number/high power field)on 04-02-2022 Bacteria LM.HPF (Urine sed) [#/Area] 0 /[HPF] None Seen [facility] Work Phone: Urine specific gravity measu rementon 04-02-2022 Specific gravity (U) [Rel density] 1.010 1.002-1.030 [facility] Work Phone: Urobilinogen Auto test strip Ql (U)on 04-02-2022 Urobilinogen Ql (U) Normal mg/dl Normal [facility] Work Phone: Vital Signs Date Time Vital Sign Value Performing Clinician Faci jose luisy 04-18-2025 13:13-0400 Body height 152.[address] Jennifer Vu MD Work Phone: [facility] 04-18-2025 13:13-0400 Body temperature 98.5 [degF] Dr. Jennifer Vu MD Work Phone: [facility] 04-18-2025 13:13-0400 Diastolic blood pressure 80 mm[Hg] Dr. Jennifer Vu MD Work Phone: [facility] 04-18-2025 13:13-0400 Heart rate 68 /min Dr. Jennifer Vu MD Work Phone: [facility] 04-18-2025 13:13-0400 Respiratory rate 16 /min Dr. Jennifer Vu MD Work Phone: [facility] 04-18-2025 13:13-0400 SaO2% (BldA) [Mass fraction] 97 % Dr. Jennifer Vu MD Work Phone: [facility] 04-18-2025 13:13-0400 Systolic blood pressure 128 mm[Hg] Dr. Jennifer Vu MD Work Phone: [facility] 03-13-2025 12:59-0400 Body temperature 98.2 [degF] Dr. Jennifer Vu MD Work Phone: [facility] 03-13-2025 12:59-0400 Diastolic blood pressure 86 mm[Hg] Dr. Jennifer Vu MD Work Phone: [facility] 03-13-2025 12:59-0400 Heart rate 89 /min Dr. Jennifer Vu MD Work Phone: [facility] 03-13-2025 12:59-0400 Respiratory rate 16 /min Dr. Jennifer Vu MD Work Phone: [facility] 03-13-2025 12:59-0400 SaO2% (BldA) [Mass fraction] 97 % Dr. Jeninfer Vu MD Work Phone: [facility] 03-13-2025 12:59-0400 Systolic blood pressure 143 mm[Hg] Dr. Jennifer Vu MD Work Phone: [facility] 02-21-2025 08:02-0400 Body height 152.[address] Jennifer Vu MD Work Phone: [facility] 02-21-2025 08:02-0400 Body temperature 97.4 [degF] Dr. Jennifer Vu MD Work Phone: [facility] 02-21-2025 08:02-0400 Diastolic blood pressure 82 mm[Hg] Dr. Jennifer Vu MD Work Phone: [facility] 02-21-2025 08:02-0400 Heart rate 60 /min Dr. Jennifer Vu MD Work Phone: [facility] 02-21-2025 08:02-0400 Respiratory rate 20 /min Dr. Jennifer Vu MD Work Phone: [facility] 02-21-2025 08:02-0400 SaO2% (BldA) [Mass fraction] 97 % Dr. Jennifer uV MD Work Phone: [facility] 02-21-2025 08:02-0400 Systolic blood pressure 130 mm[Hg] Dr. Jennifer Vu MD Work Phone: [facility] 01-08-2025 13:15-0400 Body temperature 97.2 [degF] Dr. Jennifer Vu MD Work Phone: [facility] 01-08-2025 13:15-0400 Diastolic blood pressure 86 mm[Hg] Dr. Jennifer Vu MD Work Phone: [facility] 01-08-2025 13:15-0400 Heart rate 73 /min Dr. Jennifer Vu MD Work Phone: [facility] 01-08-2025 13:15-0400 Respiratory rate 18 /min Dr. Jennifer Vu MD Work Phone: [facility] 01-08-2025 13:15-0400 SaO2% (BldA) [Mass fraction] 98 % Dr. Jennifer Vu MD Work Phone: [facility] 01-08-2025 13:15-0400 Systolic blood pressure 128 mm[Hg] Dr. Jennifer Vu MD Work Phone: [facility] 11-14-2024 13:07-0500 Body temperature 98.2 [degF] Dr. Jennifer Vu MD Work Phone: [facility] 11-14-2024 13:07-0500 Diastolic blood pressure 81 mm[Hg] Dr. Jennifer Vu MD Work Phone: [facility] 11-14-2024 13:07-0500 Heart rate 62 /min Dr. Jennifer Vu MD Work Phone: [facility] 11-14-2024 13:07-0500 Respiratory rate 16 /min Dr. Jennifer Vu MD Work Phone: [facility] 11-14-2024 13:07-0500 SaO2% (BldA) [Mass fraction] 96 % Dr. Jennifer Vu MD Work Phone: [facility] 11-14-2024 13:07-0500 Systolic blood pressure 138 mm[Hg] Dr. Jennifer Vu MD Work Phone: [facility] 01-24-2024 08:33-0400 Body temperature 97.3 [degF] Dr. Jennifer Vu Work Phone: [facility] 01-24-2024 08:33-0400 Diastolic blood pressure 80 mm[Hg] Dr. Jennifer Vu Work Phone: [facility] 01-24-2024 08:33-0400 Heart rate 54 /min Dr. Jennifer Vu Work Phone: [facility] 01-24-2024 08:33-0400 Respiratory rate 18 /min Dr. Jennifer Vu Work Phone: [facility] 01-24-2024 08:33-0400 SaO2% (BldA) [Mass fraction] 99 % Dr. Jennifer Vu Work Phone: [facility] 01-24-2024 08:33-0400 Systolic blood pressure 118 mm[Hg] Dr. Jennifer Vu Work Phone: [facility] 01-19-2024 12:24-0400 Body height 152.[address] Jennifer Vu Work Phone: [facility] 01-19-2024 12:24-0400 Body mass index (BMI) [Ratio] 54.6 kg/m2 Dr. Jennifer Vu Work Phone: [facility] 01-19-2024 12:24-0400 Body temperature 97.3 [degF] Dr. Jennifer Vu Work Phone: [facility] 01-19-2024 12:24-0400 Body weight [address] Jennifer Vu Work Phone: [facility] 01-19-2024 12:24-0400 Diastolic blood pressure 80 mm[Hg] Dr. Jennifer Vu Work Phone: [facility] 01-19-2024 12:24-0400 Heart rate 66 /min Dr. Jennifer Vu Work Phone: [facility] 01-19-2024 12:24-0400 Respiratory rate 20 /min Dr. Jennifer Vu Work Phone: [facility] 01-19-2024 12:24-0400 SaO2% (BldA) [Mass fraction] 97 % Dr. Jennifer Vu Work Phone: [facility] 01-19-2024 12:24-0400 Systolic blood pressure 118 mm[Hg] Dr. Jennifer Vu Work Phone: [facility] 01-14-2024 12:05-0400 Body temperature 98.5 [degF] Dr. Jennifer Vu Work Phone: [facility] 01-14-2024 12:05-0400 Diastolic blood pressure 80 mm[Hg] Dr. Jennifer Vu Work Phone: [facility] 01-14-2024 12:05-0400 Heart rate 108 /min Dr. Jennifer Vu Work Phone: [facility] 01-14-2024 12:05-0400 Respiratory rate 17 /min Dr. Jennifer Vu Work Phone: [facility] 01-14-2024 12:05-0400 SaO2% (BldA) [Mass fraction] 95 % Dr. Jennifer Vu Work Phone: [facility] 01-14-2024 12:05-0400 Systolic blood pressure 132 mm[Hg] Dr. Jennifer Vu Work Phone: [facility] 12-06-2023 14:40-0500 Body height 152.[address] Jennifer Vu Work Phone: [facility] 12-06-2023 14:40-0500 Body temperature 97.6 [degF] Dr. Jennifer Vu Work Phone: [facility] 12-06-2023 14:40-0500 Diastolic blood pressure 60 mm[Hg] Dr. Jennifer Vu Work Phone: [facility] 12-06-2023 14:40-0500 Heart rate 70 /min Dr. Jennifer Vu Work Phone: [facility] 12-06-2023 14:40-0500 Respiratory rate 16 /min Dr. Jennifer Vu Work Phone: [facility] 12-06-2023 14:40-0500 SaO2% (BldA) [Mass fraction] 97 % Dr. Jennifer Vu Work Phone: [facility] 12-06-2023 14:40-0500 Systolic blood pressure 120 mm[Hg] Dr. Jennifer Vu Work Phone: [facility] 06-10-2023 13:12-0400 Body height 152.[address] Jennifer Vu Work Phone: [facility] 06-10-2023 13:12-0400 Body temperature 99.5 [degF] Dr. Jennifer Vu Work Phone: [facility] 06-10-2023 13:12-0400 Diastolic blood pressure 80 mm[Hg] Dr. Jennifer Vu Work Phone: [facility] 06-10-2023 13:12-0400 Heart rate 62 /min Dr. Jennifer Vu Work Phone: [facility] 06-10-2023 13:12-0400 Respiratory rate 16 /min Dr. Jennifer Vu Work Phone: [facility] 06-10-2023 13:12-0400 SaO2% (BldA) [Mass fraction] 97 % Dr. Jennifer Vu Work Phone: [facility] 06-10-2023 13:12-0400 Systolic blood pressure 112 mm[Hg] Dr. Jennifer Vu Work Phone: [facility] 06-04-2023 10:33-0400 Body temperature 98 [degF] Dr. Jennifer Vu Work Phone: [facility] 06-04-2023 10:33-0400 Diastolic blood pressure 70 mm[Hg] Dr. Jennifer Vu Work Phone: [facility] 06-04-2023 10:33-0400 Heart rate 75 /min Dr. Jennifer Vu Work Phone: [facility] 06-04-2023 10:33-0400 Respiratory rate 18 /min Dr. Jennifer Vu Work Phone: [facility] 06-04-2023 10:33-0400 SaO2% (BldA) [Mass fraction] 98 % Dr. Jennifer Vu Work Phone: [facility] 06-04-2023 10:33-0400 Systolic blood pressure 115 mm[Hg] Dr. Jennifer Vu Work Phone: [facility] 04-21-2023 09:33-0400 Body mass index (BMI) [Ratio] 53.6 kg/m2 Dr. Jennifer Vu Work Phone: [facility] 04-21-2023 09:33-0400 Body temperature 96.5 [degF] Dr. Jennifer Vu Work Phone: [facility] 04-21-2023 09:33-0400 Diastolic blood pressure 77 mm[Hg] Dr. Jennifer Vu Work Phone: [facility] 04-21-2023 09:33-0400 Heart rate 56 /min Dr. Jennifer Vu Work Phone: [facility] 04-21-2023 09:33-0400 Respiratory rate 16 /min Dr. Jennifer Vu Work Phone: [facility] 04-21-2023 09:33-0400 Systolic blood pressure 119 mm[Hg] Dr. Jennifer Vu Work Phone: [facility] 04-17-2023 00:29-0400 Body weight 124.[address] Jennifer Vu Work Phone: [facility] 04-14-2023 09:50-0400 Body mass index (BMI) [Ratio] 53.6 kg/m2 Dr. Jennifer Vu Work Phone: [facility] 04-14-2023 09:50-0400 Body temperature 97 [degF] Dr. Jennifer Vu Work Phone: [facility] 04-14-2023 09:50-0400 Diastolic blood pressure 90 mm[Hg] Dr. Jennifer Vu Work Phone: [facility] 04-14-2023 09:50-0400 Heart rate 64 /min Dr. Jennifer Vu Work Phone: [facility] 04-14-2023 09:50-0400 Respiratory rate 18 /min Dr. Jennifer Vu Work Phone: [facility] 04-14-2023 09:50-0400 Systolic blood pressure 148 mm[Hg] Dr. Jennifer Vu Work Phone: [facility] 03-30-2023 09:40-0400 Body temperature 97.5 [degF] Dr. Jennifer Vu Work Phone: [facility] 03-30-2023 09:40-0400 Diastolic blood pressure 82 mm[Hg] Dr. Jennifer Vu Work Phone: [facility] 03-30-2023 09:40-0400 Heart rate 62 /min Dr. Jennifer Vu Work Phone: [facility] 03-30-2023 09:40-0400 Respiratory rate 16 /min Dr. Jennifer Vu Work Phone: [facility] 03-30-2023 09:40-0400 SaO2% (BldA) [Mass fraction] 96 % Dr. Jennifer Vu Work Phone: [facility] 03-30-2023 09:40-0400 Systolic blood pressure 129 mm[Hg] Dr. Jennifer Vu Work Phone: [facility] 03-18-2023 00:11-0400 Body weight 124.[address] Jennifer Vu Work Phone: [facility] 03-17-2023 09:39-0400 Body mass index (BMI) [Ratio] 53.6 kg/m2 Dr. Jennifer Vu Work Phone: [facility] 03-17-2023 09:39-0400 Body temperature 96.8 [degF] Dr. Jennifer Vu Work Phone: [facility] 03-17-2023 09:39-0400 Diastolic blood pressure 63 mm[Hg] Dr. Jennifer Vu Work Phone: [facility] 03-17-2023 09:39-0400 Heart rate 61 /min Dr. Jennifer Vu Work Phone: [facility] 03-17-2023 09:39-0400 Systolic blood pressure 137 mm[Hg] Dr. Jennifer Vu Work Phone: [facility] 03-10-2023 07:55-0400 Body height 152.[address] Jennifer Vu Work Phone: [facility] 03-10-2023 07:55-0400 Body temperature 97.3 [degF] Dr. Jennifer Vu Work Phone: [facility] 03-10-2023 07:55-0400 Diastolic blood pressure 82 mm[Hg] Dr. Jennifer Vu Work Phone: [facility] 03-10-2023 07:55-0400 Heart rate 70 /min Dr. Jennifer Vu Work Phone: [facility] 03-10-2023 07:55-0400 Respiratory rate 20 /min Dr. Jennifer Vu Work Phone: [facility] 03-10-2023 07:55-0400 SaO2% (BldA) [Mass fraction] 99 % Dr. Jennifer Vu Work Phone: [facility] 03-10-2023 07:55-0400 Systolic blood pressure 140 mm[Hg] Dr. Jennifer Vu Work Phone: [facility] 03-08-2023 13:49-0400 Body temperature 99.6 [degF] Dr. Jennifer Vu Work Phone: [facility] 03-08-2023 13:49-0400 Diastolic blood pressure 82 mm[Hg] Dr. Jennifer Vu Work Phone: [facility] 03-08-2023 13:49-0400 Heart rate 57 /min Dr. Jennifer Vu Work Phone: [facility] 03-08-2023 13:49-0400 Respiratory rate 17 /min Dr. Jennifer Vu Work Phone: [facility] 03-08-2023 13:49-0400 SaO2% (BldA) [Mass fraction] 96 % Dr. Jennifer Vu Work Phone: [facility] 03-08-2023 13:49-0400 Systolic blood pressure 142 mm[Hg] Dr. Jennifer Vu Work Phone: [facility] 02-17-2023 08:59-0400 Body weight 124.[address] Jennifer Vu Work Phone: [facility] 02-17-2023 08:59-0400 Respiratory rate 20 /min Dr. Jennifer Vu Work Phone: [facility] 01-31-2023 12:44-0400 Body temperature 97.8 [degF] Dr. Jennifer Vu Work Phone: [facility] 01-31-2023 12:44-0400 Diastolic blood pressure 10 mm[Hg] Dr. Jennifer Vu Work Phone: [facility] 01-31-2023 12:44-0400 Heart rate 60 /min Dr. Jennifer Vu Work Phone: [facility] 01-31-2023 12:44-0400 Respiratory rate 17 /min Dr. Jennifer Vu Work Phone: [facility] 01-31-2023 12:44-0400 SaO2% (BldA) [Mass fraction] 97 % Dr. Jennifer Vu Work Phone: [facility] 01-31-2023 12:44-0400 Systolic blood pressure 112 mm[Hg] Dr. Jennifer Vu Work Phone: [facility] 01-16-2023 12:11-0400 Body temperature 97.7 [degF] Dr. Jennifer Vu Work Phone: [facility] 01-16-2023 12:11-0400 Diastolic blood pressure 82 mm[Hg] Dr. Jennifer Vu Work Phone: [facility] 01-16-2023 12:11-0400 Heart rate 62 /min Dr. Jennifer Vu Work Phone: [facility] 01-16-2023 12:11-0400 SaO2% (BldA) [Mass fraction] 97 % Dr. Jennifer Vu Work Phone: [facility] 01-16-2023 12:11-0400 Systolic blood pressure 130 mm[Hg] Dr. Jennifer Vu Work Phone: [facility] 12-10-2022 13:03-0500 Body temperature 99 [degF] Dr. Jennifer Vu Work Phone: [facility] 12-10-2022 13:03-0500 Diastolic blood pressure 80 mm[Hg] Dr. Jennifer Vu Work Phone: [facility] 12-10-2022 13:03-0500 Heart rate 63 /min Dr. Jennifer Vu Work Phone: [facility] 12-10-2022 13:03-0500 Respiratory rate 16 /min Dr. Jennifer Vu Work Phone: [facility] 12-10-2022 13:03-0500 SaO2% (BldA) [Mass fraction] 96 % Dr. Jennifer uV Work Phone: [facility] 12-10-2022 13:03-0500 Systolic blood pressure 122 mm[Hg] Dr. Jennifer Vu Work Phone: [facility] 12-07-2022 12:33-0500 Body temperature 98.2 [degF] Dr. Jennifer Vu Work Phone: [facility] 12-07-2022 12:33-0500 Diastolic blood pressure 90 mm[Hg] Dr. Jennifer Vu Work Phone: [facility] 12-07-2022 12:33-0500 Heart rate 62 /min Dr. Jennifer Vu Work Phone: [facility] 12-07-2022 12:33-0500 Respiratory rate 14 /min Dr. Jennifer Vu Work Phone: [facility] 12-07-2022 12:33-0500 SaO2% (BldA) [Mass fraction] 97 % Dr. Jennifer Vu Work Phone: [facility] 12-07-2022 12:33-0500 Systolic blood pressure 118 mm[Hg] Dr. Jennifer Vu Work Phone: [facility] 07-08-2022 08:44-0400 Body temperature 98 [degF] Dr. Jennifer Vu Work Phone: [facility] Work Phone: 07-08-2022 08:44-0400 Diastolic blood pressure 86 mm[Hg] Dr. Jennifer Vu Work Phone: [facility] Work Phone: 07-08-2022 08:44-0400 Heart rate 97 /min Dr. Jennifer Vu Work Phone: [facility] Work Phone: 07-08-2022 08:44-0400 Respiratory rate 14 /min Dr. Jennifer Vu Work Phone: [facility] Work Phone: 07-08-2022 08:44-0400 SaO2% (BldA) [Mass fraction] 97 % Dr. Jennifer Vu Work Phone: [facility] Work Phone: 07-08-2022 08:44-0400 Systolic blood pressure 140 mm[Hg] Dr. Jennifer Vu Work Phone: [facility] Work Phone: 05-07-2022 11:57-0400 Body temperature 98.6 [degF] Dr. Jennifer Vu Work Phone: [facility] Work Phone: 05-07-2022 11:57-0400 Diastolic blood pressure 82 mm[Hg] Dr. Jennifer Vu Work Phone: [facility] Work Phone: 05-07-2022 11:57-0400 Heart rate 81 /min Dr. Jennifer Vu Work Phone: [facility] Work Phone: 05-07-2022 11:57-0400 Respiratory rate 16 /min Dr. Jennifer Vu Work Phone: [facility] Work Phone: 05-07-2022 11:57-0400 SaO2% (BldA) [Mass fraction] 98 % Dr. Jennifer Vu Work Phone: [facility] Work Phone: 05-07-2022 11:57-0400 Systolic blood pressure 144 mm[Hg] Dr. Jennifer Vu Work Phone: [facility] Work Phone: 04-02-2022 09:53-0400 Body height 154.[address] Jennifer Vu Work Phone: [facility] Work Phone: 04-02-2022 09:53-0400 Body temperature 97.3 [degF] Dr. Jennifer Vu Work Phone: [facility] Work Phone: 04-02-2022 09:53-0400 Diastolic blood pressure 62 mm[Hg] Dr. Jennifer Vu Work Phone: [facility] Work Phone: 04-02-2022 09:53-0400 Heart rate 51 /min Dr. Jennifer Vu Work Phone: [facility] Work Phone: 04-02-2022 09:53-0400 Respiratory rate 18 /min Dr. Jennifer Vu Work Phone: [facility] Work Phone: 04-02-2022 09:53-0400 SaO2% (BldA) [Mass fraction] 98 % Dr. Jennifer Vu Work Phone: [facility] Work Phone: 04-02-2022 09:53-0400 Systolic blood pressure 120 mm[Hg] Dr. Jennifer Vu Work Phone: [facility] Work Phone: 02-12-2022 07:04-0400 Body temperature 97.5 [degF] Dr. Jennifer Vu Work Phone: [facility] Work Phone: 02-12-2022 07:04-0400 Body weight [address] Jennifer Vu Work Phone: [facility] Work Phone: 02-12-2022 07:04-0400 Diastolic blood pressure 101 mm[Hg] Dr. Jennifer Vu Work Phone: [facility] Work Phone: 02-12-2022 07:04-0400 Heart rate 72 /min Dr. Jennifer Vu Work Phone: [facility] Work Phone: 02-12-2022 07:04-0400 Respiratory rate 22 /min Dr. Jennifer Vu Work Phone: [facility] Work Phone: 02-12-2022 07:04-0400 SaO2% (BldA) [Mass fraction] 96 % Dr. Jennifer Vu Work Phone: [facility] Work Phone: 02-12-2022 07:04-0400 Systolic blood pressure 173 mm[Hg] Dr. Jennifer Vu Work Phone: [facility] Work Phone: 02-12-2022 07:04-0400 Body height 154.[address] Jennifer Vu Work Phone: [facility] Work Phone: 02-12-2022 07:04-0400 Body temperature 97.5 [degF] Dr. Jennifer Vu Work Phone: [facility] Work Phone: 02-12-2022 07:04-0400 Body weight [address] Jennifer Vu Work Phone: [facility] Work Phone: 02-12-2022 07:04-0400 Diastolic blood pressure 101 mm[Hg] Dr. Jennifer Vu Work Phone: [facility] Work Phone: 02-12-2022 07:04-0400 Heart rate 72 /min Dr. Jennifer Vu Work Phone: [facility] Work Phone: 02-12-2022 07:04-0400 Respiratory rate 22 /min Dr. Jennifer Vu Work Phone: [facility] Work Phone: 02-12-2022 07:04-0400 SaO2% (BldA) [Mass fraction] 96 % Dr. Jennifer Vu Work Phone: [facility] Work Phone: 02-12-2022 07:04-0400 Systolic blood pressure 173 mm[Hg] Dr. Jennifer Vu Work Phone: [facility] Work Phone: 01-29-2022 10:24-0400 Body mass index (BMI) [Ratio] 52 kg/m2 Dr. eJnnifer Vu Work Phone: [facility] Work Phone: 01-29-2022 10:24-0400 Body weight 124.[address] Jennifer Vu Work Phone: [facility] Work Phone: 01-29-2022 10:24-0400 Diastolic blood pressure 82 mm[Hg] Dr. Jennifer Vu Work Phone: [facility] Work Phone: 01-29-2022 10:24-0400 Respiratory rate 18 /min Dr. Jennifer Vu Work Phone: [facility] Work Phone: 01-29-2022 10:24-0400 Systolic blood pressure 154 mm[Hg] Dr. Jennifer Vu Work Phone: [facility] Work Phone: 01-29-2022 10:24-0400 Body mass index (BMI) [Ratio] 52 kg/m2 Dr. Jennifer Vu Work Phone: [facility] Work Phone: 01-29-2022 10:24-0400 Body weight 124.[address] Jennifer Vu Work Phone: [facility] Work Phone: 01-29-2022 10:24-0400 Diastolic blood pressure 82 mm[Hg] Dr. Jennifer Vu Work Phone: [facility] Work Phone: 01-29-2022 10:24-0400 Respiratory rate 18 /min Dr. Jennifer Vu Work Phone: [facility] Work Phone: 01-29-2022 10:24-0400 Systolic blood pressure 154 mm[Hg] Dr. Jennifer Vu Work Phone: [facility] Work Phone: 02-13-2021 08:01-0400 Body mass index (BMI) [Ratio] 52.9 kg/m2 Dr. Jennifer Vu Work Phone: [facility] Work Phone: 02-13-2021 08:01-0400 Body mass index (BMI) [Ratio] 52.9 kg/m2 Dr. Jennifer Vu Work Phone: [facility] Work Phone: Encounters Encounter Date Encounter Type Care Provider Facility Start: 04-18-2025 End: 04-18-[address] Jennifer Vu MD Work Phone: -[facility] Start: 04-18-2025 End: 04-18-[address] Jennifer Vu MD -[facility] Work Phone: Start: 03-13-2025 End: 03-13-2025 Patient encounter procedure Jojo RIVERA -[facility] Work Phone: Start: 03-13-2025 End: 03-13-[address] Jennifer Vu MD Work Phone: [facility] Work Phone: Start: 02-23-2025 Non-patient / Non-visit Karime bender [employer]-C -[facility] Start: 02-23-2025 ambulatory Karime Roach NP Fac ility:[facility] Start: 02-21-2025 End: 02-21-[address] Jennifer Vu MD Work Phone: [facility] Work Phone: Start: 02-21-2025 End: 02-21-2025 Patient encounter procedure Karime Roach [employer]-C -Laboratory, Specimen Work Phone: Start: 02-21-2025 End: 02-21-2025 Patient encounter procedure Karime Roach NP-C -[facility] Work Phone: Start: 02-21-2025 End: 02-21-2025 ambulatory Karime Roach NP Facility:[facility] Start: 02-21-2025 End: 02-21-2025 ambulatory Karime Roach NP Facility:[facility] Start: 01-08-2025 End: 01-08-[address] Jennifer Vu MD -[facility] Work Phone: Start: 01-08-2025 End: 01-08-2025 ambulatory Jennifer Vu Facility:[facility] Start: 12-08-2024 ambulatory Jojo Negro Facility:[facility] Start: 11-14-2024 End: 11-14-2024 Patient encounter procedure Jojo RIVERA -[facility] Work Phone: Start: 11-14-2024 End: 11-14-2024 ambulatory Jojo Negro Facility:[facility] Start: 10-31-2024 End: 10-31-[address] Jennifer Vu MD -[facility] Work Phone: Start: 10-31-2024 End: 10-31-2024 ambulatory Jennifer Vu Facility:[facility] Start: 10-06-2024 End: 10-06-2024 [facility] [place]: 10-06-2024 End: 10-06-2024 [facility]ulatory [facility] Start: 06-09-2024 End: 06-09-2024 [facility] [place] [place]: 06-09-2024 End: 06-09-2024 [facility]ulatory [facility] Start: 05-23-2024 End: 05-23-2024 ambulatory [facility] Start: 01-24-2024 End: 01-24-[address] Jennifer Vu Work Phone: [facility] Work Phone: Start: 01-24-2024 End: 01-24-[address] Jennifer Vu Work Phone: [facility] Work Phone: Start: 01-19-2024 End: 01-19-[address] Jennifer Vu Work Phone: [facility] Work Phone: Start: 01-19-2024 End: 01-19-[address] Jennifer Vu Work Phone: [facility] [place] Start: 01-19-2024 End: 01-19-[address] Jennifer Vu Work Phone: [facility] Work Phone: Start: 01-14-2024 End: 01-14-[address] Jennifer Vu Work Phone: [facility] Work Phone: Start: 12-06-2023 End: 12-06-[address] Jennifer Vu Work Phone: [facility] Work Phone: Start: 12-06-2023 End: 12-06-[address] Jennifer Vu Work Phone: [facility] [place] Start: 12-06-2023 End: 12-06-[address] Jennifer Vu Work Phone: [facility] Work Phone: Start: 06-30-2023 End: 06-30-[address] Jennifer Vu Work Phone: [facility] Work Phone: Start: 06-30-2023 End: 06-30-[address] Jennifer Vu Work Phone: [facility] Work Phone: Start: 06-11-2023 End: 06-11-[address] Jennifer Vu Work Phone: [facility] Work Phone: Start: 06-11-2023 End: 06-11-[address] Jennifer Vu Work Phone: [facility] Work Phone: Start: 06-10-2023 End: 06-10-[address] Jennifer Vu Work Phone: [facility] Work Phone: Start: 06-10-2023 End: 06-10-2023 Encounter for general adult medical examination without abnormal findings Dr. Jennifer Vu Work Phone: [facility] Start: 06-10-2023 End: 06-10-[address] Jennifer Vu Work Phone: [facility] Work Phone: Start: 06-04-2023 End: 06-04-[address] Jennifer Vu Work Phone: [facility] Work Phone: Start: 04-21-2023 Non-patient / Non-visit Dr. Diana Vu Work Phone: [facility] Start: 04-21-2023 End: 04-21-[address] Jennifer Vu Work Phone: [facility] Work Phone: Start: 04-21-2023 End: 04-21-[address] Jennifer Vu Work Phone: [facility] Work Phone: Start: 04-14-2023 Non-patient / Non-visit Dr. Diana Vu Work Phone: [facility] Start: 04-14-2023 End: 04-16-[address] Jennifer Vu Work Phone: [facility] Work Phone: Start: 04-14-2023 End: 04-16-[address] Jennifer Vu Work Phone: [facility] Work Phone: Start: 04-07-2023 Non-patient / Non-visit Dr. Diana Vu Work Phone: [facility] Start: 03-31-2023 Non-patient / Non-visit Dr. Diana Vu Work Phone: [facility] Start: 03-30-2023 End: 03-30-[address] Jennifer Vu Work Phone: [facility] Work Phone: Start: 03-24-2023 Non-patient / Non-visit Dr. Diana Vu Work Phone: [facility] Start: 03-17-2023 Non-patient / Non-visit Dr. Diana Vu Work Phone: [facility] Start: 03-17-2023 End: 03-17-[address] Jennifer Vu Work Phone: [facility] Work Phone: Start: 03-17-2023 End: 03-17-[address] [facility] Start: 03-10-2023 Non-patient / Non-visit Dr. Diana Vu Work Phone: [facility] Start: 03-10-2023 End: 03-10-[address] [facility] Start: 03-08-2023 End: 03-08-[address] Jennifer Vu Work Phone: [facility] Start: 03-03-2023 Non-patient / Non-visit Dr. Diana Vu Work Phone: [facility] Start: 02-17-2023 Non-patient / Non-visit Dr. Diana Vu Work Phone: [facility] Start: 01-31-2023 End: 01-31-[address] Jennifer Vu Work Phone: [facility] Start: 01-16-2023 End: 01-16-[address] Jennifer Vu Work Phone: [facility] Start: 12-10-2022 End: 12-10-[address] Jennifer Vu Work Phone: [facility] Start: 12-07-2022 End: 12-07-[address] Jennifer Vu Work Phone: [facility] Start: 07-08-2022 End: 07-08-[address] Jennifer Vu Work Phone: [facility] Work Phone: Start: 07-08-2022 End: 07-08-[address] Jennifer Vu Work Phone: [facility] Start: 05-07-2022 End: 05-07-2022 Patient encounter procedure Dr. Jennifer Vu Work Phone: [facility] Start: 04-02-2022 End: 04-02-2022 Encounter for general adult medical examination without abnormal findings Dr. Jennifer Vu Work Phone: [facility] Start: 04-02-2022 End: 04-02-[address] Jennifer Vu Work Phone: [facility] Start: 02-12-2022 End: 02-12-[address] Jennifer Vu Work Phone: [facility] Start: 02-05-2022 Non-patient / Non-visit Dr. Diana Vu Work Phone: [facility] Start: 02-05-2022 End: 02-05-[address] Jennifer Vu Work Phone: [facility]ast [facility] - Biopsy/[facility] Start: 01-29-2022 End: 01-29-[address] Jennifer Vu Work Phone: [facility] Start: 01-22-2022 End: 01-22-[address] Jennifer Vu Work Phone: [facility] Start: 01-20-[address] Jennifer Vu Work Phone: [facility] Start: 10-23-2021 End: 10-23-[address] Jennifer Vu Work Phone: [facility]Physical Therapy Start: 09-02-[address] Jennifer Vu Work Phone: [facility] Procedures Date Procedure Procedure Detail Performing Clinician Start: 02-21-2025 Gram stain microscopy Franky Vu MD Work Phone: Start: 02-21-2025 Respiratory microbia l culture Dr. Jennifer Vu MD Work Phone: Start: 10-31-2024 Screening mammography Franky Vu MD Work Phone: Start: 01-19-2024 Plain chest X-ray Dr. Elly Vu Work Phone: Start: 06-30-2023 Dual energy X-ray absorptiometry Dr. Jennifer Vu Work Phone: Start: 06-30-2023 Screening mammography Franky Vu Work Phone: Start: 06-11-2023 Plain chest X-ray Dr. Elly Vu Work Phone: Start: 02-17-[address] Jennifer Vu Work Phone: Start: 02-17-2023 Investigation of tra nsfusion reaction Dr. Jennifer Vu Work Phone: Start: 02-17-2023 Microbial culture, routine Dr. Jennifer Vu Work Phone: Start: 07-08-2022 Plain chest X-ray Dr. Elly Vu Work Phone: Start: 02-05-2022 Ultrasonography guid ed biopsy of breast Dr. Jennifer Vu Work Phone: Start: 01-22-[address] Jennifer Vu Work Phone: Start: 01-20-2022 Screening mammography Franky Vu Work Phone: Anaerobic microbial culture Dr. Jennifer Vu Work Phone: Investigation of tra nsfusion reaction Dr. Jennifer Vu Work Phone: Microbial culture, routine Franky Vu Work Phone: Plan of Treatment Date Care Activity Detail Author Start: 02-23-2025 Patient referral [facility] Work Phone: Start: 01-31-2023 Patient referral [facility] Work Phone: CBC W Auto Different ial panel - Blood [facility] Comprehensive metabo lic 2000 panel - Serum or Plasma [facility] DXA Bone [Mass/Area] Bone density [facility] MG Breast - bilatera l Screening [facility] Patient Education Ultrasound Michelle ast Biopsy Discharge Instructions [facility] Work Phone: Patient referral [facility] Work Phone: Thyroid stimulating hormone measurement [facility] US.doppler Lower extremity vein [facility] Vitamin B12 measurement [facility] Vitamin D, 25-hydrox y measurement [place] Immunizations Immunization Date Immunization Notes Care Provider Fa [facility] 08-03-2022 influenza, injectabl e, quadrivalent, preservative free Dr. Jennifer Vu Work Phone: [facility] 08-03-2022 influenza, seasonal, injectable Dr. Jennifer Vu Work Phone: [facility] 05-07-2022 tetanus toxoid, redu jacob diphtheria toxoid, and acellular pertussis vaccine, adsorbed Dr. Jennifer Vu Work Phone: [facility] 09-02-2021 pneumococcal conjuga te vaccine, [address] Jennifer Vu Work Phone: [facility] 09-02-2021 pneumococcal vaccine , unspecified formulation Dr. Jennifer Vu Work Phone: [facility] Work Phone: 01-18-2021 Covid (Moderna) Dr. Vitaliy Vu Work Phone: [facility] 12-21-2020 Covid (Moderna) Dr. Vitaliy Vu Work Phone: [facility] 06-28-2020 Fluad Quad [id number](65yr up)(PF) 60 mcg (15 mcg x 4)/0.5mL IM syringe (flu vac Dr. Jennifre Vu Work Phone: [facility] Work Phone: 09-05-[address] Jennifer Vu Work Phone: [facility] 09-05-2019 Flucelvax Quad [id number] (PF) (flu vac qs 2018(4 yr up)CD(PF)) 60 mcg ([address] Jennifer Vu Work Phone: [facility] Work Phone: Payers Date Payer Category Payer Self-pay [id number] 2016 [employer] ( and others) [id number] 2015 Medicare [id number] [facility] ( and others) [facility] [id number] Unknown [id number] Unknown [id number] Unknown [id number] Unknown [id number] Unknown [id number] Unknown [id number] Unknown [id number] Unknown [id number] Unknown [id number] Unknown [id number] Unknown [id number] Unknown [id number] Unknown [id number] Social History Date Type Detail Facility Start: 02-12-2022 End: 01-24-2024 Tobacco smoking status NHIS Unknown if ever smoked [facility] Start: 1955 Sex Assigned At Female [facility] Start: 02-02-2024 Tobacco smoking stat us NHIS Never smoked tobacco (finding) [facility] Clinical Notes 02-24-2023 to 01-08-2025 Note Date & Type Note Facility 01-08-2025 Evaluation note Diagnosis Onset Date Resolution Osteoporosis acute January 08, 2025 1:05pm Essential hypertension chronic [facility] 2024 1:05pm Hypothyroidism chronic December 1:05pm 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, 2025 1:05pm Asthma chronic February 21, 2025 8:05am PADILLA (obstructive sleep apnea) chronic February 21, 2025 8: 05am Super obese chronic February 21, 2025 8:05am Lymphedema of both lower extremities acute March 13, 2025 12:45pm Venous insufficiency of both lower extremities chronic March 13, 2025 12:45pm Encounter for fitting and adjustment of other specified devices noneactive March 13, 2025 12:45pm [facility] Work Phone: 1(279) 107-169401-28-2025 Evaluation note* Diagnosis Onset Date Resolution Status Admit Date Lymphedema of both lower extremities acute November 14 12:41pm Venous insufficiency of both lower extremities chronic November 14, 2024 12:41pm Encounter for fitting and adjustment of other specified devices noneactive November 14 12:41pm Osteoporosis acute January 08, 2025 1:05pm Essential hypertension chronic [facility] 2024 1:05pm Hypothyroidism chronic December 1:05pm 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, 2025 1:05pm Asthma chronic February 21, 2025 8:05am PADILLA (obstructive sleep apnea) chroni c February 21, 2025 8:05am Super obese chronic February 21, 2025 8:05am [facility] Work Phone: 1(163) 162-138706-28-2023 Progress note Author Jenae Welsh [facility] April 14, 2023 5:47pm Note Date/Time April 14, 2023 3:25 pm [facility] [address] [place] [address] Progress Note - Wound Care 04/14/23 1524 MR#: [id number] Acct: [id number] Name: KAROLYN MOREL Rep #:[id number] : 1955 67 From: Jenae domingo [employer] PCP: Dr. Jennifer Vu MD Status:R EG RCR Location: History of Present Illness Date of Service: 04/14/23 Chief Complaint: Non healing ulcer left lateral leg History of Wound: 67 year old female presents for evaluation of her non healing left lateral leg ulcer. She bumped it on her walker in December. She states she often bumps her legs on her walker but they heal up, this one never has. She then had Covid in early January and the ulcer started to hurt and drain and did noimprove. [facility] where she was placed on Clindamycin and referred to the wound center. She has been placing antibiotic ointment onto the ulcer. She has a history of chronic lymphedema, HTN, hypothyroidism, gastric bypass surgery 20 years ago, heart murmur and obstructive sleep apnea. She used to wear compression stockings for her edema/lymphedema but they became too tight and she stopped wearing them. Wound culture obtained 02/17/23 positive for MRSE and she was started on Doxycycline. Arterial studies completed on 03/03/23 which showed Triphasic Doppler waveforms at ankle level bilaterally. Right JOAQUÍN = 1.19, left JOAQUÍN = 1.31. No evidence of significant arterial occlusive disease in the lower extremities bilaterally. Venous studies completed 03/03/23 showed The right sapheno-femoral junction is incompetent. The right great saphenous vein appears segmentally incompetent. Accessory saphenous veins in the right proximal calf and mid-calf are incompetent. An accessory saphenous vein in the left distal thigh is incompetent. Wound care - She has had 2 applications of Epifix. She denies any fever, chills, nausea and vomiting. She comes in today for further evaluation and treatment. Progress of Wound: Left lateral leg ulcer is healed today. Edema/lymphedema continues to be +3 butis improving with the use of the 3M 2 layer wraps. She is waiting for approved for Lymphedema pumps. Objective Data Objective Data Vital Signs: Vital Signs Temp Pulse Resp BP 97 F L 64 18 148/90 H 04/14/23 09:50 04/14/23 09:50 04/14/23 09:50 04/14/23 09:50 Weight: 275 lb Body Mass Index (BMI) 53.6 Charges/Coding Procedures Integumentary 111xxx-113xx: [id number] Global Visit Physical Exam Const alert, oriented x3 and no apparent distress General Appearance: cooperative HEENT normocephalic Eyes General Eye: normal appearance of both eyes Neck full ROM Lymph Lymphatic: lymphedema severe and pitting Resp normal respiratory effort, normal air movement and clear to auscultation bilaterally Effort and Inspection: able to speak in complete sentences Cardio regular rate and regular rhythm GI normal to inspection, nondistended, normoactive bowel sounds, soft to palpation and non-tender Back/Spine normal ROM Extremity full ROM and normal capillary refill General Extremity: edema bilateral lower extremity Details: severe Peripheral Pulses: Yes pulses 2+ throughout Skin Wound Narrative: Ulcer on left lateral leg with cash devitalized tissue present. Neuro oriented x3 and moves all extremities Sensorium / Orientation: awake, alert and oriented to person Psych mental status grossly normal, cooperative and affect normal Debridement Note Debridement Note No debridement was completed: No debridement was completed today Post-Debridement Measurements and Additional Note: Post-Debridement Measurements/Treatment - Nurse 1 - General Ulcer Assessment Start: 03/19/23 13:38 Freq: Status: Active Protocol: DARYN Activity Type Activity Date Activity User E-sign Co-sign Detail Recorded Client Recorded Date Recorded By Document 03/19/23 13:38 RB [id number] 03/19/23 13:42 RB Document 03/24/23 09:34 DL [id number] 03/24/23 09:39 DL Document 03/31/23 13:10 AK [id number] 03/31/23 13:12 AK Document 04/07/23 09:47 DL [id number] 04/07/23 09:52 DL Document 04/14/23 09:50 DL [id number] 04/14/23 09:53 DL 03/19/23 03/24/23 03/31/23 13:38 09:34 13:10 - Today's Visit Information Type of service Follow-up Visit Follow-up Visit Follow-up Visit (Physician/SHELL PRESS OPERATOR (Physician/SHELL PRESS OPERATOR (Physician/SHELL PRESS OPERATOR ) ) ) Arrival Mode Ambulatory Ambulatory Ambulatory Transfer Assistance None None Patient Identification Verified (Name & Yes Yes Yes ) Patient Requires Transmission-Based No No No Precautions Safety Precautions NA Height and Weight Body Mass Index (BMI) 53.6 53.6 53.6 BMI Classification Obese Obese Obese Vital Signs Temperature (97.8 F-99.1 F) 97.2 F L 97.6 F L 96.7 F L Temperature Source Temporal Temporal Temporal Pulse Rate (60-100) 61 68 59 L Pulse Location Monitor Monitor Monitor Respiratory Rate (12-18) 18 20 H Respiratory rate source Observation Observation Blood Pressure (90/60-120/80) 137/64 H 140/74 H 122/70 H Blood Pressure Mean (mm Hg) 88 96 87 Source Monitor Monitor Monitor Position Sitting Blood Pressure Location Left Arm History Since Last Visit- (Skip if this is Patient's initial visit) Have you changed medications since your No No No last visit? Any new allergies or adverse reactions No No No Had a fall/change in ADL's that may No No No increase risk of falls Signs or symptoms of abuse and/or No No No neglect since last visit Have you been in the hospital since your No No No last visit? Has dressing in place as prescribed Yes Yes Yes Has compression in place as prescribed Yes Yes Yes Has offloadiing in place as prescribed No N/A N/A Experienced any changes in pain level or No No No management Left Footwear Regular Shoe Right Footwear Regular Shoe Pain Scale: 0-10 Numeric Is Patient Pain Free? Yes Yes No 04/07/23 04/14/23 09:47 09:50 WC - Today's Visit Information Type of service Follow-up Visit Follow-up Visit (Physician/SHELL PRESS OPERATOR (Physician/SHELL PRESS OPERATOR ) ) Arrival Mode Ambulatory,Cane Ambulatory,Cane Transfer Assistance None Transfer Board Patient Identification Verified (Name & Yes Yes ) Patient Requires Transmission-Based No No Precautions Safety Precautions Height and Weight Body Mass Index (BMI) 53.6 53.6 BMI Classification Obese Obese Vital Signs Temperature (97.8 F-99.1 F) 97.5 F L 97 F L Temperature Source Temporal Temporal Pulse Rate (60-100) 63 64 Pulse Location Monitor Monitor Respiratory Rate (12-18) 22 H 18 Respiratory rate source Observation Observation Blood Pressure (90/60-120/80) 143/74 H 148/90 H Blood Pressure Mean (mm Hg) 97 109 Source Monitor Monitor Position Semi-Fowlers Blood Pressure Location Left Arm History Since Last Visit- (Skip if this is Patient's initial visit) Have you changed medications since your No No last visit? Any new allergies or adverse reactions No No Had a fall/change in ADL's that may No No increase risk of falls Signs or symptoms of abuse and/or No No neglect since last visit Have you been in the hospital since your No No last visit? Has dressing in place as prescribed Yes Yes Has compression in place as prescribed Yes Yes Has offloadiing in place as prescribed N/A No Experienced any changes in pain level or Yes No management Left Footwear Right Footwear Pain Scale: 0-10 Numeric Is Patient Pain Free? Yes Yes WC - Nurse 1 - General Ulcer Measurement Start: 03/19/23 13:38 Freq: Status: Active Protocol: Activity Type Activity Date Activity User E-sign Co-sign Detail Recorded Client Recorded Date Recorded By Document 03/19/23 13:38 RB [id number] 03/19/23 13:42 RB Document 03/24/23 09:34 DL [id number] 03/24/23 09:39 DL Edit Result 03/24/23 09:34 DL (1) [id number] 03/24/23 09:51 JF Document 03/31/23 13:12 AK [id number] 03/31/23 13:13 AK Document 04/07/23 09:47 DL [id number] 04/07/23 09:52 DL Document 04/14/23 09:50 DL [id number] 04/14/23 09:53 DL (1) Left Calf (cm) 38 => 48.3 03/19/23 03/24/23 03/31/23 13:38 09:34 13:12 Wound Center Nurse 1 #1 Left lat leg -Combined with other wound -Current Size (cm) - Length 1.1 -Current Size (cm) - Width 1.1 -Current Size (cm) - Depth 0.2 -Total Square Cm 1.21 -Photo Taken No -Tunneling No -Undermining/Tunneling No -Circular Undermining No -Change in Wound Grade/Stage No -Exudate Amt Medium Small -Exudate Type Serosanguineous Serosanguineous -Wound Margin Distinct, Distinct, Outline Outline Attached Attached -Granulation Amt Large (67-100%) Large (67-100%) -Granulation Quality Soledad,Red Red -Slough/Fibrin Yes -Necrosis Amt None Present (0 Small (1-33%) %) -Necrotic Tissue Type Adherent Slough -Structure Exposed N/A -Texture (Lexi-wound Skin Appearance) Scarring Assessed, Scarring -Moisture (Lexi-wound Skin Appearance) No Abnormality No Abnormality, Assessed -Color (Lexi-wound Skin Appearance) Hemosiderin No Abnormality, Staining Assessed -Temperature (Lexi-wound Skin No Abnormality No Abnormality Appearance) (Pt Warm) (Pt Warm) -Tenderness on Palpation (Lexi-wound No No Skin Appearance) -Ulcer Cleansing Rinsed/ Rinsed/ Irrigated with Irrigated with Saline Saline -Foul Odor after Cleansing No No -Anesthetic Used 5% Lidocaine 5% Lidocaine Gel Gel Lower Limb Edema Present Yes Right Calf (cm) 51.8 52.5 50 Right Ankle (cm) 37.2 35 35 Left Calf (cm) 50.2 48.3 53 Left Ankle (cm) 36.2 34.5 36 04/07/23 04/14/23 09:47 09:50 Wound Center Nurse 1 #1 Left lat leg -Combined with other wound No -Current Size (cm) - Length 0.7 0.7 -Current Size (cm) - Width 0.8 0.4 -Current Size (cm) - Depth 0.1 0.1 -Total Square Cm 0.56 0.28 -Photo Taken -Tunneling No -Undermining/Tunneling No -Circular Undermining No -Change in Wound Grade/Stage -Exudate Amt Small Medium -Exudate Type Serosanguineous -Wound Margin Distinct, Distinct, Outline Outline Attached Attached -Granulation Amt Small (1-33%) Medium (34-66%) -Granulation Quality Soledad Soledad,Red -Slough/Fibrin Yes -Necrosis Amt Large (67-100%) Small (1-33%) -Necrotic Tissue Type Adherent Slough Adherent Slough -Structure Exposed N/A N/A -Texture (Lexi-wound Skin Appearance) Scarring Assessed, Localized Edema -Moisture (Lexi-wound Skin Appearance) No Abnormality Assessed -Color (Lexi-wound Skin Appearance) Hemosiderin Assessed Staining -Temperature (Lexi-wound Skin No Abnormality No Abnormality Appearance) (Pt Warm) (Pt Warm) -Tenderness on Palpation (Lexi-wound No No Skin Appearance) -Ulcer Cleansing Soap and Water Wound Cleanser -Foul Odor after Cleansing No No -Anesthetic Used 5% Lidocaine 5% Lidocaine Gel Gel Lower Limb Edema Present Yes Right Calf (cm) 50.5 Right Ankle (cm) 36 Left Calf (cm) 46.2 46.5 Left Ankle (cm) 34 34.6 WC - Nurse 2 - General Ulcer CM Notes Start: 03/19/23 13:38 Freq: Status: Active Protocol: Activity Type Activity Date Activity User E-sign Co-sign Detail Recorded Client Recorded Date Recorded By Document 03/24/23 09:51 [id number] 03/24/23 09:54 Document 03/31/23 10:07 [id number] 03/31/23 10:15 Document 04/07/23 14:21 PL [id number] 04/07/23 14:23 PL Document 04/14/23 10:04 [id number] 04/14/23 10:05 03/24/23 03/31/23 04/07/23 09:51 10:07 14:21 Wound Center Nurse 2 #1 Left lat leg -Time 09:52 10:07 10:29 -Correct Patient Yes Yes Yes -Correct Side, Site, Position Yes Yes Yes -Correct Procedure Yes Yes Yes -Procedure Performed Yes Yes Yes -Type of Procedure Debridement Debridement Debridement -Clinical Debridement Subcutaneous Subcutaneous Subcutaneous -Tissue Removed Subcutaneous Subcutaneous Subcutaneous -Post Debridement (cm) - Length 1.5 1.2 0.8 -Post Debridement (cm) - Width 1.7 1.4 0.5 -Post Debridement (cm) - Depth 0.2 0.2 0.2 -Total Square (Post) (cm) 2.55 1.68 0.40 -Area of Debridement (cm) - Length 1.5 1.2 0.8 -Area of Debridement (cm) - Width 1.7 1.4 5 -Total Square (Area) (cm) 2.55 1.68 4.0 -Tunneling No No No -Undermining/Tunneling No No No -Circular Undermining No No No -Wound/Ulcer Outcome Not Healed Not Healed Not Healed -Ulcer Cleansing Rinsed/ Rinsed/ Rinsed/ Irrigated with Irrigated with Irrigated with Saline Saline Saline -Foul Odor after Cleansing No No No -Bioengineered Tissue No Yes Yes -Type of Bioengineered Tissue Epifix 18mm Epifix 18mm Disc Disc -Expiration Date 01/17/28 01/17/28 -Product Lot Number [id number] -Percent Used 100 100 -Lot number of Saline Used [id number] -Bleeding Controlled with Pressure Pressure Pressure -Treatment Response Procedure Procedure Procedure Tolerated Well Tolerated Well Tolerated Well -Offloading No No -Debridement - Subq, 1st 20sq cm Yes No No -Apply Skin Sub - 1st 25 sq cm - Legs 1 1 -Epifix 18mm Disc 3 3 Pain Scale: 0-10 Numeric Is Patient Pain Free? Yes Yes Yes 04/14/23 10:04 Wound Center Nurse 2 #1 Left lat leg -Time -Correct Patient No -Correct Side, Site, Position No -Correct Procedure No -Procedure Performed No -Type of Procedure -Clinical Debridement -Tissue Removed -Post Debridement (cm) - Length 0 -Post Debridement (cm) - Width 0 -Post Debridement (cm) - Depth 0 -Total Square (Post) (cm) 0 -Area of Debridement (cm) - Length 0 -Area of Debridement (cm) - Width 0 -Total Square (Area) (cm) 0 -Tunneling -Undermining/Tunneling -Circular Undermining -Wound/Ulcer Outcome Healed- Epithelialized -Ulcer Cleansing -Foul Odor after Cleansing -Bioengineered Tissue -Type of Bioengineered Tissue -Expiration Date -Product Lot Number -Percent Used -Lot number of Saline Used -Bleeding Controlled with -Treatment Response -Offloading -Debridement - Subq, 1st 20sq cm -Apply Skin Sub - 1st 25 sq cm - Legs -Epifix 18mm Disc Pain Scale: 0-10 Numeric Is Patient Pain Free? Yes WC - Nurse 3 - General Ulcer D/C NN Start: 03/19/23 13:38 Freq: Status: Active Protocol: Activity Type Activity Date Activity User E-sign Co-sign Detail Recorded Client Recorded Date Recorded By Document 03/19/23 13:38 RB [id number] 03/19/23 13:42 RB Document 03/24/23 10:14 DL [id number] 03/24/23 10:15 DL Document 03/31/23 13:10 AK [id number] 03/31/23 13:12 AK Document 04/07/23 10:54 DL [id number] 04/07/23 10:55 DL Document 04/14/23 10:28 RB [id number] 04/14/23 10:29 RB 03/19/23 03/24/23 03/31/23 13:38 10:14 13:10 Vital Signs Temperature (97.8 F-99.1 F) 97.2 F L 96.7 F L Temperature Source Temporal Temporal Pulse Rate (60-100) 61 59 L Pulse Location Monitor Monitor Respiratory Rate (12-18) 18 Respiratory rate source Observation Blood Pressure (90/60-120/80) 137/64 H 122/70 H Blood Pressure Mean (mm Hg) 88 87 Source Monitor Monitor Position Sitting Blood Pressure Location Left Arm Pain Scale: 0-10 Numeric Is Patient Pain Free? Yes Yes No Wound Care Center Nurse 3 #1 Left lat leg -Ulcer Cleansing Rinsed/ Rinsed/ Rinsed/ Irrigated with Irrigated with Irrigated with Saline Saline Saline -Foul Odor after Cleansing No No -Negative Pressure Wound Therapy N/A -Primary Dressing Applied Aquacel AG 2x2 -Other Dressing yolette own silver ABD -Primary Dressing Covered/Secured with Dry Gauze Dry Gauze Dry Gauze & Roll Gauze, Secured with Tape -Aquacel AG 2x2 1 -Mepilex Border bilateral LE -Lotion applied to leg before compression wrap -Multi-Layered Wrap Application Multi-Layer Multi-Layer Multi-Layer Comp - Bilat ($ Comp - Bilat ($ Comp - Bilat ($ ) ) ) Treatment Response Procedure Tolerated Well WC - Visit Discharge Discharge Condition Stable Stable Stable Ambulatory Status Ambulatory Ambulatory,Cane Ambulatory Transportation Private Auto Private Auto Private Auto Medication Reconcilliation completed & No Yes provided to patient/care provider Clinical Summary of Care Provided Yes Yes Facility Type Home Health Orders Sent Yes 04/07/23 04/14/23 10:54 10:28 Vital Signs Temperature (97.8 F-99.1 F) Temperature Source Pulse Rate (60-100) Pulse Location Respiratory Rate (12-18) Respiratory rate source Blood Pressure (90/60-120/80) Blood Pressure Mean (mm Hg) Source Position Blood Pressure Location Pain Scale: 0-10 Numeric Is Patient Pain Free? Yes Yes Wound Care Center Nurse 3 #1 Left lat leg -Ulcer Cleansing Not Cleansed -Foul Odor after Cleansing -Negative Pressure Wound Therapy -Primary Dressing Applied Mepilex Border -Other Dressing Epifix -Primary Dressing Covered/Secured with -Aquacel AG 2x2 -Mepilex Border 1 bilateral LE -Lotion applied to leg before Yes compression wrap -Multi-Layered Wrap Application Multi-Layer Multi-Layer Comp - Bilat ($ Comp - Bilat ($ ) ) Treatment Response Procedure Procedure Tolerated Well Tolerated Well WC - Visit Discharge Discharge Condition Stable Stable Ambulatory Status Ambulatory,Cane Ambulatory,Cane Transportation Private Auto Private Auto Medication Reconcilliation completed & No provided to patient/care provider Clinical Summary of Care Provided Yes Facility Type Home Health Orders Sent Yes Assessment/Plan Assessment/Plan (1) Chronic ulcer of left leg with fat layer exposed: CODE(S): L97.922 - Non-pressure chronic ulcer of unspecified part of left lower leg with fat layer exposed (2) Lymphedema of both lower extremities: CODE(S): I89.0 - Lymphedema, not elsewhere classified (3) Edema of both lower extremities: CODE(S): R60.0 - Localized edema (4) Super obese: CODE(S): E66.9 - Obesity, unspecified (5) Essential hypertension: CODE(S): I10 - Essential (primary) hypertension (6) Postoperative malabsorption: CODE(S): K91.2 - Postsurgical malabsorption, not elsewhere classified PLAN: Plan Patient evaluated at the wound healing center. She is healed today. Compression - Continue 3M 2 layer wraps bilaterally, this week. Will order Circaids for compression. She has been approved for lymphedema pumps to help assist with getting better control of her lymphedema/edema. She is waiting for them to be delivered. Her vascular studies were completed. No arterial compromise, but she has several areas of venous incompetent veins. Good compression should help with some of this, but will refer her to Dr. Bravo, the vascular surgeon, for further evaluation. A wound culture was obtained 02/17/23 which was positive for MRSE. She has completed the Doxycycline. Encouraged increase protein intake to help with wound healing, due to increase in metabolic demand. She may try supplemental protein drinks to help with this.With her history of gastric bypass, this may impact her healing process. She will follow up one week. 04/14/231746 <Electronically signed by Jenae Welsh NP [employer]> Cosigner Signature (if applicable): CC: ~ Signed [facility] Work Phone: 1(212) 103-229006-28-2023 Progress note Author Jenae Welsh [facility] April 14, 2023 3:24pm Note Date/Time April 07, 2023 11:2 4am [facility] [address] [place] [address] Progress Note - Wound Care 04/07/23 1124 MR#: [id number] Acct: [id number] Name: KAROLYN MOREL Rep #:[id number] : 1955 67 From: Jenae domingo NP [employer] PCP: Dr. Jennifer Vu MD Status:R EG RCR Location: History of Present Illness Date of Service: 04/07/23 Chief Complaint: Non healing ulcer left lateral leg History of Wound: 67 year old female presents for evaluation of her non healing left lateral leg ulcer. She bumped it on her walker in December. She states she often bumps her legs on her walker but they heal up, this one never has. She then had Covid in early January and the ulcer started to hurt and drain and did noimprove. [facility]23 where she was placed on Clindamycin and referred to the wound center. She has been placing antibiotic ointment onto the ulcer. She has a history of chronic lymphedema, HTN, hypothyroidism, gastric bypass surgery 20 years ago, heart murmur and obstructive sleep apnea. She used to wear compression stockings for her edema/lymphedema but they became too tight and she stopped wearing them. Wound culture obtained 02/17/23 positive for MRSE and she was started on Doxycycline. Arterial studies completed on 03/03/23 which showed Triphasic Doppler waveforms at ankle level bilaterally. Right JOAQUÍN = 1.19, left JOAQUÍN = 1.31. No evidence of significant arterial occlusive disease in the lower extremities bilaterally. Venous studies completed 03/03/23 showed The right sapheno-femoral junction is incompetent. The right great saphenous vein appears segmentally incompetent. Accessory saphenous veins in the right proximal calf and mid-calf are incompetent. An accessory saphenous vein in the left distal thigh is incompetent. Wound care - Left lateral leg ulcer Epifix #1 applied today. She denies any fever, chills, nausea and vomiting. She comes in today for further evaluation and treatment. Progress of Wound: Left lateral leg ulcer has beefy pink base and is smaller in size this week. Edema/lymphedema continues to be +3-+4 but is improving with the use of the 3M 2layer wraps. She was approved for Epifix and the second application was appliedtoday. She states she has been approved for her compression pumps and is waiting for them to be delivered. Objective Data Objective Data Vital Signs: Vital Signs Temp Pulse Resp BP 97.5 F L 63 22 H 143/74 H 04/07/23 09:47 04/07/23 09:47 04/07/23 09:47 04/07/23 09:47 Weight: 275 lb Body Mass Index (BMI) 53.6 Charges/Coding Procedures Integumentary 150xxx-152xx: 96906 Skin sub graft trnk/arm/leg Debridement Note Debridement Note Wound debrided: lateral leg ulcer Laterality: Left Wound Grade/Stage: Stage III Type of Debridement: Excisional debridement Anesthesia Used: 5% Lidocaine Gel Depth: Down to and including healthy tissue and in the subcutaneous layer Percentage of wound debrided: 100 Instrument Used: 3mm curette Tissue Removed: Devitalized tissue and slough Severity: Fat Layer Exposed Amount of bleeding with debridement: Mild Bleeding Controlled with: Pressure and Compression and gauze Patient tolerated procedure: Patient tolerated procedure well Post-Debridement Measurements and Additional Note: Post-Debridement Measurements/Treatment BYRON - Nurse 1 - General Ulcer Assessment Start: 03/19/23 13:38 Freq: Status: Active Protocol: DARYN Activity Type Activity Date Activity User E-sign Co-sign Detail Recorded Client Recorded Date Recorded By Document 03/19/23 13:38 RB [id number] 03/19/23 13:42 RB Document 03/24/23 09:34 DL [id number] 03/24/23 09:39 DL Document 03/31/23 13:10 AK [id number] 03/31/23 13:12 AK Document 04/07/23 09:47 DL [id number] 04/07/23 09:52 DL 03/19/23 03/24/23 03/31/23 13:38 09:34 13:10 WC - Today's Visit Information Type of service Follow-up Visit Follow-up Visit Follow-up Visit (Physician/SHELL PRESS OPERATOR (Physician/SHELL PRESS OPERATOR (Physician/SHELL PRESS OPERATOR ) ) ) Arrival Mode Ambulatory Ambulatory Ambulatory Transfer Assistance None None Patient Identification Verified (Name & Yes Yes Yes ) Patient Requires Transmission-Based No No No Precautions Safety Precautions NA Height and Weight Body Mass Index (BMI) 53.6 53.6 53.6 BMI Classification Obese Obese Obese Vital Signs Temperature (97.8 F-99.1 F) 97.2 F L 97.6 F L 96.7 F L Temperature Source Temporal Temporal Temporal Pulse Rate (60-100) 61 68 59 L Pulse Location Monitor Monitor Monitor Respiratory Rate (12-18) 18 20 H Respiratory rate source Observation Observation Blood Pressure (90/60-120/80) 137/64 H 140/74 H 122/70 H Blood Pressure Mean (mm Hg) 88 96 87 Source Monitor Monitor Monitor Position Sitting Blood Pressure Location Left Arm History Since Last Visit- (Skip if this is Patient's initial visit) Have you changed medications since your No No No last visit? Any new allergies or adverse reactions No No No Had a fall/change in ADL's that may No No No increase risk of falls Signs or symptoms of abuse and/or No No No neglect since last visit Have you been in the hospital since your No No No last visit? Has dressing in place as prescribed Yes Yes Yes Has compression in place as prescribed Yes Yes Yes Has offloadiing in place as prescribed No N/A N/A Experienced any changes in pain level or No No No management Left Footwear Regular Shoe Right Footwear Regular Shoe Pain Scale: 0-10 Numeric Is Patient Pain Free? Yes Yes No 04/07/23 09:47 WC - Today's Visit Information Type of service Follow-up Visit (Physician/SHELL PRESS OPERATOR ) Arrival Mode Ambulatory,Cane Transfer Assistance None Patient Identification Verified (Name & Yes ) Patient Requires Transmission-Based No Precautions Safety Precautions Height and Weight Body Mass Index (BMI) 53.6 BMI Classification Obese Vital Signs Temperature (97.8 F-99.1 F) 97.5 F L Temperature Source Temporal Pulse Rate (60-100) 63 Pulse Location Monitor Respiratory Rate (12-18) 22 H Respiratory rate source Observation Blood Pressure (90/60-120/80) 143/74 H Blood Pressure Mean (mm Hg) 97 Source Monitor Position Blood Pressure Location History Since Last Visit- (Skip if this is Patient's initial visit) Have you changed medications since your No last visit? Any new allergies or adverse reactions No Had a fall/change in ADL's that may No increase risk of falls Signs or symptoms of abuse and/or No neglect since last visit Have you been in the hospital since your No last visit? Has dressing in place as prescribed Yes Has compression in place as prescribed Yes Has offloadiing in place as prescribed N/A Experienced any changes in pain level or Yes management Left Footwear Right Footwear Pain Scale: 0-10 Numeric Is Patient Pain Free? Yes WC - Nurse 1 - General Ulcer Measurement Start: 03/19/23 13:38 Freq: Status: Active Protocol: Activity Type Activity Date Activity User E-sign Co-sign Detail Recorded Client Recorded Date Recorded By Document 03/19/23 13:38 RB [id number] 03/19/23 13:42 RB Document 03/24/23 09:34 DL [id number] 03/24/23 09:39 DL Edit Result 03/24/23 09:34 DL (1) [id number] 03/24/23 09:51 JF Document 03/31/23 13:12 AK [id number] 03/31/23 13:13 AK Document 04/07/23 09:47 DL [id number] 04/07/23 09:52 DL (1) Left Calf (cm) 38 => 48.3 03/19/23 03/24/23 03/31/23 13:38 09:34 13:12 Wound Center Nurse 1 #1 Left lat leg -Current Size (cm) - Length 1.1 -Current Size (cm) - Width 1.1 -Current Size (cm) - Depth 0.2 -Total Square Cm 1.21 -Photo Taken No -Tunneling No -Undermining/Tunneling No -Circular Undermining No -Change in Wound Grade/Stage No -Exudate Amt Medium Small -Exudate Type Serosanguineous Serosanguineous -Wound Margin Distinct, Distinct, Outline Outline Attached Attached -Granulation Amt Large (67-100%) Large (67-100%) -Granulation Quality Sol[place]ad,Red Red -Slough/Fibrin Yes -Necrosis Amt None Present (0 Small (1-33%) %) -Necrotic Tissue Type Adherent Slough -Structure Exposed N/A -Texture (Lexi-wound Skin Appearance) Scarring Assessed, Scarring -Moisture (Lexi-wound Skin Appearance) No Abnormality No Abnormality, Assessed -Color (Lexi-wound Skin Appearance) Hemosiderin No Abnormality, Staining Assessed -Temperature (Lexi-wound Skin No Abnormality No Abnormality Appearance) (Pt Warm) (Pt Warm) -Tenderness on Palpation (Lexi-wound No No Skin Appearance) -Ulcer Cleansing Rinsed/ Rinsed/ Irrigated with Irrigated with Saline Saline -Foul Odor after Cleansing No No -Anesthetic Used 5% Lidocaine 5% Lidocaine Gel Gel Lower Limb Edema Present Yes Right Calf (cm) 51.8 52.5 50 Right Ankle (cm) 37.2 35 35 Left Calf (cm) 50.2 48.3 53 Left Ankle (cm) 36.2 34.5 36 04/07/23 09:47 Wound Center Nurse 1 #1 Left lat leg -Current Size (cm) - Length 0.7 -Current Size (cm) - Width 0.8 -Current Size (cm) - Depth 0.1 -Total Square Cm 0.56 -Photo Taken -Tunneling -Undermining/Tunneling -Circular Undermining -Change in Wound Grade/Stage -Exudate Amt Small -Exudate Type -Wound Margin Distinct, Outline Attached -Granulation Amt Small (1-33%) -Granulation Quality Soledad -Slough/Fibrin -Necrosis Amt Large (67-100%) -Necrotic Tissue Type Adherent Slough -Structure Exposed N/A -Texture (Lexi-wound Skin Appearance) Scarring -Moisture (Lexi-wound Skin Appearance) No Abnormality -Color (Lexi-wound Skin Appearance) Hemosiderin Staining -Temperature (Lexi-wound Skin No Abnormality Appearance) (Pt Warm) -Tenderness on Palpation (Lexi-wound No Skin Appearance) -Ulcer Cleansing Soap and Water -Foul Odor after Cleansing No -Anesthetic Used 5% Lidocaine Gel Lower Limb Edema Present Right Calf (cm) Right Ankle (cm) Left Calf (cm) 46.2 Left Ankle (cm) 34 - Nurse 2 - General Ulcer CM Notes Start: 03/19/23 13:38 Freq: Status: Active Protocol: Activity Type Activity Date Activity User E-sign Co-sign Detail Recorded Client Recorded Date Recorded By Document 03/24/23 09:51 [id number] 03/24/23 09:54 Document 03/31/23 10:07 [id number] 03/31/23 10:15 03/24/23 03/31/23 09:51 10:07 Wound Center Nurse 2 #1 Left lat leg -Time 09:52 10:07 -Correct Patient Yes Yes -Correct Side, Site, Position Yes Yes -Correct Procedure Yes Yes -Procedure Performed Yes Yes -Type of Procedure Debridement Debridement -Clinical Debridement Subcutaneous Subcutaneous -Tissue Removed Subcutaneous Subcutaneous -Post Debridement (cm) - Length 1.5 1.2 -Post Debridement (cm) - Width 1.7 1.4 -Post Debridement (cm) - Depth 0.2 0.2 -Total Square (Post) (cm) 2.55 1.68 -Area of Debridement (cm) - Length 1.5 1.2 -Area of Debridement (cm) - Width 1.7 1.4 -Total Square (Area) (cm) 2.55 1.68 -Tunneling No No -Undermining/Tunneling No No -Circular Undermining No No -Wound/Ulcer Outcome Not Healed Not Healed -Ulcer Cleansing Rinsed/ Rinsed/ Irrigated with Irrigated with Saline Saline -Foul Odor after Cleansing No No -Bioengineered Tissue No Yes -Type of Bioengineered Tissue Epifix 18mm Disc -Expiration Date 01/17/28 -Product Lot Number [id number] -Percent Used 100 -Lot number of Saline Used [id number] -Bleeding Controlled with Pressure Pressure -Treatment Response Procedure Procedure Tolerated Well Tolerated Well -Offloading No No -Debridement - Subq, 1st 20sq cm Yes No -Apply Skin Sub - 1st 25 sq cm - Legs 1 -Epifix 18mm Disc 3 Pain Scale: 0-10 Numeric Is Patient Pain Free? Yes Yes BYRON - Nurse 3 - General Ulcer D/C NN Start: 03/19/23 13:38 Freq: Status: Active Protocol: Activity Type Activity Date Activity User E-sign Co-sign Detail Recorded Client Recorded Date Recorded By Document 03/19/23 13:38 RB [id number] 03/19/23 13:42 RB Document 03/24/23 10:14 DL [id number] 03/24/23 10:15 DL Document 03/31/23 13:10 AK [id number] 03/31/23 13:12 AK Document 04/07/23 10:54 DL [id number] 04/07/23 10:55 DL 03/19/23 03/24/23 03/31/23 13:38 10:14 13:10 Vital Signs Temperature (97.8 F-99.1 F) 97.2 F L 96.7 F L Temperature Source Temporal Temporal Pulse Rate (60-100) 61 59 L Pulse Location Monitor Monitor Respiratory Rate (12-18) 18 Respiratory rate source Observation Blood Pressure (90/60-120/80) 137/64 H 122/70 H Blood Pressure Mean (mm Hg) 88 87 Source Monitor Monitor Position Sitting Blood Pressure Location Left Arm Pain Scale: 0-10 Numeric Is Patient Pain Free? Yes Yes No Wound Care Center Nurse 3 #1 Left lat leg -Ulcer Cleansing Rinsed/ Rinsed/ Rinsed/ Irrigated with Irrigated with Irrigated with Saline Saline Saline -Foul Odor after Cleansing No No -Negative Pressure Wound Therapy N/A -Primary Dressing Applied Aquacel AG 2x2 -Other Dressing yolette own silver ABD -Primary Dressing Covered/Secured with Dry Gauze Dry Gauze Dry Gauze & Roll Gauze, Secured with Tape -Aquacel AG 2x2 1 -Mepilex Border bilateral LE -Multi-Layered Wrap Application Multi-Layer Multi-Layer Multi-Layer Comp - Bilat ($ Comp - Bilat ($ Comp - Bilat ($ ) ) ) Treatment Response Procedure Tolerated Well WC - Visit Discharge Discharge Condition Stable Stable Stable Ambulatory Status Ambulatory Ambulatory,Cane Ambulatory Transportation Private Auto Private Auto Private Auto Medication Reconcilliation completed & No Yes provided to patient/care provider Clinical Summary of Care Provided Yes Yes Facility Type Home Health Orders Sent Yes 04/07/23 10:54 Vital Signs Temperature (97.8 F-99.1 F) Temperature Source Pulse Rate (60-100) Pulse Location Respiratory Rate (12-18) Respiratory rate source Blood Pressure (90/60-120/80) Blood Pressure Mean (mm Hg) Source Position Blood Pressure Location Pain Scale: 0-10 Numeric Is Patient Pain Free? Yes Wound Care Center Nurse 3 #1 Left lat leg -Ulcer Cleansing Not Cleansed -Foul Odor after Cleansing -Negative Pressure Wound Therapy -Primary Dressing Applied Mepilex Border -Other Dressing Epifix -Primary Dressing Covered/Secured with -Aquacel AG 2x2 -Mepilex Border 1 bilateral LE -Multi-Layered Wrap Application Multi-Layer Comp - Bilat ($ ) Treatment Response Procedure Tolerated Well WC - Visit Discharge Discharge Condition Stable Ambulatory Status Ambulatory,Cane Transportation Private Auto Medication Reconcilliation completed & provided to patient/care provider Clinical Summary of Care Provided Facility Type Home Health Orders Sent Yes Assessment/Plan Assessment/Plan (1) Chronic ulcer of left leg with fat layer exposed: CODE(S): L97.922 - Non-pressure chronic ulcer of unspecified part of left lower leg with fat layer exposed (2) Lymphedema of both lower extremities: CODE(S): I89.0 - Lymphedema, not elsewhere classified (3) Edema of both lower extremities: CODE(S): R60.0 - Localized edema (4) Super obese: CODE(S): E66.9 - Obesity, unspecified (5) Essential hypertension: CODE(S): I10 - Essential (primary) hypertension (6) Postoperative malabsorption: CODE(S): K91.2 - Postsurgical malabsorption, not elsewhere classified PLAN: Plan Patient evaluated at the wound healing center. Wound care - Epifix #2 applied today. 100% of the product was used. It was covered with adaptic that was secured with steri strips and covered with L[place]y SAP. She was instructed not to get the ulcer wet while the Epifix is in place. Compression - Continue 3M 2 layer wraps bilaterally, this week. She has been approved for lymphedema pumps to help assist with getting better control of her lymphedema/edema. She is waiting for them to be delivered. Discussed with her that this ulcer will not heal until the edema/lymphedema is under better control. Her vascular studies were completed. No arterial compromise, but she has several areas of venous incompetent veins. Good compression should help with some of this, but will refer her to Dr. Bravo, the vascular surgeon, for further evaluation. A wound culture was obtained 02/17/23 which was positive for MRSE. She has completed the Doxycycline. Encouraged increase protein intake to help with wound healing, due to increase in metabolic demand. She may try supplemental protein drinks to help with this.With her history of gastric bypass, this may impact her healing process. She will follow up one week. 04/14/23 1524 <Electronically signed by Jenae Welsh NP [employer]> Cosigner Signature (if applicable): CC: ~ Signed [facility] Work Phone: 1(486) 126-138206-15-2023 Progress note Author Jenae Welsh [facility] April 01, 2023 9:27am Note Date/Time March 31, 2023 12:3 5pm [facility] [address] [place] [address] Progress Note - Wound Care 03/31/23 1235 MR#: [id number] Acct: [id number] Name: KAROLYN MOREL Rep #:[id number] : 1955 67 From: Jenae domingo [employer] MANAGER [employer] MANAGER-C PCP: Dr. Jennifer Vu MD Status:R EG RCR Location: History of Present Illness Date of Service: 03/31/23 Chief Complaint: Non healing ulcer left lateral leg History of Wound: 67 year old female presents for evaluation of her non healing left lateral leg ulcer. She bumped it on her walker in December. She states she often bumps her legs on her walker but they heal up, this one never has. She then had Covid in early January and the ulcer started to hurt and drain and did noimprove. [facility] where she was placed on Clindamycin and referred to the wound center. She has been placing antibiotic ointment onto the ulcer. She has a history of chronic lymphedema, HTN, hypothyroidism, gastric bypass surgery 20 years ago, heart murmur and obstructive sleep apnea. She used to wear compression stockings for her edema/lymphedema but they became too tight and she stopped wearing them. Wound culture obtained 02/17/23 positive for MRSE and she was started on Doxycycline. Arterial studies completed on 03/03/23 which showed Triphasic Doppler waveforms at ankle level bilaterally. Right JOAQUÍN = 1.19, left JOAQUÍN = 1.31. No evidence of significant arterial occlusive disease in the lower extremities bilaterally. Venous studies completed 03/03/23 showed The right sapheno-femoral junction is incompetent. The right great saphenous vein appears segmentally incompetent. Accessory saphenous veins in the right proximal calf and mid-calf are incompetent. An accessory saphenous vein in the left distal thigh is incompetent. Wound care - Left lateral leg ulcer Epifix #1 applied today. She denies any fever, chills, nausea and vomiting. She comes in today for further evaluation and treatment. Progress of Wound: Left lateral leg ulcer has beefy pink base. Edema/lymphedema continues to be +3- +4 but is improving with the use of the 3M 2 layer wraps. She was approved for Epifix and the first application was applied today. She states she has beenapproved for her compression pumps and is waiting for them to be delivered. Objective Data Objective Data Vital Signs: Vital Signs Temp Pulse Resp BP 97.6 F L 68 20 H 140/74 H 03/24/23 09:34 03/24/23 09:34 03/24/23 09:34 03/24/23 09:34 Weight: 275 lb Body Mass Index (BMI) 53.6 Charges/Coding Procedures Integumentary 150xxx-152xx: 58246 Skin sub graft trnk/arm/leg Debridement Note Debridement Note Wound debrided: lateral leg ulcer Laterality: Left Wound Grade/Stage: Stage III Type of Debridement: Excisional debridement Anesthesia Used: 5% Lidocaine Gel Depth: Down to and including healthy tissue and in the subcutaneous layer Percentage of wound debrided: 100 Instrument Used: 5mm curette Tissue Removed: Devitalized tissue and slough Severity: Fat Layer Exposed Amount of bleeding with debridement: Mild Bleeding Controlled with: Pressure and Compression and gauze Patient tolerated procedure: Patient tolerated procedure well Post-Debridement Measurements and Additional Note: Post-Debridement Measurements/Treatment WC - Nurse 1 - General Ulcer Assessment Start: 03/19/23 13:38 Freq: Status: Active Protocol: DARYN Activity Type Activity Date Activity User E-sign Co-sign Detail Recorded Client Recorded Date Recorded By Document 03/19/23 13:38 RB [id number] 03/19/23 13:42 RB Document 03/24/23 09:34 DL [id number] 03/24/23 09:39 DL 03/19/23 03/24/23 13:38 09:34 WC - Today's Visit Information Type of service Follow-up Visit Follow-up Visit (Physician/SHELL PRESS OPERATOR (Physician/SHELL PRESS OPERATOR ) ) Arrival Mode Ambulatory Ambulatory Transfer Assistance None None Patient Identification Verified (Name & Yes Yes ) Patient Requires Transmission-Based No No Precautions Height and Weight Body Mass Index (BMI) 53.6 53.6 BMI Classification Obese Obese Vital Signs Temperature (97.8 F-99.1 F) 97.2 F L 97.6 F L Temperature Source Temporal Temporal Pulse Rate (60-100) 61 68 Pulse Location Monitor Monitor Respiratory Rate (12-18) 18 20 H Respiratory rate source Observation Observation Blood Pressure (90/60-120/80) 137/64 H 140/74 H Blood Pressure Mean (mm Hg) 88 96 Source Monitor Monitor Position Sitting Blood Pressure Location Left Arm History Since Last Visit- (Skip if this is Patient's initial visit) Have you changed medications since your No No last visit? Any new allergies or adverse reactions No No Had a fall/change in ADL's that may No No increase risk of falls Signs or symptoms of abuse and/or No No neglect since last visit Have you been in the hospital since your No No last visit? Has dressing in place as prescribed Yes Yes Has compression in place as prescribed Yes Yes Has offloadiing in place as prescribed No N/A Experienced any changes in pain level or No No management Pain Scale: 0-10 Numeric Is Patient Pain Free? Yes Yes - Nurse 1 - General Ulcer Measurement Start: 03/19/23 13:38 Freq: Status: Active Protocol: Activity Type Activity Date Activity User E-sign Co-sign Detail Recorded Client Recorded Date Recorded By Document 03/19/23 13:38 RB [id number] 03/19/23 13:42 RB Document 03/24/23 09:34 DL [id number] 03/24/23 09:39 DL Edit Result 03/24/23 09:34 DL (1) [id number] 03/24/23 09:51 JF (1) Left Calf (cm) 38 => 48.3 03/19/23 03/24/23 13:38 09:34 Wound Center Nurse 1 #1 Left lat leg -Current Size (cm) - Length 1.1 -Current Size (cm) - Width 1.1 -Current Size (cm) - Depth 0.2 -Total Square Cm 1.21 -Photo Taken No -Exudate Amt Medium -Exudate Type Serosanguineous -Wound Margin Distinct, Outline Attached -Granulation Amt Large (67-100%) -Granulation Quality Soledad,Red -Necrosis Amt None Present (0 %) -Texture (Lexi-wound Skin Appearance) Scarring -Moisture (Lexi-wound Skin Appearance) No Abnormality -Color (Lexi-wound Skin Appearance) Hemosiderin Staining -Temperature (Lexi-wound Skin No Abnormality Appearance) (Pt Warm) -Tenderness on Palpation (Lexi-wound No Skin Appearance) -Ulcer Cleansing Rinsed/ Irrigated with Saline -Foul Odor after Cleansing No -Anesthetic Used 5% Lidocaine Gel Lower Limb Edema Present Yes Right Calf (cm) 51.8 52.5 Right Ankle (cm) 37.2 35 Left Calf (cm) 50.2 48.3 Left Ankle (cm) 36.2 34.5 - Nurse 2 - General Ulcer CM Notes Start: 03/19/23 13:38 Freq: Status: Active Protocol: Activity Type Activity Date Activity User E-sign Co-sign Detail Recorded Client Recorded Date Recorded By Document 03/24/23 09:51 [id number] 03/24/23 09:54 Document 03/31/23 10:07 [id number] 03/31/23 10:15 03/24/23 03/31/23 09:51 10:07 Wound Center Nurse 2 #1 Left lat leg -Time 09:52 10:07 -Correct Patient Yes Yes -Correct Side, Site, Position Yes Yes -Correct Procedure Yes Yes -Procedure Performed Yes Yes -Type of Procedure Debridement Debridement -Clinical Debridement Subcutaneous Subcutaneous -Tissue Removed Subcutaneous Subcutaneous -Post Debridement (cm) - Length 1.5 1.2 -Post Debridement (cm) - Width 1.7 1.4 -Post Debridement (cm) - Depth 0.2 0.2 -Total Square (Post) (cm) 2.55 1.68 -Area of Debridement (cm) - Length 1.5 1.2 -Area of Debridement (cm) - Width 1.7 1.4 -Total Square (Area) (cm) 2.55 1.68 -Tunneling No No -Undermining/Tunneling No No -Circular Undermining No No -Wound/Ulcer Outcome Not Healed Not Healed -Ulcer Cleansing Rinsed/ Rinsed/ Irrigated with Irrigated with Saline Saline -Foul Odor after Cleansing No No -Bioengineered Tissue No Yes -Type of Bioengineered Tissue Epifix 18mm Disc -Expiration Date 01/17/28 -Product Lot Number [id number] -Percent Used 100 -Lot number of Saline Used [id number] -Bleeding Controlled with Pressure Pressure -Treatment Response Procedure Procedure Tolerated Well Tolerated Well -Offloading No No -Debridement - Subq, 1st 20sq cm Yes No -Apply Skin Sub - 1st 25 sq cm - Legs 1 -Epifix 18mm Disc 3 Pain Scale: 0-10 Numeric Is Patient Pain Free? Yes Yes WC - Nurse 3 - General Ulcer D/C NN Start: 03/19/23 13:38 Freq: Status: Active Protocol: Activity Type Activity Date Activity User E-sign Co-sign Detail Recorded Client Recorded Date Recorded By Document 03/19/23 13:38 RB [id number] 03/19/23 13:42 RB Document 03/24/23 10:14 DL [id number] 03/24/23 10:15 DL 03/19/23 03/24/23 13:38 10:14 Vital Signs Temperature (97.8 F-99.1 F) 97.2 F L Temperature Source Temporal Pulse Rate (60-100) 61 Pulse Location Monitor Respiratory Rate (12-18) 18 Respiratory rate source Observation Blood Pressure (90/60-120/80) 137/64 H Blood Pressure Mean (mm Hg) 88 Source Monitor Position Sitting Blood Pressure Location Left Arm Pain Scale: 0-10 Numeric Is Patient Pain Free? Yes Yes Wound Care Center Nurse 3 #1 Left lat leg -Ulcer Cleansing Rinsed/ Rinsed/ Irrigated with Irrigated with Saline Saline -Foul Odor after Cleansing No -Primary Dressing Applied Aquacel AG 2x2 -Other Dressing yolette -Primary Dressing Covered/Secured with Dry Gauze Dry Gauze -Aquacel AG 2x2 1 bilateral LE -Multi-Layered Wrap Application Multi-Layer Multi-Layer Comp - Bilat ($ Comp - Bilat ($ ) ) Treatment Response Procedure Tolerated Well WC - Visit Discharge Discharge Condition Stable Stable Ambulatory Status Ambulatory Ambulatory,Cane Transportation Private Auto Private Auto Medication Reconcilliation completed & No provided to patient/care provider Clinical Summary of Care Provided Yes Facility Type Home Health Orders Sent Yes Assessment/Plan Assessment/Plan (1) Chronic ulcer of left leg with fat layer exposed: CODE(S): L97.922 - Non-pressure chronic ulcer of unspecified part of left lower leg with fat layer exposed (2) Lymphedema of both lower extremities: CODE(S): I89.0 - Lymphedema, not elsewhere classified (3) Edema of both lower extremities: CODE(S): R60.0 - Localized edema (4) Super obese: CODE(S): E66.9 - Obesity, unspecified (5) Essential hypertension: CODE(S): I10 - Essential (primary) hypertension (6) Postoperative malabsorption: CODE(S): K91.2 - Postsurgical malabsorption, not elsewhere classified PLAN: Plan Patient evaluated at the wound healing center. Wound care - Epifix #1 applied today. 100% of the product was used. It was covered with a wound veil that was secured with steri strips and covered with ABD. She was instructed not to get the ulcer wet while the Epifix is in place. Compression - Continue 3M 2 layer wraps bilaterally, this week. She has been approved for lymphedema pumps to help assist with getting better control of her lymphedema/edema. She is waiting for them to be delivered. Discussed with her that this ulcer will not heal until the edema/lymphedema is under better control. Her vascular studies were completed. No arterial compromise, but she has several areas of venous incompetent veins. Good compression should help with some of this, but will refer her to Dr. Bravo, the vascular surgeon, for further evaluation. A wound culture was obtained 02/17/23 which was positive for MRSE. She has completed the Doxycycline. Encouraged increase protein intake to help with wound healing, due to increase in metabolic demand. She may try supplemental protein drinks to help with this.With her history of gastric bypass, this may impact her healing process. She will follow up one week. 04/01/23 0969 <Electronically signed by Jenae Welsh NP [employer]> Cosigner Signature (if applicable): CC: ~ Signed [facility] Work Phone: 1(648) 365-917106-07-2023 Progress note Author Jenae Welsh [facility] March 24, 2023 4:07pm Note Date/Time March 24, 2023 12:18 pm [facility] [address] [place] [address] Progress Note - Wound Care 03/24/23 1218 MR#: [id number] Acct: [id number] Name: KAROLYN MOREL Rep #:[id number] : 1955 67 From: Jenae domingo [employer]GER-[employer] PCP: Dr. Jennifer Vu MD Status:R EG RCR Location: History of Present Illness Date of Service: 03/24/23 Chief Complaint: Non healing ulcer left lateral leg History of Wound: 67 year old female presents for evaluation of her non healing left lateral leg ulcer. She bumped it on her walker in December. She states she often bumps her legs on her walker but they heal up, this one never has. She then had Covid in early January and the ulcer started to hurt and drain and did noimprove. [facility]23 where she was placed on Clindamycin and referred to the wound center. She has been placing antibiotic ointment onto the ulcer. She has a history of chronic lymphedema, HTN, hypothyroidism, gastric bypass surgery 20 years ago, heart murmur and obstructive sleep apnea. She used to wear compression stockings for her edema/lymphedema but they became too tight and she stopped wearing them. Wound culture obtained 02/17/23 positive for MRSE and she was started on Doxycycline. Arterial studies completed on 03/03/23 which showed Triphasic Doppler waveforms at ankle level bilaterally. Right JOAQUÍN = 1.19, left JOAQUÍN = 1.31. No evidence of significant arterial occlusive disease in the lower extremities bilaterally. Venous studies completed 03/03/23 showed The right sapheno-femoral junction is incompetent. The right great saphenous vein appears segmentally incompetent. Accessory saphenous veins in the right proximal calf and mid-calf are incompetent. An accessory saphenous vein in the left distal thigh is incompetent. Wound care - Left lateral leg ulcer Aquacel-Ag covered with gauze. She denies any fever, chills, nausea and vomiting. She comes in today for further evaluation and treatment. Progress of Wound: Left lateral leg ulcer has beefy pink base. Edges are curling in. Edema/lymphedema continues to be +3-+4 but has improved over the past week with the use of the 3M 2 layer wraps. Right leg is more edematous than the left leg. Objective Data Objective Data Vital Signs: Vital Signs Temp Pulse Resp BP 97.6 F L 68 20 H 140/74 H 03/24/23 09:34 03/24/23 09:34 03/24/23 09:34 03/24/23 09:34 Weight: 275 lb Body Mass Index (BMI) 53.6 Charges/Coding Procedures Integumentary 111xxx-113xx: 73588 Geena subq tissue 20 sq cm/< Debridement Note Debridement Note Wound debrided: lateral leg ulcer Laterality: Left Wound Grade/Stage: Stage III Type of Debridement: Excisional debridement Anesthesia Used: 5% Lidocaine Gel Depth: Down to and including healthy tissue and in the subcutaneous layer Percentage of wound debrided: 100 Instrument Used: 5mm curette Tissue Removed: Devitalized tissue and slough Severity: Fat Layer Exposed Amount of bleeding with debridement: Mild Bleeding Controlled with: Pressure and Compression and gauze Patient tolerated procedure: Patient tolerated procedure well Post-Debridement Measurements and Additional Note: Post-Debridement Measurements/Treatment WC - Nurse 1 - General Ulcer Assessment Start: 03/19/23 13:38 Freq: Status: Active Protocol: DARYN Activity Type Activity Date Activity User E-sign Co-sign Detail Recorded Client Recorded Date Recorded By Document 03/19/23 13:38 RB [id number] 03/19/23 13:42 RB Document 03/24/23 09:34 DL [id number] 03/24/23 09:39 DL 03/19/23 03/24/23 13:38 09:34 - Today's Visit Information Type of service Follow-up Visit Follow-up Visit (Physician/SHELL PRESS OPERATOR (Physician/SHELL PRESS OPERATOR ) ) Arrival Mode Ambulatory Ambulatory Transfer Assistance None None Patient Identification Verified (Name & Yes Yes ) Patient Requires Transmission-Based No No Precautions Height and Weight Body Mass Index (BMI) 53.6 53.6 BMI Classification Obese Obese Vital Signs Temperature (97.8 F-99.1 F) 97.2 F L 97.6 F L Temperature Source Temporal Temporal Pulse Rate (60-100) 61 68 Pulse Location Monitor Monitor Respiratory Rate (12-18) 18 20 H Respiratory rate source Observation Observation Blood Pressure (90/60-120/80) 137/64 H 140/74 H Blood Pressure Mean (mm Hg) 88 96 Source Monitor Monitor Position Sitting Blood Pressure Location Left Arm History Since Last Visit- (Skip if this is Patient's initial visit) Have you changed medications since your No No last visit? Any new allergies or adverse reactions No No Had a fall/change in ADL's that may No No increase risk of falls Signs or symptoms of abuse and/or No No neglect since last visit Have you been in the hospital since your No No last visit? Has dressing in place as prescribed Yes Yes Has compression in place as prescribed Yes Yes Has offloadiing in place as prescribed No N/A Experienced any changes in pain level or No No management Pain Scale: 0-10 Numeric Is Patient Pain Free? Yes Yes WC - Nurse 1 - General Ulcer Measurement Start: 03/19/23 13:38 Freq: Status: Active Protocol: Activity Type Activity Date Activity User E-sign Co-sign Detail Recorded Client Recorded Date Recorded By Document 03/19/23 13:38 RB [id number] 03/19/23 13:42 RB Document 03/24/23 09:34 DL [id number] 03/24/23 09:39 DL Edit Result 03/24/23 09:34 DL (1) [id number] 03/24/23 09:51 JF (1) Left Calf (cm) 38 => 48.3 03/19/23 03/24/23 13:38 09:34 Wound Center Nurse 1 #1 Left lat leg -Current Size (cm) - Length 1.1 -Current Size (cm) - Width 1.1 -Current Size (cm) - Depth 0.2 -Total Square Cm 1.21 -Photo Taken No -Exudate Amt Medium -Exudate Type Serosanguineous -Wound Margin Distinct, Outline Attached -Granulation Amt Large (67-100%) -Granulation Quality Soledad,Red -Necrosis Amt None Present (0 %) -Texture (Lexi-wound Skin Appearance) Scarring -Moisture (Lexi-wound Skin Appearance) No Abnormality -Color (Lexi-wound Skin Appearance) Hemosiderin Staining -Temperature (Lexi-wound Skin No Abnormality Appearance) (Pt Warm) -Tenderness on Palpation (Lexi-wound No Skin Appearance) -Ulcer Cleansing Rinsed/ Irrigated with Saline -Foul Odor after Cleansing No -Anesthetic Used 5% Lidocaine Gel Lower Limb Edema Present Yes Right Calf (cm) 51.8 52.5 Right Ankle (cm) 37.2 35 Left Calf (cm) 50.2 48.3 Left Ankle (cm) 36.2 34.5 WC - Nurse 2 - General Ulcer CM Notes Start: 03/19/23 13:38 Freq: Status: Active Protocol: Activity Type Activity Date Activity User E-sign Co-sign Detail Recorded Client Recorded Date Recorded By Document 03/24/23 09:51 [id number] 03/24/23 09:54 03/24/23 09:51 Wound Center Nurse 2 #1 Left lat leg -Time 09:52 -Correct Patient Yes -Correct Side, Site, Position Yes -Correct Procedure Yes -Procedure Performed Yes -Type of Procedure Debridement -Clinical Debridement Subcutaneous -Tissue Removed Subcutaneous -Post Debridement (cm) - Length 1.5 -Post Debridement (cm) - Width 1.7 -Post Debridement (cm) - Depth 0.2 -Total Square (Post) (cm) 2.55 -Area of Debridement (cm) - Length 1.5 -Area of Debridement (cm) - Width 1.7 -Total Square (Area) (cm) 2.55 -Tunneling No -Undermining/Tunneling No -Circular Undermining No -Wound/Ulcer Outcome Not Healed -Ulcer Cleansing Rinsed/ Irrigated with Saline -Foul Odor after Cleansing No -Bioengineered Tissue No -Bleeding Controlled with Pressure -Treatment Response Procedure Tolerated Well -Offloading No -Debridement - Subq, 1st 20sq cm Yes Pain Scale: 0-10 Numeric Is Patient Pain Free? Yes - Nurse 3 - General Ulcer D/C NN Start: 03/19/23 13:38 Freq: Status: Active Protocol: Activity Type Activity Date Activity User E-sign Co-sign Detail Recorded Client Recorded Date Recorded By Document 03/19/23 13:38 RB [id number] 03/19/23 13:42 RB Document 03/24/23 10:14 DL [id number] 03/24/23 10:15 DL 03/19/23 03/24/23 13:38 10:14 Vital Signs Temperature (97.8 F-99.1 F) 97.2 F L Temperature Source Temporal Pulse Rate (60-100) 61 Pulse Location Monitor Respiratory Rate (12-18) 18 Respiratory rate source Observation Blood Pressure (90/60-120/80) 137/64 H Blood Pressure Mean (mm Hg) 88 Source Monitor Position Sitting Blood Pressure Location Left Arm Pain Scale: 0-10 Numeric Is Patient Pain Free? Yes Yes Wound Care Center Nurse 3 #1 Left lat leg -Ulcer Cleansing Rinsed/ Rinsed/ Irrigated with Irrigated with Saline Saline -Foul Odor after Cleansing No -Primary Dressing Applied Aquacel AG 2x2 -Other Dressing yolette -Primary Dressing Covered/Secured with Dry Gauze Dry Gauze -Aquacel AG 2x2 1 bilateral LE -Multi-Layered Wrap Application Multi-Layer Multi-Layer Comp - Bilat ($ Comp - Bilat ($ ) ) Treatment Response Procedure Tolerated Well WC - Visit Discharge Discharge Condition Stable Stable Ambulatory Status Ambulatory Ambulatory,Cane Transportation Private Auto Private Auto Medication Reconcilliation completed & No provided to patient/care provider Clinical Summary of Care Provided Yes Facility Type Home Health Orders Sent Yes Assessment/Plan Assessment/Plan (1) Chronic ulcer of left leg with fat layer exposed: CODE(S): L97.922 - Non-pressure chronic ulcer of unspecified part of left lower leg with fat layer exposed (2) Lymphedema of both lower extremities: CODE(S): I89.0 - Lymphedema, not elsewhere classified (3) Edema of both lower extremities: CODE(S): R60.0 - Localized edema (4) Super obese: CODE(S): E66.9 - Obesity, unspecified (5) Essential hypertension: CODE(S): I10 - Essential (primary) hypertension (6) Postoperative malabsorption: CODE(S): K91.2 - Postsurgical malabsorption, not elsewhere classified PLAN: Plan Patient evaluated at the wound healing center. Wound care - Aquacel-Ag covered with gauze/ABD. Compression - Continue 3M 2 layer wraps bilaterally, this week. She has tolerated the wraps, so she can go one week with them in place. She would benefit from lymphedema pumps to help assist with getting better control of her lymphedema/edema. She states that they are coming out to her house to fit her for them later this week. Discussed with her that this ulcer will not heal until the edema/lymphedema is under better control. Her vascular studies were completed. No arterial compromise, but she has several areas of venous incompetent veins. Good compression should help with some of this, but will refer her to Dr. Bravo, the vascular surgeon, for further evaluation. A wound culture was obtained 02/17/23 which was positive for ISIAH. She has completed the Doxycycline. Encouraged increase protein intake to help with wound healing, due to increase in metabolic demand. She may try supplemental protein drinks to help with this.With her history of gastric bypass, this may impact her healing process. She will follow up one week. 03/24/23 6315 <Electronically signed by Jenae Welsh NP [employer]> Cosigner Signature (if applicable): CC: ~ Signed [facility] Work Phone: 1(330) 138-625805-25-2023 Progress note Author Jenae Welsh [facility] March 11, 2023 4:45pm Note Date/Time March 10, 2023 10:23 am [facility] [address] [place] [address] Progress Note - Wound Care 03/10/23 1022 MR#: [id number] Acct: [id number] Name: KAROLYN MOREL Rep #:[id number] : 1955 67 From: Jenae Chi RICA [employer] PCP: Dr. Jennifer Vu MD Status:R EG RCR Location: History of Present Illness Date of Service: 03/10/23 Chief Complaint: Non healing ulcer left lateral leg History of Wound: 67 year old female presents for evaluation of her non healing left lateral leg ulcer. She bumped it on her walker in December. She states she often bumps her legs on her walker but they heal up, this one never has. She then had Covid in early January and the ulcer started to hurt and drain and did noimprove. [facility]23 where she was placed on Clindamycin and referred to the wound center. She has been placing antibiotic ointment onto the ulcer. She has a history of chronic lymphedema, HTN, hypothyroidism, gastric bypass surgery 20 years ago, heart murmur and obstructive sleep apnea. She used to wear compression stockings for her edema/lymphedema but they became too tight and she stopped wearing them. Wound culture obtained 02/17/23 positive for MRSE and she was started on Doxycycline. Arterial studies completed on 03/03/23 which showed Triphasic Doppler waveforms at ankle level bilaterally. Right JOAQUÍN = 1.19, left JOAQUÍN = 1.31. No evidence of significant arterial occlusive disease in the lower extremities bilaterally. Venous studies completed 03/03/23 showed The right sapheno-femoral junction is incompetent. The right great saphenous vein appears segmentally incompetent. Accessory saphenous veins in the right proximal calf and mid-calf are incompetent. An accessory saphenous vein in the left distal thigh is incompetent. Wound care - Left lateral leg ulcer Yolette topped with Langley SAP. She denies any fever, chills, nausea and vomiting. She comes in today for further evaluation and treatment. Progress of Wound: Left lateral leg ulcer with cash slough present. Bilateral leg lymphedema/+4 pitting edema present. Right leg is more edematous than the left leg. Objective Data Objective Data Vital Signs: Vital Signs Temp Pulse Resp BP 97.1 F L 74 20 H 140/82 H 03/10/23 09:43 03/10/23 09:43 02/17/23 08:59 03/10/23 09:43 Weight: 275 lb Body Mass Index (BMI) 53.6 Lab / Micro Data Micro: Microbiology 02/17/23 Unknown Wound Abcess - Leg, Left Gram Stain - Final 02/17/23 Unknown Wound Abcess - Leg, Left Wound Culture - Final Staphylococcus epidermidis 02/17/23 Unknown Wound Abcess - Leg, Left Anaerobic Culture - Final No growth in 5 days. Charges/Coding Procedures Integumentary 111xxx-113xx: 72286 Geena subq tissue 20 sq cm/< Debridement Note Debridement Note Wound debrided: lateral leg ulcer Laterality: Left Type of Debridement: Excisional debridement Anesthesia Used: 5% Lidocaine Gel Depth: Down to and including healthy tissue and in the subcutaneous layer Percentage of wound debrided: 100 Instrument Used: 5mm curette Tissue Removed: Devitalized tissue and slough Severity: Fat Layer Exposed Amount of bleeding with debridement: Mild Bleeding Controlled with: Pressure and Compression and gauze Patient tolerated procedure: Patient tolerated procedure well Post-Debridement Measurements and Additional Note: Post-Debridement Measurements/Treatment WC - Nurse 1 - General Ulcer Assessment Start: 02/17/23 08:59 Freq: Status: Active Protocol: BYRON.ISAAK Activity Type Activity Date Activity User E-sign Co-sign Detail Recorded Client Recorded Date Recorded By Document 02/17/23 08:59 PL [id number] 02/17/23 09:14 PL Document 03/03/23 11:32 AK [id number] 03/03/23 11:34 AK Document 03/10/23 09:43 AK [id number] 03/10/23 09:45 AK 02/17/23 03/03/23 03/10/23 08:59 11:32 09:43 WC - Today's Visit Information Type of service Initial Visit Follow-up Visit Follow-up Visit (Physician/SHELL PRESS OPERATOR (Physician/SHELL PRESS OPERATOR ) ) Arrival Mode Ambulatory,Cane Ambulatory Ambulatory,Cane Transfer Assistance None Patient Identification Verified (Name & Yes Yes Yes ) Patient Requires Transmission-Based No No No Precautions Safety Precautions NA NA Height and Weight Height 5 ft Weight 275 lb Weight in Pounds 275.0 lbs Body Mass Index (BMI) 53.6 53.6 53.6 BMI Classification Obese Obese Obese BSA - Eliecer 2.14 Vital Signs Temperature (97.8 F-99.1 F) 97.6 F L 97.3 F L 97.1 F L Temperature Source Temporal Temporal Temporal Pulse Rate (60-100) 66 71 74 Pulse Location Monitor Monitor Respiratory Rate (12-18) 20 H Blood Pressure (90/60-120/80) 155/96 H 140/82 H 140/82 H Blood Pressure Mean (mm Hg) 115 101 101 Source Monitor Monitor History Since Last Visit- (Skip if this is Patient's initial visit) Have you changed medications since your No No No last visit? Any new allergies or adverse reactions No No No Had a fall/change in ADL's that may No No No increase risk of falls Signs or symptoms of abuse and/or No No No neglect since last visit Have you been in the hospital since your No No No last visit? Has dressing in place as prescribed Yes Yes Yes Has compression in place as prescribed No Yes Yes Has offloadiing in place as prescribed No N/A N/A Experienced any changes in pain level or No No No management Left Footwear Regular Shoe Regular Shoe Right Footwear Regular Shoe Regular Shoe Pain Scale: 0-10 Numeric Is Patient Pain Free? Yes Yes Yes WC - Nurse 1 - General Ulcer Measurement Start: 02/17/23 08:59 Freq: Status: Active Protocol: Activity Type Activity Date Activity User E-sign Co-sign Detail Recorded Client Recorded Date Recorded By Document 02/17/23 08:59 PL [id number] 02/17/23 09:14 PL Document 03/03/23 11:32 AK [id number] 03/03/23 11:34 AK Document 03/10/23 09:43 AK [id number] 03/10/23 09:45 AK 02/17/23 03/03/23 03/10/23 08:59 11:32 09:43 Wound Center Nurse 1 #1 Left lat leg -Combined with other wound No No -Current Size (cm) - Length 1.5 1.5 1.5 -Current Size (cm) - Width 2.0 1.6 1.5 -Current Size (cm) - Depth 0.3 0.4 0.3 -Total Square Cm 3.00 2.40 2.25 -Photo Taken Yes Yes -Epithelialization Medium 34-66% -Tunneling No No No -Undermining/Tunneling No No No -Circular Undermining No No No -Change in Wound Grade/Stage No No -Exudate Amt Medium Large Large -Exudate Type Serosanguineous Serosanguineous Serosanguineous -Wound Margin Distinct, Distinct, Outline Outline Attached Attached -Granulation Amt Small (1-33%) Medium (34-66%) Large (67-100%) -Granulation Quality Soledad Soledad Soledad -Slough/Fibrin Yes Yes Yes -Necrosis Amt Large (67-100%) Medium (34-66%) Small (1-33%) -Necrotic Tissue Type Adherent Slough Adherent Slough Adherent Slough -Structure Exposed N/A N/A -Texture (Lexi-wound Skin Appearance) Localized Edema No Abnormality, Assessed, Assessed Localized Edema -Moisture (Lexi-wound Skin Appearance) Weeping No Abnormality, No Abnormality, Assessed Assessed -Color (Lexi-wound Skin Appearance) No Abnormality, No Abnormality, Assessed Assessed -Temperature (Lexi-wound Skin No Abnormality No Abnormality No Abnormality Appearance) (Pt Warm) (Pt Warm) (Pt Warm) -Tenderness on Palpation (Lexi-wound No No No Skin Appearance) -Ulcer Cleansing Soap and Water Rinsed/ Rinsed/ Irrigated with Irrigated with Saline Saline -Foul Odor after Cleansing No No No -Anesthetic Used 5% Lidocaine 5% Lidocaine 5% Lidocaine Gel Gel Gel Lower Limb Edema Present No Right Calf (cm) 59 Right Ankle (cm) 39 Left Calf (cm) 51.5 57 56 Left Ankle (cm) 38 37 38 WC - Nurse 2 - General Ulcer CM Notes Start: 02/17/23 08:59 Freq: Status: Active Protocol: Activity Type Activity Date Activity User E-sign Co-sign Detail Recorded Client Recorded Date Recorded By Document 02/17/23 09:59 [id number] 02/17/23 10:01 Document 03/03/23 11:45 [id number] 03/03/23 11:47 Document 03/10/23 10:00 [id number] 03/10/23 10:07 02/17/23 03/03/23 03/10/23 09:59 11:45 10:00 Wound Center Nurse 2 #1 Left lat leg -Time 10:00 11:45 10:01 -Correct Patient Yes Yes Yes -Correct Side, Site, Position Yes Yes Yes -Correct Procedure Yes Yes Yes -Procedure Performed Yes Yes Yes -Type of Procedure Debridement Debridement Debridement -Clinical Debridement Subcutaneous Subcutaneous Subcutaneous -Tissue Removed Subcutaneous Subcutaneous Subcutaneous -Post Debridement (cm) - Length 1.5 1.5 1.4 -Post Debridement (cm) - Width 2.0 1.7 1.7 -Post Debridement (cm) - Depth 0.3 0.3 0.2 -Total Square (Post) (cm) 3.00 2.55 2.38 -Area of Debridement (cm) - Length 1.5 1.5 1.4 -Area of Debridement (cm) - Width 2.0 1.7 1.7 -Total Square (Area) (cm) 3.00 2.55 2.38 -Tunneling No No No -Undermining/Tunneling No No No -Circular Undermining No No No -Wound/Ulcer Outcome Not Healed Not Healed Not Healed -Ulcer Cleansing Rinsed/ Rinsed/ Rinsed/ Irrigated with Irrigated with Irrigated with Saline Saline Saline -Foul Odor after Cleansing No No No -Bioengineered Tissue No No No -Bleeding Controlled with Pressure Pressure Pressure -Treatment Response Procedure Procedure Procedure Tolerated Well Tolerated Well Tolerated Well -Offloading No No No -Debridement - Subq, 1st 20sq cm Yes Yes Yes Pain Scale: 0-10 Numeric Is Patient Pain Free? Yes Yes Yes - Nurse 3 - General Ulcer D/C NN Start: 02/17/23 08:59 Freq: Status: Active Protocol: Activity Type Activity Date Activity User E-sign Co-sign Detail Recorded Client Recorded Date Recorded By Document 02/17/23 10:27 ALBA [id number] 02/17/23 10:28 ABLA 02/17/23 10:27 Wound Care Center Nurse 3 #1 Left lat leg -Ulcer Cleansing Soap and Water -Foul Odor after Cleansing No -Primary Dressing Applied Mepilex Border -Other Dressing Yolette -Mepilex Border 1 Bilateral -Tubular Bandage Single Layer -Size of Tubigrip Used Size F -Size F ($) 4 Pain Scale: 0-10 Numeric Is Patient Pain Free? Yes WC - Visit Discharge Discharge Condition Stable Ambulatory Status Cane Transportation Private Auto Assessment/Plan Assessment/Plan (1) Chronic ulcer of left leg with fat layer exposed: CODE(S): L97.922 - Non-pressure chronic ulcer of unspecified part of left lower leg with fat layer exposed (2) Super obese: CODE(S): E66.9 - Obesity, unspecified (3) Lymphedema of both lower extremities: CODE(S): I89.0 - Lymphedema, not elsewhere classified (4) Edema of both lower extremities: CODE(S): R60.0 - Localized edema (5) Essential hypertension: CODE(S): I10 - Essential (primary) hypertension (6) Heart murmur: CODE(S): R01.1 - Cardiac murmur, unspecified (7) Vitamin B12 deficiency: CODE(S): E53.8 - Deficiency of other specified B group vitamins (8) Postoperative malabsorption: CODE(S): K91.2 - Postsurgical malabsorption, not elsewhere classified PLAN: Plan Patient evaluated at the wound healing center. Wound care will be Yolette covered by [employer] daily. Compression - Double layer tubigrip for this week due to the holiday. Next weekwill start her in 3M 2 layer wraps to help with compression of her severely edematous legs and feet. She will need to have these changed during a nurse's visit between her appointment with me. She would benefit from lymphedema pumps to help assist with getting better control of her lymphedema/edema. Discussed with her that this ulcer will not heal until the edema/lymphedema is under better control. Her vascular studies were completed. No arterial compromise, but she has several areas of venous incompetent veins. Good compression should help with some of this, but will refer her to Dr. Bravo, the vascular surgeon, for further evaluation. A wound culture was obtained 02/17/23 which was positive for MRSE. She was started on Doxycycline and she is tolerating it well. Encouraged increase protein intake to help with wound healing, due to increase in metabolic demand. She may try supplemental protein drinks to help with this.With her history of gastric bypass, this may impact her healing process. She will follow up one week. 03/11/23 4835 <Electronically signed by Jenae Welsh NP [employer]> Cosigner Signature (if applicable): CC: ~ Signed [facility] Work Phone: 1(141) 712-178305-19-2023 Progress note Author Jenae Welsh [facility] March 04, 2023 11:11pm Note Date/Time March 03, 2023 12:03 pm [facility] [address] [place] [id number] Progress Note - Wound Care 03/03/23 1203 MR#: [id number] Acct: [id number] Name: KAROLYN MOREL Rep #:[id number] : 1955 67 From: Jenae domingo NP [employer] PCP: Dr. Jennifer Vu MD Status:R EG RCR Location: [facility] History of Present Illness Date of Service: 03/03/23 Chief Complaint: Non healing ulcer left lateral leg History of Wound: 67 year old female presents for evaluation of her non healing left lateral leg ulcer. She bumped it on her walker in December. She states she often bumps her legs on her walker but they heal up, this one never has. She then had Covid in early January and the ulcer started to hurt and drain and did noimprove. [facility] where she was placed on Clindamycin and referred to the wound center. She has been placing antibiotic ointment onto the ulcer. She has a history of chronic lymphedema, HTN, hypothyroidism, gastric bypass surgery 20 years ago, heart murmur and obstructive sleep apnea. She used to wear compression stockings for her edema/lymphedema but they became too tight and she stopped wearing them. Wound culture obtained 02/17/23 positive for MRSE and she was started on Doxycycline. She denies any fever, chills, nausea and vomiting. She comes in today for further evaluation and treatment. Progress of Wound: Left lateral leg ulcer with cash slough present. Bilateral leg lymphedema/+4 pitting edema present. Objective Data Objective Data Vital Signs: Vital Signs Temp Pulse Resp BP 97.3 F L 71 20 H 140/82 H 03/03/23 11:32 03/03/23 11:32 02/17/23 08:59 03/03/23 11:32 Weight: 275 lb Body Mass Index (BMI) 53.6 Lab / Micro Data Micro: Microbiology 02/17/23 Unknown Wound Abcess - Leg, Left Gram Stain - Final 02/17/23 Unknown Wound Abcess - Leg, Left Wound Culture - Final Staphylococcus epidermidis 02/17/23 Unknown Wound Abcess - Leg, Left Anaerobic Culture - Final No growth in 5 days. Charges/Coding Procedures Integumentary [id number]: 10693 Geena subq tissue 20 sq cm/< Debridement Note Debridement Note Wound debrided: lateral leg ulcer Laterality: Left Type of Debridement: Excisional debridement Anesthesia Used: 5% Lidocaine Gel Depth: Down to and including healthy tissue and in the subcutaneous layer Percentage of wound debrided: 100 Instrument Used: 5mm curette Tissue Removed: Devitalized tissue and slough Severity: Fat Layer Exposed Amount of bleeding with debridement: Mild Bleeding Controlled with: Pressure and Compression and gauze Patient tolerated procedure: Patient tolerated procedure well Post-Debridement Measurements and Additional Note: Post-Debridement Measurements/Treatment WC - Nurse 1 - General Ulcer Assessment Start: 02/17/23 08:59 Freq: Status: Active Protocol: BYRON.ISAAK Activity Type Activity Date Activity User E-sign Co-sign Detail Recorded Client Recorded Date Recorded By Document 02/17/23 08:59 PL [id number] 02/17/23 09:14 PL Document 03/03/23 11:32 AK [id number] 03/03/23 11:34 AK 02/17/23 03/03/23 08:59 11:32 - Today's Visit Information Type of service Initial Visit Follow-up Visit (Physician/SHELL PRESS OPERATOR ) Arrival Mode Ambulatory,Cane Ambulatory Transfer Assistance None Patient Identification Verified (Name & Yes Yes ) Patient Requires Transmission-Based No No Precautions Safety Precautions NA Height and Weight Height 5 ft Weight 275 lb Weight in Pounds 275.0 lbs Body Mass Index (BMI) 53.6 53.6 BMI Classification Obese Obese BSA - Eliecer 2.14 Vital Signs Temperature (97.8 F-99.1 F) 97.6 F L 97.3 F L Temperature Source Temporal Temporal Pulse Rate (60-100) 66 71 Pulse Location Monitor Respiratory Rate (12-18) 20 H Blood Pressure (90/60-120/80) 155/96 H 140/82 H Blood Pressure Mean (mm Hg) 115 101 Source Monitor History Since Last Visit- (Skip if this is Patient's initial visit) Have you changed medications since your No No last visit? Any new allergies or adverse reactions No No Had a fall/change in ADL's that may No No increase risk of falls Signs or symptoms of abuse and/or No No neglect since last visit Have you been in the hospital since your No No last visit? Has dressing in place as prescribed Yes Yes Has compression in place as prescribed No Yes Has offloadiing in place as prescribed No N/A Experienced any changes in pain level or No No management Left Footwear Regular Shoe Right Footwear Regular Shoe Pain Scale: 0-10 Numeric Is Patient Pain Free? Yes Yes - Nurse 1 - General Ulcer Measurement Start: 02/17/23 08:59 Freq: Status: Active Protocol: Activity Type Activity Date Activity User E-sign Co-sign Detail Recorded Client Recorded Date Recorded By Document 02/17/23 08:59 PL [id number] 02/17/23 09:14 PL Document 03/03/23 11:32 AK [id number] 03/03/23 11:34 AK 02/17/23 03/03/23 08:59 11:32 Wound Center Nurse 1 #1 Left lat leg -Combined with other wound No -Current Size (cm) - Length 1.5 1.5 -Current Size (cm) - Width 2.0 1.6 -Current Size (cm) - Depth 0.3 0.4 -Total Square Cm 3.00 2.40 -Photo Taken Yes -Epithelialization Medium 34-66% -Tunneling No No -Undermining/Tunneling No No -Circular Undermining No No -Change in Wound Grade/Stage No -Exudate Amt Medium Large -Exudate Type Serosanguineous Serosanguineous -Wound Margin Distinct, Outline Attached -Granulation Amt Small (1-33%) Medium (34-66%) -Granulation Quality Soledad Soledad -Slough/Fibrin Yes Yes -Necrosis Amt Large (67-100%) Medium (34-66%) -Necrotic Tissue Type Adherent Slough Adherent Slough -Structure Exposed N/A -Texture (Lexi-wound Skin Appearance) Localized Edema No Abnormality, Assessed -Moisture (Lexi-wound Skin Appearance) Weeping No Abnormality, Assessed -Color (Lexi-wound Skin Appearance) No Abnormality, Assessed -Temperature (Lexi-wound Skin No Abnormality No Abnormality Appearance) (Pt Warm) (Pt Warm) -Tenderness on Palpation (Lexi-wound No No Skin Appearance) -Ulcer Cleansing Soap and Water Rinsed/ Irrigated with Saline -Foul Odor after Cleansing No No -Anesthetic Used 5% Lidocaine 5% Lidocaine Gel Gel Lower Limb Edema Present No Right Calf (cm) 59 Right Ankle (cm) 39 Left Calf (cm) 51.5 57 Left Ankle (cm) 38 37 - Nurse 2 - General Ulcer CM Notes Start: 02/17/23 08:59 Freq: Status: Active Protocol: Activity Type Activity Date Activity User E-sign Co-sign Detail Recorded Client Recorded Date Recorded By Document 02/17/23 09:59 ZHANE [id number] 02/17/23 10:01 JF Document 03/03/23 11:45 ZHANE [id number] 03/03/23 11:47 ZHANE 02/17/23 03/03/23 09:59 11:45 Wound Center Nurse 2 #1 Left lat leg -Time 10:00 11:45 -Correct Patient Yes Yes -Correct Side, Site, Position Yes Yes -Correct Procedure Yes Yes -Procedure Performed Yes Yes -Type of Procedure Debridement Debridement -Clinical Debridement Subcutaneous Subcutaneous -Tissue Removed Subcutaneous Subcutaneous -Post Debridement (cm) - Length 1.5 1.5 -Post Debridement (cm) - Width 2.0 1.7 -Post Debridement (cm) - Depth 0.3 0.3 -Total Square (Post) (cm) 3.00 2.55 -Area of Debridement (cm) - Length 1.5 1.5 -Area of Debridement (cm) - Width 2.0 1.7 -Total Square (Area) (cm) 3.00 2.55 -Tunneling No No -Undermining/Tunneling No No -Circular Undermining No No -Wound/Ulcer Outcome Not Healed Not Healed -Ulcer Cleansing Rinsed/ Rinsed/ Irrigated with Irrigated with Saline Saline -Foul Odor after Cleansing No No -Bioengineered Tissue No No -Bleeding Controlled with Pressure Pressure -Treatment Response Procedure Procedure Tolerated Well Tolerated Well -Offloading No No -Debridement - Subq, 1st 20sq cm Yes Yes Pain Scale: 0-10 Numeric Is Patient Pain Free? Yes Yes - Nurse 3 - General Ulcer D/C NN Start: 02/17/23 08:59 Freq: Status: Active Protocol: Activity Type Activity Date Activity User E-sign Co-sign Detail Recorded Client Recorded Date Recorded By Document 02/17/23 10:27 ALBA [id number] 02/17/23 10:28 ALBA 02/17/23 10:27 Wound Care Center Nurse 3 #1 Left lat leg -Ulcer Cleansing Soap and Water -Foul Odor after Cleansing No -Primary Dressing Applied Mepilex Border -Other Dressing Yolette -Mepilex Border 1 Bilateral -Tubular Bandage Single Layer -Size of Tubigrip Used Size F -Size F ($) 4 Pain Scale: 0-10 Numeric Is Patient Pain Free? Yes - Visit Discharge Discharge Condition Stable Ambulatory Status Cane Transportation Private Auto Assessment/Plan Assessment/Plan (1) Chronic ulcer of left leg with fat layer exposed: CODE(S): L97.922 - Non-pressure chronic ulcer of unspecified part of left lower leg with fat layer exposed (2) Super obese: CODE(S): E66.9 - Obesity, unspecified (3) Lymphedema of both lower extremities: CODE(S): I89.0 - Lymphedema, not elsewhere classified (4) Edema of both lower extremities: CODE(S): R60.0 - Localized edema (5) Essential hypertension: CODE(S): I10 - Essential (primary) hypertension (6) Heart murmur: CODE(S): R01.1 - Cardiac murmur, unspecified (7) Vitamin B12 deficiency: CODE(S): E53.8 - Deficiency of other specified B group vitamins (8) Postoperative malabsorption: CODE(S): K91.2 - Postsurgical malabsorption, not elsewhere classified PLAN: Plan Patient evaluated at the wound healing center. Wound care will be Yolette covered by [employer] daily. Compression - Single layer tubigrip. She is scheduled for venous and arterial studies later today. A wound culture was obtained 02/17/23 which was positive for MRSE. She was started on Doxycycline and she is tolerating it well. Encouraged increase protein intake to help with wound healing, due to increase in metabolic demand. She may try supplemental protein drinks to help with this.With her history of gastric bypass, this may impact her healing process. She will follow up one week. 03/04/23 [id number] <Electronically signed by Jenae Welsh NP [employer] FARM MANAGERAllisonC> Cosigner Signature (if applicable): CC: ~ Signed [facility] Work Phone: 1(865) 158-123805-10-2023 History and physical note Author Jenae Welsh [facility] February 24, 2023 8:56am Note Date/Time February 17, 2023 11:07a m [facility] [address] [place] [address] H&P Exam - Wound Care 02/17/23 1101 MR#: [id number] Acct: [id number] Name: KAROLYN MOREL Rep #:[id number] : 1955 67 From: Jenae domingo NP [employer] PCP: Dr. Jennifer Vu MD Status:R EG RCR Location: ADDENDUM by [employer] Jenae Welsh on 02/24/23 at 0856 Addendum 02/24/23 - Positive wound culture for MRSE. Will start her on Doxycycline twice daily. Patient notified. 02/24/23 0856<Electronically signed by Jenae Welsh [employer] MANAGER [employer]> Cosigner Signature (if applicable): cc: ~* Signed History of Present Illness Date of Service: 02/17/23 Chief Complaint: Non healing ulcer left lateral leg History of Wound: 67 year old female presents for evaluation of her non healing left lateral leg ulcer. She bumped it on her walker in December. She states she often bumps her legs on her walker but they heal up, this one never has. She then had Covid in early January and the ulcer started to hurt and drain and did noimprove. [facility] where she was placed on Clindamycin and referred to the wound center. She has been placing antibiotic ointment onto the ulcer. She has a history of chronic lymphedema, HTN, hypothyroidism, gastric bypass surgery 20 years ago, heart murmur and obstructive sleep apnea. She used to wear compression stockings for her edema/lymphedema but they became too tight and she stopped wearing them. She denies any fever, chills, nausea and vomiting. She comes in today for further evaluation and treatment. Progress of Wound: Left lateral leg ulcer with cash slough present. Bilateral leg lymphedema/+4 pitting edema present. [facility] Medical History (Updated 02/17/23 @ 15:49 by Jenae Welsh [employer] MANAGER, [employer]NAGER-[employer]) Abdominal wall pain in left flank Abnormal mammogram of right breast Acute bronchitis, unspecified Asthma Back pain Breast lump Breast mass, right Cataract Chest congestion Chronic bronchitis Chronic fatigue Contact with and (suspected) exposure to other viral communicable diseases COVID-19 COVID-19 vaccine series completed Difficulty balancing Essential hypertension Flu vaccine need Frequent headaches Glaucoma H/O emotional problems Health care maintenance Heart murmur History of sleep apnea Hypothyroidism Kidney stones Left hip pain Lymphedema Malaise and fatigue Neck pain Non-rheumatic mitral regurgitation RLS (restless legs syndrome) Seasonal allergies Skin tear of left lower leg without complication Thoracic aortic aneurysm without rupture Ulcer of left calf Ulcer of right lower extremity, limited to breakdown of skin Home Medications Bacillus coagulans 10 billion cell capsule,delayed release (Probiotic (B. coagulans)) cell PO 05/02/19 [History Last Taken Unknown] cholecalciferol (vitamin D3) 125 mcg (5,000 unit) capsule 5,000 unit PO DAILY 05/02/19 [History Last Taken Unknown] ferrous sulfate 325 mg (65 mg iron) tablet 325 mg PO BID 05/02/19 [History Last Taken Unknown] vit C 250 mg-vit E 90 mg-zinc 40 mg-copper 1 mw-pwjcoi-reczhr capsule (PreserVision AREDS-2) 1 tab PO BID 05/02/19 [History Last Taken Unknown] multivitamin 1 tab PO DAILY 05/25/19 [History Last Taken Unknown] mecobalamin (vitamin B12) 10,000 mcg solution for injection 1,000 mcg IM MONTHLY3 months #1 ea 06/28/20 [Rx Last Taken Unknown] amlodipine 5 mg tablet 7.5 mg PO DAILY 3 months #135 tabs 03/18/21 [Rx Last Taken Unknown] fluticasone propionate 50 mcg/actuation nasal spray,suspension 2 spray intranasal DAILY #3 ea 01/05/22 [Rx Last Taken Unknown] albuterol sulfate 90 mcg/actuation aerosol inhaler 2 puff inhalation Q4H PRN shortness of breath or wheezing #18 grams 02/12/22 [Rx Last Taken Unknown] dorzolamide-timolol (PF) 2 %-0.5 % eye drops in a dropperette drp ophthalmic (eye) 07/08/22 [History Last Taken Unknown] fluorometholone 0.1 % eye drops,suspension drp ophthalmic (eye) 07/08/22 [History Last Taken Unknown] atenolol 25 mg tablet See Rx Instructions .Route .COMPLEX #90 tabs 08/06/22 [Rx Last Taken Unknown] levothyroxine 100 mcg tablet 100 mcg PO DAILY 90 days #90 tabs 08/07/22 [Rx Last Taken Unknown] Handicap Placard #1 ea 12/10/22 [Rx Last Taken Unknown] tramadol 50 mg tablet 50 mg PO BID PRN pain #30 tabs 12/10/22 [Rx Last Taken Unknown] fluticasone propionate 110 mcg/actuation HFA aerosol inhaler (Flovent HFA) 2 puff inhalation BID PRN asthma #1 ea 01/12/23 [Rx Last Taken Unknown] Allergy/AdvReac Type Severity Reaction Status Date / Time amoxicillin Allergy Severe rash Verified 01/31/23 12:43 Penicillins Allergy Mild itchy Verified 01/31/23 12:43 Sulfa (Sulfonamide Allergy Mild hives and Verified 01/31/23 12:43 Antibiotics) swelling Family History Mother Blood clot in vein Thyroid disorder Anxiety A-fib Father Kidney stone A-fib Brother Kidney stone Surgical History (Reviewed 02/17/23 @ 15:41 by Jenae Welsh [employer]GER, [employer] MANAGER-C) History of appendectomy History of cholecystectomy Hx of gastric bypass Social History Smoking Status: Never smoker alcohol intake: never substance use type: does not use caffeine: Yes Type: carbonated beverages Number of servings: 2 and coffee Number of servings: 2 what type of physical activity do you participate in: none ROS Constitutional Constitutional: Denies chills or fever(s) Eyes Eyes: Reports none ENT HEENT: Reports none Cardiovascular Cardiovascular: Reports as per HPI, edema and hypertension; Denies chest pain ordyspnea Respiratory/Chest Respiratory/Chest: Denies cough or dyspnea Gastrointestinal Gastrointestinal: Reports as per HPI; Denies nausea or vomiting Genitourinary Genitourinary: Reports none Musculoskeletal Musculoskeletal: Reports joint pain Integumentary Integumentary: Reports skin pain and skin ulcer Neurologic Neurologic: Denies confusion or dizziness Psychiatric Psychiatric: Denies abnormal sleep pattern Endocrine Endocrinology: Reports as per HPI Vital Signs Vital Signs Vital Signs: 02/17/23 08:59 Temperature 97.6 F L Temperature Source Temporal Pulse Rate 66 Respiratory Rate 20 H Blood Pressure 155/96 H Blood Pressure Mean 115 Weight Weight: 275 lb Body Mass Index (BMI) 53.6 Physical Exam Const alert, oriented x3 and no apparent distress General Appearance: cooperative HEENT normocephalic Eyes General Eye: normal appearance of both eyes Neck full ROM Lymph Lymphatic: lymphedema severe and pitting Resp normal respiratory effort, normal air movement and clear to auscultation bilaterally Effort and Inspection: able to speak in complete sentences Cardio regular rate and regular rhythm GI normal to inspection, nondistended, normoactive bowel sounds, soft to palpation and non-tender Back/Spine normal ROM Extremity full ROM and normal capillary refill General Extremity: edema bilateral lower extremity Details: severe Peripheral Pulses: Yes pulses 2+ throughout Skin Wound Narrative: Ulcer on left lateral leg with cash devitalized tissue present. Neuro oriented x3 and moves all extremities Sensorium / Orientation: awake, alert and oriented to person Psych mental status grossly normal, cooperative and affect normal Debridement Note Debridement Note Wound debrided: lateral leg ulcer Laterality: Left Type of Debridement: Excisional debridement Anesthesia Used: 5% Lidocaine Gel Depth: Down to and including healthy tissue and in the subcutaneous layer Percentage of wound debrided: 100 Instrument Used: 5mm curette Tissue Removed: Devitalized tissue and slough Severity: Fat Layer Exposed Amount of bleeding with debridement: Mild Bleeding Controlled with: Pressure and Compression and gauze Patient tolerated procedure: Patient tolerated procedure well Post-Debridement Measurements and Additional Note: Post-Debridement Measurements/Treatment WC - Nurse 1 - General Ulcer Assessment Start: 02/17/23 08:59 Freq: Status: Active Protocol: DARYN Activity Type Activity Date Activity User E-sign Co-sign Detail Recorded Client Recorded Date Recorded By Document 02/17/23 08:59 PL [id number] 02/17/23 09:14 PL 02/17/23 08:59 WC - Today's Visit Information Type of service Initial Visit Arrival Mode Ambulatory,Cane Transfer Assistance None Patient Identification Verified (Name & Yes ) Patient Requires Transmission-Based No Precautions Safety Precautions NA Height and Weight Height 5 ft Weight 275 lb Weight in Pounds 275.0 lbs Body Mass Index (BMI) 53.6 BMI Classification Obese BSA - Eliecer 2.14 Vital Signs Temperature (97.8 F-99.1 F) 97.6 F L Temperature Source Temporal Pulse Rate (60-100) 66 Respiratory Rate (12-18) 20 H Blood Pressure (90/60-120/80) 155/96 H Blood Pressure Mean 115 History Since Last Visit- (Skip if this is Patient's initial visit) Have you changed medications since your No last visit? Any new allergies or adverse reactions No Had a fall/change in ADL's that may No increase risk of falls Signs or symptoms of abuse and/or No neglect since last visit Have you been in the hospital since your No last visit? Has dressing in place as prescribed Yes Has compression in place as prescribed No Has offloadiing in place as prescribed No Experienced any changes in pain level or No management Pain Scale: 0-10 Numeric Is Patient Pain Free? Yes - Nurse 1 - General Ulcer Measurement Start: 02/17/23 08:59 Freq: Status: Active Protocol: Activity Type Activity Date Activity User E-sign Co-sign Detail Recorded Client Recorded Date Recorded By Document 02/17/23 08:59 PL [id number] 02/17/23 09:14 PL 02/17/23 08:59 Wound Center Nurse 1 #1 Left lat leg -Current Size (cm) - Length 1.5 -Current Size (cm) - Width 2.0 -Current Size (cm) - Depth 0.3 -Total Square Cm 3.00 -Epithelialization Medium 34-66% -Tunneling No -Undermining/Tunneling No -Circular Undermining No -Exudate Amt Medium -Exudate Type Serosanguineous -Granulation Amt Small (1-33%) -Granulation Quality [place] -Slough/Fibrin Yes -Necrosis Amt Large (67-100%) -Necrotic Tissue Type Adherent Slough -Texture (Lexi-wound Skin Appearance) Localized Edema -Moisture (Lexi-wound Skin Appearance) Weeping -Temperature (Lexi-wound Skin No Abnormality Appearance) (Pt Warm) -Tenderness on Palpation (Lexi-wound No Skin Appearance) -Ulcer Cleansing Soap and Water -Foul Odor after Cleansing No -Anesthetic Used 5% Lidocaine Gel Right Calf (cm) 59 Right Ankle (cm) 39 Left Calf (cm) 51.5 Left Ankle (cm) 38 - Nurse 2 - General Ulcer CM Notes Start: 02/17/23 08:59 Freq: Status: Active Protocol: Activity Type Activity Date Activity User E-sign Co-sign Detail Recorded Client Recorded Date Recorded By Document 02/17/23 09:59 ZHANE [id number] 02/17/23 10:01 ZHANE 02/17/23 09:59 Wound Center Nurse 2 #1 Left lat leg -Time 10:00 -Correct Patient Yes -Correct Side, Site, Position Yes -Correct Procedure Yes -Procedure Performed Yes -Type of Procedure Debridement -Clinical Debridement Subcutaneous -Tissue Removed Subcutaneous -Post Debridement (cm) - Length 1.5 -Post Debridement (cm) - Width 2.0 -Post Debridement (cm) - Depth 0.3 -Total Square (Post) (cm) 3.00 -Area of Debridement (cm) - Length 1.5 -Area of Debridement (cm) - Width 2.0 -Total Square (Area) (cm) 3.00 -Tunneling No -Undermining/Tunneling No -Circular Undermining No -Wound/Ulcer Outcome Not Healed -Ulcer Cleansing Rinsed/ Irrigated with Saline -Foul Odor after Cleansing No -Bioengineered Tissue No -Bleeding Controlled with Pressure -Treatment Response Procedure Tolerated Well -Offloading No -Debridement - Subq, 1st 20sq cm Yes Pain Scale: 0-10 Numeric Is Patient Pain Free? Yes WC - Nurse 3 - General Ulcer D/C NN Start: 02/17/23 08:59 Freq: Status: Active Protocol: Activity Type Activity Date Activity User E-sign Co-sign Detail Recorded Client Recorded Date Recorded By Document 02/17/23 10:27 PL [id number] 02/17/23 10:28 PL 02/17/23 10:27 Wound Care Center Nurse 3 #1 Left lat leg -Ulcer Cleansing Soap and Water -Foul Odor after Cleansing No -Primary Dressing Applied Mepilex Border -Other Dressing Yolette -Mepilex Border 1 Bilateral -Tubular Bandage Single Layer -Size of Tubigrip Used Size F -Size F ($) 4 Pain Scale: 0-10 Numeric Is Patient Pain Free? Yes WC - Visit Discharge Discharge Condition Stable Ambulatory Status Cane Transportation Private Auto Charges/Coding Visit Charges Office Visits / Consults: 27538 OV L4 Est (25 modifier) Procedures Integumentary [id number]: [id number] Geena subq tissue 20 sq cm/< Assessment/Plan Assessment/Plan (1) Chronic ulcer of left leg with fat layer exposed: CODE(S): L97.922 - Non-pressure chronic ulcer of unspecified part of left lower leg with fat layer exposed (2) Super obese: CODE(S): E66.9 - Obesity, unspecified (3) Lymphedema of both lower extremities: CODE(S): I89.0 - Lymphedema, not elsewhere classified (4) Edema of both lower extremities: CODE(S): R60.0 - Localized edema (5) Essential hypertension: CODE(S): I10 - Essential (primary) hypertension (6) Heart murmur: CODE(S): R01.1 - Cardiac murmur, unspecified (7) Vitamin B12 deficiency: CODE(S): E53.8 - Deficiency of other specified B group vitamins (8) Postoperative malabsorption: CODE(S): K91.2 - Postsurgical malabsorption, not elsewhere classified PLAN: Plan Patient evaluated at the wound healing center. Wound care will be [facility] covered by [facility] daily (she has Yolette at home). Compression - Single layer tubigrip. Will order venous and arterial studies for further evaluation before placing higher compression on her. A wound culture was obtained today.? A positive culture will necessitate antibiotic therapy. Encouraged increase protein intake to help with wound healing, due to increase in metabolic demand. She may try supplemental protein drinks to help with this.With her history of gastric bypass, this may impact her healing process. She will follow up one week. 02/17/23 [id number] <Electronically signed by Jenae Welsh NP [employer]IC[employer] MANAGER-C> Cosigner Signature (if applicable): CC: ~ Signed [facility] Work Phone: Evaluation note* Diagnosis Onset Date Resolution Status Breast mass, right acute PADILLA (obstructive sleep apnea) acute Asthma chronic [facility] Work Phone: Evaluation note* Diagnosis Onset Date Resolution Status Breast mass, right acute PADILLA (obstructive sleep apnea) acute Asthma chronic Health care maintenance acut e Essential hypertension chron ic Hypothyroidism chronic Vitamin B12 deficiency chron ic Decreased energy noneactive Vitamin D deficiency noneact jesus [facility] Work Phone: Evaluation note* Diagnosis Onset Date Resolution Status Health care maintenance acut e Essential hypertension chron ic Hypothyroidism chronic Vitamin B12 deficiency chron ic Decreased energy noneactive Vitamin D deficiency noneact jesus Skin tear of left lower leg without complication acute Chest congestion acute Malaise and fatigue acute Asthma chronic Cough chronic [facility] Work Phone: Evaluation note* Diagnosis Onset Date Resolution Status Acute bronchitis, unspecified acute Contact with and (suspected) exposure to other viral communicable diseases acute Chronic fatigue chronic Essential hypertension chron ic Hypothyroidism chronic PADILLA (obstructive sleep apnea) chronic Super obese chronic Cough chronic Essential hypertension chron ic Hypothyroidism chronic PADILLA (obstructive sleep apnea) chronic Asthma chronic PADILLA (obstructive sleep apnea) chronic Super obese chronic Edema of both lower extremities acute Lymphedema of both lower extremities acute Chronic ulcer of left leg with fat layer exposed chronic Essential hypertension chron ic Heart murmur chronic Postoperative malabsorption chronic Super obese chronic Vitamin B12 deficiency chron ic [facility] Work Phone: Evaluation note* Diagnosis Onset Date Resolution Status Cough chronic Essential hypertension chron ic Hypothyroidism chronic PADILLA (obstructive sleep apnea) chronic Asthma chronic PADILLA (obstructive sleep apnea) chronic Super obese chronic Edema of both lower extremities acute Lymphedema of both lower extremities acute Chronic ulcer of left leg with fat layer exposed chronic Essential hypertension chron ic Heart murmur chronic Postoperative malabsorption chronic Super obese chronic Vitamin B12 deficiency chron ic Edema of both lower extremities acute Venous insufficiency of both lower extremities acute Chronic ulcer of left leg with fat layer exposed chronic Edema of both lower extremities acute Lymphedema of both lower extremities acute Chronic ulcer of left leg with fat layer exposed chronic Essential hypertension chron ic Postoperative malabsorption chronic Super obese chronic [facility] Work Phone: Evaluation note* Diagnosis Onset Date Resolution Status Cough chronic Essential hypertension chron ic Hypothyroidism chronic PADILLA (obstructive sleep apnea) chronic Asthma chronic PADILLA (obstructive sleep apnea) chronic Super obese chronic Edema of both lower extremities acute Lymphedema of both lower extremities acute Chronic ulcer of left leg with fat layer exposed chronic Essential hypertension chron ic Heart murmur chronic Postoperative malabsorption chronic Super obese chronic Vitamin B12 deficiency chron ic Edema of both lower extremities acute Chronic ulcer of left leg with fat layer exposed chronic Venous insufficiency of both lower extremities chronic Edema of both lower extremities acute Lymphedema of both lower extremities acute Chronic ulcer of left leg with fat layer exposed chronic Essential hypertension chron ic Postoperative malabsorption chronic Super obese chronic Edema of both lower extremities acute Lymphedema of both lower extremities acute Chronic ulcer of left leg with fat layer exposed chronic Essential hypertension chron ic Postoperative malabsorption chronic Super obese chronic Chronic cough chronic Health care maintenance acut e Chronic cough chronic Essential hypertension chron ic Hypothyroidism chronic Venous insufficiency of both lower extremities chronic Vitamin B12 deficiency chron ic [facility] Work Phone: Evaluation note* Diagnosis Onset Date Resolution Status Osteoporosis acute Essential hypertension chron ic Hypothyroidism chronic Venous insufficiency of both lower extremities chronic [facility] Work Phone: Evaluation note* Diagnosis Onset Date Resolution Status Osteoporosis acute Essential hypertension chron ic Hypothyroidism chronic Venous insufficiency of both lower extremities chronic Acute upper respiratory infection acute Pneumonia acute Dermatitis acute Pneumonia acute [facility] Work Phone: Hospital Discharge instructionsAmbulatory Orders* Infectious Disease Location: None Selected [facility] Work Phone: Chief Complaint and Reason for Visit Chief Complaint LT HIP PAIN. RX HERE SCREENING ABN MAMM RT BREAST Birads 4 Right Breast ABN MAMM RT BREAST ABN MAMM RT BREAST 1 Y FU Reason for Visit Breast mass, right PADILLA (obstructive sleep apnea) Asthma Chief Complaint SCREENING ABN MAMM RT BREAST Birads 4 Right Breast ABN MAMM RT BREAST ABN MAMM RT BREAST 1 Y FU WEAK, NO ENERGY Reason for Visit Breast mass, right PADILLA (obstructive sleep apnea) Asthma Health care maintenance Essential hypertension Hypothyroidism Vitamin B12 deficiency Decreased energy Vitamin D deficiency Chief Complaint WEAK, NO ENERGY WOUND ON LEFT LEG cough, covid- Reason for Visit Health care maintena nce Essential hypertension Hypothyroidism Vitamin B12 deficiency Decreased energy Vitamin D deficiency Skin tear of left lower leg without complication Chest congestion Malaise and fatigue Asthma Cough Chief Complaint Cough 6 M FU COVID POS/WANTS MEDICATION LEFT LEG OPEN WOUND/CONCERN FOR INFECTION wound wound 3 M FU 1 Y FU wound wound Reason for Visit Acute bronchitis, un specified Contact with and (suspected) exposure to other viral communicable diseases Chronic fatigue Essential hypertension Hypothyroidism PADILLA (obstructive sleep apnea) Super obese Cough Essential hypertension Hypothyroidism PADILLA (obstructive sleep apnea) Asthma PADILLA (obstructive sleep apnea) Super obese Edema of both lower extremities Lymphedema of both lower extremities Chronic ulcer of left leg with fat layer exposed Essential hypertension Heart murmur Postoperative malabsorption Super obese Vitamin B12 deficiency Chief Complaint COVID POS/WANTS MEDI CATION LEFT LEG OPEN WOUND/CONCERN FOR INFECTION wound wound 3 M FU 1 Y FU wound wound wound wound VENOUS INSICIENCY wound wound wound wound Reason for Visit Cough Essential hypertension Hypothyroidism PADILLA (obstructive sleep apnea) Asthma PADILLA (obstructive sleep apnea) Super obese Edema of both lower extremities Lymphedema of both lower extremities Chronic ulcer of left leg with fat layer exposed Essential hypertension Heart murmur Postoperative malabsorption Super obese Vitamin B12 deficiency Edema of both lower extremities Venous insufficiency of both lower extremities Chronic ulcer of left leg with fat layer exposed Edema of both lower extremities Lymphedema of both lower extremities Chronic ulcer of left leg with fat layer exposed Essential hypertension Postoperative malabsorption Super obese Chief Complaint COVID POS/WANTS MEDI CATION LEFT LEG OPEN WOUND/CONCERN FOR INFECTION wound wound 3 M FU 1 Y FU wound wound wound wound VENOUS INSICIENCY wound wound wound wound wound Reason for Visit Cough Essential hypertension Hypothyroidism PADILLA (obstructive sleep apnea) Asthma PADILLA (obstructive sleep apnea) Super obese Edema of both lower extremities Lymphedema of both lower extremities Chronic ulcer of left leg with fat layer exposed Essential hypertension Heart murmur Postoperative malabsorption Super obese Vitamin B12 deficiency Edema of both lower extremities Venous insufficiency of both lower extremities Chronic ulcer of left leg with fat layer exposed Edema of both lower extremities Lymphedema of both lower extremities Chronic ulcer of left leg with fat layer exposed Essential hypertension Postoperative malabsorption Super obese Chief Complaint wound wound 3 M FU 1 Y FU wound wound wound wound VENOUS INSICIENCY wound wound wound wound wound wound Cough 3 m fu EORDER- Chronic Cough Reason for Visit Cough Essential hypertension Hypothyroidism PADILLA (obstructive sleep apnea) Asthma PADILLA (obstructive sleep apnea) Super obese Edema of both lower extremities Lymphedema of both lower extremities Chronic ulcer of left leg with fat layer exposed Essential hypertension Heart murmur Postoperative malabsorption Super obese Vitamin B12 deficiency Edema of both lower extremities Chronic ulcer of left leg with fat layer exposed Venous insufficiency of both lower extremities Edema of both lower extremities Lymphedema of both lower extremities Chronic ulcer of left leg with fat layer exposed Essential hypertension Postoperative malabsorption Super obese Edema of both lower extremities Lymphedema of both lower extremities Chronic ulcer of left leg with fat layer exposed Essential hypertension Postoperative malabsorption Super obese Chronic cough Health care maintenance Chronic cough Essential hypertension Hypothyroidism Venous insufficiency of both lower extremities Vitamin B12 deficiency Chief Complaint 3 M FU 1 Y FU wound wound wound wound VENOUS INSICIENCY wound wound wound wound wound wound Cough 3 m fu EORDER- Chronic Cough SCREENING/POST MENOPAUSE Reason for Visit Cough Essential hypertension Hypothyroidism PADILLA (obstructive sleep apnea) Asthma PADILLA (obstructive sleep apnea) Super obese Edema of both lower extremities Lymphedema of both lower extremities Chronic ulcer of left leg with fat layer exposed Essential hypertension Heart murmur Postoperative malabsorption Super obese Vitamin B12 deficiency Edema of both lower extremities Chronic ulcer of left leg with fat layer exposed Venous insufficiency of both lower extremities Edema of both lower extremities Lymphedema of both lower extremities Chronic ulcer of left leg with fat layer exposed Essential hypertension Postoperative malabsorption Super obese Edema of both lower extremities Lymphedema of both lower extremities Chronic ulcer of left leg with fat layer exposed Essential hypertension Postoperative malabsorption Super obese Chronic cough Health care maintenance Chronic cough Essential hypertension Hypothyroidism Venous insufficiency of both lower extremities Vitamin B12 deficiency Chief Complaint FOLLOW UP Reason for Visit Osteoporosis Essential hypertension Hypothyroidism Venous insufficiency of both lower extremities Chief Complaint FOLLOW UP COUGH, FEVER, FATIGUE FEELING SICK PNEUMONIA, TO BE SEEN PER CLIFF Reason for Visit Osteoporosis Essential hypertension Hypothyroidism Venous insufficiency of both lower extremities Acute upper respiratory infection Pneumonia Dermatitis Pneumonia Chief Complaint Admit Date SCREENING October 31, 2024 1 2:14pm VENOUS INSUFFICIENCY November 14, 2024 12:41pm 3 M FU January 08, 2025 1:0 5pm 1 Y FU February 21, 2025 8:05am Referral Order February 23, 2025 3:28pm Reason for Visit Admit Date Lymphedema of both lower extremities Polo turner 2024 12:41pm Venous insufficiency of both lower extre mities November 14, 2024 12:41pm Encounter for fitting and ad justment of other specified devices November 14, 2024 12:41pm Osteoporosis January 08, 2025 1:0 5pm Essential hypertension January 08, 2025 1:05pm Hypothyroidism January 08, 2025 1:0 5pm Postoperative malabsorption January 08, 2025 1:05pm Asthma February 21, 2025 8:05am PADILLA (obstructive sleep apnea) February 21, 2 025 8:05am Super obese February 21, 2025 8:05am Chief Complaint Admit Date VENOUS INSUFFICIENCY November 14, 2024 12:41pm 3 M FU January 08, 2025 1:0 5pm 1 Y FU February 21, 2025 8:05am Referral Order February 23, 2025 3:28pm 4-6 M FU March 13, 2025 12:45 pm Chief Complaint Admit Date 3 M FU January 08, 2025 1:0 5pm 1 Y FU February 21, 2025 8:05am Referral Order February 23, 2025 3:28pm 4-6 M FU March 13, 2025 12:45 pm 3 M FU April 18, 2025 1:06p m Reason for Visit Admit Date Osteoporosis January 08, 2025 1:0 5pm Essential hypertension January 08, 2025 1:05pm Hypothyroidism January 08, 2025 1:0 5pm Postoperative malabsorption January 08, 2025 1:05pm Asthma February 21, 2025 8:05am PADILLA (obstructive sleep apnea) February 21, 2 025 8:05am Super obese February 21, 2025 8:05am Lymphedema of both lower extremities March 13, 2025 12:45pm Venous insufficiency of both lower extre mities March 13, 2025 12:45pm Encounter for fitting and ad justment of other specified devices March 13, 2025 12:45pm Family History Relationship Condition Age at Onset Recorded Date/T roula mother Venous thrombosis Unknown Disorder of thyroid Unknown Anxiety Unknown Atrial fibrillation Unknown father Calculus of kidney Unknown brother Calculus of kidney Unknown Summary Purpose Advance Directives No Advanced Directives Records Found Additional Source Comments Goals (unrecognized section and content) Goals may be documented in a n alternate sectionGoals may be documented in an alternate sectionGoals may be documented in an alternate sectionGoals may be documented in an alternate sectionGoals may be documented in an alternate sectionGoals may be documented in an alternate sectionGoals may be documented in an alternate sectionGoals may be documented in an alternate sectionGoals may be documented in an alternate sectionGoals may be documented in an alternate sectionGoals may be documented in an alternate sectionGoals may be documented in an alternate sectionGoals may be documented in an alternate sectionGoals may be documented in an alternate sectionGoals may be documented in an alternate section Care Teams (unrecognized sec tion and content) Team Status: Active Member Role Status Dates Dr. Jennifer Vu MD Family Provider Active Dr. Jennifer Vu MD Primary Care Provider Active Team Status: Inactive Member Role Status Dates Dr. Jennifer Vu MD Primary Care Provider, Refer ring Provider Active Karime Roach AGRICULTURAL [employer] F[employer] MANAGER, AGRICULTURAL [employer] FARM MANAGER-C Attending Provider Active Team Status: Inactive Member Role Status Dates Dr. Jennifer Vu MD Primary Care P jeremiahvitherese, Attending Provider, Referring Provider Active Team Status: Inactive Member Role Status Dates Dr. Jennifer Vu MD Primary Care Provider, Refer ring Provider Active Evangelist Jacques PA, PA Attending Provider Active Team Status: Inactive Member Role Status Dates Dr. Jennifer Vu MD Primary Care Provider, Refer ring Provider Active Sonu Kellogg AGRICULTURAL [employer] FARM MANAGER, AGRICULTURAL [employer] FARM MANAGER-C Attending Provider Active Team Status: Inactive Member Role Status Dates Dr. Jennifer Vu MD Primary Care Provider, Refer ring Provider Active ANABELLA Active Clara Carlton PA, PA Attending Provider Active Team Status: Active Member Role Status Dates Dr. Jennifer Vu MD Primary Care Provider Active Jenae Welsh AGRICULTURAL [employer] MANAGER, AGRICULTURAL [employer] MANAGER-C Attending Pro vider, Referring Provider, Other Provider Active Team Status: Active Member Role Status Dates Dr. Jennifer Vu MD Primary Care Provider Active Jenae Welsh AGRICULTURAL [employer] FARM MANAGER, AGRICULTURAL [employer] FARM MANAGER-C Attending Pro vider, Referring Provider, Other Provider Active Clara Carlton PA, PA Other Provider Active Team Status: Inactive Member Role Status Dates Dr. Jennifer Vu MD Primary Care Provider Active Jenae Welsh AGRICULTURAL [employer] FARM MANAGER, AGRICULTURAL [employer] FARM MANAGER-C Attending Provider, Referri ng Provider Active Clara Carlton PA, PA Other Provider Active Team Status: Inactive Member Role Status Dates Dr. Jennifer Vu MD Primary Care Provider, Refer ring Provider Active MIGUEL Brewster Attending Provider Active Team Status: Inactive Member Role Status Dates Dr. Jennifer Vu MD Primary Care Provider, Refer ring Provider Active Raphael RIVERA, PA Attending Provider Active Team Status: Active Member Role Status Dates Dr. Jennifer Vu MD Primary Care P rovider, Attending Provider, Referring Provider Active Team Status: Inactive Member Role Status Dates Dr. Jennifer Vu MD Primary Care Provider, Refer ring Provider Active MIGUEL Lyles Attending Provider Active Team Status: Inactive Member Role Status Dates Dr. Jennifer Vu MD Primary Care Provider, Refer ring Provider Active Gabriel RIVERA, PA Attending Provider Active Team Status: Inactive Member Role Status Dates Dr. Jennifer Vu MD Primary Care Provider Active Gabriel RIVERA PA Attending Provider, Referring Prov ider Active Team Status: Active Member Role Status Dates Dr. Jennifer Vu MD Primary Care Provider Active Team Status: Inactive Member Role Status Dates Dr. Jennifer Vu MD Primary Care Provider Active Start: October 31, 2024 End: October 31, 2024 Dr. Jennifer Vu MD Attending Provider Active Start: October 31, 2024 End: October 31, 2024 Dr. Jennifer Vu MD Referring Provider Active Start: October 31, 2024 End: October 31, 2024 Team Status: Inactive Member Role Status Dates Dr. Jennifer Vu MD Primary Care Provider Active Start: November 14, 2024 End: November 14, 2024 Dr. Jennifer Vu MD Referring Provider Active Start: November 14, 2024 End: November 14, 2024 MIGUEL Lyles Attending Provider Active Star t: November 14, 2024 End: November 14, 2024 Team Status: Inactive Member Role Status Dates Dr. Jennifer Vu MD Primary Care Provider Active Start: January 08, 2025 End: January 08, 2025 Dr. Jennifer Vu MD Attending Provider Active Start: January 08, 2025 End: January 08, 2025 Dr. Jennifer Vu MD Referring Provider Active Start: January 08, 2025 End: January 08, 2025 Team Status: Inactive Member Role Status Dates Dr. Jennifer Vu MD Primary Care Provider Active Start: February 21, 2025 End: February 21, 2025 Dr. Jennifer Vu MD Referring Provider Active Start: February 21, 2025 End: February 21, 2025 Karime Roach AGRICULTURAL [employer] F[employer] MANAGER, AGRICULTURAL [employer] FARM MANAGER-C Attending Provider Active Start: February 21, 2025 End: February 21, 2025 Team Status: Inactive Member Role Status Dates Dr. Jennifer Vu MD Primary Care Provider Active Start: February 21, 2025 End: February 21, 2025 Karime Roach AGRICULTURAL [employer] FARM MANAGER, AGRICULTURAL [employer] FARM MANAGER-C Attending Provider Active Start: February 21, 2025 End: February 21, 2025 Karime Roach AGRICULTURAL [employer] FARM MANAGER, AGRICULTURAL [employer] FARM MANAGER-C Referring Provider Active Start: February 21, 2025 End: February 21, 2025 Team Status: Active Member Role Status Dates Dr. Jennifer Vu MD Primary Care Provider Active Start: February 23, 2025 Karime Roach AGRICULTURAL [employer] FARM MANAGER, AGRICULTURAL [employer] FARM MANAGER-C Attending Provider Active Start: February 23, 2025 Team Status: Inactive Member Role Status Dates Dr. Jennifer Vu MD Primary Care Provider Active Start: March 13, 2025 End: March 13, 2025 Dr. Jennifer Vu MD Referring Provider Active Start: March 13, 2025 End: March 13, 2025 MIGUEL Lyles Attending Provider Active Star t: March 13, 2025 End: March 13, 2025 Team Status: Active Member Role/Relationship Status Dates Dr. Jennifer Vu MD Primary Care Provider Active Team Status: Inactive Member Role/Relationship Status Dates Dr. Jennifer Vu MD Primary Care Provider Active Start: January 08, 2025 End: January 08, 2025 Dr. Jennifer Vu MD Attending Provider Active Start: January 08, 2025 End: January 08, 2025 Dr. Jennifer Vu MD Referring Provider Active Start: January 08, 2025 End: January 08, 2025 Team Status: Inactive Member Role/Relationship Status Dates Dr. Jennifer Vu MD Primary Care Provider Active Start: February 21, 2025 End: February 21, 2025 Dr. Jennifer Vu MD Referring Provider Active Start: February 21, 2025 End: February 21, 2025 Karime Roach [employer] MANAGER, A[employer] FARM MANAGER-C Attending Provider Active Start: February 21, 2025 End: February 21, 2025 Team Status: Inactive Member Role/Relationship Status Dates Dr. Jennifer Vu MD Primary Care Provider Active Start: February 21, 2025 End: February 21, 2025 Karime Roach [employer]IC[employer]URAL [employer] FARM MANAGER, AGRICULTURAL [employer]OP FARM MANAGER-C Attending Provider Active Start: February 21, 2025 End: February 21, 2025 Karime Roach AGRICULTURAL [employer] FARM MANAGER, AGRICULTURAL [employer] FARM MANAGER-C Referring Provider Active Start: February 21, 2025 End: February 21, 2025 Team Status: Active Member Role/Relationship Status Dates Dr. Jennifer Vu MD Primary Care Provider Active Start: February 23, 2025 Karime Roach A[employer]ICULTURAL [employer] FARM MANAGER, AGRICULTURAL [employer] FARM MANAGER-C Attending Provider Active Start: February 23, 2025 Team Status: Inactive Member Role/Relationship Status Dates Dr. Jennifer Vu MD Primary Care Provider Active Start: March 13, 2025 End: March 13, 2025 Dr. Jennifer Vu MD Referring Provider Active Start: March 13, 2025 End: March 13, 2025 MIGUEL Lyles Attending Provider Active Star t: March 13, 2025 End: March 13, 2025 Team Status: Inactive Member Role/Relationship Status Dates Dr. Jennifer Vu MD Primary Care Provider Active Start: April 18, 2025 End: April 18, 2025 Dr. Jennifer Vu MD Attending Provider Active Start: April 18, 2025 End: April 18, 2025 Dr. Jennifer Vu MD Referring Provider Active Start: April 18, 2025 End: April 18, 2025 INFORMATION SOURCE (unrecogn ized section and content) DATE CREATED AUTHOR 03/15/2025 [facility] FOR RECORDS PERTAINING TO PATIENTS WHO ARE OR HAVE BEEN ENROLLED IN A CHEMICAL DEPENDENCY/SUBSTANCEABUSE PROGRAM, SOME INFORMATION MAY BE OMITTED. This clinical summary was aggregated from multiple sources. Caution should be exercised in using it in the provision of clinical care. This summary normalizes information from multiple sources, and as a consequence, information in this document may materially change the coding, format and clinical context of patient data. In addition, data may be omitted in some cases. CLINICAL DECISIONS SHOULD BE BASED ON THE PRIMARY CLINICAL RECORDS. [facility] [employer] [facility] provides no warranty or guarantee of the accuracy or completeness of information in this document.
== END | disposition home or self-care (01) ==
LOC: MTLAB 14:25
PROVIDERS: PCP Internal Medicine; Referring Provider Internal Medicine; Visit Provider Internal Medicine
DX: I10 Essential (primary) hypertension (principal); K91.2 Postsurgical malabsorption, not elsewhere classified; E03.9 Hypothyroidism, unspecified
CPT/HCPCS: 80053; 82306; 82607; 84443; 85025

== ENCOUNTER → 2025-05-08 | Outpatient (CLI) | payer MEDICARE, OTHER, SELFPAY | END | disposition home or self-care (01) | LOC: SL 13:42 | PROVIDERS: PCP Internal Medicine; Referring Provider Internal Medicine; Visit Provider Internal Medicine | DX: G47.33 Obstructive sleep apnea (adult) (pediatric) (principal) | CPT/HCPCS: 98960; G0463 ==